=== PATIENT | female | born 1950 | race Caucasian/White ===

== ENCOUNTER → 2017-08-25 11:15 | Outpatient (CLI) | payer MEDICARE, BC, OTHER, SELFPAY ==
--- NOTE | 2017-08-25 11:22 | US_ITS ---
STUDY: THYROID ULTRASOUND REASON FOR EXAM: Female, 67 years old. Tenderness along the left side of the neck. TECHNIQUE: Ultrasound evaluation of the thyroid was performed with real-time and static dunaway-scale imaging. COMPARISON: None. FINDINGS: RIGHT LOBE: The right lobe of the thyroid gland measures 2.9 cm x 1 cm x 0.8 cm. There is a homogeneous echotexture. There are no demonstrated solid, cystic or complex lesions. LEFT LOBE: The left lobe of the thyroid gland measures 2.3 cm x 1.3 cm x 0.7 cm. There is a homogeneous echotexture. There are no demonstrated solid, cystic or complex lesions. ISTHMUS: The isthmus measures 3.0 mm. There is a 7 mm x 6 mm x 3 mm lymph node lateral to the left lobe of the thyroid. US/Thyroid IMPRESSION: Normal ultrasound examination of the thyroid. Electronically Signed: Isiah Peterson MD at 12:32 EDT Tel [phone], Service support ,
== END ==
PROVIDERS: Family Provider Internal Medicine; PCP Internal Medicine; Visit Provider Internal Medicine
DX: M54.2 Cervicalgia (principal)
CPT/HCPCS: 76536

== ENCOUNTER → 2017-10-25 08:27 | Outpatient (CLI) | payer MEDICARE, OTHER, BC, SELFPAY ==
--- NOTE | 2017-10-25 08:32 | BD_ITS ---
STUDY: DUAL ENERGY X-RAY ABSORPTIOMETRY / DXA REASON FOR EXAM: Female, 67 years old. Postmenopausal screening TECHNIQUE: Bone Mineral Density (BMD) measurements of lumbar spine and bilateral hips were obtained. COMPARISON: 2015 FINDINGS: Lumbar Spine (L1-L4): g/cm2 (0.927) / T-score (-2.0) / Z-score (-0.3) Findings are suggestive of osteopenia with a moderate fracture risk. Left Femur Total: g/cm2 (0.812) / T-score (-1.6) / Z-score (-0.1) Left Femoral Neck: g/cm2 (0.888) / T-score (-1.1) / Z-score (0.6) Right Femur Total: g/cm2 (0.760) / T-score (-2.0) / Z-score (-0.5) Right Femoral Neck: g/cm2 (0.816) / T-score (-1.6) / Z-score (0.1) The T-Scores on the most recent prior examination were: Lumbar Spine (L1-L4): There has been worsening of bone density since the previous examination. BD/Dexa Bone Density Study IMPRESSION: The patient is considered osteopenic as outlined below according to World [place] Organization (WHO) criteria with a moderate fracture risk. There has been worsening of bone density since the previous examination. Reference Information: The T-score is the number of standard deviations above or below the standard which is normal for young adults at their peak bone mineral density. The World Health Organization (WHO) interprets the T-scores as follows: Above -1 Normal bone density Between -1 and -2.5 Osteopenia Equal to / or below -2.5 Osteoporosis As a practical clinical guideline, osteopenia may be graded as follows: Mild -1 through -1.5 Moderate -1.6 through -2.0 Severe -2.1 through -2.4 The Z-score is the number of standard deviations above or below age-matched controls. A Z-score of less than -1.5 would be considered abnormal. References: 1. NIH Osteoporosis and Related Bone Diseases http://www.osteo.org 2. International Society for Clinical Densitometry http://www.iscd.org 3. National Osteoporosis Foundation http://www.nof.org Electronically Signed: Micky Sheridan MD at 9:46 EDT , Service support ,
== END ==
PROVIDERS: Family Provider Internal Medicine; PCP Internal Medicine; Visit Provider Internal Medicine
DX: Z78.0 Asymptomatic menopausal state (principal)
CPT/HCPCS: 77080

== ENCOUNTER → 2018-03-09 08:52 | Outpatient (CLI) | payer MEDICARE, BC, OTHER, SELFPAY ==
--- NOTE | 2018-03-09 08:58 | US_ITS ---
STUDY: ULTRASOUND BREAST - RIGHT REASON FOR EXAM: Female, 67 years old. Palpable lump in the right breast. TECHNIQUE: Axial and longitudinal images of the RIGHT breast were performed with a high resolution ultrasound transducer. COMPARISON: Comparison is made with prior mammogram done earlier today. FINDINGS: RIGHT Breast: Breast implant is seen. The palpable abnormality corresponds to a 1.5 cm x 0.7 cm x 0.5 cm hypoechoic nodule just superior to the breast implant. This is at the 11:00 position breast at 8 cm from nipple. A small amount of free fluid is seen adjacent to the implant. There is also evidence of a snowstorm appearance of the implant. Localized rupture should BE ruled out. US/Breast Limited Unilateral IMPRESSION: Findings suggestive of possible focal breast implant rupture at the site of the palpable abnormality. Correlation with MRI is recommended. ASSESSMENT CATEGORY: BIRADS Category 2: Benign. A letter regarding these results will be sent to the patient by the facility within 30 days. Electronically Signed: Isiah Peterson MD at 10:58 EST Tel [phone], Service support ,
--- NOTE | 2018-03-09 08:58 | BI_ITS ---
MAMMOGRAPHY - BILATERAL DIAGNOSTIC REASON FOR EXAM: Female, 67 years old. Right breast lump. Prior implants. PERTINENT HISTORY: Non-contributory. TECHNIQUE: Digital bilateral breast lucia (3D mammographic acquisition) in the CC and MLO projections. 2-D mediolateral oblique (MLO) and craniocaudad (CC) views of both breasts were obtained. CAD: Full Field Digital Mammography with Computer Added Detection was performed. COMPARISON: Comparison is made with prior study dated February 01, 2017 and January 08, 2016 FINDINGS: Breast Composition: The breasts are heterogeneously dense, which may obscure small masses. There are no dominant masses or suspicious calcifications. Stable bilateral breast implants. Small calcifications are seen along the anterior aspect of the left breast implant. No other significant abnormalities are identified. There has been no significant change since the prior study. BI/DIAG MAMM W/CAD, BILAT IMPRESSION: Stable bilateral diagnostic mammogram. With the patient's history of a palpable abnormality in the right breast, correlation with ultrasound is recommended. ASSESSMENT CATEGORY: BIRADS Category 0: Incomplete. Need additional imaging evaluation. A letter regarding these results will be sent to the patient by the facility within 30 days. Approximately 10% of breast cancers are not detected by mammography. A normal mammogram should not delay biopsy of a clinically suspicious abnormality. Electronically Signed: Isiah Peterson MD at 10:23 EST Tel [phone], Service support ,
== END ==
PROVIDERS: Family Provider Internal Medicine; PCP Internal Medicine; Referring Provider Internal Medicine; Visit Provider Internal Medicine
DX: N63.11 Unspecified lump in the right breast, upper outer quadrant (principal)
CPT/HCPCS: 76642; 77062; 77066; G0279

== ENCOUNTER → 2018-03-19 12:18 | Outpatient (CLI) | payer MEDICARE, BC, OTHER, SELFPAY ==
--- NOTE | 2018-03-19 12:46 | MRI_ITS ---
STUDY: BILATERAL BREAST MR WITHOUT AND WITH CONTRAST REASON FOR EXAM: Female, 67 years old. Lump in superior aspect of the right breast for 2 months. Evaluate for implant rupture. TECHNIQUE: Multi-sequence multi-echo imaging of both breasts was performed with a dedicated breast coil. T1-weighted and T2-weighted images were obtained without contrast. COMPARISON: Ultrasound of the right breast dated March 09, 2018. Bilateral diagnostic mammogram dated March 09, 2018. FINDINGS: There is a subglandular implants bilaterally. There are prominent folds in both implants. In the area of the ultrasonographic abnormality and the mammographic abnormality, there is a small focal area of extracapsular implant material near the 12:00 position best seen on sagittal series 7 images 7-11). This area represents a small focal area of extracapsular rupture. There are no enlarged or abnormal lymph nodes. There is no abnormality in the visualized regions of the chest or liver. MRI/Breast w/o and/or W Cont Bilat IMPRESSION: Bilateral subglandular implants with prominent folds. Small extracapsular rupture of the right implant correlating with the palpable abnormality, the mammographic abnormality and the ultrasonographic abnormality. CATEGORY: BIRADS Category 2: Benign. A letter regarding these results will be sent to the patient by the facility within 30 days. Electronically Signed: Nhan Berrios MD at 14:24 EST , Service support ,
--- OUTSIDE RECORDS SUMMARY | 2018-06-21 02:35 | XMS RPT_ITS | Continuity of Care Document ---
:1950 Author Organization [facility] Address [address] [facility] [address] [place] [address] Phone Care Team Providers Name Role Phone Talia Charles MD Unavailable Chuck Enrique Unavailable Dr. Geremias Webster Unavailable CLARENCE Grimm Unavailable Unavailable Unavailable Unavailable Problems Name Dates Details Abnormal EKG (R94.31, 794.31) Comments: t wave precordial flip off and on echo and stress 2008 good. no signs and symptoms at all ? related to lupus. Status: Active Abnormal lung function test (R94.2, 794.2) Comments: moderate will recheck no signs and symptoms recheck spriometry mild obstruction. exposed to second hand smoke. willincrease increase aerobic exercise. get some mucous think drainage. not cough up no wheeze nto sob. she wants to do the cardio first and see if the spirometry improv es i recommend CT and PFTS. she wants to wait and see. sdreen alph antitrysin Status: Active Annual Medicare Physical WITH abnormal findings (Renamed from Encounter for general adult medical examination with abnormal findings) (Z00.01, V70.0) Comments: [facility] -, AMP -17 reviewed with patient all questions. will get shingles at executive physcial scope 5-17 good. 7-15 new breast implants. mammo 11-17, BD 7-16. good hep screening Status: Active BMI 22.0-22.9, adult (Z68.22, V85.1) Status: Active Deliveries (Parity) Comments: 1 Status: Active Encounter for hepatitis C virus screening test for high risk patient (Z11.59, V73.89) Status: Active Family history of ischemic heart disease (Z82.49, V17.3) Comments: in father and his side. she is more like mother. Status: Active Genital herpes (A60.00, 054.10) Status: Active History of tobacco abuse (Z87.891, V15.82) Comments: not have 30 pack years. light. quit 9816-0022? Status: Active Hypercholesteremia (E78.00, 272.0) Comments: LDL 125 want less 100 LDL p up slight HDL P lower. exercise decrease animal fat. MPO neg ADMA slightly. add asa a day family hsitory of heart disease. add fish oil and good. senile ecchymosis so will do asa every other day talk abuot CIMT to see if CAD.BV screening neg 2016 Status: Active Hypothyroidism (E03.9, 244.9) Comments: now normal with increase dose Status: Active Lump in throat (R22.1, 784.2) Status: Active Lupus (systemic lupus erythematosus) (M32.9, 710.0) Comments: off all meds over a year an no Plaquenil with low WBC. no signs and symptoms now. saw Eloina 5-13 after biopsy back break out. nonspecific. on high dose vit B. ? now contact dermatitis more rash low wbc and dry eyes and mouth. see Dr. Norton and Renae . plaquenil helping.seen Dr. jane herrmann in past original. seen Dr. rivera once SCLE, see Dr Jhonny Macdonald crystal arthritisdry eyes, low wbc, raynaunds, skin Status: Active Neck pain (M54.2, 723.1) Comments: ? painful thyrioditis ? strain area of neck ? scrap in throat ? reflux ? stress ? PND not know. will do ibu check us over area where pain and swelling Status: Active Osteopenia (M85.80, 733.90) Comments: 6-11, 7-14, 7-16, 8-18 worsen in bone density wtih off calcium routine with starting plaquenil. so getting back on calcium routine. will do weight bearing exercise not want meds at this poitn even th ough indicated and aware could get frcture. will recheck in 2 years. mother not have it tsh and vit D good Z score good. Status: Active Postmenopausal (Renamed from Postmenopausal status) (Z78.0, V49.81) Status: Active Pregnancies () Comments: 1 Status: Active Swelling of thyroid gland (E07.9, 246.9) Status: Active Vaginal dryness (N89.8, 625.8) Comments: [facility] Estrogen cream and working well. told about gia donahue. Status: Active Well woman exam (Z01.419, V72.31) Status: Active Medications Name Dates Details CALCIUM + D, 468-199KX-TIVL (Oral Tablet) 1 QD for 0 days Refills: 0 Ordered:07-Aug-2017 Eric Luongtive Fish Oil qd Active Levothyroxine Sodium 75 MCG Oral Tablet 1 Tablet QD except 2 on Monday for 0 days Quantity: 102 {Tablet} Refills: 3 Ordered:11-Aug-2017 Araceli SUÁREZ, Talia Gusman MD Start : 11-Aug-2017 Active MULTIVITAMIN (PO Chew Tab) 1 QD Active Plaquenil 200 MG Oral Tablet 1 Tablet QD for 0 days Quantity: 30 {Tablet} Refills: 0 Ordered:17-Jan-2017 Araceli SUÁREZ, Talia Gusman MD Start : 17-Jan-2017 Active PredniSONE 10 MG Oral Tablet uad Tablet uad for 0 days Quantity: 24 {Tablet} Refills: 0 Ordered:13-Dec-2017 Destini Mcgrath DO Start : 13-Dec-2017 Active Comments:3 pills x 4 days, 2 pills x 4days, 1 pill x 4days VALTREX, 500MG (Oral Tablet) 1 Tablet qd/prn for 0 days Quantity: 90 {Tablet} Refills: 3 Ordered:28-Jul-2015 Araceli SUÁREZ, Talia Gusman MD Start : 28-Jul-2015 Active Aspirin 81 MG Oral Capsule qd (81 MG) End : 07-Aug-2017 Inactive AVELOX, 400MG (Oral Tablet) 1 Tablet qd for 0 days Quantity: 10 {Tablet} Refills: 0 Ordered:04-Jun-2008 CLARENCE Grimm End : 22-Jul-2008 Inactive DesOwen 0.05 % External Cream uad Cream bid to affected areas for 0 days Quantity: 15 {Gram} Refills: 2 Ordered:29-Apr-2016 CLARENCE Grimm Start : 04-Dec-2015 End : 29-Apr-2016 Inactive FLAGYL, 500MG (Oral Tablet) 1 Tablet bid for 0 days Quantity: 14 {Tablet} Refills: 0 Ordered:24-Sep-2012 CLARENCE Grimm Start : 09-Apr-2012 End : 24-Sep-2012 Inactive LEVAQUIN, 500MG (Oral Tablet) 1 Tablet QD 14 days for 0 days Quantity: 14 {Tablet} Refills: 0 Ordered:03-Jun-2008 Raiza Barajas LPN Start : 03-Jun-2008 End : 04-Jun-2008 Inactive PLAQUENIL, 200MG (Oral Tablet) 1 qd/prn for 0 days Refills: 0 Ordered:18-Jul-2011 CLARENCE Grimm End : 18-Jul-2011 Inactive Premarin 0.625 MG/GM Vaginal Cream uad Cream twice weekly for 0 days Quantity: 1 {Tube} Refills: 3 Ordered:23-Aug-2016 CLARENCE Grimm Start : 28-Jul-2015 End : 23-Aug-2016 Inactive PREMARIN, 0.3MG (Oral Tablet) 1 Tablet qd for 0 days Quantity: 90 {Tablet} Refills: 3 Ordered:18-Jul-2011 CLARENCE Grimm Start : 20-Aug-2010 End : 18-Jul-2011 Inactive Vagifem 10 MCG Vaginal Tablet 1 (one) Tablet Tablet twice weekly for 0 days Quantity: 8 {Tablet} Refills: 6 Ordered:17-Jan-2017 CLARENCE Grimm Start : 05-Jan-2016 End : 17-Jan-2017 Inactive ELECTRICIAN MACHINE SHOP-ZEL (Oral Tablet) 1 qd for 0 days Refills: 0 Ordered:28-Jul-2015 CLARENCE Grimm Start : 24-Sep-2012 End : 28-Jul-2015 Inactive ZOSTAVAX, 21504CPS/0.65ML (Subcutaneous Solution Reconstituted) uad For Solution For Solution once SC for 0 days Quantity: 1 {Vial} Refills: 0 Ordered:28-Jul-2015 CLRAENCE Grimm Start : 01-Aug-2013 End : 28-Jul-2015 Inactive HYDROXYCHLOROQUINE SULFATE, 200MG (Oral Tablet) 1 Tablet QD for 0 days Quantity: 90 {Tablet} Refills: 3 Ordered:04-Jul-2007 CLARENCE Grimm Start : 04-Jul-2007 End : 02-Aug-2007 Discontinued SYNTHROID, 75MCG (Oral Tablet) 1 Tablet qd for 0 days Quantity: 30 {Tablet} Refills: 3 Ordered:12-Feb-2006 CLARENCE Grimm Start : 12-Feb-2006 End : 11-May-2006 Discontinued Allergies and Adverse Reactions Name Dates Details Penicillins (Allergy) Status: Active Comments: rash Sulfa Drugs (Allergy) Status: Active Past Medical History Name Dates Details Abnormal mammogram (R92.8, 793.80) Status: Inactive as of 01-Aug-2013 Abnormal ultrasound of breast (R92.8, 793.89) Comments: r/o walled rupture vs tumor Status: Inactive as of 28-Jul-2015 Bloody stool (K92.1, 578.1) Comments: saw Dr. enrique and will have scope 08-17 right now not had any knows that if alot bleeding return then have to scope sooner. colonscopyu good 08-17 Status: Resolved as of 23-Aug-2016 BMI 21.0-21.9, adult (Z68.21, V85.1) Status: Resolved as of 25-Aug-2017 BMI between 19-24,adult (V85.1) Status: Inactive as of 29-Apr-2016 Body mass index (BMI) of 22.0 to 22.9 in adult (Z68.22, V85.1) Status: Resolved as of 17-Jan-2017 Breast cancer screening (Z12.39, V76.10) Status: Resolved as of 07-Aug-2017 Breast Lump (N63.0, 611.72) Comments: ? from breast cyst ? lipoma tender new on right outer quadrant. do us Status: Inactive as of 28-Jul-2015 Bronchitis (J40, 490) Status: Inactive as of 08-Aug-2008 Bronchitis, acute (J20.9, 466.0) Comments: think viral and willl callif not juan diego rin a week adn use otc,. Status: Inactive as of 29-Apr-2016 Current nonsmoker (Z78.9, V49.89) Status: Resolved as of 25-Aug-2017 Dermatitis (L30.9, 692.9) Status: Inactive as of 28-Jul-2009 Dyspareunia (625.0) Comments: using estrogen cream and will see how works. Status: Inactive as of 28-Jul-2015 Encounter for screening mammogram for breast cancer (Renamed from Encounter for screening mammogram for malignant neoplasm of breast) (Z12.31, V76.12) Status: Inactive as of 29-Apr-2016 ERYTHEMATOSUS, LUPUS (695.4) Status: Inactive as of 01-Aug-2013 Hematuria, unspecified (R31.9, 599.70) Status: Inactive as of 06-Apr-2012 Leukopenia (D72.819, 288.50) Status: Inactive as of 28-Jul-2015 Need for prophylactic vaccination and inoculation against influenza (Renamed from Need for immunization against influenza) (Z23, V04.81) Status: Resolved as of 07-Aug-2017 Need for prophylactic vaccination and inoculation against influenza (Renamed from Need for immunization against influenza) (Z23, V04.81) Status: Inactive as of 29-Apr-2016 Other and unspecified noninfectious gastroenteritis and colitis (K52.9, 558.9) Comments: Status: Inactive as of 08-Aug-2008 Other chronic nonalcoholic liver disease (K76.89, 571.8) Status: Inactive as of 01-Aug-2013 Other specified menopausal and postmenopausal disorders (N95.8, 627.8) Status: Inactive as of 01-Aug-2013 Palpitation (R00.2, 785.1) Comments: better think stress related. Status: Inactive as of 28-Jul-2015 Poison dwayne (L23.7, 692.6) Status: Inactive as of 29-Apr-2016 Pre-operative examination (Z01.818, V72.84) Comments: no issue with surgery aware to concel if she has illness or infection signs and symptoms prior. usual DVT proph recommended. willhave breast implants changes with one leaking. Status: Inactive as of 29-Apr-2016 Rash (R21, 782.1) Comments: trunk and arms. using steriod creams. see Dr. norton now. Status: Inactive as of 29-Apr-2016 SOB (shortness of breath) on exertion (R06.02, 786.05) Comments: now think anxiety. goo dnow. Status: Resolved as of 29-Apr-2016 Unspecified Diagnosis Status: Inactive as of 28-Jul-2009 Unspecified Diagnosis Status: Inactive as of 28-Jul-2015 Unspecified Diagnosis Status: Inactive as of 24-Sep-2012 Vaginal Discharge (N89.8, 623.5) Status: Inactive as of 24-Sep-2012 Viral infection (B34.9, 079.99) Comments: no edgardo for atb at this time. Status: Inactive as of 29-Apr-2016 VRCS VEIN, LWR EXTREMITIES W/COMPLICTN NOS (454.8) Status: Inactive as of 01-Aug-2013 WWV Comments: awhile for pap Status: Inactive as of 28-Jul-2009 Procedures Procedure Dates Details Breast implants Completed Comments: in her 30's cholecytectomy in early 1999 Completed Colonoscopy Completed Comments: 08-01-16 Dr. Enrique (recheck 10 yrs) Hysterectomy; Abdominal Completed Comments: No BSO for fibroids at 38 yo Date Value Details 25-Oct-2017 Dexa Bone Density Study Result: Comments: See Note; NOTES: [facility] Imaging Services [address] [place] [id number] Dexa Bone Density Study MR#: [id number] Acct: [id number] Name: SHANITA MONTIEL Rep #: [id number] : 1950 F 67 From: Kar Sheridan MD PCP: Talia Charles MD Status: REG CLI Study: Dexa Bone Density Study Date of Exam: 10/25/17 Exam# [id number] Ordering Dr: Talia Charles MD STUDY: DUAL ENER GY X-RAY ABSORPTIOMETRY / DXA REASON FOR EXAM: Female, 67 years old. Postmenopausal screening TECHNIQUE: Bone Mineral Density (BMD) measurements of lumbar spine and bilateral hips were obtained. COMP [facility]: 2016 FINDINGS: Lumbar Spine (L1- L4): g/cm2 (0.927) / T-score (-2.0) / Z-score (-0.3) Findings are suggestive of osteopenia with a moderate fracture risk. L eft Femur Total: g/cm2 (0.812) / T-score (-1.6) / Z-score (-0.1) Left Femoral Neck: g/cm2 (0.888) / T-score (-1.1) / Z-score (0.6) Right Femur Total: g/cm2 (0.760) / T-score (-2.0) / Z-score (-0.5) Righ t Femoral Neck: g/cm2 (0.816) / T-score (-1.6) / Z-score (0.1) The T-Scores on the most recent prior examination were: Lumbar Spine (L1-L4): There has been worsening of bone density since the previous examination. BD/Dexa Bone Density Study IMPRESSION: The patient is considered osteopenic as outlined below according to World Maycol Organizatio n (WHO) criteria with a moderate fracture risk. There has been worsening of bone density since the previous examination. Reference Information: The T-score is the n umber of standard deviations above or below the standard which is normal for young adults at their peak bone mineral density. The World Health Organization (WHO) interprets the T-scores as follows: Abo ve -1 Normal bone density Between -1 and -2.5 Osteopenia Equal to / or below - 2.5 Osteoporosis As a practical clinical guideline, osteopenia may be graded as follows: Mild -1 through -1.5 Moderate -1.6 through -2.0 Severe -2.1 through -2.4 The Z-score is the number of standard deviations above or below age-matched controls. A Z-score of less than -1.5 would be considered abnormal. References: 1. NI H Osteoporosis and Related Bone Diseases http://www.osteo.org 2. International Society for Clinical Densitometry http://www.iscd.org 3. National Osteoporosis Foundation http://www.nof.org Electronicall y Signed: Micky Sheridan MD at 9:46 EDT , Service support , CC: Talia Charles MD Cable Maintainer: Signed 25-Aug-2017 Thyroid Result: Comments: See Note; NOTES: [facility] Imaging Services [address] [place] [address] Thyroid MR#: [id number] Acct: [id number] Name: SHANITA MONTIEL Rep #: [id number] : [birth year] F 67 From: Isiah Sanchez MD PCP: Talia Charles MD Status: REG CLI Study: Thyroid Date of Exam: 08/25/17 Exam# [id number] Ordering Dr: Talia Charles MD STUDY: THYROID ULTRASOUND REASON FOR EXA M: Female, 67 years old. Tenderness along the left side of the neck. TECHNIQUE: Ultrasound evaluation of the thyroid was performed with real-time and static dunaway-scale imaging. COMPARISON: None. FINDINGS: RIGHT LOBE: The right lobe of the thyroid gland measures 2.9 cm x 1 cm x 0.8 cm. There is a homogeneous echotexture. There are no demonstrated solid, cystic or complex lesions. LEFT LOBE: The left lobe of the thyroid gland measures 2.3 cm x 1.3 cm x 0.7 cm. There is a homogeneous echotexture. There are no demonstrated solid, cystic or complex lesions. ISTHM US: The isthmus measures 3.0 mm. There is a 7 mm x 6 mm x 3 mm lymph node lateral to the left lobe of the thyroid. US/Thyroid IMPRESSION: Irasema l ultrasound examination of the thyroid. Electronically Signed: Isiah Sanchez MD at 12:32 EDT Tel [phone], Service support , CC: Talia Charles MD Cable Maintainer: Signed 01-Feb-2017 SCREENING MAMM (CAD), BILAT Result: Comments: See Note; NOTES: [facility] Imaging Services [address] [place] [address] SCREENING MAMM (CAD), BILAT MR#: [id number] Acct: [id number] Name: SHANITA MONTIEL Rep #: [id number] : 1950 F 66 From: Isiah Sanchez MD PCP: Talia Charles MD Status: REG CLI Study: SCREENING MAMM (CAD), BILAT Date of Exam: 02/01/17 Exam# [id number] Ordering Dr: Talia Charles MD AMMOGRAPHY - BILATERAL SCREENING REASON FOR EXAM: Female, 66 years old. Routine annual screening examination. PERTINENT HISTORY: Non-contributory. History of bilateral breast implants. TECHNIQUE: Dig ital bilateral breast lucia (3D mammographic acquisition) in the CC and MLO projections. 2-D mediolateral oblique (MLO) and craniocaudad (CC) views of both breasts were obtained. CAD: Full Field Digital Mammography with Computer Added Detection was performed. COMPARISON: Comparison is made with prior study dated January 08, 2016 and July 23, 2014. FINDINGS: Breast Composition: The breasts are heterogeneously dense, which may obscure small masses. There are no dominant masses or suspicious calcifications. Stable appearance of the bilateral breast implants. No ot her significant abnormalities are identified. There has been no significant change since the prior study. HPBI/SCREENING MAMM (CAD), BILAT IMPRES GLORIA: Stable bilateral screening mammogram. Yearly follow-up mammogram recommended. (A) ASSESSMENT CATEGORY: BIRADS Category 2: Benign. A letter regarding these res ults will be sent to the patient by the facility within 30 days. Approximately 10% of breast cancers are not detected by mammography. A normal mammogram should not delay biopsy of a clinically suspicio us abnormality. [id number] Electronically Signed: Isiah Sanchez MD at 9:34 EDT Tel [phone], Service support , CC: Talia Charles MD Cable Maintainer: Signed 05-Feb-2016 Nuclear Stress Test - Treadmil Result: Comments: See Note; NOTES: [facility] Imaging Services [address] [place] [address] Fani 4d Nuclear Stress Test - Treadmil MR#: [id number] Acct: [id number] Name: Sean MONTIEL Rep #: [id number] : 1950 65 From: Juan Antonio Rubi MD Primary Care: Talia Charles MD Status: REG CLI Ordering Dr: Talia Charles MD Sex: F C DATE OF SERVICE: 02/05/2016 DATE OF STUDY: N ov2015. EXERCISE TOLERANCE TEST: The patient exercised on a Francisco protocol for 9 minutes 45 seconds completing stage 3 and 45 seconds of stage 4, achieving a peak heart rate of 169 beats per minute (110% predicted maximum heart rate) with a peak blood pressure of 190/82 mmHg and a peak MET capacity of approximately 11 METS. The baseline ECG demonstrated normal sinus rhythm with nonspecific ST-segment abnormality. The peak exercise ECG demonstrated significant somatic/motion artifact with no obvious ECG changes with the recovery ECG demonstrating approximately 0.[address]-seg ment depression in leads II, III, aVF and associated T-wave abnormality with gradual resolution towards baseline in recovery. There was a rare PVC during recovery. The functional capacity was good. T he patient had no complaint of chest discomfort during exercise or recovery. The examination was discontinued secondary to dyspnea. IMPRESSION: 1. Technically adequate (percent predicted maximum heart rate greater than 85%), exercise tolerance test. 2. Peak exercise ECG with somatic/motion artifact with no obvious ECG changes with the recovery ECG demonstrated approximately 0.[address]- segment depression in leads II, III, aVF with associated T-wave abnormality with gradual resolution towards baseline in recovery. 3. Rare PVC during recovery. 4. Nuclear images pending. COMMENT: Heart rate response compatible with a deconditioned heart rate response. MYOCARDIAL PERFUSION IMAGING STUDY: TECHNIQUE: The patient was injected with 11.0 mCi of Tc99m Cardiolite and subsequently rest SPECT Cardiolite nuclear imaging was obtained in the horizontal long, vertical long and short axes views. The patient underwent exercise on a Francisco protocol for 9 minutes 45 seconds completing stage 3 and 45 seconds of stage 4, achieving a peak heart rate of 169 beats per minute (110% predicted maximum heart rate) and a peak blood pressure of 190/82 mmHg and a peak MET capacity of approximately 11 METS. Th e patient was injected with 33.0 mCi of Tc99m Cardiolite and subsequently stress SPECT Cardiolite nuclear imaging was obtained in the horizontal long, vertical long and short axes views. A gated Cardiol ite study at peak stress was obtained. INTERPRETATION: Rest and stress SPECT Cardiolite nuclear imaging, status post realignment, normalization, pre- attenuation correction, and post-attenuation correct ion demonstrates the appearance of relative uniform tracer uptake and myocardial perfusion appearing within normal limits. There was end systolic thickening and brightening. The gated Cardiolite study d emonstrates myocardial thickening and inward wall motion. The reported LVEF is 72%. IMPRESSION: 1. Rest and stress SPECT Cardiolite nuclear imaging demonstrates the appearance of relative uniform trace r uptake and myocardial perfusion appearing within normal limits. 2. The gated Cardiolite study reports an LVEF of 72%. Juan Antonio Rubi MD T: NTS JOB: [id number] 02/05/16 1525 <Electronically signed by Juan Antonio Rubi MD> Date Juan Antonio Rubi MD CC: Talia Charles MD Date Dictated: 02/05/16 1008 Date Transcribed: 02/05/16 1008 Cable Maintainer: Signed 08-Jan-2016 Bilat Scrn Implant DIG AND CAD Result: Comments: See Note; NOTES: [facility] Imaging Services [address] [place] [address] Verdana 4d Bilat Scrn Implant DIG AND CAD MR#: [id number] Acct: [id number] Name: JODY MONTIEL Rep #: [id number] : 1950 F 65 From: Isiah Sanchez MD PCP: Talia Charles MD Status: REG CLI Study: Bilat Scrn Implant DIG AND CAD Date of Exam: 01/08/16 Exam# [id number] Ordering Dr: Talia Stapleton MD MAMMOGRAPHY - BILATERAL SCREENING REASON FOR EXAM: Female, 65 years old. Routine annual screening examination. PERTINENT HISTORY: Non- contributory. Bilateral breast implants. TECHNI QUE: Digital bilateral breast lucia (3D mammographic acquisition) in the CC and MLO projections. 2-D mediolateral oblique (MLO) and craniocaudad (CC) views of both breasts were obtained. CAD: Full Field Digital Mammography with Computer Added Detection was performed. COMPARISON: Comparison is made with prior study dated July 30, 2014 and July 23, 2014. FINDINGS: Breast Composition: The breasts are heterogeneously dense, which may obscure small masses. There are no dominant masses or suspicious calcifications. Since prior study, there has been insertion of new bilateral breast implants. No other significant abnormalities are identified. HPBI/Bilat Scrn Implant DIG AND CAD IMPRESSION: Stable bilateral screening mammogram. Yearly follow-up mammogram recommended. (A) ASSESSMENT CATEGORY: BIRADS Category 2: Benign. A letter regarding these results will be sent to e patient by the facility within 30 days. Approximately 10% of breast cancers are not detected by mammography. A normal mammogram should not delay biopsy of a clinically suspicious abnormality. [id number] Electronically Signed: Isiah Sanchez MD at 10:03 EDT Tel [phone], Service support [phone], CC: Talia Charles MD Cable Maintainer: Signed 21-Oct-2015 Dexa Bone Density Study (HP) Result: Comments: See Note; NOTES: [facility] Imaging Services [address] [place] [address] Verdana 4d Dexa Bone Density Study () MR#: [id number] Acct: [id number] Name : SHANITA MONTIEL Rep #: [id number] : 1950 F 65 From: Isiah Sanchez MD PCP: Talia Charles MD Status: REG CLI Study: Dexa Bone Density Study () Date of Exam: 10/21/15 Exam# [id number] Mabel du Dr: Talia Charles MD STUDY: DUAL ENERGY X-RAY ABSORPTIOMETRY / DXA REASON FOR EXAM: Female, 65 years old. Early menopause. Loss of height. TECHNIQUE: Bone Mineral Density (BMD) measurement s of lumbar spine and bilateral hips were obtained. COMPARISON: Comparison is made with prior study dated September 21, 2010. FINDINGS: Lumbar Spine (L1-L4): g/cm2 (1.002) / T-score (-1.4) / Z-score (0.2) Findings are suggestive of osteopenia with a moderate fracture risk. Left Femur Total: g/cm2 (0.835) / T-score (- 1.4) / Z-score (-0.1) Left Femoral Neck: g/ cm2 (0.896) / T-score (-1.0) / Z-score (0.5) Right Femur Total: g/cm2 (0.783) / T-score (-1.8) / Z-score (-0.5) Right Femoral Neck: g/cm2 (0.845) / T-score (-1.4) / Z-score (0.2) The T-Scores on the most recent prior examination were: Lumbar Spine (L1-L4): There has been worsening of bone density since the previous examination. Left Femur Total: which represents a worsening of 7.7%. Right Fe mur Total: which represents a worsening of 17.2%. IMPRESSION: The patient is considered osteopenic as outlined below according to World Maycol Organization (WHO) criteria with a moderate fracture risk. There has been worsening of bone density since the previous examination. Reference Information: The T-score is the numbe r of standard deviations above or below the standard which is normal for young adults at their peak bone mineral density. The World Health Organization (WHO) interprets the T-scores as follows: Abo ve -1 Normal bone density Between -1 and -2.5 Osteopenia Equal to / or below -2.5 Osteoporosis As a practical clinical guideline, osteopenia may be graded as follows: Mild -1 through -1.5 Moderate -1.6 through -2.0 Severe -2.1 through -2.4 The Z-score is the number of standard deviations above or below age-matched controls. A Z-score of less than -1.5 would be considered abnormal. Referenc es: 1. NIH Osteoporosis and Related Bone Diseases http://www.osteo.org 2. International Society for Clinical Densitometry http://www.iscd.org 3. National Osteoporosis Foundation http://www.nof.org Electronically Signed: Isiah Sanchez MD at 12:45 EDT Tel [phone], Service support [phone], CC: Talia Charles MD Cable Maintainer: Signed 30-Jul-2014 Breast w/o and/or W Cont Bilat Result: Comments: See Note; NOTES: [facility] Imaging Services [address] [place] [address] MRI Report MR#: [id number] Acct: [id number] Name: SHANITA MONTIEL Rep #: [id number] DO B: 1950 F 64 From: Nhan Berrios MD PCP: Talia Charles MD Status: REG CLI Study: Breast w/o and/or W Cont Bilat Date of Exam: 07/30/14 Exam# [id number] Ordering Dr: Talia Charles MD STUDY: LALA ATERAL BREAST MR WITHOUT AND WITH CONTRAST REASON FOR EXAM: Female, 64 years old. Palpable lump in the right outer breast. History of implant placement in 1980. TECHNIQUE: Multi-sequence multi-echo imaging of both breasts was performed with a dedicated breast coil. T1-weighted and T2-weighted images were performed before the administration of contrast. T1-weighted images were also performed af ter the administration of 6 mL of Gadavist contrast intravenously without complications. COMPARISON: Bilateral diagnostic mammography and ultrasound dated July 23, 2014. FINDINGS: RIGHT BREAST: The breast tissue is fatty with no background enhancement. There is a subglandular silicone breast implant without complications. In the lower outer aspect of the right breast correlating with the ultrasound finding there is a circumscribed lobular enhancing mass measuring approximately 2 cm x 1.2 cm. This mass is adjacent to and separate from the implant. Given the patient's age and the appearance of this mass, ultrasound-guided biopsy or excision of this lesion is recommended for histologic confirmation. There are multiple non-pathologically enlarg ed lymph nodes in the right axilla. LEFT BREAST: The breast tissue is fatty with no background enhancement. There is a subglandular silicone implant without complications. There are no abnormal enhancing masses or areas of non-mass enhancement in the left breast. There are no enlarged or abnormal lymph nodes. There is no abnormality in the visualized regions of the chest or liver. IMPRESSION: Lobular enhancing mass in the region of the ultrasound abnormality. Ultrasound-guided biopsy or excision of the lesion is recommended for histologic confirm ation, as outlined above. CATEGORY: BIRADS Category 4: Suspicious - Biopsy Should Be Considered. A letter regarding these results will be sent to the patient by the facility within 30 days. Electronically Signed: Nhan Berrios MD at 15:53 EDT , Service support [phone], CC: Talia Charles MD Cable Maintainer: Signed 23-Jul-2014 Breast Limited Unilateral Result: Comments: See Note; NOTES: [facility] Imaging Services [address] [place] [address] Ultrasound Report MR#: [id number] Acct: [id number] Name: SHANITA MONTIEL Rep #: [id number] : 1950 F 63 From: Isiah Sanchez MD PCP: Talia Charles MD Status: REG CLI Study: Breast Limited Unilateral Date of Exam: 07/23/14 Exam# [id number] Ordering Dr: Talia Charles MD S TUDY: ULTRASOUND BREAST - RIGHT REASON FOR EXAM: Female, 63 years old. Palpable lump in the right breast. TECHNIQUE: Axial and longitudinal images of the RIGHT breast were performed with a high re solution ultrasound transducer. COMPARISON: Comparison is made with the mammogram done earlier in the day. FINDINGS: RIGHT Breast: Targeted ultrasound in the lower lateral portion of the breast was performed. At the 8:30 position of the breast at 7 cm from the nipple, there is a 2.1 cm x 1.2 cm area of snowstorm artifact adjacent to the implant. An impla nt leak should be ruled out. IMPRESSION: The palpable abnormality at the 8:30 position of the breast 7 cm from the nipple may represent an implant leak. Correlat ion with an MRI scan is recommended. ASSESSMENT CATEGORY: BIRADS Category 0: Incomplete. Need additional imaging evaluation. A letter regarding these results wi ll be sent to the patient by the facility within 30 days. Electronically Signed: Isiah Sanchez MD at 16:02 EDT Tel [phone], Service support [phone], CC: Talia Charles MD Cable Maintainer: Signed 23-Jul-2014 Bilat Diag Implant DIG AND CAD Result: Comments: See Note; NOTES: [facility] Imaging Services [address] [place] [address] Breast Imaging Report MR#: [id number] Acct: [id number] Name: SHANITA MONTIEL Rep #: [id number] : 1950 F 63 From: Isiah Sanchez MD PCP: Talia Charles MD Status: REG CLI Study: Bilat Diag Implant DIG AND CAD Date of Exam: 07/23/14 Exam# [id number] Ordering Dr: Talia Charles MD MAMMOGRAPHY - BILATERAL DIAGNOSTIC REASON FOR EXAM: Female, 63 years old. Right breast lump. PERTINENT HISTORY: Non-contributory. Bilateral breast prostheses. TECHNIQUE: Digital examinatio n. Mediolateral oblique (MLO) and craniocaudad (CC) views of both breasts were obtained. CAD: CAD was performed on this study. COMPARISON: Comparison is made with prior study dated September 21, 2010 and September 09, 2008. FINDINGS: Breast Composition: There are scattered areas of fibroglandular density. There are no dominant masses or suspicious calcifications. Bi lateral breast prosthesis are seen. These are unchanged. No other significant abnormalities are identified. There has been no significant change since the prior study. IMPRESSION: Stable bilateral diagnostic mammogram. With the patient's history of a palpable abnormality in the right breast, correlation with breast ultrasound is recommended. ASSESSMENT CATEGORY: BIRADS Category 0: Incomplete. Need additional imaging evaluation. A letter regarding these results will be sent to the patient by the facility within 3 0 days. Approximately 10% of breast cancers are not detected by mammography. A normal mammogram should not delay biopsy of a clinically suspicious abnormality. Electronically Signed: Isiah burrows MD at 8:05 EDT Tel [phone], Service support [phone], CC: Talia Charles MD Cable Maintainer: Signed Immunization Name Dates Details Pneumococcal conjugate vaccine, 13 valent, IM on: 2015 Comments: [facility] Zoster (shingles) on: 2014 Comments: [facility]les Family History Unknown Family Member Name Dates Details Brother 1 Comments: [place] 58 yo, hypercholesterolemia Status: Active Brother 2 Comments: Arya Carranza started CAD/stents 65 yo, hypercholesterolemia Status: Active Father Comments: DKA, CHF in 50's, DMII, Status: Active Maternal Grandmother Comments: Alzheimers Status: Active maternal uncle- Comments: Alzheimers Status: Active Mother Comments: HTN, 90's Status: Active paternal aunt breast cancer Status: Active Sister 1 Comments: HTN, osteoporosis, stent placement CAD Status: Active Sister 2 Comments: younger sister, HTN, hyperlipidemia Status: Active Son 1 Comments: healthy Status: Active Social History Name Dates Details Alcohol Use Comments: 2-4 drinks a week Status: Active Exercise History Comments: walk alot and very active. Status: Active Living Situation Comments: Lives with spouse, , [employer] important Status: Active No Caffeine Use Status: Active No Drug Use Status: Active Non Smoker/No Tobacco Use Status: Active Tobacco use: Former smoker. Status: Active Smoking Status Name Dates Details Former smoker Vital Signs Date Test Result Details :49 Temperature 99 f Comments: Method: Oral Pulse 64 /min Comments: Pattern: Regular Respiration Rate 18 /min O2 SAT 97 % Comments: Room air BP Systolic 128 mm[Hg] Comments: Patient Position: Sitting BP Diastolic 80 mm[Hg] Comments: Patient Position: Sitting Weight 120 lb [id number]:27 Temperature 97.9 f Comments: Method: Temporal Pulse 74 /min Comments: Pattern: Regular Respiration Rate 20 /min Comments: Pattern: Unlabored O2 SAT 98 % Comments: Room air BP Systolic 122 mm[Hg] Comments: Patient Position: Sitting; Cuff Location: Left Arm; Cuff Size: Standard BP Diastolic 70 mm[Hg] Comments: Patient Position: Sitting; Cuff Location: Left Arm; Cuff Size: Standard Weight 129 lb Height 63.8 in Body Mass Index Calculated 22.28 kg/m2 Body Surface Area Calculated 1.62 m2 :02 Temperature 96.8 f Comments: Method: Temporal Pulse 63 /min Comments: Pattern: Regular Respiration Rate 16 /min Comments: Pattern: Unlabored O2 SAT 97 % Comments: Room air BP Systolic 132 mm[Hg] Comments: Patient Position: Sitting; Cuff Location: Left Arm; Cuff Size: Standard BP Diastolic 70 mm[Hg] Comments: Patient Position: Sitting; Cuff Location: Left Arm; Cuff Size: Standard Weight 129 lb Height 63.8 in Body Mass Index Calculated 22.28 kg/m2 Body Surface Area Calculated 1.62 m2 :59 Temperature 97.6 f Comments: Method: Temporal Pulse 70 /min Comments: Pattern: Regular Respiration Rate 18 /min Comments: Pattern: Unlabored O2 SAT 97 % Comments: Room air BP Systolic 120 mm[Hg] Comments: Patient Position: Sitting; Cuff Location: Left Arm; Cuff Size: Standard BP Diastolic 70 mm[Hg] Comments: Patient Position: Sitting; Cuff Location: Left Arm; Cuff Size: Standard Weight 127 lb Height 63.8 in Body Mass Index Calculated 21.94 kg/m2 Body Surface Area Calculated 1.61 m2 :44 Temperature 97 f Comments: Method: Temporal Pulse 68 /min Comments: Pattern: Regular Respiration Rate 20 /min Comments: Pattern: Unlabored O2 SAT 99 % Comments: Room air BP Systolic 114 mm[Hg] Comments: Patient Position: Sitting; Cuff Location: Left Arm; Cuff Size: Standard BP Diastolic 74 mm[Hg] Comments: Patient Position: Sitting; Cuff Location: Left Arm; Cuff Size: Standard Weight 128 lb Height 63 in Body Mass Index Calculated 22.67 kg/m2 Body Surface Area Calculated 1.6 m2 :59 Temperature 97.6 f Comments: Method: Temporal Pulse 74 /min Comments: Pattern: Regular Respiration Rate 20 /min Comments: Pattern: Unlabored O2 SAT 98 % Comments: Room air BP Systolic 120 mm[Hg] Comments: Patient Position: Sitting; Cuff Location: Left Arm; Cuff Size: Standard BP Diastolic 78 mm[Hg] Comments: Patient Position: Sitting; Cuff Location: Left Arm; Cuff Size: Standard Weight 127 lb Height 63 in Body Mass Index Calculated 22.5 kg/m2 Body Surface Area Calculated 1.59 m2 :46 Temperature 97.6 f Comments: Method: Temporal Pulse 74 /min Comments: Pattern: Regular Respiration Rate 18 /min Comments: Pattern: Unlabored O2 SAT 98 % Comments: Room air BP Systolic 120 mm[Hg] Comments: Patient Position: Sitting; Cuff Location: Left Arm; Cuff Size: Standard BP Diastolic 78 mm[Hg] Comments: Patient Position: Sitting; Cuff Location: Left Arm; Cuff Size: Standard Weight 124 lb Height 63 in Body Mass Index Calculated 21.97 kg/m2 Body Surface Area Calculated 1.58 m2 :59 Temperature 97.4 f Comments: Method: Temporal Pulse 72 /min Comments: Pattern: Regular Respiration Rate 20 /min Comments: Pattern: Unlabored O2 SAT 98 % Comments: Room air BP Systolic 114 mm[Hg] Comments: Patient Position: Sitting; Cuff Location: Left Arm; Cuff Size: Standard BP Diastolic 74 mm[Hg] Comments: Patient Position: Sitting; Cuff Location: Left Arm; Cuff Size: Standard Weight 124 lb Height 63 in Body Mass Index Calculated 21.97 kg/m2 Body Surface Area Calculated 1.58 m2 :06 Temperature 98 f Pulse 59 /min Comments: Pattern: Regular Respiration Rate 15 /min Comments: Pattern: Unlabored O2 SAT 99 % Comments: Room air BP Systolic 112 mm[Hg] Comments: Patient Position: Sitting; Cuff Location: Left Arm; Cuff Size: Standard BP Diastolic 62 mm[Hg] Comments: Patient Position: Sitting; Cuff Location: Left Arm; Cuff Size: Standard Weight 128 lb Height 63 in Body Mass Index Calculated 22.67 kg/m2 Body Surface Area Calculated 1.6 m2 :54 Temperature 97.6 f Comments: Method: Temporal Pulse 78 /min Comments: Pattern: Regular Respiration Rate 20 /min Comments: Pattern: Unlabored O2 SAT 97 % Comments: Room air BP Systolic 120 mm[Hg] Comments: Patient Position: Sitting; Cuff Location: Left Arm; Cuff Size: Standard BP Diastolic 80 mm[Hg] Comments: Patient Position: Sitting; Cuff Location: Left Arm; Cuff Size: Standard Weight 127 lb Height 63 in Body Mass Index Calculated 22.5 kg/m2 Body Surface Area Calculated 1.59 m2 :06 Comments: Patient states she was rushing this am and thought her bp would be elevated Temperature 97.3 f Comments: Method: Temporal Pulse 68 /min Comments: Pattern: Regular Respiration Rate 16 /min Comments: Pattern: Unlabored O2 SAT 96 % Comments: Room air BP Systolic 126 mm[Hg] Comments: Patient Position: Sitting; Cuff Location: Left Arm; Cuff Size: Standard BP Diastolic 76 mm[Hg] Comments: Patient Position: Sitting; Cuff Location: Left Arm; Cuff Size: Standard Weight 127 lb Height 63 in Body Mass Index Calculated 22.5 kg/m2 Body Surface Area Calculated 1.59 m2 :27 Pulse 68 /min Comments: Pattern: Regular Respiration Rate 18 /min Comments: Pattern: Unlabored O2 SAT 98 % Comments: Room air BP Systolic 122 mm[Hg] Comments: Patient Position: Sitting; Cuff Location: Left Arm; Cuff Size: Standard BP Diastolic 70 mm[Hg] Comments: Patient Position: Sitting; Cuff Location: Left Arm; Cuff Size: Standard Weight 127 lb Height 63 in Body Mass Index Calculated 22.5 kg/m2 Body Surface Area Calculated 1.59 m2 :09 Weight 123 lb Height 63 in Body Mass Index Calculated 21.79 kg/m2 Body Surface Area Calculated 1.57 m2 :07 Temperature 97.9 f Comments: Method: Oral Pulse 64 /min Comments: Pattern: Regular Respiration Rate 18 /min Comments: Pattern: Unlabored BP Systolic 112 mm[Hg] Comments: Patient Position: Sitting; Cuff Location: Left Arm; Cuff Size: Standard BP Diastolic 70 mm[Hg] Comments: Patient Position: Sitting; Cuff Location: Left Arm; Cuff Size: Standard Weight 123 lb Height 63 in Body Mass Index Calculated 21.79 kg/m2 Body Surface Area Calculated 1.57 m2 :05 Temperature 97.6 f Comments: Method: Oral Pulse 62 /min Comments: Pattern: Regular Respiration Rate 18 /min Comments: Pattern: Unlabored BP Systolic 114 mm[Hg] Comments: Patient Position: Sitting; Cuff Location: Left Arm; Cuff Size: Standard BP Diastolic 74 mm[Hg] Comments: Patient Position: Sitting; Cuff Location: Left Arm; Cuff Size: Standard Weight 123 lb Height 63 in Body Mass Index Calculated 21.79 kg/m2 Body Surface Area Calculated 1.57 m2 :28 Temperature 97.9 f Comments: Method: Oral Pulse 70 /min Comments: Pattern: Regular Respiration Rate 18 /min Comments: Pattern: Unlabored BP Systolic 116 mm[Hg] Comments: Patient Position: Sitting; Cuff Location: Left Arm; Cuff Size: Standard BP Diastolic 74 mm[Hg] Comments: Patient Position: Sitting; Cuff Location: Left Arm; Cuff Size: Standard Weight 124 lb Height 63 in Body Mass Index Calculated 21.97 kg/m2 Body Surface Area Calculated 1.58 m2 :09 Temperature 98 f Comments: Method: Oral Pulse 74 /min Comments: Pattern: Regular Respiration Rate 18 /min Comments: Pattern: Unlabored BP Systolic 124 mm[Hg] Comments: Patient Position: Sitting; Cuff Location: Left Arm; Cuff Size: Standard BP Diastolic 82 mm[Hg] Comments: Patient Position: Sitting; Cuff Location: Left Arm; Cuff Size: Standard Weight 123 lb Height 63 in Body Mass Index Calculated 21.79 kg/m2 Body Surface Area Calculated 1.57 m2 :10 Temperature 97.8 f Comments: Method: Oral Pulse 68 /min Comments: Pattern: Regular Respiration Rate 18 /min Comments: Pattern: Unlabored BP Systolic 120 mm[Hg] Comments: Patient Position: Sitting; Cuff Location: Left Arm; Cuff Size: Standard BP Diastolic 80 mm[Hg] Comments: Patient Position: Sitting; Cuff Location: Left Arm; Cuff Size: Standard Weight 127 lb Height 63 in Body Mass Index Calculated 22.5 kg/m2 Body Surface Area Calculated 1.59 m2 :03 Temperature 97.6 f Comments: Method: Oral Pulse 68 /min Comments: Pattern: Regular Respiration Rate 18 /min Comments: Pattern: Unlabored BP Systolic 116 mm[Hg] Comments: Patient Position: Sitting; Cuff Location: Left Arm; Cuff Size: Standard BP Diastolic 78 mm[Hg] Comments: Patient Position: Sitting; Cuff Location: Left Arm; Cuff Size: Standard Weight 133 lb Height 63 in Body Mass Index Calculated 23.56 kg/m2 Body Surface Area Calculated 1.63 m2 :13 Pulse 68 /min Comments: Pattern: Regular Respiration Rate 18 /min Comments: Pattern: Unlabored BP Systolic 118 mm[Hg] Comments: Patient Position: Sitting; Cuff Location: Left Arm; Cuff Size: Standard BP Diastolic 74 mm[Hg] Comments: Patient Position: Sitting; Cuff Location: Left Arm; Cuff Size: Standard Weight 136 lb :42 Pulse 68 /min Comments: Pattern: Regular Respiration Rate 16 /min Comments: Pattern: Unlabored BP Systolic 116 mm[Hg] Comments: Patient Position: Sitting; Cuff Location: Left Arm; Cuff Size: Standard BP Diastolic 76 mm[Hg] Comments: Patient Position: Sitting; Cuff Location: Left Arm; Cuff Size: Standard Weight 135 lb Height 0 in Head Circumference 0.00 cm :50 Temperature 97.4 f Comments: Method: Oral Pulse 70 /min Comments: Pattern: Regular Respiration Rate 16 /min Comments: Pattern: Unlabored BP Systolic 118 mm[Hg] Comments: Patient Position: Sitting; Cuff Location: Left Arm; Cuff Size: Standard BP Diastolic 78 mm[Hg] Comments: Patient Position: Sitting; Cuff Location: Left Arm; Cuff Size: Standard Weight 0 lb Height 0 in Head Circumference 0.00 cm :14 Temperature 98.2 f Comments: Method: Oral Pulse 70 /min Comments: Pattern: Regular Respiration Rate 18 /min Comments: Pattern: Unlabored BP Systolic 120 mm[Hg] Comments: Patient Position: Sitting; Cuff Location: Left Arm; Cuff Size: Standard BP Diastolic 80 mm[Hg] Comments: Patient Position: Sitting; Cuff Location: Left Arm; Cuff Size: Standard Weight 134 lb Height 0 in Head Circumference 0.00 cm :14 Temperature 98.2 f Comments: Method: Oral Pulse 70 /min Comments: Pattern: Regular Respiration Rate 18 /min Comments: Pattern: Unlabored BP Systolic 120 mm[Hg] Comments: Patient Position: Sitting; Cuff Location: Left Arm; Cuff Size: Standard BP Diastolic 80 mm[Hg] Comments: Patient Position: Sitting; Cuff Location: Left Arm; Cuff Size: Standard Weight 136 lb Height 0 in Head Circumference 0.00 cm :02 Temperature 97.7 f Comments: Method: Oral Pulse 70 /min Comments: Pattern: Regular Respiration Rate 20 /min Comments: Pattern: Unlabored BP Systolic 100 mm[Hg] Comments: Patient Position: Sitting; Cuff Location: Left Arm; Cuff Size: Standard BP Diastolic 70 mm[Hg] Comments: Patient Position: Sitting; Cuff Location: Left Arm; Cuff Size: Standard Weight 132 lb Height 63 in Body Mass Index Calculated 23.38 kg/m2 Body Surface Area Calculated 1.62 m2 Head Circumference 0.00 cm Results Date Description Value Details [id number] Thin prep Pap (92120) (no Comments: cuff scraping; No. of containers..01 ThinPrep VialPERFORMED BY: =G paOnde120 [facility] [place] [id number] BY: WB paOnde120 [facility] [place] [id number] STD testing) [id number] Information: [id number] Age Gdln ACOG Testing AGE4 (Normal) Comments: <21 or >65 or no age provided 5-Egl-[id number]:30 Pap IG (Image Guided) Comments: No. of containers..01 ThinPrep VialPERFORMED BY: =G paOnde120 [facility] [place] [id number] BY: WB paOnde120 [facility] [place] [id number] Note: PAPSMR (Normal) Comments: The Pap smear is a screening test designed to aid in the detection ofpremalignant and malignant conditions of the uterine cervix. It is not adiagnostic procedure and should not be used as the sole mean s of detectingcervical cancer. Both false-positive and false-negative reports do occur. .This liquid based ThinPrep(R) pap test w as screened with theuse of an image guided system. See Note . (Normal) DIAGNOSIS: SPRCS (Normal) Comments: NEGATIVE FOR INTRAEPITHELIAL LESION AND MALIGNANCY.THIS SPECIMEN WAS RESCREENED PART OF OUR STAFF ELECTRONIC WARFARE OFFICER PROGRAM.Satisfactory for evaluation. No endocervical component is identified.Z0 1.419Erin Kayden gonzáles, Ship Keeper (ASCP)Chela Armendariz Ship Keeper (ASCP) [id number]:00 CBC W/Diff, Automated Comments: [facility] [id number] [place], [place], [id number] SMEAR COMMENT SCANNED (Normal) Comments: NEUTROPENIA NOTED Absolute Lymph 1.46 {X10_3/ul} (Normal) Range: 0.83-4.51 Absolute Neut 1.0 {X10_3/uL} (Abnormal) Range: 2.0-7.7 IM GRAN % 0.000 % (Normal) Range: 0.0-0.9 Comments: IG% - Immature Granulocytes (promyelocytes, myelocytes andmetamyelocytes) > 1% indicates that a LEFT SHIFT is Present. BASO% 1.7 % (Abnormal) Range: 0-1 EO% 3.0 % (Normal) Range: 0-5 MONO% 14.9 % (Abnormal) Range: 0-10 LY% 48.2 % (Abnormal) Range: 19-41 NEUT% 32.2 % (Abnormal) Range: 47-70 MPV 11.0 fL (Normal) Range: 6.2-12.0 PLT 200 K/mm3 (Normal) Range: 150-450 RDW SD 39.8 fL (Normal) Range: 35.1-43.9 RDW CV 12.2 % (Normal) Range: 11.6-14.6 MCHC 32.9 {g/gl} (Normal) Range: 32-36 MCH 30.0 pg (Normal) Range: 27.0-32.0 MCV 91.1 fL (Normal) Range: 81-99 HCT 41.9 % (Normal) Range: 37-47 HGB 13.8 g/dL (Normal) Range: 12.0-15.0 RBC 4.60 {M/mm3} (Normal) Range: 4.2-5.4 WBC 3.0 K/mm3 (Abnormal) Range: 4.4-11.0 :47 CBC W/Diff, Automated Comments: [facility] [id number] [place], [place], [address] Absolute Lymph 1.05 {X10_3/ul} (Normal) Range: 0.83-4.51 Absolute Neut 1.0 {X10_3/uL} (Abnormal) Range: 2.0-7.7 IM GRAN % 0.000 % (Normal) Range: 0.0-0.9 Comments: IG% - Immature Granulocytes (promyelocytes, myelocytes andmetamyelocytes) > 1% indicates that a LEFT SHIFT is Present. BASO% 1.1 % (Abnormal) Range: 0-1 EO% 3.0 % (Normal) Range: 0-5 MONO% 17.7 % (Abnormal) Range: 0-10 LY% 39.6 % (Normal) Range: 19-41 NEUT% 38.6 % (Abnormal) Range: 47-70 MPV 10.9 fL (Normal) Range: 6.2-12.0 PLT 194 K/mm3 (Normal) Range: 150-450 RDW SD 41.9 fL (Normal) Range: 35.1-43.9 RDW CV 12.5 % (Normal) Range: 11.6-14.6 MCHC 31.8 {g/gl} (Abnormal) Range: 32-36 MCH 29.6 pg (Normal) Range: 27.0-32.0 MCV 93.2 fL (Normal) Range: 81-99 HCT 42.2 % (Normal) Range: 37-47 HGB 13.4 g/dL (Normal) Range: 12.0-15.0 RBC 4.53 {M/mm3} (Normal) Range: 4.2-5.4 WBC 2.7 K/mm3 (Abnormal) Range: 4.4-11.0 :16 CBC W/Diff, Automated Comments: [facility] [id number] [place], [place], [id number] Absolute Lymph 0.95 {X10_3/ul} (Normal) Range: 0.83-4.51 Absolute Neut 1.2 {X10_3/uL} (Abnormal) Range: 2.0-7.7 IM GRAN % 0.000 % (Normal) Range: 0.0-0.9 Comments: IG% - Immature Granulocytes (promyelocytes, myelocytes andmetamyelocytes) > 1% indicates that a LEFT SHIFT is Present. BASO% 1.5 % (Abnormal) Range: 0-1 EO% 2.2 % (Normal) Range: 0-5 MONO% 17.9 % (Abnormal) Range: 0-10 LY% 35.4 % (Normal) Range: 19-41 NEUT% 43.0 % (Abnormal) Range: 47-70 MPV 11.0 fL (Normal) Range: 6.2-12.0 PLT 194 K/mm3 (Normal) Range: 150-450 RDW SD 39.0 fL (Normal) Range: 35.1-43.9 RDW CV 12.0 % (Normal) Range: 11.6-14.6 MCHC 33.7 {g/gl} (Normal) Range: 32-36 MCH 30.5 pg (Normal) Range: 27.0-32.0 MCV 90.5 fL (Normal) Range: 81-99 HCT 42.1 % (Normal) Range: 37-47 HGB 14.2 g/dL (Normal) Range: 12.0-15.0 RBC 4.65 {M/mm3} (Normal) Range: 4.2-5.4 WBC 2.7 K/mm3 (Abnormal) Range: 4.4-11.0 95-Iwk-[id number]:18 METABOLIC PANEL, Comments: PATIENT WAS FASTINGPERFORMED BY: BN [facility] [address] [facility] [id number] BY: CB [facility] [id number] [facility] [id number] COMPREHENSIVE ([id number]) ALT (SGPT) 11 [iU]/L (Normal) Range: 0-32 AST (SGOT) 18 [iU]/L (Normal) Range: 0-40 Alkaline Phosphatase 52 [iU]/L (Normal) Range: 39-117 Bilirubin, Total 0.8 mg/dL (Normal) Range: 0.0-1.2 A/G Ratio 1.5 (Normal) Range: 1.2-2.2 Globulin, Total 2.8 g/dL (Normal) Range: 1.5-4.5 Albumin 4.3 g/dL (Normal) Range: 3.6-4.8 Protein, Total 7.1 g/dL (Normal) Range: 6.0-8.5 Calcium 9.7 mg/dL (Normal) Range: 8.7-10.3 Carbon Dioxide, Total 23 mmol/L (Normal) Range: 18-29 Chloride 104 mmol/L (Normal) Range: 96-106 Potassium 4.6 mmol/L (Normal) Range: 3.5-5.2 Sodium 142 mmol/L (Normal) Range: 134-144 BUN/Creatinine Ratio 20 (Normal) Range: 12-28 eGFR If Africn Am 85 mL/min/1.73 (Normal) eGFR If NonAfricn Am 74 mL/min/1.73 (Normal) Creatinine 0.82 mg/dL (Normal) Range: 0.57-1.00 BUN 16 mg/dL (Normal) Range: 8-27 Glucose 86 mg/dL (Normal) Range: 65-99 44-Esu-266998:18 TSH (11365) Comments: PATIENT WAS FASTINGPERFORMED BY: BN [facility] Mvkdkflwjl0761 [facility] [id number] BY: [facility] Lphhar5005 [facility] [id number] TSH 1.780 {uIU/mL} (Normal) Range: 0.450-4.500 81-Mlw-709881:18 LIPOPROTEIN, BLD, BY NMR Comments: PATIENT WAS FASTINGPERFORMED BY: BN [facility] Kawajvhrgh1662 [facility] [id number] BY: CB [facility] Crcbrk9866 [facility] [id number]; fu 18 DB (90451) LP-IR Score <25 (Normal) Comments: INSULIN RESISTANCE MARKER <--Insulin Sensitive Insulin Resistant--> Percentile in Reference PopulationInsulin Resistance ScoreLP-IR Score Low 25th 50th 75th High <27 27 45 63 >63LP-IR Score is inaccurate if patient is non-fasting. .The LP-IR score is a laboratory developed i [facility] that has beenassociated with insulin resistance and diabetes risk and should beused as one component of a physician's clinical assessment. TheLP-IR score listed above has not been cleared by the US Food andDrug Administration. LDL Size 21.3 nm (Normal) Comments: INTERPRETATIVE INFORMATION PARTICLE CONCENTRATION AND SIZE <--Lower CVD Risk Highe r CVD Risk--> LDL AND HDL PARTICLES Percentile in Reference Population HDL-P (total) High 75th 50th 25th Low >34.9 34.9 30.5 26.7 <26.7 . Small LDL-P Low 25th 50th 75th High <117 117 527 839 >839 . LDL Size <-Large (Pattern A)-> <-Small (Pattern B)-> 23.0 20.6 20.5 19.0 Small LDL-P and LDL Size are associated with CVD risk, but not afterLDL-P is taken into account. .These assays were developed and their performance characteristicsdetermined by [employer]. These assays have not been cleared by [employer] Food and Drug Administration. The clinical utility of theselaboratory values have not been fully established. Small LDL-P 320 nmol/L (Normal) HDL-P (Total) 30.2 umol/L (Abnormal) Cholesterol, Total 192 mg/dL (Normal) Range: 100-199 Triglycerides 76 mg/dL (Normal) Range: 0-149 HDL-C 56 mg/dL (Normal) LDL-C 121 mg/dL (Abnormal) Range: 0-99 Comments: . Optimal < 100 Above optimal 100 - 129 Borderline 1 30 - 159 High 160 - 189 Very high > 189 .LDL-C is inaccurate if patient is non-fasting. LDL-P 1218 nmol/L (Abnormal) Comments: Low < 1000 Moderate 1000 - 1299 Borderline-High 1300 - 1599 High 1600 - 2000 Very High > 2000 11-Tjb-669002:18 HEPATITIS C ANTIBODY Comments: PATIENT WAS FASTINGPERFORMED BY: [employer] [id number] BY: [facility] [id number] ([address]) Hep C Virus Ab <0.1 {s/co_ratio} (Normal) Range: 0.0-0.9 Comments: Negative: < 0.8 Indeterminate: 0.8 - 0.9 Positive: > 0.9 . The CDC recommends that a positive HCV antibody result be followed up with a HCV Nucleic Acid Amplification test (191512). 50-Rfx-999877:08 Anti-Centromere B Ab Comments: [facility] (refer to report for specific site)refer to report for address and phone number ANTI-CENT B <0.2 {AI} (Normal) Range: 0.0-0.9 Comments: Performed at: [facility] [employer] [id number] Director: Chang Greenberg PhD, Phone: [phone] 41-Qbo-947032:08 Anti-Chromatin Comments: [facility] (refer to report for specific site)refer to report for address and phone number ANTICHROMATIN <0.2 {AI} (Normal) Range: 0.0-0.9 88-Fme-455567:08 Anti-Kasia Comments: [facility] (refer to report for specific site)refer to report for address and phone number ANTI-KASIA <0.2 {AI} (Normal) Range: 0.0-0.9 33-Tho-054028:08 Newq-Bhigfkxlvbd-63 AB Comments: [facility] (refer to report for specific site)refer to report for address and phone number ANTISCLER <0.2 {AI} (Normal) Range: 0.0-0.9 42-Vgq-366161:08 CBC W/Diff, Automated Comments: [facility] [address] [place], [place], [id number] Absolute Lymph 1.06 {X10_3/ul} (Normal) Range: 0.83-4.51 Absolute Neut 1.5 {X10_3/uL} (Abnormal) Range: 2.0-7.7 IM GRAN % 0.000 % (Normal) Range: 0.0-0.9 Comments: IG% - Immature Granulocytes (promyelocytes, myelocytes andmetamyelocytes) > 1% indicates that a LEFT SHIFT is Present. BASO% 0.9 % (Normal) Range: 0-1 EO% 1.9 % (Normal) Range: 0-5 MONO% 17.0 % (Abnormal) Range: 0-10 LY% 32.7 % (Normal) Range: 19-41 NEUT% 47.5 % (Normal) Range: 47-70 MPV 10.8 fL (Normal) Range: 6.2-12.0 PLT 205 K/mm3 (Normal) Range: 150-450 RDW SD 40.4 fL (Normal) Range: 35.1-43.9 RDW CV 12.3 % (Normal) Range: 11.6-14.6 MCHC 34.4 {g/gl} (Normal) Range: 32-36 MCH 31.3 pg (Normal) Range: 27.0-32.0 MCV 91.1 fL (Normal) Range: 81-99 HCT 40.7 % (Normal) Range: 37-47 HGB 14.0 g/dL (Normal) Range: 12.0-15.0 RBC 4.47 {M/mm3} (Normal) Range: 4.2-5.4 WBC 3.2 K/mm3 (Abnormal) Range: 4.4-11.0 77-Uxh-142027:08 Complement C3 Comments: [facility] (refer to report for specific site)refer to report for address and phone number COMP C3 107 mg/dL (Normal) Range: 82-167 Comments: Performed at: - [facility] [address] [id number] Director: Chang Greenberg PhD, Phone: [phone] 61-Xcg-554659:08 Complement C4 Comments: [facility] (refer to report for specific site)refer to report for address and phone number COMP C4 15 mg/dL (Normal) Range: 14-44 12-Zyq-669558:08 Liver Profile Comments: [facility] [address] [place], [address] D BILI 0.14 mg/dL (Normal) Range: 0.00-0.30 T BILI 0.90 mg/dL (Normal) Range: 0.20-1.00 ALT 19 U/L (Normal) Range: 12-78 ALK P 66 U/L (Normal) Range: 45-117 AST 14 U/L (Abnormal) Range: 15-37 GLOB 3.7 g/dL (Abnormal) Range: 2.3-3.5 ALB 4.1 g/dL (Normal) Range: 3.4-5.0 T PROT 7.8 g/dL (Normal) Range: 6.4-8.2 78-Mku-723033:20 CBC W/Diff, Automated Comments: [facility] [address] [place], [place], [id number] Absolute Lymph 1.15 {X10_3/ul} (Normal) Range: 0.83-4.51 Absolute Neut 1.2 {X10_3/uL} (Abnormal) Range: 2.0-7.7 IM GRAN % 0.300 % (Normal) Range: 0.0-0.9 Comments: IG% - Immature Granulocytes (promyelocytes, myelocytes andmetamyelocytes) > 1% indicates that a LEFT SHIFT is Present. BASO% 1.0 % (Normal) Range: 0-1 EO% 1.7 % (Normal) Range: 0-5 MONO% 16.1 % (Abnormal) Range: 0-10 LY% 40.2 % (Normal) Range: 19-41 NEUT% 40.7 % (Abnormal) Range: 47-70 MPV 11.4 fL (Normal) Range: 6.2-12.0 PLT 206 K/mm3 (Normal) Range: 150-450 RDW SD 40.6 fL (Normal) Range: 35.1-43.9 RDW CV 12.4 % (Normal) Range: 11.6-14.6 MCHC 33.8 {g/gl} (Normal) Range: 32-36 MCH 30.8 pg (Normal) Range: 27.0-32.0 MCV 91.1 fL (Normal) Range: 81-99 HCT 39.9 % (Normal) Range: 37-47 HGB 13.5 g/dL (Normal) Range: 12.0-15.0 RBC 4.38 {M/mm3} (Normal) Range: 4.2-5.4 WBC 2.9 K/mm3 (Abnormal) Range: 4.4-11.0 99-Axa-642459:20 Liver Profile Comments: [facility] [address] [facility]. [place], [place], [address] D BILI 0.14 mg/dL (Normal) Range: 0.00-0.30 T BILI 0.70 mg/dL (Normal) Range: 0.20-1.00 ALT 21 U/L (Normal) Range: 12-78 ALK P 65 U/L (Normal) Range: 45-117 AST 17 U/L (Normal) Range: 15-37 GLOB 3.9 g/dL (Abnormal) Range: 2.3-3.5 ALB 3.9 g/dL (Normal) Range: 3.4-5.0 T PROT 7.8 g/dL (Normal) Range: 6.4-8.2 63-Lpx-388890:19 Thyroid Stim Hormone (TSH) Comments: [facility] [address] [place], [address] TSH 1.62 {uIU/mL} (Normal) Range: 0.358-3.74 :03 Anti-dsDNA Ab Comments: [facility] (refer to report for specific site)refer to report for address and phone number dsDNA AB 11 (Normal) Comments: High IU/mL 0 - 9Negative <5Equivocal 5 - 9Positive >9 :03 Anti-Histone Abs Comments: [facility] (refer to report for specific site)refer to report for address and phone number ANTIHISTO 3.0 (Normal) Comments: High Units 0.0 - 0.9Negative <1.0Weak Positive 1.0 - 1.5Moderate Positive 1.6 - 2.5Strong Positive >2.5 : Antiextractable Nug Ag Comments: [facility] (refer to report for specific site)refer to report for address and phone number CHENG Ab <0.2 (Normal) Comments: AI 0.0 - 0.9 TIMBER SELECTOR Ab <0.2 (Normal) Comments: AI 0.0 - 0.9 :03 Antinuclear Antibody, IFA Comments: [facility] (refer to report for specific site)refer to report for address and phone number NOTE (Normal) Comments: A positive AMAN result may occur in healthy individuals (lowtiter) or be associated with a variety of diseases. Seeinterpretation chart which is not all inclusive:Pattern Antigen Detected Suggested D isease Association Homogeneous DNA(ds,ss), SLE - High titers Nucleosomes, Histones Drug-induced SLE Speckled Sm, TIMBER SELECTOR, SCL-70, SLE,MCTD,PSS (diffuse form), SS-A/SS-B Sjogrens Nuc leolar SCL-70, PM-1/SCL High titers Scleroderma, PM/DM Centromere Centromere PSS (limited form) w/Crest syndrome variable Nuclear Dot Sp100,k37-bvhybn Primary Biliary Cirrhosis ---------Nuclear GP210, Primary Biliary CirrhosisMembrane taryn A,B,C SPECKLED PAT. 1:640 (Normal) Comments: High AMAN test Positive Abnormal Comments: Negative <1:80Borderline 1:80Positive >1:80 (Normal) 46-Jrs-791275:03 CBC W/Diff, Automated Comments: [facility] [address] [place], [address] Absolute Lymph 1.58 {X10_3/ul} (Normal) Range: 0.83-4.51 Absolute Neut 1.3 {X10_3/uL} (Abnormal) Range: 2.0-7.7 IM GRAN % 0.300 % (Normal) Range: 0.0-0.9 Comments: IG% - Immature Granulocytes (promyelocytes, myelocytes andmetamyelocytes) > 1% indicates that a LEFT SHIFT is Present. BASO% 0.6 % (Normal) Range: 0-1 EO% 1.2 % (Normal) Range: 0-5 MONO% 13.9 % (Abnormal) Range: 0-10 LY% 45.7 % (Abnormal) Range: 19-41 NEUT% 38.3 % (Abnormal) Range: 47-70 MPV 11.0 fL (Normal) Range: 6.2-12.0 PLT 175 K/mm3 (Normal) Range: 150-450 RDW SD 41.1 fL (Normal) Range: 35.1-43.9 RDW CV 12.6 % (Normal) Range: 11.6-14.6 MCHC 33.5 {g/gl} (Normal) Range: 32-36 MCH 30.5 pg (Normal) Range: 27.0-32.0 MCV 91.0 fL (Normal) Range: 81-99 HCT 40.3 % (Normal) Range: 37-47 HGB 13.5 g/dL (Normal) Range: 12.0-15.0 RBC 4.43 {M/mm3} (Normal) Range: 4.2-5.4 WBC 3.5 K/mm3 (Abnormal) Range: 4.4-11.0 42-Tqa-157589:03 Electrolyte Panel Comments: [facility] [address] [facility]. [place], [place], [address] GAP 8 (Normal) Range: 5-15 CO2 29.0 mmol/L (Normal) Range: 21.0-32.0 CL 101 mmol/L (Normal) Range: 98-107 K 3.8 mmol/L (Normal) Range: 3.5-5.1 NA 138 mmol/L (Normal) Range: 136-145 21-Jjc-909910:03 Liver Profile Comments: [facility] [address] [facility] [address] [facility] [address] [place], [place], [address] D BILI 0.20 mg/dL (Normal) Range: 0.00-0.30 T BILI 0.80 mg/dL (Normal) Range: 0.20-1.00 ALT 20 U/L (Normal) Range: 12-78 ALK P 64 U/L (Normal) Range: 45-117 AST 15 U/L (Normal) Range: 15-37 GLOB 4.4 g/dL (Abnormal) Range: 2.3-3.5 ALB 4.0 g/dL (Normal) Range: 3.4-5.0 T PROT 8.4 g/dL (Abnormal) Range: 6.4-8.2 89-Eww-284151:03 Sjogren's Antibodies A/B Comments: [facility] (refer to report for specific site)refer to report for address and phone number Anti-SS-B 2.0 (Normal) Comments: High AI 0.0 - 0.9 Anti-SS-A > 8.0 (Normal) Comments: High AI 0.0 - 0.9 1-Nxh-344751:22 COMPLEMENT C4 (77451) Comments: copy Dr. jaime norton; PATIENT NOT FASTINGPERFORMED BY: [employer] [address]bbi35[address] [place] [id number] Complement C4, Serum 14 mg/dL (Normal) Range: 14-44 7-Udx-107958:22 COMPLEMENT C3 (61222) Comments: copy Dr. geremias norton; PATIENT NOT FASTINGPERFORMED BY: [facility] Boqmep7[address] RoadCTI Scienceblin [place] [id number] Complement C3, Serum 103 mg/dL (Normal) Range: 82-167 6-Mfd-802352:22 C-Reactive Protein (86683) Comments: copy Dr. geremias norton; PATIENT NOT FASTINGPERFORMED BY: [facility] As[address]gk7[address] [place] [id number] C-Reactive Protein, Quant 0.5 mg/L (Normal) Range: 0.0-4.9 9-Udh-501937:22 Sed Rate Erythrocyte (84541) Comments: Dr. cierra scott; PATIENT NOT FASTINGPERFORMED BY: [facility] Tnqbub3169 [address] FireIDbl[place] [id number] Sedimentation Rate-Westergren 4 mm/h (Normal) Range: 0-40 8-Fin-940821:22 COMPLEMENT, TOTAL (CH50) Comments: seen Dr. norton; PATIENT NOT FASTINGPERFORMED BY: [facility] Udarpc8316 [address] FireID[address] [place] [id number] (03888) Complement, Total (CH50) >60 U/mL (Abnormal) Range: 42-60 83-Bky-885088:57 TSH (38927) Comments: PATIENT WAS FASTINGPERFORMED BY: [facility] [id number] BY: LabBr[place] 5504370 [facility] [id number] TSH 3.190 {uIU/mL} (Normal) Range: 0.450-4.500 68-Pox-688138:57 METABOLIC PANEL, Comments: PATIENT WAS FASTINGPERFORMED BY: [employer] [id number] BY: [facility] [id number] COMPREHENSIVE (39180) ALT (SGPT) 7 [iU]/L (Normal) Range: 0-32 AST (SGOT) 16 [iU]/L (Normal) Range: 0-40 Alkaline Phosphatase, S 66 [iU]/L (Normal) Range: 39-117 Bilirubin, Total 0.5 mg/dL (Normal) Range: 0.0-1.2 A/G Ratio 1.3 (Normal) Range: 1.2-2.2 Globulin, Total 3.3 g/dL (Normal) Range: 1.5-4.5 Albumin, Serum 4.3 g/dL (Normal) Range: 3.6-4.8 Protein, Total, Serum 7.6 g/dL (Normal) Range: 6.0-8.5 Calcium, Serum 9.5 mg/dL (Normal) Range: 8.7-10.3 Carbon Dioxide, Total 23 mmol/L (Normal) Range: 18-29 Chloride, Serum 101 mmol/L (Normal) Range: 96-106 Potassium, Serum 4.4 mmol/L (Normal) Range: 3.5-5.2 Sodium, Serum 142 mmol/L (Normal) Range: 134-144 BUN/Creatinine Ratio 19 (Normal) Range: 12-28 eGFR If Africn Am 97 mL/min/1.73 (Normal) eGFR If NonAfricn Am 84 mL/min/1.73 (Normal) Creatinine, Serum 0.74 mg/dL (Normal) Range: 0.57-1.00 BUN 14 mg/dL (Normal) Range: 8-27 Glucose, Serum 84 mg/dL (Normal) Range: 65-99 83-Isu-072117:57 DIANELYS SMALL, BY NMR Comments: PATIENT WAS FASTINGPERFORMED BY: BN [facility] Rwadtjppfn4260 [facility] [id number] BY: CB [facility] Kyhsoj3701 [facility] [id number]; fu 5-23 db (82904) LP-IR Score 30 (Normal) Comments: INSULIN RESISTANCE MARKER <--Insulin Sensitive Insulin Resistant--> Percentile in Reference PopulationInsulin Resistance ScoreLP-IR Score Low 25th 50th 75th High <27 27 45 63 >63LP-IR Score is inaccurate if patient is non-fasting. .The LP-IR score is a laboratory developed i [facility] that has beenassociated with insulin resistance and diabetes risk and should beused as one component of a physician's clinical assessment. TheLP-IR score listed above has not been cleared by the US Food andDrug Administration. LDL Size 21.1 nm (Normal) Comments: INTERPRETATIVE INFORMATION PARTICLE CONCENTRATION AND SIZE <--Lower CVD Risk Highe r CVD Risk--> LDL AND HDL PARTICLES Percentile in Reference Population HDL-P (total) High 75th 50th 25th Low >34.9 34.9 30.5 26.7 <26.7 . Small LDL-P Low 25th 50th 75th High <117 117 527 839 >839 . LDL Size <-Large (Pattern A)-> <-Small (Pattern B)-> 23.0 20.6 20.5 19.0 Small LDL-P and LDL Size are associated with CVD risk, but not afterLDL-P is taken into account. .These assays were developed and their performance characteristicsdetermined by [employer]. These assays have not been cleared by [employer] Food and Drug Administration. The clinical utility of theselaboratory values have not been fully established. Small LDL-P 460 nmol/L (Normal) HDL-P (Total) 30.4 umol/L (Abnormal) Cholesterol, Total 188 mg/dL (Normal) Range: 100-199 Triglycerides 89 mg/dL (Normal) Range: 0-149 HDL-C 59 mg/dL (Normal) LDL-C 111 mg/dL (Abnormal) Range: 0-99 Comments: . Optimal < 100 Above optimal 100 - 129 Borderline 1 30 - 159 High 160 - 189 Very high > 189 .LDL-C is inaccurate if patient is non-fasting. LDL-P 1260 nmol/L (Abnormal) Comments: Low < 1000 Moderate 1000 - 1299 Borderline-High 1300 - 1599 High 1600 - 2000 Very High > 2000 44-Hcf-714511:28 AMAN (ANTINUCLEAR ANTIBODY) Comments: PATIENT NOT FASTINGPERFORMED BY: [facility] [id number] (77936) AMAN Direct Positive (Abnormal) 55-Lpc-044672:28 URINALYSIS (96520) Comments: PATIENT NOT FASTINGPERFORMED BY: [facility] [id number] Microscopic Examination MICNIP (Normal) Comments: Microscopic not indicated and not performed. Nitrite, Urine Negative (Normal) Urobilinogen,Semi-Qn 0.2 mg/dL (Normal) Range: 0.2-1.0 Bilirubin Negative (Normal) Occult Blood Negative (Normal) Ketones Negative (Normal) Glucose Negative (Normal) Protein Negative (Normal) WBC Esterase Negative (Normal) Appearance Cloudy (Abnormal) Urine-Color Yellow (Normal) pH 7.5 (Normal) Range: 5.0-7.5 Specific [place] 1.016 (Normal) Range: 1.005-1.030 02-Wyy-150897:28 C-Reactive Protein (06053) Comments: PATIENT NOT FASTINGPERFORMED BY: [facility] [id number] C-Reactive Protein, Quant 7.7 mg/L (Abnormal) Range: 0.0-4.9 :28 Sed Rate Erythrocyte (28160) Comments: PATIENT NOT FASTINGPERFORMED BY: [facility]6370 [facility] [id number] Sedimentation Rate-Westergren 7 mm/h (Normal) Range: 0-40 :28 CBC (Auto) (48221) Comments: PATIENT NOT FASTINGPERFORMED BY: [facility]6370 [facility] [id number] Platelets 227 {x10E3/uL} (Normal) Range: 150-379 RDW 13.2 % (Normal) Range: 12.3-15.4 MCHC 33.2 g/dL (Normal) Range: 31.5-35.7 MCH 30.0 pg (Normal) Range: 26.6-33.0 MCV 90 fL (Normal) Range: 79-97 Hematocrit 38.2 % (Normal) Range: 34.0-46.6 Hemoglobin 12.7 g/dL (Normal) Range: 11.1-15.9 RBC 4.24 {x10E6/uL} (Normal) Range: 3.77-5.28 WBC 5.1 {x10E3/uL} (Normal) Range: 3.4-10.8 :28 Metabolic Panel, Comments: PATIENT NOT FASTINGPERFORMED BY: [facility]6370 [facility] [id number] Information: [id number] Comprehensive (41425) ALT (SGPT) 11 [iU]/L (Normal) Range: 0-32 AST (SGOT) 17 [iU]/L (Normal) Range: 0-40 Alkaline Phosphatase, S 68 [iU]/L (Normal) Range: 39-117 Bilirubin, Total 0.6 mg/dL (Normal) Range: 0.0-1.2 A/G Ratio 1.3 (Normal) Range: 1.1-2.5 Globulin, Total 3.3 g/dL (Normal) Range: 1.5-4.5 Albumin, Serum 4.2 g/dL (Normal) Range: 3.6-4.8 Protein, Total, Serum 7.5 g/dL (Normal) Range: 6.0-8.5 Calcium, Serum 9.3 mg/dL (Normal) Range: 8.7-10.3 Carbon Dioxide, Total 26 mmol/L (Normal) Range: 18-29 Chloride, Serum 101 mmol/L (Normal) Range: 97-108 Potassium, Serum 4.5 mmol/L (Normal) Range: 3.5-5.2 Sodium, Serum 142 mmol/L (Normal) Range: 134-144 BUN/Creatinine Ratio 17 (Normal) Range: 11-26 eGFR If Africn Am 100 mL/min/1.73 (Normal) eGFR If NonAfricn Am 87 mL/min/1.73 (Normal) Creatinine, Serum 0.72 mg/dL (Normal) Range: 0.57-1.00 BUN 12 mg/dL (Normal) Range: 8-27 Glucose, Serum 79 mg/dL (Normal) Range: 65-99 7-Srt-294355:12 Basic Metabolic Panel (8) Comments: PATIENT NOT FASTINGPERFORMED BY: [employer]70 [facility] [id number] Calcium, Serum 9.5 mg/dL (Normal) Range: 8.7-10.3 Carbon Dioxide, Total 24 mmol/L (Normal) Range: 18-29 Chloride, Serum 99 mmol/L (Normal) Range: 97-108 Potassium, Serum 4.7 mmol/L (Normal) Range: 3.5-5.2 Sodium, Serum 140 mmol/L (Normal) Range: 134-144 BUN/Creatinine Ratio 24 (Normal) Range: 11-26 eGFR If Africn Am 95 mL/min/1.73 (Normal) eGFR If NonAfricn Am 82 mL/min/1.73 (Normal) Creatinine, Serum 0.76 mg/dL (Normal) Range: 0.57-1.00 BUN 18 mg/dL (Normal) Range: 8-27 Glucose, Serum 81 mg/dL (Normal) Range: 65-99 1-Zyb-032315:12 CBC, Platelet, No Comments: PATIENT NOT FASTINGPERFORMED BY: [facility]6370 [facility] [id number] Information: [id number] Differential Platelets 216 {x10E3/uL} Range: 150-379 (Normal) RDW 13.1 % (Normal) Range: 12.3-15.4 MCHC 32.8 g/dL (Normal) Range: 31.5-35.7 MCH 29.4 pg (Normal) Range: 26.6-33.0 MCV 90 fL (Normal) Range: 79-97 Hematocrit 40.6 % (Normal) Range: 34.0-46.6 Hemoglobin 13.3 g/dL (Normal) Range: 11.1-15.9 RBC 4.52 {x10E6/uL} Range: 3.77-5.28 (Normal) WBC 3.4 {x10E3/uL} Range: 3.4-10.8 (Normal) TSH 2.300 {uIU/mL} Comments: PATIENT NOT FASTINGPERFORMED BY: [facility] Dzltbq0670 [facility] [id number] 510:12 (Normal) Range: 0.450-4.500 BREAST BIOPSY (CHOOSE SITE) See Note (Normal) Comments: Test performed at:[facility] [address] [place] [address] 515:30 Comments: Patient: SHANITA MONTIEL : 1950 (64/F) Acct Num: [id number] Phys: Jaquan Padron MD Unit Num: [id number] Loc: [facility] Specimen: [id number] Received: 08/04/141614 Spec Type: BREAST BX TISSUES TISSUES: COMMENT Immunohistochemistry ([id number]) supports the above diagnosis. GROSS DESCRIPTION Received in a container labeled with the patient name and mary jo ignated needle core biopsy, right breast are three elongated cores of yellow- white soft tissuemeasuring in aggregate 2 x 0.5 x 0.1 cm. The specimen is totally submitted in one cassette. / AM:pq 08/06 TC:5 CPT: 60566 HEADER OPERATION: U/S guided needle core biopsy right breast PRE-OPERATIVE DIAGNOSIS: 793.89 abnormal finding on breast imaging TISSUE SUBMITTED: Right breast needle co re biopsy MICROSCOPIC DIAGNOSIS Right breast, ultrasound-guided needle core biopsy: Fat necrosis, fibrosis, and foreign body giant cell reaction to nonpolarizable material. Benign hist iocytic proliferation and mild chronic inflammation. No evidence of malignancy. AM:pq 08/06/14 Signed [facility] 08/07/14 <signature on file> IMMUNOHISTOCHEMISTRY See Note (Normal) Comments: Test performed at:[address] [address] 50:00 Comments: Patient: SHANITA MONTIEL : 1950 (64/F) Acct Num: [id number] Phys: Nereida SUÁREZ,Jaquan Unit Num: [id number] Loc: [facility] Specimen: [id number] Received: 08/06/141200 Spec Type: IMMUNO TISSUES TISSUES: SPECIMEN INFORMATION: Tissue Source: Right breast, core biopsy Clinical Info: Abnormal mammogram Specimen Number: [id number] CPT code: 94949, 52943 x3 METHODOLOGY: Deparaffinized sections of formalin-fixed tissue or PAP/DQ stained slides are incubated with monoclonal/polyclonal antibodies/oligonucleotide probes. Localization is made via biotin free immunoperoxidase method. Appropriate controls are performed and reacted as expected. Results on target cell population are indicated in the following table: RESULTS: ANTIBODY / CLONE RESULT AE1-3/PCK26 (AE1,AE3,PCK26) negative CK8 (TS1/99tgbtZ17) negative P53 (DO-7) negative Macro (HAM-56) positive These tests were developed and their performance characteristics determined by [facility]. They may not have been cleared or approved by the U.S. Food and Drug Administration. The FDA has de termined that such clearance or approval is not necessary. INTERPRETATION: Right breast, core biopsy: Consistent with fat necrosis. AM:tom 08/07/14 PHYSICIAN AND INSTITUTION [address] [address] Signed [facility] 08/07/14 <signature on file> :58 TSH (96941) Comments: PATIENT WAS FASTINGPERFORMED BY: [employer] Wknrbr9147 [facility] [id number] TSH 2.580 {uIU/mL} (Normal) Range: 0.450-4.500 :58 METABOLIC PANEL, COMPREHENSIVE Comments: PATIENT WAS FASTINGPERFORMED BY: [employer] [id number] [facility] [id number] ([id number]) ALT (SGPT) 9 [iU]/L (Normal) Range: 0-32 AST (SGOT) 14 [iU]/L (Normal) Range: 0-40 Alkaline Phosphatase, S 63 [iU]/L (Normal) Range: 39-117 Bilirubin, Total 0.5 mg/dL (Normal) Range: 0.0-1.2 A/G Ratio 1.4 (Normal) Range: 1.1-2.5 Globulin, Total 3.1 g/dL (Normal) Range: 1.5-4.5 Albumin, Serum 4.3 g/dL (Normal) Range: 3.6-4.8 Protein, Total, Serum 7.4 g/dL (Normal) Range: 6.0-8.5 Calcium, Serum 10.2 mg/dL (Normal) Range: 8.7-10.3 Carbon Dioxide, Total 22 mmol/L (Normal) Range: 18-29 Chloride, Serum 102 mmol/L (Normal) Range: 97-108 Potassium, Serum 4.6 mmol/L (Normal) Range: 3.5-5.2 Sodium, Serum 141 mmol/L (Normal) Range: 134-144 BUN/Creatinine Ratio 23 (Normal) Range: 11-26 eGFR If Africn Am 88 mL/min/1.73 (Normal) eGFR If NonAfricn Am 76 mL/min/1.73 (Normal) Creatinine, Serum 0.81 mg/dL (Normal) Range: 0.57-1.00 BUN 19 mg/dL (Normal) Range: 8-27 Glucose, Serum 87 mg/dL (Normal) Range: 65-99 :58 LIPID PANEL ([id number]) Comments: PATIENT WAS FASTINGPERFORMED BY: [facility] [id number] LDL/HDL Ratio 1.9 {ratio_units} (Normal) Range: 0.0-3.2 Comments: LDL/HDL Ratio Men Women 1/2 Avg.Risk 1.0 1.5 Av g.Risk 3.6 3.2 2X Avg.Risk 6.2 5.0 3X Avg.Risk 8.0 6.1 LDL Cholesterol Calc 110 mg/dL (Abnormal) Range: 0-99 VLDL Cholesterol Miguel 15 mg/dL (Normal) Range: 5-40 HDL Cholesterol 59 mg/dL (Normal) Comments: According to ATP-III Guidelines, HDL-C >59 mg/dL is considered anegative risk factor for CHD. Triglycerides 76 mg/dL (Normal) Range: 0-149 Cholesterol, Total 184 mg/dL (Normal) Range: 100-199 50-Sax-50239:58 CBC with auto diff Comments: PATIENT WAS FASTINGPERFORMED BY: [facility]3]Qnlsis0022 [facility] [id number] Information: [id number] ([id number]) Immature Grans (Abs) 0.0 {x10E3/uL} (Normal) Range: 0.0-0.1 Immature Granulocytes 0 % (Normal) Baso (Absolute) 0.0 {x10E3/uL} (Normal) Range: 0.0-0.2 Eos (Absolute) 0.1 {x10E3/uL} (Normal) Range: 0.0-0.4 Monocytes(Absolute) 0.5 {x10E3/uL} (Normal) Range: 0.1-0.9 Lymphs (Absolute) 1.3 {x10E3/uL} (Normal) Range: 0.7-3.1 Neutrophils (Absolute) 2.0 {x10E3/uL} (Normal) Range: 1.4-7.0 Basos 1 % (Normal) Eos 2 % (Normal) Monocytes 13 % (Normal) Lymphs 34 % (Normal) Neutrophils 50 % (Normal) Platelets 186 {x10E3/uL} (Normal) Range: 150-379 RDW 13.5 % (Normal) Range: 12.3-15.4 MCHC 32.5 g/dL (Normal) Range: 31.5-35.7 MCH 29.5 pg (Normal) Range: 26.6-33.0 MCV 91 fL (Normal) Range: 79-97 Hematocrit 40.3 % (Normal) Range: 34.0-46.6 Hemoglobin 13.1 g/dL (Normal) Range: 11.1-15.9 RBC 4.44 {x10E6/uL} (Normal) Range: 3.77-5.28 WBC 3.9 {x10E3/uL} (Normal) Range: 3.4-10.8 0-Ysf-498400:11 Microscopic Examination Comments: PATIENT WAS FASTINGPERFORMED BY: [facility] [id number] Bacteria None seen (Normal) Mucus Threads Present (Normal) Epithelial Cells (non renal) 0-10 {/hpf} (Normal) Range: 0 - 10 RBC None seen {/hpf} (Normal) Range: 0 - 3 WBC None seen {/hpf} (Normal) Range: 0 - 5 :03 T4, FREE (THYROXINE) ([id number]) Comments: PATIENT WAS FASTINGPERFORMED BY: [facility] [id number] T4,Free(Direct) 1.28 ng/dL (Normal) Range: 0.82-1.77 :03 URINALYSIS, W/ MICRO (41875) Comments: PATIENT WAS FASTINGPERFORMED BY: [facility] [id number] Microscopic Examination See below: (Normal) Microscopic Examination MICRON (Normal) Comments: Microscopic follows if indicated. Nitrite, Urine Negative (Normal) Urobilinogen,Semi-Qn 0.2 mg/dL (Normal) Range: 0.0-1.9 Bilirubin Negative (Normal) Occult Blood Negative (Normal) Ketones Negative (Normal) Glucose Negative (Normal) Protein Negative (Normal) WBC Esterase Negative (Normal) Appearance Clear (Normal) Urine-Color Yellow (Normal) pH 6.5 (Normal) Range: 5.0-7.5 Specific [place] 1.015 (Normal) Range: 1.005-1.030 :03 CALCIFIDIOL (98086) VIT D 25 Comments: PATIENT WAS FASTINGPERFORMED BY: [facility] [id number] Vitamin D, 25-Hydroxy 38.2 ng/mL (Normal) Range: 30.0-100.0 Comments: Vitamin D deficiency has been defined by the [place] ofMedicine and an Endocrine Society practice guideline as alevel of serum 25-OH vitamin D less than 20 ng/mL (1,2).The Endocrine Society went on to further define vitamin Dinsufficiency as a level between 21 and 29 ng/mL (2).1. IOM ([place] of Medicine). 2010. Dietary reference intakes for calcium and D. [place]: The National Academies Press.2. Gustavo MF, Yvette ZUNIGA, Jus RIVERA, et al. Evaluation, treatment, and prevention of vitamin D deficiency: an Endocrine Society clinical practice guideline. JCEM. 2010; 96(7):1911-30. 0-Sja-154005:03 METABOLIC PANEL, COMPREHENSIVE Comments: PATIENT WAS FASTINGPERFORMED BY: [facility] Nsjbaq3280 [facility] [id number] ([id number]) ALT (SGPT) 12 [iU]/L (Normal) Range: 0-32 AST (SGOT) 18 [iU]/L (Normal) Range: 0-40 Alkaline Phosphatase, S 74 [iU]/L (Normal) Range: 39-117 Bilirubin, Total 1.1 mg/dL (Normal) Range: 0.0-1.2 A/G Ratio 1.4 (Normal) Range: 1.1-2.5 Globulin, Total 3.2 g/dL (Normal) Range: 1.5-4.5 Albumin, Serum 4.4 g/dL (Normal) Range: 3.6-4.8 Protein, Total, Serum 7.6 g/dL (Normal) Range: 6.0-8.5 Calcium, Serum 9.9 mg/dL (Normal) Range: 8.6-10.2 Carbon Dioxide, Total 25 mmol/L (Normal) Range: 19-28 Chloride, Serum 102 mmol/L (Normal) Range: 97-108 Potassium, Serum 4.4 mmol/L (Normal) Range: 3.5-5.2 Sodium, Serum 139 mmol/L (Normal) Range: 134-144 BUN/Creatinine Ratio 19 (Normal) Range: 11-26 eGFR If Africn Am 86 mL/min/1.73 (Normal) eGFR If NonAfricn Am 74 mL/min/1.73 (Normal) Creatinine, Serum 0.83 mg/dL (Normal) Range: 0.57-1.00 BUN 16 mg/dL (Normal) Range: 8-27 Glucose, Serum 86 mg/dL (Normal) Range: 65-99 3-Mfa-677153:03 CBC WITH MANUAL DIFF (41677) Comments: PATIENT WAS FASTINGPERFORMED BY: [facility]3]Xispad4495 [facility] [id number] Immature Grans (Abs) 0.0 {x10E3/uL} (Normal) Range: 0.0-0.1 Immature Granulocytes 0 % (Normal) Range: 0-2 Baso (Absolute) 0.0 {x10E3/uL} (Normal) Range: 0.0-0.2 Eos (Absolute) 0.1 {x10E3/uL} (Normal) Range: 0.0-0.4 Monocytes(Absolute) 0.6 {x10E3/uL} (Normal) Range: 0.1-0.9 Lymphs (Absolute) 1.1 {x10E3/uL} (Normal) Range: 0.7-3.1 Neutrophils (Absolute) 2.2 {x10E3/uL} (Normal) Range: 1.4-7.0 Basos 1 % (Normal) Range: 0-3 Eos 2 % (Normal) Range: 0-5 Monocytes 16 % (Abnormal) Range: 4-12 Lymphs 28 % (Normal) Range: 14-46 Neutrophils 53 % (Normal) Range: 40-74 Platelets 221 {x10E3/uL} (Normal) Range: 155-379 RDW 13.7 % (Normal) Range: 12.3-15.4 MCHC 33.2 g/dL (Normal) Range: 31.5-35.7 MCH 29.7 pg (Normal) Range: 26.6-33.0 MCV 90 fL (Normal) Range: 79-97 Hematocrit 40.7 % (Normal) Range: 34.0-46.6 Hemoglobin 13.5 g/dL (Normal) Range: 11.1-15.9 RBC 4.55 {x10E6/uL} (Normal) Range: 3.77-5.28 WBC 4.0 {x10E3/uL} (Normal) Range: 3.4-10.8 2-Rxz-802380:03 TSH ([id number]) Comments: PATIENT WAS FASTINGPERFORMED BY: [facility] [id number] TSH 2.970 {uIU/mL} (Normal) Range: 0.450-4.500 45-Xou-81637:21 CBC, Platelets & Auto Diff Comments: today; PATIENT NOT FASTINGPERFORMED BY: [facility]6370 [facility] [id number] Information: [id number] (96057) Immature Grans (Abs) 0.0 {x10E3/uL} (Normal) Range: 0.0-0.1 Immature Granulocytes 0 % (Normal) Range: 0-2 Baso (Absolute) 0.0 {x10E3/uL} (Normal) Range: 0.0-0.2 Eos (Absolute) 0.1 {x10E3/uL} (Normal) Range: 0.0-0.4 Monocytes(Absolute) 0.5 {x10E3/uL} (Normal) Range: 0.1-1.0 Lymphs (Absolute) 1.3 {x10E3/uL} (Normal) Range: 0.7-4.5 Neutrophils (Absolute) 1.3 {x10E3/uL} (Abnormal) Range: 1.8-7.8 Basos 1 % (Normal) Range: 0-3 Eos 2 % (Normal) Range: 0-7 Monocytes 17 % (Abnormal) Range: 4-13 Lymphs 41 % (Normal) Range: 14-46 Neutrophils 39 % (Abnormal) Range: 40-74 Platelets 179 {x10E3/uL} (Normal) Range: 140-415 RDW 13.1 % (Normal) Range: 12.3-15.4 MCHC 32.3 g/dL (Normal) Range: 31.5-35.7 MCH 29.6 pg (Normal) Range: 26.6-33.0 MCV 92 fL (Normal) Range: 79-97 Hematocrit 39.3 % (Normal) Range: 34.0-46.6 Hemoglobin 12.7 g/dL (Normal) Range: 11.1-15.9 RBC 4.29 {x10E6/uL} (Normal) Range: 3.77-5.28 WBC 3.2 {x10E3/uL} (Abnormal) Range: 4.0-10.5 91-Rgl-248187:04 PELVIC (NON ) Radiology Report See Note (Normal) Comments: PROCEDURE: ULTRASOUND OF THE FEMALE PELVIS - COMPLETE REASON FOR EXAM: Female, 61 years old. LMP: The patient ispostmenopausal. The patient is status post hysterectomy. TECHNIQUE: Transabdomina l and Transvaginal TECHNICAL QUALITY: Adequate. COMPARISON: None. FINDINGS:The patient is status post hysterectomy. The right ovary is non-visualized. The left ovary is non-visualized. There is no f luid in the cul-de-sac. The distended urinary bladder had a volume of 550 ml at the time of theexam. IMPRESSION:The patient is status post hysterectomy.No abnormality is seen. Signed:Isiah Sanchez M.D.April 12, 2012 at 3:25:13 PM [phone] Signed GP/GP If you are the referring physician and would like to consult with theradiologist who provided this interpretation, please c ramyaact Obdulia Lentz at [phone]. If this radiologist is unavailable, youwill be directed to another radiologist to assist. If you are a patient with a question regarding this report, plea secontactyour referring physician directly. Professional Interpretation Provided By: [employer], Phone , These documents contain legally protected and confidential healthi nformation intended only for the use of the individual or entity namedabove. If you are not the intended recipient, you are hereby notifiedthatany disclosure, copying, distribution, or other use of thes e documents isstrictly prohibited. If you have received this information in error,pleasenotify the sender immediately and arrange for the return or destructionofthese documents. Dictated on 04/12/12 1308 by Effie Sanchez MDranscribed on 04/12/12 1532 by ITS IMPORTSign by Isiah Sanchez MD on 04/12/12 1532 Sign by: Isiah Sanchez MD 4-Tta-656903:16 Pap IG, Ct-Ng, Comments: Source.............Cervical;VaginalNo. of containers..01 CYTYC Thin Prep VialPERFORMED BY: WB [facility] Ocemvknvwz368 [facility] [place] W [id number] BY: =G [facility] Giovanna marino120 [facility] HPV-hr ls [facility] [place] [id number] Information: [id number] Gonococcus, Nuc. Acid Amp Negative (Normal) Chlamydia, Nuc. Acid Amp Negative (Normal) HPV, high-risk Negative (Normal) Comments: This high-risk HPV test detects thirteen high-risk types(16/18/31/33/35/39/45/51/52/56/58/59/68) without differentiation. . Note: PAPSMR (Normal) Comments: The Pap smear is a screening test designed to aid in the detection ofpremalignant and malignant conditions of the uterine cervix. It is not adiagnostic procedure and should not be used as the sole mean s of detectingcervical cancer. Both false-positive and false-negative reports do occur. .This liquid based ThinPrep(R) pap test w as screened with theuse of an image guided system. See Note . (Normal) DIAGNOSIS: SPRCS (Normal) Comments: NEGATIVE FOR INTRAEPITHELIAL LESION AND MALIGNANCY.Satisfactory for evaluation. Endocervical and/or squamous metaplasticcells (endocervical component) are present.V72.31 ; Routine gynecolog ical examina yryk754.5 ; Leukorrhea, not specified as infectiveJennifer Camilo Ship Keeper (ASCP) 8-Upo-115055:13 Genital Culture, Routine Comments: PERFORMED BY: [facility] Padxif4029 [facility] [id number] Information: SRC:VA Result 1 RGF (Normal) Comments: Routine genital rochelle. Genital Culture, Routine Final report (Normal) 8-Kal-509022:03 GARDNERELLA VAG, NUCLEIC Comments: PATIENT NOT FASTINGPERFORMED BY: [facility] Kfuyqr9638 [facility] [id number] Information: [id number] ACID DIR PROBE (38263) Gardnerella vaginalis Positive (Abnormal) Trichomonas vaginalis Negative (Normal) Aquiles species Negative (Normal) 26-Qie-287807:59 BREAST UNILATERAL Radiology Report See Note (Normal) Comments: PROCEDURE: ULTRASOUND BREAST(S) - LEFT REASON FOR EXAM: Female, 60 years old. Palpable lump left breast. Thepatient is status post bilateral breast augmentation. TECHNIQUE: Axial and longitudin al images of the LEFT breast wereperformed with a high resolution ultrasound transducer. COMPARISON: None. FINDINGS: LEFT BREAST:There is a 4 mm x 3 mm x 2 mm cyst at the 11 o'clock position of the le ftbreast at 6 cm from the nipple. IMPRESSION:Small cyst at the 11 o'clock position of the left breast. ASSESSMENT CATEGORY:BIRADS Category 2: Benign finding(s). To consult with a radiologist regarding this report, please call our [id number] line @ Dictated on 07/22/11 1139 by Effie Sanchez MDranscribed on 07/26/11 0810 by ITS IMPORTSign by Isiah Sanchez MD on 07/26/11 0 811 Sign by: Isiah Sanchez MD 26-Yiv-343656:38 CBCD ANC 1.3 3/uL (Abnormal) Range: 2.0-7.7 B% 0.8 % (Normal) Range: 0-1 E% 2.8 % (Normal) Range: 0-5 M% 13.0 % (Abnormal) Range: 0-10 L% 42.2 % (Abnormal) Range: 19-41 N% 41.2 % (Abnormal) Range: 47-70 MPV 9.3 fL (Normal) Range: 6.5-12.0 PLT 192 K/mm3 (Normal) Range: 150-450 RDW 12.9 % (Normal) Range: 11.6-14.6 MCHC 34.2 g/dL (Normal) Range: 32-36 MCH 30.3 pg (Normal) Range: 27.0-32.0 MCV 88.7 fL (Normal) Range: 81-99 HCT 38.6 % (Normal) Range: 37-47 HGB 13.2 g/dL (Normal) Range: 12.0-16.0 RBC 4.36 {M/mm3} (Normal) Range: 4.2-5.4 WBC 3.2 K/mm3 (Abnormal) Range: 4.4-11.0 :38 CMP GAP 6 (Normal) Range: 5-15 CO2 31.0 mmol/L (Normal) Range: 21.0-32.0 CL 103 mmol/L (Normal) Range: 98-107 K 4.3 mmol/L (Normal) Range: 3.5-5.1 NA 140 mmol/L (Normal) Range: 136-145 BIT 0.60 mg/dL (Normal) Range: 0.00-1.00 ALT 23 U/L (Normal) Range: 12-78 ALK 67 U/L (Normal) Range: 50-136 AST 15 U/L (Normal) Range: 15-37 CA 9.5 mg/dL (Normal) Range: 8.5-10.1 AG 1.1 {RATIO} (Normal) Range: 0.9-2.4 GLOB 3.9 g/dL (Normal) Range: 2.7-4.2 ALB 4.2 g/dL (Normal) Range: 3.4-5.0 TPROT 8.1 g/dL (Normal) Range: 6.4-8.2 BC 23.8 {RATIO} (Abnormal) Range: 10-20 GFRAA 93 mL/min (Normal) GFR 77 mL/min (Normal) CREAT 0.8 mg/dL (Normal) Range: 0.6-1.0 BUN 19 mg/dL (Abnormal) Range: 7-18 GLU 84 mg/dL (Normal) Range: 70-110 :38 LIPID VLDL 18 mg/dL (Normal) Range: 5-40 LDL 124 mg/dL (Normal) Range: 0-130 HDL 59 mg/dL (Normal) Comments: Reference Range HDL <40 mg/dL Low HDL Cholesterol HDL >or= 60 mg/dL High HDL Cholesterol TRIG 92 mg/dL (Normal) Comments: Serum Triglycerides Reference Interval Normal <150 mg/dL Borderline high 150 - 199 mg/dL High 200 - 499 mg/dL Very High > or = 500 mg/dL CHOL 201 mg/dL (Abnormal) Comments: <200 mg/dL Desirable 200-240 mg/dL Borderline >240 mg/dL High Risk 38-Ysd-886415:38 SED tSEDRATE 13 mm/h (Normal) Range: 0-30 27-Ovg-264530:38 UA LORIE NEGATIVE (Normal) UOB NEGATIVE (Normal) KYM NEGATIVE (Normal) UROBU 0.2 EU/dl (Normal) Range: 0.2 - 1.0 uPROTU NEGATIVE (Normal) RAJESH 6.0 (Normal) Range: 5.0-8.0 SGU 1.020 (Normal) Range: 1.002-1.030 KETU NEGATIVE mg/dL (Normal) BILIU NEGATIVE (Normal) GLUR NEGATIVE (Normal) UCLAR CLEAR (Normal) UCOL YELLOW (Normal) 2-Ndy-171802:54 URINE ROBERT CULTURE-BRYANNA COL Comments: PATIENT NOT FASTINGPERFORMED BY: [facility]3]Bjauwq7952 [facility] [id number] Information: SRC: URINE COUNT (93022) Result 1 NG36 (Normal) Comments: No growth in 36 - 48 hours. Urine Culture,Comprehensive Final report (Normal) 0-Yni-108540:34 Urinalysis, Office (55889) UA - BILIRUBIN Negative (Normal) UA - BLOOD Negative (Normal) UA - GLUCOSE Negative (Normal) UA - KETONES Negative mg/dL (Normal) UA - LEUKOCYTE ESTERASE Negative (Normal) UA - NITRITE Negative (Normal) UA - PH 6.0 (Normal) UA - PROTEIN Negative mg/dL (Normal) UA - SPECIFIC GRAVITY 1.010 (Normal) URINE UROBILINGN BRYANNA TIMED Normal mg/dL (Normal) 94-Tpv-784951:25 DEXA BONE DENSITY STUDY (HP) Radiology Report See Note (Normal) Comments: PROCEDURE: DUAL ENERGY X-RAY ABSORPTIOMETRY / DEXA. REASON FOR EXAM: Female, 60 years old. The patient is postmenopausal. TECHNIQUE: Bone Mineral Density (BMD) measurements of lumbar s pine andbila teral hips were obtained. COMPARISON: Comparison is made with prior study dated September 09, 2008. FINDINGS: Lumbar Spine (L1-L4): g/cm2 (1.105) / T-score (-0.6) / Z-score (0.9)Left Femur Total: g/cm 2 (0.905) / T-score (-0.8) / Z-score (-0.3)Right Femur Total: g/cm2 (0.946) / T-score (-0.5) / Z-score (0.6) Since prior study, there has been an improvement of 2.3% in the bonedensity. IMPRESS ION:The patient is considered normal, as outlined below according to WorldHealth Organization (WHO) criteria. Fracture risk is low. Reference Information:The T-score is the number of standard deviation s above or below thestandard which is normal for young adults at their peak bone mineraldensity. The World Health Organization (WHO) interprets the T- scores asfollows: Above -1 Normal bone den sityBetween -1 and -2.5 OsteopeniaEqual to / or below -2.5 Osteoporosis As a practical clinical guideline, osteopenia may be graded as follows:Mild -1 through -1.5Moderate -1.6 through -2.0Severe -2.1 through -2.4 The Z-score is the number of standard deviations above or below age-matchedcontrols. A Z-score of less than -1.5 would be considered abnormal. References:1. NIH Osteoporosis and Rela estee Bone Diseases http://www.osteo.org2. International Society for Clinical Densitometry http://www.iscd.org3. National Osteoporosis Foundation http://www.nof.org Dictated on 09/21/10 1543 by Kelli luna MD,Effieranscribed on 09/22/10857 by ITS IMPORTSign by Isiah Sanchez MD on 09/22/10857 Sign by: Isiah Sanchez MD 34-Oup-831390:24 BILAT SCRN IMPLANT DIG & CAD Radiology Report See Note (Normal) Comments: MAMMOGRAPHY - BILATERAL SCREENING INDICATION:Female, 60 years old. Routine annual screening examination. PERTINENT HISTORY:Non-contributory. TECHNIQUE:Digital examination. Mediolateral oblique (MLO) a nd craniocaudad (CC)views of both breasts were obtained. Images were obtained both includingand excluding the patient's implants.CAD: CAD was performed on this study. COMPARISON:December 18, 2003 and September 09, 2008 FINDINGS:The breast composition is extremely dense and this may lower thesensitivity of mammography. The presence of implants may also lower thesensitivity of the mammographic examination . There is no skin thickeningor retraction and no architectural distortion is identified. No dominantmass or suspicious cluster of microcalcifications is seenNo other significant abnormalities are angelica ntified.If there is a suspicious palpable abnormality, a follow-up mammogram inoneyear is recommended. IMPRESSION:Normal bilateral screening mammogram. One year follow-up recommended. (1) ASSESSMENT CA TEGORY:BIRADS Category 2: Benign finding(s). A letter regarding these resultswill be sent to the patient by the facility within 30 days. Approximately 10% of breast cancers are not detected by mammogr aphy. Anormal mammogram should not delay biopsy of a clinically suspiciousabnormality. Dictated on 09/21/10 1457 by NINO CARROLL MDTranscribed on 09/22/10 1325 by ITS IMPORTSign by DURGA CARROLL MD on 09/22/10 1326 Sign by: NINO CARROLL MD 28-Uda-21774:48 Microscopic Examination Comments: PATIENT WAS FASTINGPERFORMED BY: [facility] [id number] Bacteria Few (Normal) Mucus Threads Present (Normal) Epithelial Cells (non renal) 0-10 {/hpf} (Normal) Range: 0 - 10 RBC None seen {/hpf} (Normal) Range: 0 - 3 WBC 0-5 {/hpf} (Normal) Range: 0 - 5 :48 Lipid Panel (91036) Comments: PATIENT WAS FASTINGPERFORMED BY: [facility] [id number] LDL Cholesterol Calc 126 mg/dL (Abnormal) Range: 0-99 LDL/HDL Ratio 2.0 {ratio_units} (Normal) Range: 0.0-3.2 VLDL Cholesterol Miguel 19 mg/dL (Normal) Range: 5-40 Cholesterol, Total 207 mg/dL (Abnormal) Range: 100-199 HDL Cholesterol 62 mg/dL (Normal) Comments: According to ATP-III Guidelines, HDL-C >59 mg/dL is considered anegative risk factor for CHD. Triglycerides 95 mg/dL (Normal) Range: 0-149 :48 URINALYSIS (72685) Comments: PATIENT WAS FASTINGPERFORMED BY: [facility] [facility] [employer] Uikxnp8348 [facility] [id number] Microscopic Examination See below: (Normal) Bilirubin Negative (Normal) Glucose Negative (Normal) Ketones Negative (Normal) Nitrite, Urine Negative (Normal) Occult Blood 3+ (Abnormal) Urobilinogen,Semi-Qn 0.2 mg/dL (Normal) Range: 0.0-1.9 Protein Negative (Normal) WBC Esterase Negative (Normal) Appearance Clear (Normal) Urine-Color Yellow (Normal) pH 6.5 (Normal) Range: 5.0-7.5 Specific [place] 1.020 (Normal) Range: 1.005-1.030 :48 CBC, Platelets & Auto Diff Comments: PATIENT WAS FASTINGPERFORMED BY: [facility]3]Kkvokw4589 [facility] [id number] (55721) Immature Grans (Abs) 0.0 {x10E3/uL} (Normal) Range: 0.0-0.1 Immature Granulocytes 0 % (Normal) Range: 0-1 Comments: Effective August 23, 2010, the reference intervals will be changing to: 0 - 2 Baso (Absolute) 0.0 {x10E3/uL} (Normal) Range: 0.0-0.2 Eos (Absolute) 0.1 {x10E3/uL} (Normal) Range: 0.0-0.4 Monocytes(Absolute) 0.7 {x10E3/uL} (Normal) Range: 0.1-1.0 Lymphs (Absolute) 1.3 {x10E3/uL} (Normal) Range: 0.7-4.5 Neutrophils (Absolute) 1.1 {x10E3/uL} (Abnormal) Range: 1.8-7.8 Basos 1 % (Normal) Range: 0-3 Eos 3 % (Normal) Range: 0-7 Lymphs 41 % (Normal) Range: 14-46 Monocytes 20 % (Abnormal) Range: 4-13 Neutrophils 35 % (Abnormal) Range: 40-74 MCHC 34.0 g/dL (Normal) Range: 32.0-36.0 Platelets 206 {x10E3/uL} (Normal) Range: 140-415 RDW 13.4 % (Normal) Range: 11.7-15.0 MCH 31.2 pg (Normal) Range: 27.0-34.0 MCV 92 fL (Normal) Range: 80-98 Hematocrit 43.2 % (Normal) Range: 34.0-44.0 Hemoglobin 14.7 g/dL (Normal) Range: 11.5-15.0 RBC 4.71 {x10E6/uL} (Normal) Range: 3.80-5.10 WBC 3.2 {x10E3/uL} (Abnormal) Range: 4.0-10.5 :48 TSH ([id number]) Comments: PATIENT WAS FASTINGPERFORMED BY: [facility]3]Afimwi3659 [facility] [id number] TSH 3.920 {uIU/mL} (Normal) Range: 0.450-4.500 :48 Metabolic Panel, Comprehensive Comments: PATIENT WAS FASTINGPERFORMED BY: [facility]3]Osfnbs5003 [facility] [id number] ([id number]) ALT (SGPT) 11 [iU]/L (Normal) Range: 0-40 A/G Ratio 1.2 (Normal) Range: 1.1-2.5 Alkaline Phosphatase, S 72 [iU]/L (Normal) Range: 25-165 AST (SGOT) 17 [iU]/L (Normal) Range: 0-40 Bilirubin, Total 1.0 mg/dL (Normal) Range: 0.0-1.2 Albumin, Serum 4.4 g/dL (Normal) Range: 3.6-4.8 Globulin, Total 3.8 g/dL (Normal) Range: 1.5-4.5 Protein, Total, Serum 8.2 g/dL (Normal) Range: 6.0-8.5 Calcium, Serum 9.8 mg/dL (Normal) Range: 8.6-10.2 Carbon Dioxide, Total 22 mmol/L (Normal) Range: 20-32 Chloride, Serum 102 mmol/L (Normal) Range: 97-108 Potassium, Serum 4.2 mmol/L (Normal) Range: 3.5-5.2 Sodium, Serum 140 mmol/L (Normal) Range: 135-145 BUN/Creatinine Ratio 18 (Normal) Range: 11-26 eGFR If Africn Am 75 mL/min/1.73 (Normal) Comments: Note: A persistent eGFR <60 mL/min/1.73 m2 (3 months or more) mayindicate chronic kidney disease. An eGFR >59 mL/min/1.73 m2 with anelevated urine protein also may indicate chronic kidney disease.Calculated using CKD-EPI formula. eGFR If NonAfricn Am 65 mL/min/1.73 (Normal) Creatinine, Serum 0.94 mg/dL (Normal) Range: 0.57-1.00 BUN 17 mg/dL (Normal) Range: 8-27 Glucose, Serum 85 mg/dL (Normal) Range: 65-99 30-Pon-617102:15 Anti-dsDNA Antibodies Comments: PERFORMED BY: [facility] [id number] Anti-DNA (DS) Ab Qn 4 {IU/mL} (Normal) Range: 0-9 Comments: Negative <5Equivocal 5 - 9Positive >9 C-Reactive Protein, 0.5 mg/L (Normal) Comments: PERFORMED BY: [facility] [id number] :15 Quant Range: 0.0-4.9 :15 CBC With Differential/Platelet Comments: [facility]FORMED BY: [facility] [id number] Baso (Absolute) 0.0 {x10E3/uL} (Normal) Range: 0.0-0.2 Eos (Absolute) 0.1 {x10E3/uL} (Normal) Range: 0.0-0.4 Monocytes(Absolute) 0.4 {x10E3/uL} (Normal) Range: 0.1-1.0 Lymphs (Absolute) 1.1 {x10E3/uL} (Normal) Range: 0.7-4.5 Neutrophils (Absolute) 1.4 {x10E3/uL} (Abnormal) Range: 1.8-7.8 Basos 1 % (Normal) Range: 0-3 Eos 2 % (Normal) Range: 0-7 Lymphs 38 % (Normal) Range: 14-46 Monocytes 12 % (Normal) Range: 4-13 Neutrophils 47 % (Normal) Range: 40-74 MCH 30.3 pg (Normal) Range: 27.0-34.0 MCHC 33.5 g/dL (Normal) Range: 32.0-36.0 Platelets 185 {x10E3/uL} (Normal) Range: 140-415 RDW 12.7 % (Normal) Range: 11.7-15.0 Hematocrit 39.4 % (Normal) Range: 34.0-44.0 Hemoglobin 13.2 g/dL (Normal) Range: 11.5-15.0 MCV 90 fL (Normal) Range: 80-98 RBC 4.36 {x10E6/uL} (Normal) Range: 3.80-5.10 WBC 3.0 {x10E3/uL} (Abnormal) Range: 4.0-10.5 54-Iyc-928430:15 Comp. Metabolic Panel (14) Comments: [facility] [id number] Alkaline Phosphatase, S 73 [iU]/L Range: 25-165 (Normal) ALT (SGPT) 12 [iU]/L Range: 0-40 (Normal) AST (SGOT) 15 [iU]/L Range: 0-40 (Normal) A/G Ratio 1.4 (Normal) Range: 1.1-2.5 Bilirubin, Total 0.7 mg/dL Range: 0.0-1.2 (Normal) Comments: Please note reference interval change Globulin, Total 3.2 g/dL (Normal) Range: 1.5-4.5 Albumin, Serum 4.5 g/dL (Normal) Range: 3.6-4.8 Protein, Total, Serum 7.7 g/dL (Normal) Range: 6.0-8.5 Calcium, Serum 9.5 mg/dL Range: 8.6-10.2 (Normal) Carbon Dioxide, Total 24 mmol/L Range: 20-32 (Normal) Chloride, Serum 101 mmol/L Range: 97-108 (Normal) Potassium, Serum 5.0 mmol/L Range: 3.5-5.2 (Normal) Sodium, Serum 139 mmol/L Range: 135-145 (Normal) BUN/Creatinine Ratio 20 (Normal) Range: 8-27 eGFR AfricanAmerican >59 mL/min/1.73 Comments: Note: Persistent reduction for 3 months or more in an eGFR<60 mL/min/1.73 m2 defines CKD. Patients with eGFR values>/=60 mL/min/1.73 m2 may also have CKD if evidence of persistentproteinuria is (Normal) present. Additional information may be found [email or web address]. eGFR >59 mL/min/1.73 (Normal) BUN 16 mg/dL (Normal) Range: 5-26 Creatinine, Serum 0.79 mg/dL Range: 0.57-1.00 (Normal) Glucose, Serum 90 mg/dL (Normal) Range: 65-99 28-Jul-2009 Complement C3, Serum 116 {mg/dL_Adult} Comments: PERFORMED BY: [facility] [id number] 12:15 (Normal) Range: 90-180 28-Jul-2009 Complement C4, Serum 15 {mg/dL_Adult} Comments: PERFORMED BY: [facility] [id number] 12:15 (Normal) Range: 9-36 28-Jul-2009 Complement, Total (CH50) 53 U/mL (Normal) Comments: PERFORMED BY: [facility] [id number] 12:15 Range: 22-60 28-Jul-2009 TSH 3.440 {uIU/mL} Comments: PERFORMED BY: [facility] [id number] 12:15 (Normal) Range: 0.450-4.500 86-Jpw-942097:15 Urinalysis, Routine Comments: PERFORMED BY: [facility] [id number] Bilirubin Negative (Normal) Microscopic Examination MICRON (Normal) Comments: Microscopic follows if indicated. Nitrite, Urine Negative (Normal) Urobilinogen,Semi-Qn 0.2 mg/dL (Normal) Range: 0.0-1.9 Glucose Negative (Normal) Ketones Negative (Normal) Occult Blood Negative (Normal) Protein Negative (Normal) Appearance Clear (Normal) pH 6.5 (Normal) Range: 5.0-7.5 Specific [place] 1.019 (Normal) Range: 1.005-1.030 Urine-Color Yellow (Normal) WBC Esterase Negative (Normal) 49-Eav-20533:06 [facility] DIGITAL & CAD Radiology Report See Note (Normal) Comments: Exam Number: [id number] UNILATERAL DIAGNOSTIC MAMMOGRAM Oblique and craniocaudal views of the left breast were obtaineddigitally. Comparison is made with the prior examinations datedJun2008, and [facility] 2008. Interpretation was made with thebenefit of the CAD system. Once again, a breast implant is in place. The overlying glandulartissue is unremarkable. No dominant mass lesion is seen. Noc luster of microcalcification is present. The overlying skin is notthickened. IMPRESSION1. Unremarkable mammogram. 2. Routine annual mammographic followup is suggested.3. Benign. BIRADS Category 2 . A letter regarding the results has been sent to the patient. This interpretation was rendered by a radiologist certified under theMammography Quality Standards Act of 1992 (MQSA). The mammograms w erealso examined with computer-aided detection software ([employer], [employer] Reported By: ISIAH SANCHEZ 99-Quy-399749:53 [facility] DIGITAL & CAD Radiology Report See Note (Normal) Comments: Exam Number: [id number] MAMMOGRAM, UNILATERAL LEFT DIAGNOSTIC DIGITAL AND CAD HISTORYRoutine screening. Full field digital images were obtained in mediolateral oblique andcraniocaudal spot co mpression vi ews, excluding implants. CAD imageswere reviewed. The current study is compared to the examinations of December, and September 09, 2008. There is a severe extent of fibroglandular parenchyma prese nt. Thereis no skin thickening or retraction, architectural distortion, orcluster of suspicious microcalcifications. The current study does notconfirm the presence of a nodule in the retroareolar area of the leftbreast. The density seen on the examination of September 09, 2008, mostlikely represented superimposition. To exclude the possibility ofearly change, a left 6-month followup mammogram is recomme nded. IMPRESSIONThere is no definite nodule identified on additional views. Left6-month followup mammogram is recommended. FINAL ASSESSMENTProbably benign. BIRADS Category 3. A letter regarding these results has been sent to the patient. This interpretation was rendered by a radiologist certified under theMammography Quality Standards Act of 1992 (MQSA). The mammograms werealso examined with computer-aided detection software ([employer], [employer] Reported By: NINO CARROLL M.D. 09-Sep-20088:22 [facility] DIGITAL & CAD Radiology Report See Note (Normal) Comments: Exam Number: [id number] MAMMOGRAM, BILATERAL SCREENING DIGITAL AND CAD HISTORYRoutine screening. Full field digital images were obtained in mediolateral oblique andcraniocaudal projections. Images were obtained both including andexcluding patient's implants. The current study is compared to the examinations of December. The examination of June 29, 2004 was also reviewed. This wasa left kelly mogram only. There is a severe extent of fibroglandular parenchyma present. Thereis no skin thickening or retraction, architectural distortion, orcluster of suspicious microcalcifications. There is a small densityin the retroareolar area of the left breast. The distinction betweensuperimposition and a small nodule is uncertain. For that reason,left mediolateral oblique and craniocaudal spot compre ssion views ofthe retroareolar area are recommended. IMPRESSIONThere is a small density in the retroareolar area of the left breast. This may represent a small nodule or an area of superimposition. Spo tcompression views are recommended. FINAL ASSESSMENTNeed additional imaging evaluation. BIRADS Category 2. A letter regarding these results has been sent to the patient. This interpretation was render ed by a radiologist certified under theMammography Quality Standards Act of 1992 (MQSA). The mammograms werealso examined with computer-aided detection software ([employer] Reported By: NINO CARROLL M.D. 09-Sep-20088:22 DEXA BONE DENSITY STUDY (HP) Radiology Report See Note (Normal) Comments: Exam Number: [id number] BONE DENSITOMETRY HISTORYScreening, postmenopausal. TECHNIQUE Bone densitometry of the lumbar spine and both hips is now beingperformed. The best criteria for e valuation of osteoporosis is theT-value, which represents the comparison of the patient's bone mass israel expected peak bone mass. For most patients, the mean T-value of L3aveorvw L4 is used to evaluate the lumbar spine. To evaluate the hip,the lower T-value of the femoral neck or total hip is used. FINDINGSIn this patient, the mean T-value of L1 through L4 is - 0.8, which iswithin normal limits. Bone mineral de nsity is measured at 3.5%greater than in 2002. Digital lateral view for evaluation ofvertebral deformity only demonstrates no compression fractures. TheT-value of the left femoral neck is -0.5, which is normal. TheT-value of the total left hip is 0.5, which is normal. Bone mineraldensity is measured at 1.7% greater than in 2002. The T-value of theright femoral neck is -0.9, which is normal. The T-value of thetotal right hip is -0.7, which is normal. IMPRESSIONBone densitometry of the lumbar spine and both hips is within normallimits. Reported By: NINO CARROLL M.D. :29 MYOCARD PERF SPECT REST/STRESS Radiology Report See Note (Normal) Comments: Exam Number: [id number] MYOCARDIAL PERFUSION SCAN TECHNIQUEThe patient was injected with ll.6 mCi of Tc99m Cardiolite andsubsequently rest SPECT Cardiolite nuclear imaging was obtained in thehorizontal l lavelle, vertical long, and short axes views. The patientsubsequently exercised on a Francisco protocol for l2 minutes achievingpeak heart rate of 164 beats per minute ( 102% predicted maximumheart rate) with a peak blood pressure of 164/84 mmHg and peak METcapacity of l3 METs. The patient was injected with 31 mCi of Qz25nEjlhwjggso and subsequently stress SPECT Cardiolite nuclear imagingwas obtained in the horizontal long, vertical long, and short axesviews. Gated Cardiolite study at peak stress was obtained. INTERPRETATIONAt rest the stress SPECT Cardiolite nuclear imaging appeared todemonstrate rela tive uniform tracer uptake and myocardial perfusionwithin normal limits. There is end systolic thickening andbrightening and on the gated Cardiolite study myocardial thickeningand inward wall motion. Reported LVEF of 67%. IMPRESSION1. Rest and stress SPECT Cardiolite nuclear imaging appeared todemonstrate relative uniform tracer uptake and myocardial perfusionappearing within normal limits.2. A ga estee Cardiolite study reports an LVEF of 67%. Reported By: JUAN ANTONIO RUBI M.D. :53 Anti-dsDNA Antibodies Comments: PATIENT WAS FASTINGPERFORMED BY: [facility] [id number] Anti-DNA (DS) Ab Qn 1 {IU/mL} (Normal) Range: 0-9 Comments: Negative <5 Equivocal 5 - 9 Positive >9 Antinuclear Antibodies Positive (Abnormal) Comments: PATIENT WAS FASTINGPERFORMED BY: [facility] [facility] [id number] :53 Direct C-Reactive Protein, 0.7 mg/L (Normal) Comments: PATIENT WAS FASTINGPERFORMED BY: [employer] [employer] [facility] [id number] :53 Quant Range: 0.0-4.9 :53 CBC With Differential/Platelet Comments: PATIENT WAS FASTINGPERFORMED BY: [employer] [facility] [id number] Baso (Absolute) 0.0 {x10E3/uL} (Normal) Range: 0.0-0.2 Basos 1 % (Normal) Range: 0-3 Eos 2 % (Normal) Range: 0-7 Eos (Absolute) 0.1 {x10E3/uL} (Normal) Range: 0.0-0.4 Hematocrit 40.2 % (Normal) Range: 34.0-44.0 Hemoglobin 13.8 g/dL (Normal) Range: 11.5-15.0 Lymphs 38 % (Normal) Range: 14-46 Lymphs (Absolute) 1.0 {x10E3/uL} (Normal) Range: 0.7-4.5 MCH 30.9 pg (Normal) Range: 27.0-34.0 MCHC 34.3 g/dL (Normal) Range: 32.0-36.0 MCV 90 fL (Normal) Range: 80-98 Monocytes 15 % (Abnormal) Range: 4-13 Monocytes(Absolute) 0.4 {x10E3/uL} (Normal) Range: 0.1-1.0 Neutrophils 44 % (Normal) Range: 40-74 Neutrophils (Absolute) 1.1 {x10E3/uL} (Abnormal) Range: 1.8-7.8 Platelets 201 {x10E3/uL} (Normal) Range: 140-415 Comments: Effective August 18, 2008, the reference interval for Platelet Count, will be changing to: . 0 - 7 days 150 - 381 8 - 30 days 150 - 477 31- 90 days 150 - 579 91 days - up 1 year 150 - 496 1 - 7 years 150 - 440 8 - 17 years 150 - 349 Adult 140 - 415 RBC 4.47 {x10E6/uL} (Normal) Range: 3.80-5.10 RDW 13.0 % (Normal) Range: 11.7-15.0 WBC 2.6 {x10E3/uL} (Abnormal) Range: 4.0-10.5 8-Qvt-630948:53 Comp. Metabolic Panel (14) Comments: PATIENT WAS FASTINGPERFORMED BY: [facility] [facility] [id number] A/G Ratio 1.4 (Normal) Range: 1.1-2.5 Albumin, Serum 4.4 g/dL (Normal) Range: 3.6-4.8 Alkaline Phosphatase, S 57 [iU]/L Range: 25-165 (Normal) ALT (SGPT) 8 [iU]/L (Normal) Range: 0-40 AST (SGOT) 11 [iU]/L Range: 0-40 (Normal) Bilirubin, Total 0.8 mg/dL Range: 0.1-1.2 (Normal) BUN 14 mg/dL (Normal) Range: 5-26 BUN/Creatinine Ratio 17 (Normal) Range: 8-27 Calcium, Serum 9.9 mg/dL Range: 8.5-10.6 (Normal) Carbon Dioxide, Total 22 mmol/L Range: 20-32 (Normal) Chloride, Serum 105 mmol/L Range: 97-108 (Normal) Creatinine, Serum 0.82 mg/dL Range: 0.57-1.00 (Normal) eGFR >59 mL/min/1.73 (Normal) eGFR AfricanAmerican >59 mL/min/1.73 Comments: Note: Persistent reduction for 3 months or more in an eGFR<60 mL/min/1.73 m2 defines CKD. Patients with eGFR values>/=60 mL/min/1.73 m2 may also have CKD if evidence of persistentproteinuria is (Normal) present. Additional information may be found [email or web address]. Globulin, Total 3.2 g/dL (Normal) Range: 1.5-4.5 Glucose, Serum 88 mg/dL (Normal) Range: 65-99 Potassium, Serum 4.6 mmol/L Range: 3.5-5.2 (Normal) Protein, Total, Serum 7.6 g/dL (Normal) Range: 6.0-8.5 Sodium, Serum 140 mmol/L Range: 135-145 (Normal) Complement C3, Serum 119 {mg/dL_Adult} Comments: PATIENT WAS FASTINGPERFORMED BY: [facility] [id number] 0:53 (Normal) Range: 90-180 Complement C4, Serum 15 {mg/dL_Adult} Comments: PATIENT WAS FASTINGPERFORMED BY: [facility] [id number] 0:53 (Normal) Range: 9-36 Complement, Total (CH50) 55 U/mL (Normal) Comments: PATIENT WAS FASTINGPERFORMED BY: [facility] [id number] 0:53 Range: 22-60 7-Knw-969604:53 Lipid Panel With LDL/HDL Comments: PATIENT WAS FASTINGPERFORMED BY: [facility] [id number] Ratio Cholesterol, Total 180 mg/dL (Normal) Range: 100-199 HDL Cholesterol 64 mg/dL (Normal) Comments: According to ATP-III Guidelines, HDL-C >59 mg/dL is considered anegative risk factor for CHD. LDL Cholesterol Calc 98 mg/dL (Normal) Range: 0-99 LDL/HDL Ratio 1.5 {ratio_units} Range: 0.0-3.2 (Normal) Triglycerides 92 mg/dL (Normal) Range: 0-149 VLDL Cholesterol Miguel 18 mg/dL (Normal) Range: 5-40 Sedimentation 2 mm/h (Normal) Comments: PATIENT WAS FASTINGPERFORMED BY: [facility] [employer] [id number] :53 Rate-Westergren Range: 0-30 TSH 2.547 {uIU/mL} Comments: PATIENT WAS FASTINGPERFORMED BY: [facility] [id number] :53 (Normal) Range: 0.450-4.500 :53 Urinalysis, Routine Comments: PATIENT WAS FASTINGPERFORMED BY: [facility] [id number] Appearance Clear (Normal) Bilirubin Negative (Normal) Glucose Negative (Normal) Ketones Negative (Normal) Microscopic Examination MICRON (Normal) Comments: Microscopic follows if indicated. Nitrite, Urine Negative (Normal) Occult Blood Negative (Normal) pH 6.5 (Normal) Range: 5.0-7.5 Protein Negative (Normal) Specific [place] 1.009 (Normal) Range: 1.005-1.030 Urine-Color Yellow (Normal) Urobilinogen,Semi-Qn 0.2 mg/dL (Normal) Range: 0.0-1.9 WBC Esterase Negative (Normal) :44 Thin prep Pap Comments: Source.............Cervical;EndocervicalLMP / Prev Treat...JVN=[id number]. of containers..01 CYTYC Thin Prep VialPATIENT NOT FASTINGClinical Information: ADD [id number] PERFORMED BY: [facility] [facility] ([id number]) [address] [id number] . . (Normal) DIAGNOSIS: SPRCS (Normal) Comments: NEGATIVE FOR INTRAEPITHELIAL LESION AND MALIGNANCY.Satisfactory for evaluation. No endocervical component is identified.V72.31 ; Routine gynecological examinationAlejandra Mendez Ship Keeper (ASCP) Note: PAPSMR (Normal) Comments: The Pap smear is a screening test designed to aid in the detection ofpremalignant and malignant conditions of the uterine cervix. It is not adiagnostic procedure and should not be used as the sole mean s of detectingcervical cancer. Both false-positive and false-negative reports do occur. .The HPV DNA reflex criteria were not met with this specimen resulttherefore, no HPV testing was performed. . :28 LIPID CHOL 196 mg/dL (Normal) Comments: <200 mg/dL Desirable 200-240 mg/dL Borderline >240 mg/dL High Risk HDL 54 mg/dL (Normal) Comments: Reference Range HDL <40 mg/dL Low HDL Cholesterol HDL >or= 60 mg/dL High HDL Cholesterol LDL 125 mg/dL (Normal) Range: 0-130 TRIG 86 mg/dL (Normal) Comments: Serum Triglycerides Reference Interval Normal <150 mg/dL Borderline high 150 - 199 mg/dL High 200 - 499 mg/dL Very High > or = 500 mg/dL VLDL 17 mg/dL (Normal) Range: 5-40 :28 TSH 1.54 {uIU/mL} (Normal) Range: 0.34-4.82 :44 CBC HCT 40.5 % (Normal) Range: 37-47 HGB 13.6 g/dL (Normal) Range: 12.0-16.0 MCH 30.3 pg (Normal) Range: 27.0-32.0 MCHC 33.7 g/dL (Normal) Range: 32-36 MCV 89.8 fL (Normal) Range: 81-99 PLT 190 K/mm3 (Normal) Range: 150-450 RBC 4.51 {M/mm3} (Normal) Range: 4.2-5.4 RDW 12.1 % (Normal) Range: 11.6-14.6 WBC 4.0 K/mm3 (Abnormal) Range: 4.4-11.0 :44 LIPID CHOL 196 mg/dL (Normal) Comments: <200 mg/dL Desirable 200-240 mg/dL Borderline >240 mg/dL High Risk HDL 49 mg/dL (Normal) Comments: Reference Range HDL <40 mg/dL Low HDL Cholesterol HDL >or= 60 mg/dL High HDL Cholesterol LDL 136 mg/dL (Abnormal) Range: 0-130 TRIG 55 mg/dL (Normal) Comments: Serum Triglycerides Reference Interval Normal <150 mg/dL Borderline high 150 - 199 mg/dL High 200 - 499 mg/dL Very High > or = 500 mg/dL VLDL 11 mg/dL (Normal) Range: 5-40 Plan of Care Name Dates Details Instructions Well woman exam : *Well Female Maintenance (SMC) Indication: Well woman exam Well woman exam : Pap/Pelvic/Bimanual/Rectal/Breast Exam was done. Indication: Well woman exam Hypothyroidism : Eprescribed prescriptions (G8553) Indication: Hypothyroidism Annual Medicare Physical WITH abnormal findings (Renamed from Encounter for general adult medical examination with abnormal findings) : Eprescribed prescriptions (G8553) Indication: Annual Medicare Physical WITH abnormal findings (Renamed from Encounter for general adult medical examination with abnormal findings) Pre-operative examination : Eprescribed prescriptions (G8553) Indication: Pre-operative examination Palpitation : Eprescribed prescriptions (G8553) Indication: Palpitation Hypothyroidism : Hypothyroidism: Brief Version *: hypothyroidism Indication: Hypothyroidism Well woman exam : *Colon Cancer Screening Indication: Well woman exam Well woman exam : *Well Female Maintenance (KF) Indication: Well woman exam Bronchitis : *URI Treatment Indication: Bronchitis Bronchitis : Antibiotic Usage Education - Female Indication: Bronchitis Bronchitis : URI Symptoms Indication: Bronchitis Well woman exam : Self Breast Exam Education Indication: Well woman exam Well woman exam : Pap/Pelvic/Bimanual/Rectal/Breast Exam was done. Indication: Well woman exam Well woman exam : Well Female Maintenance (KF) Indication: Well woman exam Planned Observations URINALYSIS ([id number])Indication: Hypothyroidism On: 9-Gmq-540559:00 Request CBC WITH MANUAL DIFF (77958)Indication: Hypothyroidism On: 2-Egg-542037:00 Request Metabolic Panel, Comprehensive (02830)Indication: Hypothyroidism On: 5-Yfm-388820:00 Request TSH (55326)Indication: Hypothyroidism On: 14-Nss-497757:10 Request Systemic Lupus Profile (69561)Indication: Lupus (systemic lupus erythematosus) On: 05-Jan-20169:57 Request Comments: send to Dr Norton CBC (Auto) (50329)Indication: Pre-operative examination On: :08 Request Metabolic Panel, Basic (22958)Indication: Pre-operative examination On: 3-Cky-508919:08 Request TSH (17825)Indication: Hypothyroidism On: 9-Uri-193613:07 Request CALCIFEDIOL (39614)Indication: Hypothyroidism On: 4-Mcj-163751:12 Request URINALYSIS, W/ MICRO (79445)Indication: Hypothyroidism On: 7-Uhg-561010:11 Request CBC WITH MANUAL DIFF (69917)Indication: Hypothyroidism On: :11 Request Metabolic Panel, Comprehensive (83793)Indication: Hypothyroidism On: :11 Request Lipid Panel (54370)Indication: Hypothyroidism On: 4-Bms-405290:11 Request TSH (85011)Indication: Hypothyroidism On: 1-Wqm-188827:11 Request TSH (THYROID STIMULATING HORMONE) (17483)Indication: Hypothyroidism On: :43 Request METABOLIC PANEL, COMPREHENSIVE (64297)Indication: ERYTHEMATOSUS, LUPUS On: :43 Request LIPID PANEL (36951)Indication: ERYTHEMATOSUS, LUPUS On: 00-Pif-34479:43 Request NEISSERIA (21859) (THIN PREP OBTAINED)Indication: Vaginal Discharge On: :43 Request CHLAMYDIA (84957) (thin prep obtained)Indication: Vaginal Discharge On: :43 Request ROBERT CULTURE-OTHER (03000)Indication: Vaginal Discharge On: :43 Request BACT CULTURE ANY-ANAEROBIC (14917)Indication: Vaginal Discharge On: :43 Request INFCT ANTGN TRICH VAGIN DIRECT PRB (51276)Indication: Vaginal Discharge On: :43 Request AQUILES, NUCLEIC ACID DIRECT PROBE (72877)Indication: Vaginal Discharge On: :43 Request Thin prep Pap (55753)Indication: Well woman exam On: 6-Bmi-986208:29 Request URINALYSIS (74617)Indication: Lupus (systemic lupus erythematosus) On: :26 Request Sed Rate Erythrocyte (10942)Indication: Lupus (systemic lupus erythematosus) On: :26 Request CBC, Platelets & Auto Diff (09572)Indication: Lupus (systemic lupus erythematosus) On: :25 Request Lipid Panel (10946)Indication: Hypothyroidism On: :25 Request Metabolic Panel, Comprehensive (05580)Indication: Lupus (systemic lupus erythematosus) On: :25 Request DNA ANTIBODY-NATV/DBL ST (21223)Indication: Lupus (systemic lupus erythematosus) On: :49 Request COMPLEMENT C4 (04403)Indication: Lupus (systemic lupus erythematosus) On: :48 Request COMPLEMENT C3 (18506)Indication: Lupus (systemic lupus erythematosus) On: :48 Request COMPLEMENT, TOTAL (CH50) (18494)Indication: Lupus (systemic lupus erythematosus) On: :48 Request C-Reactive Protein (71099)Indication: Lupus (systemic lupus erythematosus) On: :48 Request URINALYSIS (10013)Indication: Lupus (systemic lupus erythematosus) On: :48 Request CBC (Auto) (04598)Indication: Lupus (systemic lupus erythematosus) On: :48 Request Metabolic Panel, Comprehensive (43774)Indication: Lupus (systemic lupus erythematosus) On: :48 Request TSH (33207)Indication: Hypothyroidism On: :48 Request Thin prep Pap (52045)Indication: Well woman exam On: :35 Request C-Reactive Protein (93235)Indication: Lupus (systemic lupus erythematosus) On: :03 Request DNA ANTIBODY-NATV/DBL ST (45541)Indication: Lupus (systemic lupus erythematosus) On: :02 Request Sed Rate Erythrocyte (76752)Indication: Lupus (systemic lupus erythematosus) On: :01 Request COMPLEMENT C4 (61891)Indication: Lupus (systemic lupus erythematosus) On: :00 Request COMPLEMENT C3 (29657)Indication: Lupus (systemic lupus erythematosus) On: :00 Request COMPLEMENT, TOTAL (CH50) (81833)Indication: Lupus (systemic lupus erythematosus) On: 08-Aug-20088:00 Request AMAN (ANTINUCLEAR ANTIBODY) (59851)Indication: Lupus (systemic lupus erythematosus) On: 08-Aug-20088:00 Request URINALYSIS (28462)Indication: Lupus (systemic lupus erythematosus) On: :57 Request TSH (25537)Indication: Hypothyroidism On: :57 Request CBC (Auto) (12814)Indication: Lupus (systemic lupus erythematosus) On: :57 Request Metabolic Panel, Comprehensive (55899)Indication: Lupus (systemic lupus erythematosus) On: :57 Request Lipid Panel (76867)Indication: Lupus (systemic lupus erythematosus) On: :57 Request Lipid Panel (74110)Indication: Hypothyroidism On: :47 Request TSH (80939)Indication: Hypothyroidism On: :43 Request LIPID PANEL (00485)Indication: Well woman exam On: 0-Grv-517915:00 Request CBC (AUTO) (98640)Indication: Lupus (systemic lupus erythematosus) On: 11-May-20069:59 Request Planned Encounters Medical; [facility] Exam (Doctor) - On: 06-Mar-2018 13:30 [facility] Araceli SUÁREZ, Talia Johnson MD Planned Procedures ULTRASOUND OF NECK WITH FOCUS ON On: 25-Aug-2017 Intent THYROID (78503)By: Araceli SUÁREZ, Comments: include area on left side where tender. Talia Johnson MD DEXA SCAN AXIAL SKELETON On: 07-Aug-2017 Intent (59360)By: Talia Charles MD, MD, Dana M Flu Vaccine (Quadrivalent) On: 17-Jan-2017 Intent [id number]: Talia Charles MD Comments: QUAD flu shotlot number: [id number]: 07/2017L Deltoid IMAD HVAC/R SERVICE TECHNICIAN Talia Charles MD MAMMOGRAM BREAST BILATERAL On: 17-Jan-2017 Intent SCREENING DIGITAL (52824)By: Araceli SUÁREZ, Talia Johnson MD Nuclear Stress Test/Stress On: 02-Feb-2016 Intent SPECT/TreadmillBy: Talia Charles MD, MD, Dana M MAMMOGRAM, SCREENING, BOTH BREAST On: 05-Jan-2016 Intent (99401)By: Talia Charles MD, MD, Dana M Flu Vaccine (Quadrivalent) On: 05-Jan-2016 Intent [id number]: Parker Ross Comments: Lot:[id number]:09/30/16Dose:0.5mLRoute:IMSite:L DltdGiven By:DINA signed PNEUM VAC ADLT/IMUMNOSPR, On: 28-Jul-2015 Intent SBC/INTRM ([id number])By: Araceli SUÁREZ, Comments: Lot:[id number]:01/08/17Dose:0.5mlRoute:imSite:l armGiven By:DINA signed Talia Johnson MD DEXA SCAN AXIAL SKELETON On: 28-Jul-2015 Intent ([id number])By: Talia Charles MD Comments: -16 due Talia Charles MD ELECTROCARDIOGRAM, COMPLETE (ECG) On: 02-Oct-2014 Intent ([id number])By: Talia Charles MD, MD, Dana M MRI - OtherBy: Talia Charles MD On: 24-Jul-2014 Intent Talia Charles MD Comments: R breast MRI OF RIGHT BREAST WITH AND On: 24-Jul-2014 Intent WITHOUT CONTRAST ([id number])By: Talia Charles MD, MD, Dana M MAMMOGRAM, SCREENING, BOTH BREAST On: 21-Jul-2014 Intent ([id number])By: Talia Charles MD, MD, Dana M ELECTROCARDIOGRAM, COMPLETE (ECG) On: 04-Mar-2014 Intent ([id number])By: Talia Charles MD, MD, Dana M DXA, BONE DENSITY, AXIAL SKELETON On: 01-Aug-2013 Intent ([id number])By: Talia Charles MD, MD, Dana M EKG ([id number])By: Talia Charles MD On: 01-Aug-2013 Intent Talia Gunter MD Comments: see scanned document of test done to see results reviewed today with patient TDAP VACCINE >7 IM ([id number])By: On: 24-Sep-2012 Intent Talia Charles MD, MD, Dana M Ultrasound - PelvisBy: Araceli On: 06-Apr-2012 Intent Talia SUÁREZ MD, Dana M Comments: left ovary felt and postmenapausal EKG ([id number])By: Talia Charles MD On: 18-Jul-2011 Intent Talia Gunter MD Comments: see scanned document of test done to see results reviewed today with patient Breast Ultrasound - LeftBy: On: 18-Jul-2011 Intent Talia Charles MD, MD, Dana M DXA, BONE DENSITY, AXIAL SKELETON On: 20-Aug-2010 Intent ([id number])By: Talia Charles MD, MD, Dana M MAMMOGRAM, SCREENING, BOTH On: 20-Aug-2010 Intent BREASTS ([id number])By: Talia Charles MD, MD, Dana M Breast Screening - RightBy: On: 28-Jul-2009 Intent Talia Charles MD, MD, Dana M Breast Diagnostic - LeftBy: On: 28-Jul-2009 Intent Talia Charles MD, MD, Dana M Nuclear Stress Test/Stress On: 08-Aug-2008 Intent SPECT/TreadmillBy: Talia Charles MD, MD, Dana M Echo CompleteBy: Talia Charles MD On: 08-Aug-2008 Intent Talia Gunter MD Bone Density StudyBy: Araceli SUÁREZ, On: 08-Aug-2008 Intent Talia Johnson MD EKG ([id number])By: Talia Charles MD On: 08-Aug-2008 Intent Talia Gunter MD MAMMOGRAM, SCREENING, BOTH On: 04-Jul-2007 Intent BREASTS ([id number])By: Talia Charles MD, MD, Dana M Bone Density StudyBy: Araceli SUÁREZ, On: 04-Jul-2007 Intent Talia Johnson MD MAMMOGRAM, SCREENING, BOTH On: 11-May-2006 Intent BREASTS ([id number])By: Araceli SUÁREZ, Talia Charles MD, Talia Carney Instructions Name Dates Details BMI 22.0-22.9, adult : How to access health information online Indication: BMI 22.0-22.9, adult BMI 22.0-22.9, adult : How to access health information online - Detail Indication: BMI 22.0-22.9, adult BMI 22.0-22.9, adult : Patient Instructions Indication: BMI 22.0-22.9, adult Hypothyroidism : How to access health information online Indication: Hypothyroidism Hypothyroidism : How to access health information online - Detail Indication: Hypothyroidism Hypothyroidism : Patient Instructions Indication: Hypothyroidism History of tobacco abuse : How to access health information online Indication: History of tobacco abuse History of tobacco abuse : How to access health information online - Detail Indication: History of tobacco abuse History of tobacco abuse : Patient Instructions Indication: History of tobacco abuse Body mass index (BMI) of 22.0 to 22.9 in adult : How to access health information online Indication: Body mass index (BMI) of 22.0 to 22.9 in adult Body mass index (BMI) of 22.0 to 22.9 in adult : How to access health information online - Detail Indication: Body mass index (BMI) of 22.0 to 22.9 in adult Body mass index (BMI) of 22.0 to 22.9 in adult : Patient Instructions Indication: Body mass index (BMI) of 22.0 to 22.9 in adult Body mass index (BMI) of 22.0 to 22.9 in adult : How to access health information online Indication: Body mass index (BMI) of 22.0 to 22.9 in adult Body mass index (BMI) of 22.0 to 22.9 in adult : How to access health information online - Detail Indication: Body mass index (BMI) of 22.0 to 22.9 in adult Body mass index (BMI) of 22.0 to 22.9 in adult : Patient Instructions Indication: Body mass index (BMI) of 22.0 to 22.9 in adult Bloody stool : How to access health information online Indication: Bloody stool Bloody stool : How to access health information online - Detail Indication: Bloody stool Bloody stool : Patient Instructions Indication: Bloody stool Lupus (systemic lupus erythematosus) : How to access health information online Indication: Lupus (systemic lupus erythematosus) Lupus (systemic lupus erythematosus) : How to access health information online - Detail Indication: Lupus (systemic lupus erythematosus) Lupus (systemic lupus erythematosus) : Patient Instructions Indication: Lupus (systemic lupus erythematosus) Annual Medicare Physical WITH abnormal findings (Renamed from Encounter for general adult medical examination with abnormal findings) : How to access health information online Indication: Annual Medicare Physical WITH abnormal findings (Renamed from Encounter for general adult medical examination with abnormal findings) Annual Medicare Physical WITH abnormal findings (Renamed from Encounter for general adult medical examination with abnormal findings) : How to access health information online - Detail Indication: Annual Medicare Physical WITH abnormal findings (Renamed from Encounter for general adult medical examination with abnormal findings) Annual Medicare Physical WITH abnormal findings (Renamed from Encounter for general adult medical examination with abnormal findings) : Patient Instructions Indication: Annual Medicare Physical WITH abnormal findings (Renamed from Encounter for general adult medical examination with abnormal findings) Hypothyroidism : How to access health information online Indication: Hypothyroidism Hypothyroidism : How to access health information online - Detail Indication: Hypothyroidism Hypothyroidism : Patient Instructions Indication: Hypothyroidism Pre-operative examination : How to access health information online Indication: Pre-operative examination Pre-operative examination : How to access health information online - Detail Indication: Pre-operative examination Pre-operative examination : Patient Instructions Indication: Pre-operative examination Palpitation : How to access health information online Indication: Palpitation Palpitation : How to access health information online - Detail Indication: Palpitation Palpitation : Patient Instructions Indication: Palpitation Hypothyroidism : Patient Instructions Indication: Hypothyroidism Advance Directives Name Dates Details Immunization Registry [facility] - Effective on Effective: 17-Jan-201701/17/2017. Expiration date unspecified Encounters Lab Order On: 05-Feb-2018 13:58 Encounter Diagnosis: Hypothyroidism End: 05-Feb-2018 14:01 [facility] Visit On: 07-Dec-2017 9:41 Encounter Diagnosis: Osteopenia, Family history of ischemic heart disease End: 07-Dec-2017 10:13 [facility] Visit On: 25-Aug-2017 8:27 Encounter Diagnosis: BMI 22.0-22.9, adult, Lump in throat, History of tobacco abuse, Swelling of thyroid gland, Neck pain End: 25-Aug-2017 9:18 [facility] Visit On: 07-Aug-2017 13:00 Encounter Reason: Follow up tests - Date: (07/24 blood work)., [ADDITIONAL REASON] Follow up for chronic medical issues - The patient feels well with no complaints End: 07-Aug-2017 14:02 , has good energy level and is sleeping well. Patient has been compliant with instructions. Current medication use: no side effects, compliant with dosing regimen and considered effective by patient. Jaylen royal sleeps 7 hours per night. Impact of disease: emotional impact-mild. Nutrition: balanced diet and supplemental vitamins. The medical issues the patient is following up for include high cholesterol, hypothyroid, osteoporosis/osteopenia and other (lupus, vaginal dryness, hx. genital herpes ). Encounter Diagnosis: BMI 21.0-21.9, adult, History of tobacco abuse, Hypothyroidism, History of ischemic heart disease, Vaginal dryness, Osteopenia, Abnormal EKG, Abnormal lung function test, Hypercholesteremia, Lupus (systemic lupus erythematosus), Encounter for hepatitis C virus screening test for high risk patient, Current nonsmoker, Annual Medicare Physical WITH abnormal findings (Renamed from Encounter for general adult medical examination with abnormal findings), Well woman exam, Postmenopausal (Renamed from Postmenopausal status) [facility] Visit On: 17-Jan-2017 7:58 Encounter Diagnosis: BMI 21.0-21.9, adult, History of tobacco abuse, Osteopenia, Hypercholesteremia, Genital herpes, Vaginal dryness, Abnormal lung function test, Abnormal EKG, Hypothyroidism, Lupus (systemic lupus erythematosus), End: 17-Jan-2017 13:06 Annual Medicare Physical WITH abnormal findings (Renamed from Encounter for general adult medical examination with abnormal findings), Breast cancer screening, Encounter for hepatitis C virus screening test for high risk patient, History of ischemic heart disease, Need for prophylactic vaccination and inoculation against influenza (Renamed from Need for immunization against influenza) [facility] Visit On: 23-Aug-2016 9:16 Encounter Reason: Follow up for chronic medical issues - The patient feels well with no complaints, has good energy level and is sleeping well. Patient has been compliant with instructions. Current medication use: no bhupinder End: 25-Aug-2016 10:40 e effects, compliant with dosing regimen and considered effective by patient. Patient sleeps 7 hours per night. Impact of disease: emotional impact-mild. Nutrition: balanced diet and supplemental vitami ns. The medical issues the patient is following up for include high cholesterol, hypothyroid, osteoporosis/osteopenia and other (lupus, vaginal dryness, hx. genital herpes )., [ADDITIONAL REASON] Annual Medicare Exam - Yes the patient did have (NOT THREE AFFILIATED) a mini mental status exam done today. The activities of daily living the patient needs help with are none. The patient has driven in past 6 months and put area rugs through house, but the patient has not had fecal incontinence, had urinary incontinence, missed or ran out of medications to soon, fallen in the past 6 mon ths, gotten lost, has a medalert necklace or bracelet or put handrails in bathroom. The patient has completed the following preventative measures: PAP smear (years ago ), mammography (annually ) and col onoscopy (2012). The patient does have durable power of traffic law attorney and living will. The patient has noticed nothing from the geriatic depression scale. Encounter Diagnosis: Body mass index (BMI) of 22.0 to 22.9 in adult, History of tobacco abuse, Hypercholesteremia, Hypothyroidism, Lupus (systemic lupus erythematosus), Genital herpes, Current nonsmoker, Bloody stool, Abnormal lung function test, Abnormal EKG, Osteopenia, Vaginal dryness, Annual Medicare Physical WITH abnormal findings (Renamed from Encounter for general adult medical examination with abnormal findings) [facility] Visit On: 29-Apr-2016 12:57 Encounter Reason: Follow up for chronic medical issues - The patient feels well with minor complaints and has good energy level. Patient has been compliant with instructions. Current medication use: no side effects, comp End: 29-Apr-2016 13:42 liant with dosing regimen and considered effective by patient. Patient sleeps 7 hours per night. Impact of disease: emotional impact-mild. Nutrition: balanced diet and supplemental vitamins. The medical issues the patient is following up for include cardiac issues, high cholesterol, hypothyroid, osteoporosis/osteopenia and other (Lupus, hx. genital herpes ).Encounter Diagnosis: Body mass index (BMI) of 22.0 to 22.9 in adult, History of tobacco abuse, Genital herpes, Abnormal EKG, Current nonsmoker, Lupus (systemic lupus erythematosus), Abnormal lung function test, Hypercholesteremia, Hypothyroidism, Bloody stool, Osteopenia, SOB (shortness of breath) on exertion, Vaginal dryness [facility] Visit On: 17-Mar-2016 7:46 Encounter Diagnosis: Bloody stool, History of tobacco abuse, Viral infection End: 17-Mar-2016 14:45 [facility] Visit On: 02-Feb-2016 12:59 Encounter Reason: Follow up acute care visit - The patient feeling better since last seen and improving. Patient has been compliant with instructions. Current medication use: no side effects and compliant with dosing reg End: 02-Feb-2016 13:42 imen. Patient sleeps 7 hours per night. Impact of disease: emotional impact-mild. Nutrition: balanced diet and supplemental vitamins. The medical issues the patient is following up for include other (ra sh is better, she is watching her diet, wearing fit bit ).Encounter Diagnosis: Lupus (systemic lupus erythematosus), Current nonsmoker, Hypercholesteremia, Abnormal lung function test, Abnormal EKG, SOB (shortness of breath) on exertion [facility] Visit On: 05-Jan-2016 7:57 Encounter Reason: Physical female exam - General health: feels well with minor complaints (, breaking out, trouble sleeping, has a spot on her lip peeling off, is gaining weight (thyroid or over eating)). The patient's a End: 07-Jan-2016 15:58 ppetite is normal. Nutrition: supplemental vitamins & iron (calcuim 600u, multi vit). Exercises 0 days per week. Sleeps on average 3 (last night. she goes several nights where she sleeps only a few hours and then she will go days sleeping really well) hours per night. Elimination problems include constipation (takes fiber in the am). Safety measures include appropriate use of safety belts, appropr iate use of helmets and home smoke detectors , but do not include counseling regarding safe sex/HIV or counseling regarding substance abuse. Current emotional problems include sleep disturbances. screen ing, colonoscopy (2012), screening, mammography (2014) and screening, visual acuity (11/16).Encounter Diagnosis: BMI between 19-24,adult, Current nonsmoker, Need for prophylactic vaccination and inoculation against influenza (Renamed from Need for immunization against influenza), Annual Medicare Physical WITH abnormal findings (Renamed from Encounter for general adult medical ex amination with abnormal findings), Encounter for screening mammogram for breast cancer (Renamed from Encounter for screening mammogram for malignant neoplasm of breast), Genital herpes, History of tobacco abuse, Hypothyroidism, Vaginal dryness, Lupus (systemic lupus erythematosus), Osteopenia, Poison dwayne, Hypercholesteremia, Rash (782.1), Abnormal EKG, Abnormal lung function test [facility] Phone Encounter On: 26-Oct-2015 16:52 Encounter Diagnosis: Poison dwayne End: 26-Oct-2015 16:55 [facility] Visit On: 28-Jul-2015 8:54 Encounter Reason: Follow up for chronic medical issues - The patient feels well with minor complaints and is sleeping well. Patient has been compliant with instructions. Current medication use: no side effects, compliant End: 30-Jul-2015 7:04 with dosing regimen and considered effective by patient. Patient sleeps 7 hours per night. Impact of disease: emotional impact-mild. Nutrition: balanced diet and supplemental vitamins. The medical issu es the patient is following up for include hypothyroid, osteoporosis/osteopenia and other (vaginal dryness/menopause, hx. vaginal herpes, lupus )., [ADDITIONAL REASON] Annual Medicare Exam - Yes the patient did have (mms wisper 06/03) a mini me ntal status exam done today. The activities of daily living the patient needs help with are none. The patient has driven in past 6 months and put area rugs through house, but the patient has not had fec al incontinence, had urinary incontinence, missed or ran out of medications to soon, fallen in the past 6 months, gotten lost, has a medalert necklace or bracelet or put handrails in bathroom. The roxanne nt has completed the following preventative measures: PAP smear (under 5 years ago ), mammography (2014) and colonoscopy (2012). The patient does have durable power of traffic law attorney and living will. The joe ent has noticed nothing from the geriatic depression scale. Encounter Diagnosis: Hypothyroidism, History of tobacco abuse, Genital herpes, Vaginal dryness, Bronchitis, acute, Osteopenia, Lupus (systemic lupus erythematosus), Pre- operative examination , Well woman exam, Annual Medicare Physical WITH abnormal findings (Renamed from Encounter for general adult medical examination with abnormal findings) [facility] Visit On: 02-Oct-2014 9:06 Encounter Reason: Pre-Op Visit - The procedure scheduled is a Implants are leaking so having them replaced on October 15. The surgeon for the procedure will be Dr Pearl Vickers. Pertinent medical history includes prior anesth End: 02-Oct-2014 10:13 esia, while pertinent medical history does not include previous anesthesia reaction, diabetes, cardiovascular disease, pulmonary disease, renal disease, gastrointestinal disease, sleep apnea, thromboemb olic problems, clotting disorder, bleeding disorder, transfusion reaction, impaired immunity, corticosteroid use in the last six months or frequent aspirin use. Pertinent family history does not include anesthesia reaction, myocardial infarction, stroke, aneurysm, sudden , clotting disorder or bleeding disorder. Pertinent social history does not include aspirin use, nonsteroidal anti-inflammatory drug use, tobacco use, alcohol use, illicit drug use, transfusion refusal, wearing dentures or partial plates or concerns regarding care after surgery. After surgery the patient plans to recover at [facility] with family. Note for Pre-op visit: no have any of infection.Encounter Diagnosis: Pre-Operative Examination, Unspecified (V72.84), Palpitation, Systemic lupus erythematosus (710.0), Hypothyroidism, Leukopenia (288.0), Abnormal ultrasound of breast, Osteopenia (733.90), Genital herpes, unspecified (054.10), Well Women Exam, No Pap (V72.31) (Mammo) [facility] Phone Encounter On: 24-Jul-2014 13:42 Encounter Diagnosis: Abnormal ultrasound of breast End: 24-Jul-2014 13:50 [facility] Phone Encounter On: 24-Jul-2014 12:23 Encounter Diagnosis: Abnormal ultrasound of breast End: 24-Jul-2014 12:28 [facility] Phone Encounter On: 21-Jul-2014 11:59 Encounter Diagnosis: Unspecified Diagnosis End: 21-Jul-2014 12:01 [facility] Visit On: 21-Jul-2014 9:18 Encounter Reason: Follow up for chronic medical issues - The patient feels well with minor complaints, has good energy level and is sleeping poorly. Patient has been compliant with instructions. Current medication use: n End: 21-Jul-2014 10:01 o side effects and compliant with dosing regimen. Patient sleeps 6 hours per night. weight :.Encounter Diagnosis: Hypothyroidism, Leukopenia (288.0), Well Women Exam, No Pap (V72.31) (Mammo), Abnormal EKG(794.31), Osteopenia (733.90), Palpitation, Systemic lupus erythematosus (710.0), Genital herpes, unspecified (054.10), Breast cancer screening, Breast Lump(611.72) [facility] Phone Encounter On: 04-Mar-2014 10:07 Encounter Reason: Follow up for chronic medical issues - The patient feels well with minor complaints and has decreased energy level. Patient has been compliant with instructions. Current medication use: no side effects, End: 04-Mar-2014 17:24 compliant with dosing regimen and considered effective by patient. Patient sleeps 5 hours per night. Impact of disease: emotional impact-moderate. Nutrition: balanced diet and supplemental vitamins. Th e medical issues the patient is following up for include hypothyroid and other (hx. genital herpes, systemic lupus, leukopenia ).Encounter Diagnosis: Hypothyroidism, Systemic lupus erythematosus (710.0), Palpitation [facility] Office Visit On: 30-Aug-2013 11:07 Encounter Reason: Follow up, Diagnostic Procedure Results - Diagnostic tests include other (labs ). Date: (08-01-13). Follow up visit with no current symptoms.Encounter Diagnosis: Palpitation, Hypothyroidism, Dyspareunia (625.0) End: 30-Aug-2013 11:58 [facility] Visit On: 01-Aug-2013 9:05 Encounter Reason: Follow up for chronic medical issues - The patient feels well with minor complaints and has decreased energy level. Patient has been compliant with instructions. Current medication use: no side effects, End: 01-Aug-2013 9:57 compliant with dosing regimen and considered effective by patient. Patient sleeps 5 hours per night. Impact of disease: emotional impact-moderate. Nutrition: balanced diet and supplemental vitamins. Th e medical issues the patient is following up for include hypothyroid and other (hx. genital herpes, systemic lupus, leukopenia ).Encounter Diagnosis: Hypothyroidism, Abnormal EKG(794.31), Genital herpes, unspecified (054.10), Leukopenia (288.0), Well Women Exam, No Pap (V72.31) (Mammo), Osteopenia (733.90), Systemic lupus erythematosus (710.0), Palpitation [facility] Visit On: 24-Sep-2012 8:28 Encounter Reason: Physical female exam - Last seen between 3-6 months ago. General health: feels well with minor complaints, has good energy level and is sleeping well. The patient's appetite is normal. Nutrition: normal End: 24-Sep-2012 9:06 /adequate. Exercises 4 days per week. Sleeps on average 6 hours per night. Normal bowel and bladder habits. Safety measures include appropriate use of safety belts and home smoke detectors. There are no current emotional problems. screening, colonoscopy (age 38 ), screening, complete skin exam (Dr. Duvall July 2012 ), screening, mammography (), screening, Pap smear ( ) and screening, visual acuity (wears glasses 2011 ). Encounter Diagnosis: Hypothyroidism, Breast Lump(611.72), Osteopenia (733.90), Other specified menopausal and postmenopausal disorders (627.8), Leukopenia (288.0), Genital herpes, unspecified (054.10), Systemic lupus erythematosus (710.0), Abnormal EKG(794.31), Well Women Exam, No Pap (V72.31) (Mammo), Dyspareunia (625.0), ERYTHEMATOSUS, LUPUS (695.4), Abnormal mammogram (793.80), Other chronic nonalcoholic liver disease (571.8), VRCS VEIN, LWR EXTREMITIES W/COMPLICTN NOS (454.8) [facility] Phone Encounter On: 30-Aug-2012 9:37 Encounter Diagnosis: Hypothyroidism, ERYTHEMATOSUS, LUPUS (695.4) End: 30-Aug-2012 9:44 [facility] Phone Encounter On: 09-Apr-2012 11:28 Encounter Diagnosis: Unspecified Diagnosis End: 09-Apr-2012 11:30 [facility] Office Visit On: 06-Apr-2012 14:06 Encounter Diagnosis: Well Women Exam, No Pap (V72.31) (Mammo), Vaginal Discharge (623.5), Dyspareunia (625.0) End: 06-Apr-2012 14:48 [facility] Visit On: 18-Jul-2011 8:09 Encounter Reason: Follow up for chronic medical issues - The patient feels well with minor complaints, has decreased energy level and is sleeping poorly. Patient has been compliant with instructions. Current medication u End: 18-Jul-2011 8:38 se: no side effects and compliant with dosing regimen. Patient sleeps 7 hours per night. Impact of disease: emotional impact-mild. Nutrition: balanced diet and supplemental vitamins. The medical issues the patient is following up for include hypothyroid, osteoporosis/osteopenia and other (genital herpes, lupus, leukopenia, hx. of hematuria ).Encounter Diagnosis: Hypothyroidism, Genital herpes, unspecified (054.10), Systemic lupus erythematosus (710.0), Leukopenia (288.0), Osteopenia (733.90), Breast Lump(611.72), Rash (782.1) [facility] Visit On: 06-Oct-2010 11:31 Encounter Reason: Nurse procedure visit - The symptoms have been associated with other (blood in urine at last check). Reason for visit: other (ua).Encounter Diagnosis: Hematuria, unspecified (599.70) End: 06-Oct-2010 11:57 [facility] Office Visit On: 20-Aug-2010 8:02 Encounter Reason: Follow up for chronic medical issues - The patient feels well with minor complaints, has good energy level and is sleeping well. Patient has been compliant with instructions. Current medication use: no End: 20-Aug-2010 8:43 side effects, compliant with dosing regimen and considered effective by patient. Patient sleeps 7 hours per night. Impact of disease: emotional impact-mild. Nutrition: balanced diet and supplemental vit amins. The medical issues the patient is following up for include cardiac issues, hypothyroid, osteoporosis/osteopenia and other (genital herpes, lupus, leukopenia ).Encounter Diagnosis: Hypothyroidism, VRCS VEIN, LWR EXTREMITIES W/COMPLICTN NOS (454.8), ERYTHEMATOSUS, LUPUS (695.4), Leukopenia (288.0), Osteopenia (733.90), Well Women Exam, No Pap (V72.31) (Mammo) [facility] Office Visit On: 28-Jul-2009 9:12 Encounter Reason: Well Women Exam - The patient feels well with no complaints ,has good energy level and is sleeping well. Contraceptive history: The patient is not using any method of contraception at this time. Patient End: 28-Jul-2009 9:49 exercises a daily. The patient's libido is decreased. The patient reports that she performs monthly self breast exam. Calcium intake includes 1200 mg with Vit D daily supplement. Previous evaluations: hysterectomy (abdominal). The patient has been using hormone replacement therapy (premarin). Menstruation: Last menstrual period date: (abdominal hysterectomy no BSO for fibroids). Encounter Diagnosis: Well Women Exam, No Pap (V72.31) (Mammo), Abnormal mammogram (793.80), Systemic lupus erythematosus (710.0), Hypothyroidism [facility] Office Visit On: 08-Aug-2008 8:41 Encounter Diagnosis: Osteopenia (733.90), Abnormal EKG(794.31) End: 08-Aug-2008 8:42 [facility] Office Visit On: 08-Aug-2008 7:42 Encounter Reason: Follow up for chronic medical issues - The patient feels well with no complaints ,has good energy level and is sleeping well. Patient has been compliant with instructions. Current medication use: no bhupinder End: 08-Aug-2008 8:18 e effects ,compliant with dosing regimen and considered effective by patient. Patient sleeps 7 hours per night. Impact of disease: emotional impact-mild. Nutrition: balanced diet and supplemental vitami ns. The medical issues the patient is following up for include hypothyroid ,osteoporosis/osteopenia and other (menopausal, genital herpes, systemic lupus, leukopenia, non- alcoholic liver disease ). Encounter Diagnosis: Other specified menopausal and postmenopausal disorders (627.8), Hypothyroidism, BRONCHITIS, NOT SPECIFIED ACUTE OR CHRONIC (490.), Systemic lupus erythematosus (710.0), Dermatitis(692.9), Osteopenia (733.90), Other chronic nonalcoholic liver disease (571.8), Leukopenia (288.0), Other and unspecified noninfectious gastroenteritis and colitis (558.9), Well Women Exam, No Pap (V72.31) (Mammo), Genital herpes, unspecified (054.10), [facility] Historical Summary On: 04-Jun-2008 16:24 [facility] End: 04-Jun-2008 16:24 Office Visit On: 03-Jun-2008 11:50 Encounter Reason: Sinusitis/ - The duration of the symptoms are 2 weeks The course has been gradually worsening. The sinusitis/ has no relieving factors. Associated features include The symptoms have been associated with End: 03-Jun-2008 12:15 cough ,ear pain ,nasal discharge/stuffy nose and sinus pain. Encounter Diagnosis: BRONCHITIS, NOT SPECIFIED ACUTE OR CHRONIC (490.), Systemic lupus erythematosus (710.0) [facility] Office Visit On: 02-Aug-2007 7:14 Encounter Reason: Well Women Exam - The patient feels well with no complaints ,has good energy level and is sleeping well. Pap smear: date of last pap: (2005 ). Contraceptive history: The patient is not using any method End: 02-Aug-2007 7:46 of contraception at this time. Patient exercises 3 - 4 times per week. The patient's libido is decreased. The patient reports that she performs monthly self breast exam. Calcium intake includes 1500 mg with Vit D daily supplement. The patient has been using hormone replacement therapy (premarin). Encounter Diagnosis: Well Women Exam, No Pap (V72.31) (Mammo) [facility] Office Visit On: 04-Jul-2007 7:14 Encounter Reason: Follow up for chronic medical issues - The patient feels well with minor complaints ,has good energy level and is sleeping well. Patient has been compliant with instructions. Current medication use: no End: 04-Jul-2007 7:51 side effects ,compliant with dosing regimen and considered effective by patient. Patient sleeps 7 hours per night. Impact of disease: emotional impact-mild. Nutrition: balanced diet and supplemental vit amins. The medical issues the patient is following up for include hypothyroid ,osteoporosis/osteopenia and other (post menopausal disorder, leukopenia, liver disease non-alcoholic, lupus, colitis ). Not e for Follow up for chronic medical issues: if have flares with aches and skin issues will use plaquenil 1 month. 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 Patient has been compliant with instructions. Current medication use: no side effects. Patient sleeps 7 hours per nig End: 15-May-2006 18:42 ht. Impact of disease: emotional impact-mild. Nutrition: balanced diet. The medical issues the patient is following up for include hypothyroid ,osteoporosis/osteopenia and other (lupus ). 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), Leukopenia (288.0), Other and unspecified noninfectious gastroenteritis and colitis (558.9), Unspecified Diagnosis, Well Women Exam, No Pap (V72.31) (Mammo), Genital herpes, unspecified (054.10) [facility] Historical Summary On: 10-May-2006 13:35 [facility] End: 10-May-2006 13:46 Historical Summary On: 10-Feb-2006 10:43 Encounter Diagnosis: Unspecified Diagnosis End: 10-Feb-2006 10:44 [facility] Historical Summary On: 11-Jan-2006 10:12 [facility] End: 11-Jan-2006 10:14 Payers Medicare[employer] of [employer] guarantor
--- OUTSIDE RECORDS SUMMARY | 2018-06-21 02:36 | XMS RPT_ITS | Continuity of Care Document ---
:1950 Author Organization [facility] Address [address] [facility] [address] [place] [address] Phone Care Team Providers Name Role Phone Talia Charles MD Unavailable Chuck Enrique Unavailable Dr. Geremias Webster Unavailable CLARENCE Grimm Unavailable Unavailable Jany Luong Unavailable Unavailable Unavailable Unavailable Problems Name Dates [...] findings) (Z00.01, V70.0) Comments: [facility] -, AMP 5-17 reviewed with patient all questions. will get shingles at executive physcial scope 5-17 good. 7-15 new breast implants. mammo 11-17, BD 7-16. good hep screening Status: Active BMI 20.0-20.9, adult (Z68.20, V85.1) Status: Active BMI 22.0-22.9, adult (Z68.22, V85.1) [...] not have 30 pack years. light. quit 1895-8790? Status: Active Hypercholesteremia (E78.00, 272.0) Comments: LDL 125 want less 100 LDL p up slight HDL P lower. exercise decrease animal fat. MPO neg ADMA slightly. add asa a day family hsitory of heart disease. add fish oil and good. 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 Imaging Services [address] [place] [address] Dexa Bone Density Study MR#: [id number] Acct: [id number] Name: SHANITA MONTIEL Rep #: [id number] : 1950 F 67 From: Kar Sheridan MD PCP: Talia Charles MD Status: REG CLI Study: Dexa Bone Density Study Date of Exam: 10/25/17 Exam# [id number] Ordering Dr: Talia Charles MD STUDY: DUAL ENER GY X-RAY ABSORPTIOMETRY / DXA REASON FOR EXAM: Female, 67 years old. Postmenopausal screening TECHNIQUE: Bone Mineral Density (BMD) measurements of lumbar spine and bilateral hips were obtained. COMP ARISON: 2015 FINDINGS: Lumbar Spine (L1- L4): g/cm2 (0.927) [...] Service support , CC: Talia Charles MD Long Term Acute Care Registered Nurse: Signed 25-Aug-2017 Thyroid Result: Comments: See Note; NOTES: [facility] Imaging Services [address] [place] [address] Thyroid MR#: [id number] Acct: [id number] Name: SHANITA MONTIEL Rep #: [id number] : [birth year] F 67 From: Isiah Sanchez MD PCP: Talia Charles MD Status: REG CLI Study: Thyroid Date of Exam: 08/25/17 Exam# [id number] Ordering Dr: Talia Charles MD STUDY: THYROID [...] Isiah Sanchez MD at 12:32 EDT Tel [phone], Service support , CC: aTlia Charles MD Long Term Acute Care Registered Nurse: Signed 01-Feb-2017 SCREENING MAMM (CAD), BILAT Result: Comments: See Note; NOTES: [facility] Imaging Services [address] [place] [address] SCREENING MAMM (CAD), BILAT MR#: [id number] Acct: [id number] Name: SHANITA MONTIEL Rep #: [id number] : 1950 F 66 From: Isiah Sanchez MD PCP: Talia Charles MD Status: REG CLI Study: SCREENING MAMM (CAD), BILAT Date of Exam: 02/01/17 Exam# [id number] Ordering Dr: Talia Charles MD M AMMOGRAPHY - BILATERAL SCREENING REASON FOR EXAM: [...] biopsy of a clinically suspicio us abnormality. [id number] Electronically Signed: Isiah Sanchez MD at 9:34 EDT Tel [phone], Service support , CC: aTlia Charles MD Long Term Acute Care Registered Nurse: Signed 05-Feb-2016 Nuclear Stress Test - Treadmil Result: Comments: See Note; NOTES: [facility] Imaging Services [address] [place] [address] Verdana 4d Nuclear Stress Test - Treadmil MR#: [id number] Acct: [id number] Name: Sean MONTIEL Rep #: [id number] : 1950 65 From: Juan Antonio Rubi MD Primary Care: Talia Charles MD Status: REG CLI Ordering Dr: Talia Charles MD Sex: F C DATE OF SERVICE: 02/05/2016 DATE OF STUDY: N ovember 2015. EXERCISE TOLERANCE TEST: The patient exercised on [...] Juan Antonio Rubi MD T: NTS JOB: [id number] 02/05/16 1525 <Electronically signed by Juan Antonio Rubi MD> Date Juan Antonio Rubi MD CC: Tlaia Charles MD Date Dictated: 02/05/168 Date Transcribed: 02/05/16 100 Long Term Acute Care Registered Nurse: Signed 08-Jan-2016 Bilat Scrn Implant DIG AND CAD Result: Comments: See Note; NOTES: [facility] Imaging Services [address] [place] [address] Verdana 4d Bilat Scrn Implant DIG AND CAD MR#: [id number] Acct: [id number] Name: JODY MONTIEL Rep #: [id number] : 1950 F 65 From: Isiah Sanchez MD PCP: Talia Charles MD Status: REG CLI Study: Bilat Scrn Implant DIG AND CAD Date of Exam: 01/08/16 Exam# [id number] Ordering Dr: Talia Stapleton MD MAMMOGRAPHY - [...] regarding these results will be sent to th e patient by the facility within 30 days. Approximately 10% of breast cancers are not detected by mammography. A normal mammogram should not delay biopsy of a clinically suspicious abnormality. [id number] Electronically Signed: Isiah Sanchez MD at 10:03 EDT Tel [phone], Service support [phone], CC: Talia Charles MD Long Term Acute Care Registered Nurse: Signed 21-Oct-2015 Dexa Bone Density Study (HP) Result: Comments: See Note; NOTES: [facility] Imaging Services [address] [place] [address] Verdana 4d Dexa Bone Density Study (HP) MR#: [id number] Acct: [id number] Name : SHANITA MONTIEL Rep #: [id number] : 1950 F 65 From: Isiah Sanchez MD PCP: Talia Charles MD Status: REG CLI Study: Dexa Bone Density Study (HP) Date of Exam: 10/21/15 Exam# [id number] Mabel du Dr: Talia Charles MD STUDY: [...] Isiah Sanchez MD at 12:45 EDT Tel [phone], Service support [phone], CC: Talia Charles MD Long Term Acute Care Registered Nurse: Signed 30-Jul-2014 Breast w/o and/or W Cont Bilat Result: Comments: See Note; NOTES: [facility] Imaging Services [address] [place] [address] MRI Report MR#: [id number] Acct: [id number] Name: SHANITA MONTIEL Rep #: [id number] DO B: 1950 F 64 From: Nhan Berrios MD PCP: Talia Charles MD Status: REG CLI Study: Breast w/o and/or W Cont Bilat Date of Exam: 07/30/14 Exam# [id number] Ordering Dr: Talia Charles MD STUDY: LALA [...] MD at 15:53 EDT , Service support [phone], CC: Talia Charles MD Long Term Acute Care Registered Nurse: Signed 23-Jul-2014 Breast Limited Unilateral Result: Comments: See Note; NOTES: [facility] Imaging Services [address] [place] [address] Ultrasound Report MR#: [id number] Acct: [id number] Name: SHANITA MONTIEL Rep #: [id number] : 1950 F 63 From: Isiah Sanchez MD PCP: Talia Charles MD Status: REG CLI Study: Breast Limited Unilateral Date of Exam: 07/23/14 Exam# [id number] Ordering Dr: Talia Charles MD S TUDY: [...] Isiah Sanchez MD at 16:02 EDT Tel [phone], Service support [phone], CC: Talia Charles MD Long Term Acute Care Registered Nurse: Signed 23-Jul-2014 Bilat Diag Implant DIG AND CAD Result: Comments: See Note; NOTES: [facility] Imaging Services [address] [place] [address] Breast Imaging Report MR#: [id number] Acct: [id number] Name: SHANITA MONTIEL Rep #: [id number] : 1950 F 63 From: Isiah Sanchez MD PCP: Talia Charles MD Status: REG CLI Study: Bilat Diag Implant DIG AND CAD Date of Exam: 07/23/14 Exam# [id number] Ordering Dr: Talia Charles MD MAMMOGRAPHY - [...] Isiah burrows MD at 8:05 EDT Tel [phone], Service support [phone], CC: Talia Charles MD Long Term Acute Care Registered Nurse: Signed Immunization Name Dates Details Influenza (3 years and up) on: 29-Jan-2018 Pneumococcal conjugate vaccine, 13 valent, IM on: 2015 Comments: [facility] Zoster (shingles) on: 2014 Comments: [facility] shingles Family History Unknown Family Member Name Dates Details Brother 1 Comments: [place] 58 yo, hypercholesterolemia Status: Active Brother 2 [...] Living Situation Comments: Lives with spouse, , Baptism important Status: Active No Caffeine Use Status: Active No Drug Use Status: Active Non Smoker/No Tobacco Use Status: Active Tobacco use: Former smoker. Status: Active Smoking Status Name Dates Details Former smoker Vital Signs Date Test Result Details :38 Temperature 98.4 f Comments: Method: Temporal Pulse 68 /min Comments: Pattern: Regular Respiration Rate 16 /min Comments: Pattern: Unlabored O2 SAT 98 % Comments: Room air BP Systolic 102 mm[Hg] Comments: Patient Position: Sitting; Cuff Location: Left Arm; Cuff Size: Standard BP Diastolic 68 mm[Hg] Comments: Patient Position: Sitting; Cuff Location: Left Arm; Cuff Size: Standard Weight 117 lb Height 63.8 in Body Mass Index Calculated 20.21 kg/m2 Body Surface Area Calculated 1.55 m2 :49 Temperature 99 f Comments: Method: Oral Pulse 64 /min Comments: Pattern: Regular Respiration Rate 18 /min O2 SAT 97 % Comments: Room air BP Systolic 128 mm[Hg] Comments: Patient Position: Sitting BP Diastolic 80 mm[Hg] Comments: Patient Position: Sitting Weight 120 lb :27 Temperature 97.9 f Comments: Method: Temporal Pulse [...] 0.00 cm Results Date Description Value Details 6-Thk-228105:30 Thin prep Pap (28156) (no Comments: cuff scraping; No. of containers..01 ThinPrep VialPERFORMED BY: =G LabUlta Beauty[address] [place] [id number] BY: WB Attend.com[address] [place] [address] STD testing) [id number] Information: [id number] Age Gdln ACOG Testing AGE6 (Normal) Comments: <21 or >65 or no age provided 6-Dij-021005:30 Pap IG (Image Guided) Comments: No. of containers..01 ThinPrep VialPERFORMED BY: =G Lab24 Quanrp Qaxjqayfzo025 [place] [id number] BY: WB Attend.com[address] [place] [id number] Note: PAPSMR (Normal) Comments: The Pap smear [...] MALIGNANCY.THIS SPECIMEN WAS RESCREENED PART OF OUR SULFONATION EQUIPMENT OPERATOR PROGRAM.Satisfactory for evaluation. No endocervical component is identified.Z0 1.419Erin Kayden gonzáles, Director Of Institutional Research ([facility])Chela Armendariz, Director Of Institutional Research ([facility]) 9-Vsj-899911:00 CBC W/Diff, Automated Comments: [facility] [address] [place], [place], [id number] SMEAR COMMENT SCANNED (Normal) Comments: NEUTROPENIA NOTED [...] Range: 4.4-11.0 :47 CBC W/Diff, Automated Comments: [facility] [address] [place], [address] Absolute Lymph 1.05 {X10_3/ul} (Normal) Range: 0.83-4.51 [...] Range: 4.4-11.0 :16 CBC W/Diff, Automated Comments: [facility] [address] [place], [address] Absolute Lymph 0.95 {X10_3/ul} (Normal) Range: 0.83-4.51 [...] 4.2-5.4 WBC 2.7 K/mm3 (Abnormal) Range: 4.4-11.0 52-Aok-574608:18 METABOLIC PANEL, Comments: PATIENT WAS FASTINGPERFORMED BY: BN [facility] [address] [id number] BY: CB [facility] Nafsdm8844 [facility] [id number] COMPREHENSIVE (01683) ALT (SGPT) 11 [iU]/L (Normal) Range: 0-32 [...] 8-27 Glucose 86 mg/dL (Normal) Range: 65-99 86-Umc-679624:18 TSH (34304) Comments: PATIENT WAS FASTINGPERFORMED BY: [employer]1447 [facility] [id number] BY: As[employer] Software70 [facility] [id number] TSH 1.780 {uIU/mL} (Normal) Range: 0.450-4.500 28-Bbl-972877:18 LIPOPROTEIN, BLD, BY NMR Comments: PATIENT WAS FASTINGPERFORMED BY: oneforty[address] [id number] BY: [employer] LabNimbuzz70 [facility] [id number]; fu 5-7-18 DB (66059) LP-IR Score <25 (Normal) Comments: INSULIN RESISTANCE MARKER <--Insulin Sensitive Insulin Resistant--> Percentile in Reference PopulationInsulin Resistance ScoreLP-IR Score Low 25th 50th 75th High <27 27 45 63 >63LP-IR Score is inaccurate if patient is non-fasting. .The LP-IR score is a laboratory developed i [facility] that has beenassociated with insulin resistance [...] were developed and their performance characteristicsdetermined by LipMirubee. These assays have not been cleared by [...] High 1600 - 2000 Very High > 24-Jul-201710:18 HEPATITIS C ANTIBODY Comments: PATIENT WAS FASTINGPERFORMED BY: LabCodeRyte [address] [id number] BY: LabCoAnn [facility] Forensic CenterDnzdhq8100 [facility] [id number] ([address]) Hep C Virus Ab <0.1 {s/co_ratio} (Normal) Range: 0.0-0.9 Comments: Negative: < 0.8 Indeterminate: 0.8 - 0.9 Positive: > 0.9 . The CDC recommends that a positive HCV antibody result be followed up with a HCV Nucleic Acid Amplification test (634763). 55-Wst-783401:08 Anti-Centromere B Ab Comments: [facility] (refer to report for specific site)refer to report for address and phone number ANTI-CENT B <0.2 {AI} (Normal) Range: 0.0-0.9 Comments: Performed at: [address] [id number] Director: Chang Greenberg PhD, Phone: [phone] 25-Wqu-080051:08 Anti-Chromatin Comments: [facility] (refer to report for specific site)refer to report for address and phone number ANTICHROMATIN <0.2 {AI} (Normal) Range: 0.0-0.9 :08 Anti-Kasia Comments: [facility] (refer to report for specific site)refer to report for address and phone number ANTI-KASIA <0.2 {AI} (Normal) Range: 0.0-0.9 30-Aix-356532:08 Pffz-Zkprbawjybz-78 AB Comments: [facility] (refer to report for specific site)refer to report for address and phone number ANTISCLER <0.2 {AI} (Normal) Range: 0.0-0.9 34-Uur-321341:08 CBC W/Diff, Automated Comments: [facility] [address] [place], [place], [address] Absolute Lymph 1.06 {X10_3/ul} (Normal) Range: 0.83-4.51 [...] 4.2-5.4 WBC 3.2 K/mm3 (Abnormal) Range: 4.4-11.0 26-Jvq-365389:08 Complement C3 Comments: [facility] (refer to report for specific site)refer to report for address and phone number COMP C3 107 mg/dL (Normal) Range: 82-167 Comments: Performed at: [address] [id number] Director: Chang Greenberg PhD, Phone: [phone] 62-Osw-575222:08 Complement C4 Comments: [facility] (refer to report for specific site)refer to report for address and phone number COMP C4 15 mg/dL (Normal) Range: 14-44 93-Tzt-688374:08 Liver Profile Comments: [facility] [address] [place], [address] D BILI 0.14 mg/dL (Normal) Range: 0.00-0.30 T BILI 0.90 mg/dL (Normal) Range: 0.20-1.00 ALT 19 U/L (Normal) Range: 12-78 ALK P 66 U/L (Normal) Range: 45-117 AST 14 U/L (Abnormal) Range: 15-37 GLOB 3.7 g/dL (Abnormal) Range: 2.3-3.5 ALB 4.1 g/dL (Normal) Range: 3.4-5.0 T PROT 7.8 g/dL (Normal) Range: 6.4-8.2 13-Lxq-156530:20 CBC W/Diff, Automated Comments: [facility] [address] [place], [place], [address] Absolute Lymph 1.15 {X10_3/ul} (Normal) Range: 0.83-4.51 [...] 4.2-5.4 WBC 2.9 K/mm3 (Abnormal) Range: 4.4-11.0 15-Aqf-629792:20 Liver Profile Comments: [facility] [address] [place], [place], [address] D BILI 0.14 mg/dL (Normal) Range: 0.00-0.30 T BILI 0.70 mg/dL (Normal) Range: 0.20-1.00 ALT 21 U/L (Normal) Range: 12-78 ALK P 65 U/L (Normal) Range: 45-117 AST 17 U/L (Normal) Range: 15-37 GLOB 3.9 g/dL (Abnormal) Range: 2.3-3.5 ALB 3.9 g/dL (Normal) Range: 3.4-5.0 T PROT 7.8 g/dL (Normal) Range: 6.4-8.2 :19 Thyroid Stim Hormone (TSH) Comments: [facility] [address] [place], [place], [address] TSH 1.62 {uIU/mL} (Normal) Range: 0.358-3.74 67-Utr-685199:03 Anti-dsDNA Ab Comments: [facility] (refer to report [...] 1.5Moderate Positive 1.6 - 2.5Strong Positive >2.5 21-Sew-920421:03 Antiextractable Nug Ag Comments: [facility] (refer to report for specific site)refer to report for address and phone number CHENG Ab <0.2 (Normal) Comments: AI 0.0 - 0.9 EDITOR AT LARGE Ab <0.2 (Normal) Comments: AI 0.0 - [...] titers Nucleosomes, Histones Drug-induced SLE Speckled Sm, EDITOR AT LARGE, SCL-70, SLE,MCTD,PSS (diffuse form), SS-A/SS-B Sjogrens Nuc leolar SCL-70, PM-1/SCL High titers Scleroderma, PM/DM Centromere Centromere PSS (limited form) w/Crest syndrome variable Nuclear Dot Sp100,d07-siccex Primary Biliary Cirrhosis ---------Nuclear GP210, Primary Biliary CirrhosisMembrane taryn A,B,C SPECKLED PAT. 1:640 (Normal) Comments: High AMAN test Positive Abnormal Comments: Negative <1:80Borderline 1:80Positive >1:80 (Normal) :03 CBC W/Diff, Automated Comments: [facility] [address] [place], [place], [address] Absolute Lymph 1.58 {X10_3/ul} (Normal) Range: 0.83-4.51 [...] 4.2-5.4 WBC 3.5 K/mm3 (Abnormal) Range: 4.4-11.0 62-Zby-962247:03 Electrolyte Panel Comments: [facility] [address] [place], [place], [id number] GAP 8 (Normal) Range: 5-15 CO2 29.0 mmol/L (Normal) Range: 21.0-32.0 CL 101 mmol/L (Normal) Range: 98-107 K 3.8 mmol/L (Normal) Range: 3.5-5.1 NA 138 mmol/L (Normal) Range: 136-145 41-Tyf-038721:03 Liver Profile Comments: [facility] [address] [place], [address] D BILI 0.20 mg/dL (Normal) Range: 0.00-0.30 T BILI 0.80 mg/dL (Normal) Range: 0.20-1.00 ALT 20 U/L (Normal) Range: 12-78 ALK P 64 U/L (Normal) Range: 45-117 AST 15 U/L (Normal) Range: 15-37 GLOB 4.4 g/dL (Abnormal) Range: 2.3-3.5 ALB 4.0 g/dL (Normal) Range: 3.4-5.0 T PROT 8.4 g/dL (Abnormal) Range: 6.4-8.2 65-Vdn-826956:03 Sjogren's Antibodies A/B Comments: [facility] (refer to report for specific site)refer to report for address and phone number Anti-SS-B 2.0 (Normal) Comments: High AI 0.0 - 0.9 Anti-SS-A > 8.0 (Normal) Comments: High AI 0.0 - 0.9 0-Ijk-387461:22 COMPLEMENT C4 (51573) Comments: copy Dr. jaime norton; PATIENT NOT FASTINGPERFORMED BY: Shanda Games6370 [facility] [id number] Complement C4, Serum 14 mg/dL (Normal) Range: 14-44 8-Neq-002676:22 COMPLEMENT C3 (89104) Comments: copy Dr. geremias norton; PATIENT NOT FASTINGPERFORMED BY: [employer]6370 [facility] [id number] Complement C3, Serum 103 mg/dL (Normal) Range: 82-167 1-Cus-331495:22 C-Reactive Protein (29860) Comments: copy Dr. geremias norton; PATIENT NOT FASTINGPERFORMED BY: [employer] Software70 [facility] [place] [id number] C-Reactive Protein, Quant 0.5 mg/L (Normal) Range: 0.0-4.9 4-Oye-258555:22 Sed Rate Erythrocyte (32560) Comments: Dr. cierra scott; PATIENT NOT FASTINGPERFORMED BY: [facility] Bgqtpi8727 [facility] Hospital[facility] [place] [id number] Sedimentation Rate-Westergren 4 mm/h (Normal) Range: 0-40 2-Hkn-130420:22 COMPLEMENT, TOTAL (CH50) Comments: seen Dr. norton; PATIENT NOT FASTINGPERFORMED BY: [facility] Gmihku8991 [facility] [facility] [place] [id number] (18988) Complement, Total (CH50) >60 U/mL (Abnormal) Range: 42-60 53-Wel-493758:57 TSH (96217) Comments: PATIENT WAS FASTINGPERFORMED BY: Lab[address] [id number] BY: [facility] Trcurn3402 [facility]in [place] [id number] TSH 3.190 {uIU/mL} (Normal) Range: 0.450-4.500 91-Xsq-919925:57 METABOLIC PANEL, Comments: PATIENT WAS FASTINGPERFORMED BY: Lab[address] [id number] BY: [facility]De[facility] Ajpjxe3075 [address] [facility]in [place] [id number] COMPREHENSIVE (65867) ALT (SGPT) 7 [iU]/L (Normal) Range: 0-32 [...] Glucose, Serum 84 mg/dL (Normal) Range: 65-99 22-Jzs-447000:57 LIPOPROTEIN, BLD, BY NMR Comments: PATIENT WAS FASTINGPERFORMED BY: BN [facility] [address] [id number] BY: CB [facility] Kuafmx4688 [facility] [id number]; fu 5-23 db (35909) LP-IR Score 30 (Normal) Comments: INSULIN RESISTANCE MARKER <--Insulin Sensitive Insulin Resistant--> Percentile in Reference PopulationInsulin Resistance ScoreLP-IR Score Low 25th 50th 75th High <27 27 45 63 >63LP-IR Score is inaccurate if patient is non-fasting. .The LP-IR score is a laboratory developed i [facility] that has beenassociated with insulin resistance [...] were developed and their performance characteristicsdetermined by [employer]. These assays have not been cleared by [...] 1600 - 2000 Very High > 2000 51-Qbn-730843:28 AMAN (ANTINUCLEAR ANTIBODY) Comments: PATIENT NOT FASTINGPERFORMED BY: [employer]70 [facility] '[facility] GearCata[facility] [id number] (08713) AMAN Direct Positive (Abnormal) 65-Fze-207159:28 URINALYSIS (82522) Comments: PATIENT NOT FASTINGPERFORMED BY: Shanda Games6370 [facility] TherapeuticsCarolinaEast [facility] [id number] Microscopic Examination MICNIP (Normal) Comments: Microscopic not indicated and not performed. Nitrite, Urine Negative (Normal) Urobilinogen,Semi-Qn 0.2 mg/dL (Normal) Range: 0.2-1.0 Bilirubin Negative (Normal) Occult Blood Negative (Normal) Ketones Negative (Normal) Glucose Negative (Normal) Protein Negative (Normal) WBC Esterase Negative (Normal) Appearance Cloudy (Abnormal) Urine-Color Yellow (Normal) pH 7.5 (Normal) Range: 5.0-7.5 Specific Frederic 1.016 (Normal) Range: 1.005-1.030 :28 C-Reactive Protein (32383) Comments: PATIENT NOT FASTINGPERFORMED BY: [employer] Efmsaz8058 [facility] TherapeuticsCarolinaEast [facility] Center [id number] C-Reactive Protein, Quant 7.7 mg/L (Abnormal) Range: 0.0-4.9 : Sed Rate Erythrocyte (93597) Comments: PATIENT NOT FASTINGPERFORMED BY: [employer] Qrlmjq2643 McallisterCopyright AgentCarolinaEast Medical Center [id number] Sedimentation Rate-Westergren 7 mm/h (Normal) Range: 0-40 :28 CBC (Auto) (09630) Comments: PATIENT NOT FASTINGPERFORMED BY: [employer] Rzoudy2559 [facility] TherapeuticsCarolinaEast [facility] [id number] Platelets 227 {x10E3/uL} (Normal) Range: 150-379 RDW 13.2 % (Normal) Range: 12.3-15.4 MCHC 33.2 g/dL (Normal) Range: 31.5-35.7 MCH 30.0 pg (Normal) Range: 26.6-33.0 MCV 90 fL (Normal) Range: 79-97 Hematocrit 38.2 % (Normal) Range: 34.0-46.6 Hemoglobin 12.7 g/dL (Normal) Range: 11.1-15.9 RBC 4.24 {x10E6/uL} (Normal) Range: 3.77-5.28 WBC 5.1 {x10E3/uL} (Normal) Range: 3.4-10.8 :28 Metabolic Panel, Comments: PATIENT NOT FASTINGPERFORMED BY: [employer] Ehdwfm3652 [facility] IKOTECHCarolinaEast Medical Center [id number] Information: [id number] Comprehensive (87908) ALT (SGPT) 11 [iU]/L (Normal) Range: 0-32 [...] Glucose, Serum 79 mg/dL (Normal) Range: 65-99 7-Uxv-230240:12 Basic Metabolic Panel (8) Comments: PATIENT NOT FASTINGPERFORMED BY: [facility] Kubqvu4391 [facility] [id number] Calcium, Serum 9.5 mg/dL (Normal) Range: 8.7-10.3 [...] Glucose, Serum 81 mg/dL (Normal) Range: 65-99 7-Jzd-911783:12 CBC, Platelet, No Comments: PATIENT NOT FASTINGPERFORMED BY: LabCoAnn [facility] Forensic CenterWvmjul8184 [facility] [id number] Information: [id number],S35719 Differential Platelets 216 {x10E3/uL} Range: 150-379 (Normal) RDW 13.1 % (Normal) Range: 12.3-15.4 MCHC 32.8 g/dL (Normal) Range: 31.5-35.7 MCH 29.4 pg (Normal) Range: 26.6-33.0 MCV 90 fL (Normal) Range: 79-97 Hematocrit 40.6 % (Normal) Range: 34.0-46.6 Hemoglobin 13.3 g/dL (Normal) Range: 11.1-15.9 RBC 4.52 {x10E6/uL} Range: 3.77-5.28 (Normal) WBC 3.4 {x10E3/uL} Range: 3.4-10.8 (Normal) TSH 2.300 {uIU/mL} Comments: PATIENT NOT FASTINGPERFORMED BY: LabCoAnn [facility] Forensic CenterKhyhbo9393 [facility] [id number] 510:12 (Normal) Range: 0.450-4.500 BREAST BIOPSY (CHOOSE SITE) See Note (Normal) Comments: Test performed at:[facility] [address]aviq[address] [place], [place] [address] 515:30 Comments: Patient: SHANITA MONTIEL : 1950 (64/F) Acct Num: [id number] Phys: Jaquan Padron MD Unit Num: [id number] Loc: LABSPEC Specimen: [id number] Received: 08/04/141614 Spec Type: BREAST BX TISSUES TISSUES: COMMENT Immunohistochemistry ([id number]) supports the above diagnosis. GROSS DESCRIPTION Received in a container labeled with the patient name and mary jo ignated needle core biopsy, right breast are three elongated cores of yellow- white soft tissuemeasuring in aggregate 2 x 0.5 x 0.1 cm. The specimen is totally submitted in one cassette. / AM:pq 08/06 TC:5 CPT: 97440 HEADER OPERATION: U/S guided needle core biopsy right breast PRE-OPERATIVE DIAGNOSIS: 793.89 abnormal finding on breast imaging TISSUE SUBMITTED: Right breast needle co re biopsy MICROSCOPIC DIAGNOSIS Right breast, ultrasound-guided needle core biopsy: Fat necrosis, fibrosis, and foreign body giant cell reaction to nonpolarizable material. Benign hist iocytic proliferation and mild chronic inflammation. No evidence of malignancy. AM:pq 08/06/14 Signed Anthony Denisse 08/07/14 <signature on file> IMMUNOHISTOCHEMISTRY See Note (Normal) Comments: Test performed at:[facility] [address] [place] [address] [id number] 50:00 Comments: Patient: SHANITA MONTIEL : 1950 (64/F) Acct Num: [id number] Phys: Jaquan Padron MD Unit Num: [id number] Loc: LABSPEC Specimen: [id number] Received: 08/06/141200 Spec Type: IMMUNO TISSUES TISSUES: SPECIMEN INFORMATION: Tissue Source: Right breast, core biopsy Clinical Info: Abnormal mammogram Specimen Number: [id number] CPT code: 79918, 25350 x3 METHODOLOGY: Deparaffinized sections of formalin-fixed tissue or PAP/DQ stained slides are incubated with monoclonal/polyclonal antibodies/oligonucleotide probes. Localization is made via biotin free immunoperoxidase method. Appropriate controls are performed and reacted as expected. Results on target cell population are indicated in the following table: RESULTS: ANTIBODY / CLONE RESULT AE1-3/PCK26 (AE1,AE3,PCK26) negative CK8 (TS1/46dgqpA28) negative P53 (DO-7) negative Macro (HAM-56) positive These tests were developed and their performance characteristics determined by [facility]. They may not have been cleared or approved by the U.S. Food and Drug Administration. The FDA has de termined that such clearance or approval is not necessary. INTERPRETATION: Right breast, core biopsy: Consistent with fat necrosis. AM: 08/07/14 PHYSICIAN AND INSTITUTION [place] [address] Signed Anthony Denisse 08/07/14 <signature on file> :58 TSH (29455) Comments: PATIENT WAS FASTINGPERFORMED BY: LabCoAnn Klein Forensic CenterBcrgel4884 [facility] [id number] TSH 2.580 {uIU/mL} (Normal) Range: 0.450-4.500 :58 METABOLIC PANEL, COMPREHENSIVE Comments: PATIENT WAS FASTINGPERFORMED BY: LabCoAnn [facility] Forensic CenterQosqbg0492 [facility] [id number] (44278) ALT (SGPT) 9 [iU]/L (Normal) Range: 0-32 [...] mg/dL (Normal) Range: 65-99 :58 LIPID PANEL (41188) Comments: PATIENT WAS FASTINGPERFORMED BY: [employer]70 [facility] [id number] LDL/HDL Ratio 1.9 {ratio_units} (Normal) Range: 0.0-3.2 [...] Cholesterol, Total 184 mg/dL (Normal) Range: 100-199 :58 CBC with auto diff Comments: PATIENT WAS FASTINGPERFORMED BY: Shanda [employer]6370 [facility] [id number] Information: [id number] (12340) Immature Grans (Abs) 0.0 {x10E3/uL} (Normal) Range: [...] 3.77-5.28 WBC 3.9 {x10E3/uL} (Normal) Range: 3.4-10.8 0-Dzd-192916:11 Microscopic Examination Comments: PATIENT WAS FASTINGPERFORMED BY: InfoGinCataw[facility] [id number] Bacteria None seen (Normal) Mucus Threads Present (Normal) Epithelial Cells (non renal) 0-10 {/hpf} (Normal) Range: 0 - 10 RBC None seen {/hpf} (Normal) Range: 0 - 3 WBC None seen {/hpf} (Normal) Range: 0 - 5 0-Yzt-887770:03 T4, FREE (THYROXINE) (12752) Comments: PATIENT WAS FASTINGPERFORMED BY: [employer]70 Work 'n GearCatawba Valley Medical Center [id number] T4,Free(Direct) 1.28 ng/dL (Normal) Range: 0.82-1.77 5-Hom-368324:03 URINALYSIS, W/ MICRO (25886) Comments: PATIENT WAS FASTINGPERFORMED BY: Viyet McallisterCopyright AgentCarolinaEast Medical Center [id number] Microscopic Examination See below: (Normal) Microscopic Examination MICRON (Normal) Comments: Microscopic follows if indicated. Nitrite, Urine Negative (Normal) Urobilinogen,Semi-Qn 0.2 mg/dL (Normal) Range: 0.0-1.9 Bilirubin Negative (Normal) Occult Blood Negative (Normal) Ketones Negative (Normal) Glucose Negative (Normal) Protein Negative (Normal) WBC Esterase Negative (Normal) Appearance Clear (Normal) Urine-Color Yellow (Normal) pH 6.5 (Normal) Range: 5.0-7.5 Specific Frederic 1.015 (Normal) Range: 1.005-1.030 5-Dvq-124193:03 CALCIFIDIOL (80042) VIT D 25 Comments: PATIENT WAS FASTINGPERFORMED BY: [employer]6370 [facility] [id number] Vitamin D, 25-Hydroxy 38.2 ng/mL (Normal) Range: 30.0-100.0 Comments: Vitamin D deficiency has been defined by the [place] ofW[facility] Hospitalcine and an Endocrine Society practice guideline as alevel of serum 25-OH vitamin D less than 20 ng/mL (1,2).The Endocrine Society went on to further define vitamin Dinsufficiency as a level between 21 and 29 ng/mL (2).1. IOM ([place] of Medicine). 2010. Dietary reference intakes for calcium and D. [place]: The National Academies Press.2. Gustavo MF, Yvette ZUNIGA, Jus RIVERA, et al. Evaluation, treatment, and prevention of vitamin D deficiency: an Endocrine Society clinical practice guideline. JCEM. 2010; 96(7):1911-30. 8-Oig-624399:03 METABOLIC PANEL, COMPREHENSIVE Comments: PATIENT WAS FASTINGPERFORMED BY: [employer]anda [employer]6370 [facility]isterUniversity [facility] [id number] (54332) ALT (SGPT) 12 [iU]/L (Normal) Range: 0-32 [...] Glucose, Serum 86 mg/dL (Normal) Range: 65-99 7-Vka-250864:03 CBC WITH MANUAL DIFF (37571) Comments: PATIENT WAS FASTINGPERFORMED BY: LabCo Zjwalq2306 [facility] [id number] Immature Grans (Abs) 0.0 {x10E3/uL} (Normal) Range: [...] 3.77-5.28 WBC 4.0 {x10E3/uL} (Normal) Range: 3.4-10.8 7-Tyu-100472:03 TSH (85759) Comments: PATIENT WAS FASTINGPERFORMED BY: LiveProfileAnn Klein Forensic CenterLlusmz7240 [facility] [id number] TSH 2.970 {uIU/mL} (Normal) Range: 0.450-4.500 30-Jzx-09636:21 CBC, Platelets & Auto Diff Comments: today; PATIENT NOT FASTINGPERFORMED BY: LiveProfileAnn Klein Forensic CenterMgnzny0426 [facility] [id number] Information: [id number] (55394) Immature Grans (Abs) 0.0 {x10E3/uL} (Normal) Range: [...] 3.77-5.28 WBC 3.2 {x10E3/uL} (Abnormal) Range: 4.0-10.5 52-Aif-672227:04 PELVIC (NON ) Radiology Report See Note [...] Sanchez M.D.April 12, 2012 at 3:25:13 PM [id number] Signed GP/GP If you are the referring physician and would like to consult with theradiologist who provided this interpretation, please ruslan Lentz M.D. at [phone]. If this radiologist is unavailable, youwill be directed to another radiologist to assist. If you are a patient with a question regarding this report, rhona carrearactludmila referring physician directly. Professional Interpretation Provided By: Safia [employer] , These documents contain legally protected [...] destructionofthese documents. Dictated on 04/12/12 1308 by Nicholas SUÁREZ,Effieranscribed on 04/12/121531 by ITS IMPORTSign by Nicholas SUÁREZ,Isiah on 04/12/121531 Sign by: Nicholas SUÁREZ,Isiah 9-Ahq-150140:16 Pap IG, Ct-Ng, Comments: Source.............Cervical;VaginalNo. of containers..01 CYTYC Thin Prep VialPERFORMED BY: WB [facility] Cmlexgiosb708 [facility] W [id number] BY: =G [facility]120 [facility] HPV-hr [facility] [place] [id number] Information: [id number] Gonococcus, Nuc. Acid Amp Negative (Normal) Chlamydia, [...] are present.V72.31 ; Routine gynecolog ical examina rujv737.5 ; Leukorrhea, not specified as infectiveJennifer Camilo, Director Of Institutional Research (ASCP) 8-Vqb-603200:13 Genital Culture, Routine Comments: PERFORMED BY: LabCo Wovtir5582 [facility] [id number] Information: SRC:VA Result 1 RGF (Normal) Comments: Routine genital rochelle. Genital Culture, Routine Final report (Normal) 9-Tty-898164:03 GARDNERELLA VAG, NUCLEIC Comments: PATIENT NOT FASTINGPERFORMED BY: [facility] Kapmdt4937 [facility] [id number] Information: [id number] ACID DIR PROBE (34203) Gardnerella vaginalis Positive (Abnormal) Trichomonas vaginalis Negative (Normal) Aquiles species Negative (Normal) 30-Gak-764092:59 BREAST UNILATERAL Radiology Report See Note (Normal) [...] radiologist regarding this report, please call our [id number] line @ Dictated on 07/22/11 1139 by Effie Sanchez MDranscribed on 07/26/11 0810 by ITS IMPORTSign by Isiah Sanchez MD on 07/26/11 0 811 Sign by: Isiah Sanchez MD :38 CBCD ANC 1.3 3/uL (Abnormal) Range: 2.0-7.7 [...] 7-18 GLU 84 mg/dL (Normal) Range: 70-110 04-Szr-032038:38 LIPID VLDL 18 mg/dL (Normal) Range: 5-40 [...] 200-240 mg/dL Borderline >240 mg/dL High Risk 85-Oyn-190284:38 SED tSEDRATE 13 mm/h (Normal) Range: 0-30 17-Ngx-727947:38 UA LORIE NEGATIVE (Normal) UOB NEGATIVE (Normal) KYM NEGATIVE (Normal) UROBU 0.2 EU/dl (Normal) Range: 0.2 - 1.0 uPROTU NEGATIVE (Normal) RAJESH 6.0 (Normal) Range: 5.0-8.0 SGU 1.020 (Normal) Range: 1.002-1.030 KETU NEGATIVE mg/dL (Normal) BILIU NEGATIVE (Normal) GLUR NEGATIVE (Normal) UCLAR CLEAR (Normal) UCOL YELLOW (Normal) 4-Mvm-866957:54 URINE ROBERT CULTURE-BRYANNA COL Comments: PATIENT NOT FASTINGPERFORMED BY: LabCoAnn Klein Forensic CenterWteytb3967 [facility] [id number] Information: SRC: URINE COUNT (38657) Result 1 NG36 (Normal) Comments: No growth in 36 - 48 hours. Urine Culture,Comprehensive Final report (Normal) 6-Pha-722001:34 Urinalysis, Office (20919) UA - BILIRUBIN Negative (Normal) UA - BLOOD Negative (Normal) UA - GLUCOSE Negative (Normal) UA - KETONES Negative mg/dL (Normal) UA - LEUKOCYTE ESTERASE Negative (Normal) UA - NITRITE Negative (Normal) UA - PH 6.0 (Normal) UA - PROTEIN Negative mg/dL (Normal) UA - SPECIFIC GRAVITY 1.010 (Normal) URINE UROBILINGN BRYANNA TIMED Normal mg/dL (Normal) 41-Ktp-876437:25 DEXA BONE DENSITY STUDY () Radiology Report See Note (Normal) Comments: PROCEDURE: [...] Dictated on 09/21/10 1543 by Kelli luna MD,Aydenscribed on 09/22/10 0858 by ITS IMPORTSign by Isiah Sanchez MD on 09/22/10 0858 Sign by: Isiah Sanchez MD 34-Aoe-618664:24 BILAT SCRN IMPLANT DIG & CAD Radiology [...] 09/22/10 1326 Sign by: NINO CARROLL MD 92-Jmb-03464:48 Microscopic Examination Comments: PATIENT WAS FASTINGPERFORMED BY: [facility]6370 [facility] [id number] Bacteria Few (Normal) Mucus Threads Present (Normal) Epithelial Cells (non renal) 0-10 {/hpf} (Normal) Range: 0 - 10 RBC None seen {/hpf} (Normal) Range: 0 - 3 WBC 0-5 {/hpf} (Normal) Range: 0 - 5 :48 Lipid Panel (14707) Comments: PATIENT WAS FASTINGPERFORMED BY: [facility] Skhqzq5841 [facility] [id number] LDL Cholesterol Calc 126 mg/dL (Abnormal) Range: 0-99 LDL/HDL Ratio 2.0 {ratio_units} (Normal) Range: 0.0-3.2 VLDL Cholesterol Miguel 19 mg/dL (Normal) Range: 5-40 Cholesterol, Total 207 mg/dL (Abnormal) Range: 100-199 HDL Cholesterol 62 mg/dL (Normal) Comments: According to ATP-III Guidelines, HDL-C >59 mg/dL is considered anegative risk factor for CHD. Triglycerides 95 mg/dL (Normal) Range: 0-149 :48 URINALYSIS (28127) Comments: PATIENT WAS FASTINGPERFORMED BY: [facility] Krxyfx8850 [facility] [id number] Microscopic Examination See below: (Normal) Bilirubin Negative (Normal) Glucose Negative (Normal) Ketones Negative (Normal) Nitrite, Urine Negative (Normal) Occult Blood 3+ (Abnormal) Urobilinogen,Semi-Qn 0.2 mg/dL (Normal) Range: 0.0-1.9 Protein Negative (Normal) WBC Esterase Negative (Normal) Appearance Clear (Normal) Urine-Color Yellow (Normal) pH 6.5 (Normal) Range: 5.0-7.5 Specific Frederic 1.020 (Normal) Range: 1.005-1.030 :48 CBC, Platelets & Auto Diff Comments: PATIENT WAS FASTINGPERFORMED BY: LiveProfileAnn Klein Forensic CenterPjnewo0218 [facility] [id number] (36898) Immature Grans (Abs) 0.0 {x10E3/uL} (Normal) Range: [...] 3.2 {x10E3/uL} (Abnormal) Range: 4.0-10.5 :48 TSH (20663) Comments: PATIENT WAS FASTINGPERFORMED BY: [facility] Dlinnf9120 [facility] [id number] TSH 3.920 {uIU/mL} (Normal) Range: 0.450-4.500 :48 Metabolic Panel, Comprehensive Comments: PATIENT WAS FASTINGPERFORMED BY: [facility] Fslkkp6725 [facility] [id number] (36812) ALT (SGPT) 11 [iU]/L (Normal) Range: 0-40 [...] Glucose, Serum 85 mg/dL (Normal) Range: 65-99 :15 Anti-dsDNA Antibodies Comments: PERFORMED BY: [facility]6370 [facility] [id number] Anti-DNA (DS) Ab Qn 4 {IU/mL} (Normal) Range: 0-9 Comments: Negative <5Equivocal 5 - 9Positive >9 C-Reactive Protein, 0.5 mg/L (Normal) Comments: PERFORMED BY: [facility]6370 [facility] [id number] :15 Quant Range: 0.0-4.9 :15 CBC With Differential/Platelet Comments: PERFORMED BY: [facility]6370 [facility] [id number] Baso (Absolute) 0.0 {x10E3/uL} (Normal) Range: 0.0-0.2 [...] 3.80-5.10 WBC 3.0 {x10E3/uL} (Abnormal) Range: 4.0-10.5 68-Ulr-071080:15 Comp. Metabolic Panel (14) Comments: PERFORMED BY: [facility]6370 [facility] [id number] Alkaline Phosphatase, S 73 [iU]/L Range: 25-165 [...] C3, Serum 116 {mg/dL_Adult} Comments: PERFORMED BY: [facility]6370 [facility] [id number] 12:15 (Normal) Range: 90-180 28-Jul-2009 Complement C4, Serum 15 {mg/dL_Adult} Comments: PERFORMED BY: [facility]6370 [facility] [id number] 12:15 (Normal) Range: 9-36 28-Jul-2009 Complement, Total (CH50) 53 U/mL (Normal) Comments: PERFORMED BY: [facility]6370 [facility] [id number] 12:15 Range: 22-60 28-Jul-2009 TSH 3.440 {uIU/mL} Comments: PERFORMED BY: [address] [id number] 12:15 (Normal) Range: 0.450-4.500 98-Uxg-908954:15 Urinalysis, Routine Comments: PERFORMED BY: [address] [id number] Bilirubin Negative (Normal) Microscopic Examination MICRON (Normal) Comments: Microscopic follows if indicated. Nitrite, Urine Negative (Normal) Urobilinogen,Semi-Qn 0.2 mg/dL (Normal) Range: 0.0-1.9 Glucose Negative (Normal) Ketones Negative (Normal) Occult Blood Negative (Normal) Protein Negative (Normal) Appearance Clear (Normal) pH 6.5 (Normal) Range: 5.0-7.5 Specific Frederic 1.019 (Normal) Range: 1.005-1.030 Urine-Color Yellow (Normal) WBC Esterase Negative (Normal) 98-Jdf-44004:06 UNILAT LT DIA DIGITAL & CAD Radiology Report See Note (Normal) Comments: Exam Number: [id number] UNILATERAL DIAGNOSTIC MAMMOGRAM Oblique and craniocaudal views of the left breast were obtaineddigitally. Comparison is made with the prior examinations datedJun2008, and J [facility] 2008. Interpretation was made with thebenefit of [...] w erealso examined with computer-aided detection software ([employer], [employer] Reported By: ISIAH SANCHEZ 62-Ezr-786907:53 [facility] Radiology Report See Note (Normal) Comments: Exam Number: [id number] MAMMOGRAM, UNILATERAL LEFT DIAGNOSTIC DIGITAL AND CAD [...] mammograms werealso examined with computer-aided detection software ([employer], [employer] Reported By: NINO CARROLL M.D. 09-Sep-20088:22 [facility] DIGITAL & CAD Radiology Report See Note (Normal) Comments: Exam Number: [id number] MAMMOGRAM, BILATERAL SCREENING DIGITAL AND CAD HISTORYRoutine [...] mammograms werealso examined with computer-aided detection software ([employer].). Reported By: NINO CARROLL M.D. :22 DEXA BONE DENSITY STUDY (HP) Radiology Report See Note (Normal) Comments: Exam Number: [id number] BONE DENSITOMETRY HISTORYScreening, postmenopausal. TECHNIQUE Bone densitometry of the lumbar spine and both hips is now beingperformed. The best criteria for e valuation of osteoporosis is theT-value, which represents the comparison of the patient's bone mass israel expected peak bone mass. For most patients, the mean T-value of T4ebolnse L4 is used to evaluate the lumbar [...] Report See Note (Normal) Comments: Exam Number: [id number] MYOCARDIAL PERFUSION SCAN TECHNIQUEThe patient was injected [...] patient was injected with 31 mCi of Am45lHenpxnovrn and subsequently stress SPECT Cardiolite nuclear imagingwas [...] Anti-dsDNA Antibodies Comments: PATIENT WAS FASTINGPERFORMED BY: [facility]GinCataw[facility] [id number] Anti-DNA (DS) Ab Qn 1 {IU/mL} (Normal) Range: 0-9 Comments: Negative <5 Equivocal 5 - 9 Positive >9 Antinuclear Antibodies Positive (Abnormal) Comments: PATIENT WAS FASTINGPERFORMED BY: [employer]70 Work 'n GearCatawba Valley [facility] Center [id number] :53 Direct C-Reactive Protein, 0.7 mg/L (Normal) Comments: PATIENT WAS FASTINGPERFORMED BY: InfoGinCata[facility] [id number] :53 Quant Range: 0.0-4.9 :53 CBC With Differential/Platelet Comments: PATIENT WAS FASTINGPERFORMED BY: LiveProfileAnn Klein Forensic CenterIpdrkt0695 [facility] [id number] Baso (Absolute) 0.0 {x10E3/uL} (Normal) Range: 0.0-0.2 [...] 11.7-15.0 WBC 2.6 {x10E3/uL} (Abnormal) Range: 4.0-10.5 0-Qmp-772655:53 Comp. Metabolic Panel (14) Comments: PATIENT WAS FASTINGPERFORMED BY: LabCoAnn [facility] Forensic CenterEmnhqd5831 [facility] [id number] A/G Ratio 1.4 (Normal) Range: 1.1-2.5 Albumin, [...] 119 {mg/dL_Adult} Comments: PATIENT WAS FASTINGPERFORMED BY: LabCoAnn [facility] Forensic CenterXpokdu8355 [facility] [id number] 0:53 (Normal) Range: 90-180 Complement C4, Serum 15 {mg/dL_Adult} Comments: PATIENT WAS FASTINGPERFORMED BY: [facility]6370 [facility] [id number] 0:53 (Normal) Range: 9-36 Complement, Total (CH50) 55 U/mL (Normal) Comments: PATIENT WAS FASTINGPERFORMED BY: [facility]6370 [facility] [id number] 0:53 Range: 22-60 :53 Lipid Panel With LDL/HDL Comments: PATIENT WAS FASTINGPERFORMED BY: [address] [id number] Ratio Cholesterol, Total 180 mg/dL (Normal) Range: [...] mm/h (Normal) Comments: PATIENT WAS FASTINGPERFORMED BY: [facility]6370 [facility] [id number] :53 Rate-Westergren Range: 0-30 TSH 2.547 {uIU/mL} Comments: PATIENT WAS FASTINGPERFORMED BY: [place] 0986670 [facility] [id number] :53 (Normal) Range: 0.450-4.500 :53 Urinalysis, Routine Comments: PATIENT WAS FASTINGPERFORMED BY: [address] [id number] Appearance Clear (Normal) Bilirubin Negative (Normal) Glucose Negative (Normal) Ketones Negative (Normal) Microscopic Examination MICRON (Normal) Comments: Microscopic follows if indicated. Nitrite, Urine Negative (Normal) Occult Blood Negative (Normal) pH 6.5 (Normal) Range: 5.0-7.5 Protein Negative (Normal) Specific Frederic 1.009 (Normal) Range: 1.005-1.030 Urine-Color Yellow (Normal) Urobilinogen,Semi-Qn 0.2 mg/dL (Normal) Range: 0.0-1.9 WBC Esterase Negative (Normal) :44 Thin prep Pap Comments: Source.............Cervical;EndocervicalLMP / Prev Treat...DBX=[id number]. of containers..01 CYTYC Thin Prep VialPATIENT NOT FASTINGClinical Information: ADD [id number] PERFORMED BY: [employer] (88270) [address] [id number] . . (Normal) DIAGNOSIS: SPRCS (Normal) Comments: NEGATIVE FOR INTRAEPITHELIAL LESION AND MALIGNANCY.Satisfactory for evaluation. No endocervical component is identified.V72.31 ; Routine gynecological examinationAlejandra Mendez, Director Of Institutional Research (ASCP) Note: PAPSMR (Normal) Comments: The Pap [...] Well woman exam : *Well Female Maintenance ([facility]) Indication: Well woman exam Well woman exam [...] Well woman exam : *Well Female Maintenance () Indication: Well woman exam Bronchitis : *URI [...] Indication: Well woman exam Planned Observations URINALYSIS (57643)Indication: Hypothyroidism On: 9-Gzl-432425:00 Request CBC WITH MANUAL DIFF (14882)Indication: Hypothyroidism On: 1-Uqy-582564:00 Request Metabolic Panel, Comprehensive (27515)Indication: Hypothyroidism On: 9-Wqz-075857:00 Request TSH (07912)Indication: Hypothyroidism On: 30-Eir-617161:10 Request Systemic Lupus Profile (60134)Indication: Lupus (systemic lupus erythematosus) On: :57 Request Comments: send to Dr Norton CBC (Auto) (08534)Indication: Pre-operative examination On: 7-Yrx-280076:08 Request Metabolic Panel, Basic (08456)Indication: Pre-operative examination On: 4-Wip-629465:08 Request TSH (40407)Indication: Hypothyroidism On: 3-Vex-013756:07 Request CALCIFEDIOL (00933)Indication: Hypothyroidism On: 8-Lbz-206411:12 Request URINALYSIS, W/ MICRO (29239)Indication: Hypothyroidism On: 9-Laf-884304:11 Request CBC WITH MANUAL DIFF (14440)Indication: Hypothyroidism On: 5-Bqn-004389:11 Request Metabolic Panel, Comprehensive (61308)Indication: Hypothyroidism On: 6-Xnv-223940:11 Request Lipid Panel (25815)Indication: Hypothyroidism On: 4-Dmj-905778:11 Request TSH (71176)Indication: Hypothyroidism On: 1-Rhy-800768:11 Request TSH (THYROID STIMULATING HORMONE) (34195)Indication: Hypothyroidism On: :43 Request METABOLIC PANEL, COMPREHENSIVE (94669)Indication: ERYTHEMATOSUS, LUPUS On: :43 Request LIPID PANEL (45359)Indication: ERYTHEMATOSUS, LUPUS On: :43 Request NEISSERIA (62391) (THIN PREP OBTAINED)Indication: Vaginal Discharge On: :43 Request CHLAMYDIA (51165) (thin prep obtained)Indication: Vaginal Discharge On: 4-Wea-857560:43 Request ROBERT CULTURE-OTHER (25854)Indication: Vaginal Discharge On: :43 Request BACT CULTURE ANY-ANAEROBIC (05137)Indication: Vaginal Discharge On: :43 Request INFCT ANTGN TRICH VAGIN DIRECT PRB (14247)Indication: Vaginal Discharge On: :43 Request AQUILES, NUCLEIC ACID DIRECT PROBE (03348)Indication: Vaginal Discharge On: :43 Request Thin prep Pap (14606)Indication: Well woman exam On: :29 Request URINALYSIS (92994)Indication: Lupus (systemic lupus erythematosus) On: :26 Request Sed Rate Erythrocyte (65423)Indication: Lupus (systemic lupus erythematosus) On: :26 Request CBC, Platelets & Auto Diff (74620)Indication: Lupus (systemic lupus erythematosus) On: :25 Request Lipid Panel (23683)Indication: Hypothyroidism On: :25 Request Metabolic Panel, Comprehensive (25158)Indication: Lupus (systemic lupus erythematosus) On: :25 Request DNA ANTIBODY-NATV/DBL ST (08887)Indication: Lupus (systemic lupus erythematosus) On: 18-Npb-20124:49 Request COMPLEMENT C4 (23044)Indication: Lupus (systemic lupus erythematosus) On: :48 Request COMPLEMENT C3 (57866)Indication: Lupus (systemic lupus erythematosus) On: :48 Request COMPLEMENT, TOTAL (CH50) (23416)Indication: Lupus (systemic lupus erythematosus) On: :48 Request C-Reactive Protein (55271)Indication: Lupus (systemic lupus erythematosus) On: :48 Request URINALYSIS (27220)Indication: Lupus (systemic lupus erythematosus) On: :48 Request CBC (Auto) (88919)Indication: Lupus (systemic lupus erythematosus) On: :48 Request Metabolic Panel, Comprehensive (65857)Indication: Lupus (systemic lupus erythematosus) On: :48 Request TSH (49128)Indication: Hypothyroidism On: :48 Request Thin prep Pap (27166)Indication: Well woman exam On: 42-Ywt-85597:35 Request C-Reactive Protein (96804)Indication: Lupus (systemic lupus erythematosus) On: :03 Request DNA ANTIBODY-NATV/DBL ST (34354)Indication: Lupus (systemic lupus erythematosus) On: :02 Request Sed Rate Erythrocyte (18983)Indication: Lupus (systemic lupus erythematosus) On: :01 Request COMPLEMENT C4 (07661)Indication: Lupus (systemic lupus erythematosus) On: :00 Request COMPLEMENT C3 ([id number])Indication: Lupus (systemic lupus erythematosus) On: :00 Request COMPLEMENT, TOTAL (CH50) ([id number])Indication: Lupus (systemic lupus erythematosus) On: :00 Request AMAN (ANTINUCLEAR ANTIBODY) ([id number])Indication: Lupus (systemic lupus erythematosus) On: :00 Request URINALYSIS ([id number])Indication: Lupus (systemic lupus erythematosus) On: :57 Request TSH ([id number])Indication: Hypothyroidism On: :57 Request CBC (Auto) ([id number])Indication: Lupus (systemic lupus erythematosus) On: :57 Request Metabolic Panel, Comprehensive ([id number])Indication: Lupus (systemic lupus erythematosus) On: :57 Request Lipid Panel ([id number])Indication: Lupus (systemic lupus erythematosus) On: :57 Request Lipid Panel ([id number])Indication: Hypothyroidism On: 04-Jul-20077:47 Request TSH ([id number])Indication: Hypothyroidism On: 04-Jul-20077:43 Request LIPID PANEL ([id number])Indication: Well woman exam On: 8-Aab-510093:00 Request CBC (AUTO) ([id number])Indication: Lupus (systemic lupus erythematosus) On: 11-May-20069:59 Request Planned Encounters Medical; [facility] Exam (Doctor) - On: 06-Mar-2018 13:30 [facility] Araceli SUÁREZ, Talia Charles MD, Talia Carney Planned Procedures ULTRASOUND OF NECK WITH FOCUS ON On: 25-Aug-2017 Intent THYROID ([id number])By: Araceli SUÁREZ, Comments: include area on left side where tender. Talia Johnson MD DEXA SCAN AXIAL SKELETON On: 07-Aug-2017 Intent ([id number])By: Talia Charles MD, MD, Dana M Flu Vaccine (Quadrivalent) On: 17-Jan-2017 Intent 47741Ak: Talia Charles MD Comments: QUAD flu shotlot number: [id number]: 07/2017L Deltoid IMAD JEWEL GRINDER Talia Charles MD MAMMOGRAM BREAST BILATERAL On: 17-Jan-2017 Intent SCREENING DIGITAL ([id number])By: Talia Charles MD, MD, Dana M Nuclear Stress Test/Stress On: 02-Feb-2016 Intent SPECT/TreadmillBy: Talia Charles MD, MD, Dana M MAMMOGRAM, SCREENING, BOTH BREAST On: 05-Jan-2016 Intent ([id number])By: Talia Charles MD, MD, Dana M Flu Vaccine (Quadrivalent) On: 05-Jan-2016 Intent 13038Tt: Parker Ross Comments: Lot:[id number]:09/30/16Dose:0.5mLRoute:IMSite:L DltdGiven By:DINA signed PNEUM VAC ADLT/IMUMNOSPR, On: 28-Jul-2015 Intent SBC/INTRM ([id number])By: Araceli SUÁREZ, Comments: Lot:[id number]:01/08/17Dose:0.5mlRoute:imSite:l armGiven By:DINA signed Talia Johnson MD DEXA SCAN AXIAL SKELETON On: 28-Jul-2015 Intent ([id number])By: Talia Charles MD Comments: 10-16 due Talia Charles MD ELECTROCARDIOGRAM, COMPLETE (ECG) On: 02-Oct-2014 Intent ([id number])By: Talia Charles MD, MD, Dana M MRI - OtherBy: Talia Charles MD On: 24-Jul-2014 Intent Talia Charles MD Comments: R breast MRI OF RIGHT BREAST WITH AND On: 24-Jul-2014 Intent WITHOUT CONTRAST ([id number])By: Talia Charles MD, MD, Dana M MAMMOGRAM, SCREENING, BOTH BREAST On: 21-Jul-2014 Intent ([id number])By: Talia Charles MD, MD, Dana M ELECTROCARDIOGRAM, COMPLETE (ECG) On: 04-Mar-2014 Intent ([id number])By: Talia Charles MD, MD, Dana M DXA, BONE DENSITY, AXIAL SKELETON On: 01-Aug-2013 Intent ([id number])By: Talia Charles MD, MD, Dana M EKG ([id number])By: Talia Charles MD On: 01-Aug-2013 Intent Talia Gunter MD Comments: see scanned document of test done to see results reviewed today with patient TDAP VACCINE >7 IM ([id number])By: On: 24-Sep-2012 Talia Cooley MD, MD, Dana M Ultrasound - PelvisBy: Araceli On: 06-Apr-2012 Intent Talia SUÁREZ MD, Dana M Comments: left ovary felt and postmenapausal EKG ([id number])By: Talia Charles MD On: 18-Jul-2011 Intent Talia Gunter MD Comments: see scanned document of test done to see results reviewed today with patient Breast Ultrasound - LeftBy: On: 18-Jul-2011 Intent Talia Charles MD, MD, Dana M DXA, BONE DENSITY, AXIAL SKELETON On: 20-Aug-2010 Intent ([id number])By: Talia Charles MD, MD, Dana M MAMMOGRAM, SCREENING, BOTH On: 20-Aug-2010 Intent BREASTS ([id number])By: Talia Charles MD, MD, Dana M Breast [...] On: 08-Aug-2008 Intent Talia Johnson MD EKG ([id number])By: Talia Charles MD On: 08-Aug-2008 Intent Talia Gunter MD MAMMOGRAM, SCREENING, BOTH On: 04-Jul-2007 Intent BREASTS ([id number])By: Talia Charles MD, MD, Dana M Bone Density StudyBy: Araceli SUÁREZ, On: 04-Jul-2007 Intent Talia Johnson MD MAMMOGRAM, SCREENING, BOTH On: 11-May-2006 Intent BREASTS ([id number])By: Talia Charles MD, MD, Dana M Instructions Name Dates Details BMI 22.0-22.9, adult [...] Advance Directives Name Dates Details Immunization Registry [place] - Effective on Effective: 17-Jan-201701/17/2017. Expiration date unspecified Encounters Nurse Visit (Non-[place]) On: 08-Feb-2018 8:35 Encounter Reason: Annual Exam - FemaleEncounter Diagnosis: BMI 20.0-20.9, adult, History of tobacco abuse End: 08-Feb-2018 14:54 [facility] Lab Order On: 05-Feb-2018 13:58 Encounter Diagnosis: [...] - Yes the patient did have ([place]) a mini mental status exam done today. [...] The patient does have durable power of energy attorney and living will. The patient has [...] The patient does have durable power of energy attorney and living will. The joe ent [...] surgery the patient plans to [facility] family. Note for Pre-op visit: no [...] Pap (V72.31) (Mammo), Genital herpes, unspecified (054.10), [facility] Historical Summary On: 04-Jun-2008 [...] and unspecified noninfectious gastroenteritis and colitis (558.9), [facility] Office Visit On: 11-May-2006 [...] End: 11-Jan-2006 10:14 Payers MedicareMutual of Priscila MONTIEL; gifty guarantor
--- OUTSIDE RECORDS SUMMARY | 2018-06-21 02:37 | XMS RPT_ITS | Continuity of Care Document ---
:1950 Author Organization [facility] Address [address] [facility] [address] [place] [address] Phone Care Team Providers Name Role Phone [...] and see. sdreen alph antitrysin Status: Active Abnormal ultrasound of breast (R92.8, 793.89) Status: Active Annual Medicare Physical WITH abnormal findings (Renamed from Encounter for general adult medical examination with abnormal findings) (Z00.01, V70.0) Comments: [facility] 03-06-18, AMP 08-17 reviewed with patient all questions. will get shingles at executive physical scope 5-17 good. 7- new breast implants. mammo 02-01-17, BD 7-25-18, Hep C screening negative Status: Active BMI 21.0-21.9, adult (Z68.21, V85.1) Status: Active Breast Lump (N63.0, 611.72) Comments: ? from breast cyst ? lipoma tender new on right outer quadrant. do us Status: Active Current nonsmoker (Z78.9, V49.89) Status: Active Deliveries (Parity) Comments: 1 Status: Active Family history of ischemic heart disease (Z82.49, V17.3) Comments: in father and his side. she is more like mother. Status: Active Genital herpes (A60.00, 054.10) Status: Active History of tobacco abuse (Z87.891, V15.82) Comments: not have 30 pack years. light. quit 3502-2304? Status: Active Hypercholesteremia (E78.00, 272.0) Comments: LDL [...] now normal with increase dose Status: Active Lupus (systemic lupus erythematosus) (M32.9, [...] eyes, low wbc, raynaunds, skin Status: Active Osteopenia (M85.80, 733.90) Comments: 6-11, [...] D good Z score good. Status: Active Pregnancies () Comments: 1 Status: Active Vaginal dryness (N89.8, 625.8) Comments: [facility] Estrogen cream and working well. told about gia donahue. Status: Active Well woman exam (Z01.419, V72.31) Status: Active Medications Name Dates Details CALCIUM + D, 280-008JK-OEDA (Oral Tablet) 1 QD for 0 days Refills: 0 Ordered:06-Mar-2018 CLARENCE GrimmActive Levothyroxine Sodium 75 MCG Oral Tablet 1 Tablet QD except 2 on Monday for 0 days Quantity: 102 {Tablet} Refills: 3 Ordered:11-Aug-2017 Araceli SUÁREZ, Talia Mcneal MD, Talia Carney Start : 11-Aug-2017 Active MULTIVITAMIN (PO Chew Tab) 1 QD Active Plaquenil 200 MG Oral Tablet 1 Tablet QD for 0 days Quantity: 30 {Tablet} Refills: 0 Ordered:17-Jan-2017 Araceli SUÁREZ, Talia Gusman MD Start : 17-Jan-2017 Active VALTREX, 500MG (Oral Tablet) 1 Tablet qd/prn for 0 days Quantity: 90 {Tablet} Refills: 3 Ordered:28-Jul-2015 Araceli SUÁREZ, Talia Mcneal MD, Talia Carney Start : 28-Jul-2015 Active Aspirin 81 MG [...] Start : 04-Dec-2015 End : 29-Apr-2016 Inactive Fish Oil qd Inactive FLAGYL, 500MG (Oral Tablet) 1 Tablet [...] Ordered:18-Jul-2011 CLARENCE Grimm End : 18-Jul-2011 Inactive PredniSONE 10 MG Oral Tablet uad Tablet uad for 0 days Quantity: 24 {Tablet} Refills: 0 Ordered:06-Mar-2018 CLARENCE Grimm Start : 13-Dec-2017 End : 06-Mar-2018 Inactive Comments:3 pills x 4 days, 2 pills x 4days, 1 pill x 4days Premarin 0.625 MG/GM Vaginal Cream uad Cream [...] Start : 05-Jan-2016 End : 17-Jan-2017 Inactive HANDICRAFT OR HOBBY SHOP MANAGER-ZEL (Oral Tablet) 1 qd for 0 days Refills: 0 Ordered:28-Jul-2015 CLARENCE Grimm Start : 24-Sep-2012 End : 28-Jul-2015 Inactive ZOSTAVAX, 08817CYY/0.65ML (Subcutaneous Solution Reconstituted) uad For Solution For [...] 08-17 Status: Resolved as of 23-Aug-2016 BMI 20.0-20.9, adult (Z68.20, V85.1) Status: Resolved as of 06-Mar-2018 BMI 21.0-21.9, adult (Z68.21, V85.1) Status: Resolved as of 25-Aug-2017 BMI 22.0-22.9, adult (Z68.22, V85.1) Status: Resolved as of 06-Mar-2018 BMI between 19-24,adult (V85.1) Status: Inactive as of 29-Apr-2016 Body mass index (BMI) of 22.0 to 22.9 in adult (Z68.22, V85.1) Status: Resolved as of 17-Jan-2017 Breast cancer screening (Z12.39, V76.10) Status: Resolved as of 07-Aug-2017 Bronchitis (J40, 490) Status: Inactive as of 08-Aug-2008 Bronchitis, acute (J20.9, 466.0) Comments: think viral and willl callif not juan diego rin a week adn use otc,. Status: Inactive as of 29-Apr-2016 Dermatitis (L30.9, 692.9) Status: Inactive as of 28-Jul-2009 Dyspareunia (625.0) Comments: using estrogen cream and will see how works. Status: Inactive as of 28-Jul-2015 Encounter for hepatitis C virus screening test for high risk patient (Z11.59, V73.89) Status: Resolved as of 06-Mar-2018 Encounter for screening mammogram for breast cancer (Renamed from Encounter for screening mammogram for malignant neoplasm of breast) (Z12.31, V76.12) Status: Resolved as of 16-Mar-2018 ERYTHEMATOSUS, LUPUS (695.4) Status: Inactive as of 01-Aug-2013 Hematuria, unspecified (R31.9, 599.70) Status: Inactive as of 06-Apr-2012 Leukopenia (D72.819, 288.50) Status: Inactive as of 28-Jul-2015 Lump in throat (R22.1, 784.2) Status: Resolved as of 16-Mar-2018 Neck pain (M54.2, 723.1) Comments: ? painful thyrioditis ? strain area of neck ? scrap in throat ? reflux ? stress ? PND not know. will do ibu check us over area where pain and swelling Status: Resolved as of 16-Mar-2018 Need for prophylactic vaccination and inoculation against influenza (Renamed from Need for immunization against influenza) (Z23, V04.81) Status: Inactive as of 29-Apr-2016 Need for prophylactic vaccination and inoculation against influenza (Renamed from Need for immunization against influenza) (Z23, V04.81) Status: Resolved as of 07-Aug-2017 Other and unspecified noninfectious gastroenteritis and colitis (K52.9, 558.9) Comments: Status: Inactive as of 08-Aug-2008 Other chronic nonalcoholic liver disease (K76.89, 571.8) Status: Inactive as of 01-Aug-2013 Other specified menopausal and postmenopausal disorders (N95.8, 627.8) Status: Inactive as of 01-Aug-2013 Palpitation (R00.2, 785.1) Comments: better think stress related. Status: Inactive as of 28-Jul-2015 Poison dwayne (L23.7, 692.6) Status: Inactive as of 29-Apr-2016 Postmenopausal (Renamed from Postmenopausal status) (Z78.0, V49.81) Status: Resolved as of 16-Mar-2018 Pre-operative examination (Z01.818, V72.84) Comments: no issue [...] goo dnow. Status: Resolved as of 29-Apr-2016 Swelling of thyroid gland (E07.9, 246.9) Comments: us normal Status: Resolved as of 06-Mar-2018 Unspecified Diagnosis Status: Inactive as of 24-Sep-2012 Unspecified Diagnosis Status: Inactive as of 28-Jul-2015 Unspecified Diagnosis Status: Inactive as of 28-Jul-2009 Vaginal Discharge (N89.8, 623.5) Status: Inactive as [...] fibroids at 38 yo Date Value Details 09-Mar-2018 Breast Limited Unilateral Result: Comments: See Note; NOTES: [facility] Imaging Services [address] [place] [address] Breast Limited Unilateral MR#: [id number] Acct: [id number] Name: SHANITA MONTIEL Rep #: [id number] : 1950 F 67 From: Isiah Sanchez MD PCP: Talia Charles MD Status: REG CLI Study: Breast Limited Unilateral Date of Exam: 03/09/18 Exam# [id number] Ordering Dr: Talia Charles MD STUDY: ULTRASOUND BREAST - RIGHT REASON FOR EXAM: Female, 67 years old. Palpable lump in the right breast. TECHNIQUE: Axial and longitudinal images of the RIGHT breast were performed with a high resolution ultrasound transducer. COMPARISON: Comparison is made with prior mammogram done earlier today. FINDINGS: RIGHT Breast: Breast implant is seen. The palpable abnorma lity corresponds to a 1.5 cm x 0.7 cm x 0.5 cm hypoechoic nodule just superior to the breast implant. This is at the 11:00 position breast at 8 cm from nipple. A small amount of free fluid is seen adjac ent to the implant. There is also evidence of a snowstorm appearance of the implant. Localized rupture should BE ruled out. US/Breast Limited Un ilateral IMPRESSION: Findings suggestive of possible focal breast implant rupture at the site of the palpable abnormality. Correlation with MRI is recommended. ASSES SMENT CATEGORY: BIRADS Category 2: Benign. A letter regarding these results will be sent to the patient by the facility within 30 days. Electronically Signed: Isiah Sanchez MD at 10:58 EST Tel [phone], Service support , CC: Talia Charles MD Insight Leader: Signed 09-Mar-2018 DIAG MAMM W/CAD, BILAT Result: Comments: See Note; NOTES: [facility] Imaging Services [address] [place] [address] DIAG MAMM W/CAD, BILAT MR#: [id number] Acct: [id number] Name: SHANITA MONTIEL Rep #: [id number] : 1950 F 67 From: Isiah Sanchez MD PCP: Talia Charles MD Status: REG CLI Study: DIAG MAMM W/CAD, BILAT Date of Exam: 03/09/18 Exam# [id number] Ordering Dr: Talia Charles MD MAMMOGRAPHY - BILATERAL DIAGNOSTIC REASON FOR EXAM: Female, 67 years old. Right breast lump. Prior implants. PERTINENT HISTORY: Non-contributory. TECHNIQUE: Digital bilateral breast lucia (3D mammographic acquisi tion) in the CC and MLO projections. 2-D mediolateral oblique (MLO) and craniocaudad (CC) views of both breasts were obtained. CAD: Full Field Digital Mammography with Computer Added Detection was perfo rmed. COMPARISON: Comparison is made with prior study dated February 01, 2017 and January 08, 2016 FINDINGS: Breast Composition: The breasts are heterogeneously dense , which may obscure small masses. There are no dominant masses or suspicious calcifications. Stable bilateral breast implants. Small calcifications are seen along the anterior aspect of the left breast implant. No other significant abnormalities are identified. There has been no significant change since the prior study. BI/DIAG MAMM W/CAD, LALA AT IMPRESSION: Stable bilateral diagnostic mammogram. With the patient's history of a palpable abnormality in the right breast, correlation with ultrasound is recommended. ASSESSMENT CATEGORY: BIRADS Category 0: Incomplete. Need additional imaging evaluation. A letter regarding these results will be sent to the patient by the facility within 30 days. Approximatel y 10% of breast cancers are not detected by mammography. A normal mammogram should not delay biopsy of a clinically suspicious abnormality. Electronically Signed: Isiah Sanchez MD at 1 0:23 EST Tel [phone], Service support , CC: Talia Charles MD Insight Leader: Signed 25-Oct-2017 Dexa Bone Density Study Result: Comments: See Note; NOTES: [facility] Imaging Services [address] [place] [address] Dexa Bone Density Study MR#: [id number] Acct: [id number] Name: SHANITA MONITEL Rep #: [id number] : 1950 F 67 From: Kar Sheridan MD PCP: Talia Charles MD Status: REG CLI Study: Dexa Bone Density Study Date of Exam: 10/25/17 Exam# [id number] Ordering Dr: Talia Charles MD STUDY: DUAL ENER GY X-RAY ABSORPTIOMETRY / DXA REASON FOR EXAM: Female, 67 years old. Postmenopausal screening TECHNIQUE: Bone Mineral Density (BMD) measurements of lumbar spine and bilateral hips were obtained. COMP ARISON: 2016 FINDINGS: Lumbar Spine (L1- L4): g/cm2 [...] Service support , CC: Talia Charles MD Insight Leader: Signed 25-Aug-2017 Thyroid Result: Comments: See Note; NOTES: [facility] Imaging Services [facility] [place] [address] Thyroid MR#: [id number] Acct: [id number] Name: SHANITA MONTIEL Rep #: [id number] : [birth year] F 67 From: Isiah Sanchez MD PCP: Talia Charles MD Status: REG CLI Study: Thyroid Date of Exam: 08/25/17 Exam# [id number] Ordering Dr: Talia Charles MD STUDY: THYROID [...] Isiah Sanchez MD at 12:32 EDT Tel [phone], Service support , CC: Talia Charles MD Insight Leader: Signed 01-Feb-2017 SCREENING MAMM (CAD), BILAT Result: Comments: See Note; NOTES: [facility] Imaging Services [address] [place] [address] SCREENING MAMM (CAD), BILAT MR#: [id number] Acct: [id number] Name: SHANITA MONTIEL Rep #: [id number] : 1950 F 66 From: Isiah Sanchez MD PCP: Talia Charles MD Status: REG CLI Study: SCREENING MAMM (CAD), BILAT Date of Exam: 02/01/17 Exam# [id number] Ordering Dr: Talia Charles MD M AMMOGRAPHY [...] biopsy of a clinically suspicio us abnormality. [id number] Electronically Signed: Isiah Sanchez MD at 9:34 EDT Tel [phone], Service support , CC: Talai Charles MD Insight Leader: Signed 05-Feb-2016 Nuclear Stress Test - Treadmil Result: Comments: See Note; NOTES: [facility] Imaging Services [address] [place] [id number] [place] [address] 4d Nuclear Stress Test - Treadmil MR#: [id number] Acct: [id number] Name: Sean MONTIEL Rep #: [id number] : 1950 65 From: Juan Antonio Rubi [...] Juan Antonio Rubi MD T: NTS JOB: [id number] 02/05/16 1525 <Electronically signed by Juan Antonio Rubi MD> Date Juan Antonio Rubi MD CC: Talia Charles MD Date Dictated: 02/05/16 1008 Date Transcribed: 02/05/161007 Insight Leader: Signed 08-Jan-2016 Bilat Scrn Implant DIG AND CAD Result: Comments: See Note; NOTES: [facility] Imaging Services [address] [place] [address] Verdana 4d Bilat Scrn Implant DIG AND CAD MR#: [id number] Acct: [id number] Name: JODY MONTIEL Rep #: [id number] : 1950 F 65 From: Isiah Sanchez MD PCP: Talia Charles MD Status: REG CLI Study: Bilat Scrn Implant DIG AND CAD Date of Exam: 01/08/16 Exam# [id number] Ordering Dr: Talia Stapleton MD MAMMOGRAPHY - [...] delay biopsy of a clinically suspicious abnormality. [id number] Electronically Signed: Isiah Sanchez MD at 10:03 EDT Tel [phone], Service support [phone], CC: Talia Charles MD Insight Leader: Signed 21-Oct-2015 Dexa Bone Density Study (HP) Result: Comments: See Note; NOTES: [facility] Imaging Services [address] [place] [address] Verdana 4d Dexa Bone Density Study (HP) MR#: [id number] Acct: [id number] Name : SHANITA MONTIEL Rep #: [id number] : 1950 F 65 From: Isiah Sanchez MD PCP: Talia Charles MD Status: [facility] Study: Dexa Bone Density Study (HP) Date of Exam: 10/21/15 Exam# [id number] [facility] Dr: Talia Charles MD STUDY: DUAL ENERGY [...] Isiah Sanchez MD at 12:45 EDT Tel [phone], Service support [phone], CC: Talia Charles MD Insight Leader: Signed 30-Jul-2014 Breast w/o and/or W Cont Bilat Result: Comments: See Note; NOTES: [facility] Imaging Services [address] [place] [address] MRI Report MR#: [id number] Acct: [id number] Name: SHANITA MONTIEL Rep #: [id number] DO B: 1950 F 64 From: Nhan Berrios MD PCP: Talia Charles MD Status: REG CLI Study: Breast w/o and/or W Cont Bilat Date of Exam: 07/30/14 Exam# [id number] Ordering Dr: Talia Charles MD STUDY: LALA [...] MD at 15:53 EDT , Service support [phone], CC: Talia Charles MD Insight Leader: Signed 23-Jul-2014 Breast Limited Unilateral Result: Comments: See Note; NOTES: [facility] Imaging Services [address] [place] [address] Ultrasound Report MR#: [id number] Acct: [id number] Name: SHANITA MONTIEL Rep #: [id number] : 1950 F 63 From: Isiah Sanchez MD PCP: Talia Charles MD Status: REG CLI Study: Breast Limited Unilateral Date of Exam: 07/23/14 Exam# [id number] Ordering Dr: Talia Charles MD S TUDY: [...] Isiah Sanchez MD at 16:02 EDT Tel [phone], Service support [phone], CC: Talia Charles MD Insight Leader: Signed 23-Jul-2014 Bilat Diag Implant DIG AND CAD Result: Comments: See Note; NOTES: [facility] Imaging Services [address] [place] [address]609 Breast Imaging Report MR#: [id number] Acct: [id number] Name: SHANITA MONTIEL Rep #: [id number] : 1950 F 63 From: Isiah Sanchez MD PCP: Talia Charles MD Status: REG CLI Study: Bilat Diag Implant DIG AND CAD Date of Exam: 07/23/14 Exam# [id number] Ordering Dr: Talia Charels MD MAMMOGRAPHY - BILATERAL DIAGNOSTIC REASON FOR [...] Isiah burrows MD at 8:05 EDT Tel [phone], Service support [phone], CC: Talia Charles MD Insight Leader: Signed Immunization Name Dates Details Influenza (3 years and up) on: 29-Jan-2018 Pneumococcal conjugate vaccine, 13 valent, IM on: 2015 Comments: [facility] Zoster (shingles) on: 2014 Comments: [facility] shingles Family History Unknown Family Member Name Dates Details Brother 1 Comments: [place] 58 yo, hypercholesterolemia Status: Active Brother 2 [...] Living Situation Comments: Lives with spouse, , [employer] important Status: Active No Caffeine Use Status: Active No Drug Use Status: Active Non Smoker/No Tobacco Use Status: Active Tobacco use: Former smoker. Status: Active Smoking Status Name Dates Details Former smoker Vital Signs Date Test Result Details :36 Temperature 97.9 f Comments: Method: Temporal Pulse 70 /min Comments: Pattern: Regular Respiration Rate 20 /min Comments: Pattern: Unlabored O2 SAT 98 % Comments: Room air BP Systolic 108 mm[Hg] Comments: Patient Position: Sitting; Cuff Location: Left Arm; Cuff Size: Standard BP Diastolic 70 mm[Hg] Comments: Patient Position: Sitting; Cuff Location: Left Arm; Cuff Size: Standard Weight 117 lb Height 62.5 in Body Mass Index Calculated 21.06 kg/m2 Body Surface Area Calculated 1.53 m2 :38 Temperature 98.4 f Comments: Method: Temporal [...] 0.00 cm Results Date Description Value Details 1-Pka-527803:11 URINALYSIS (80580) Comments: PATIENT WAS FASTINGPERFORMED BY: MATY [facility]Asp[facility] [facility] [id number] Microscopic Examination MICNIP (Normal) Comments: Microscopic not indicated and not performed. Nitrite, Urine Negative (Normal) Urobilinogen,Semi-Qn 0.2 mg/dL (Normal) Range: 0.2-1.0 Bilirubin Negative (Normal) Occult Blood Negative (Normal) Ketones Negative (Normal) Glucose Negative (Normal) Protein Negative (Normal) WBC Esterase Negative (Normal) Appearance Clear (Normal) Urine-Color Yellow (Normal) pH 6.5 (Normal) Range: 5.0-7.5 Specific [place] 1.013 (Normal) Range: 1.005-1.030 8-Kwk-486109:11 CBC WITH MANUAL DIFF (92854) Comments: PATIENT WAS FASTINGPERFORMED BY: DiskonHunter.comUnion County General HospitalLwkctx4839 [facility] [id number] Immature Grans (Abs) 0.0 {x10E3/uL} (Normal) Range: 0.0-0.1 Immature Granulocytes 0 % (Normal) Baso (Absolute) 0.0 {x10E3/uL} (Normal) Range: 0.0-0.2 Eos (Absolute) 0.1 {x10E3/uL} (Normal) Range: 0.0-0.4 Monocytes(Absolute) 0.5 {x10E3/uL} (Normal) Range: 0.1-0.9 Lymphs (Absolute) 1.0 {x10E3/uL} (Normal) Range: 0.7-3.1 Neutrophils (Absolute) 1.5 {x10E3/uL} (Normal) Range: 1.4-7.0 Basos 1 % (Normal) Eos 3 % (Normal) Monocytes 16 % (Normal) Lymphs 32 % (Normal) Neutrophils 48 % (Normal) Platelets 221 {x10E3/uL} (Normal) Range: 150-379 RDW 13.2 % (Normal) Range: 12.3-15.4 MCHC 31.9 g/dL (Normal) Range: 31.5-35.7 MCH 30.4 pg (Normal) Range: 26.6-33.0 MCV 95 fL (Normal) Range: 79-97 Hematocrit 43.6 % (Normal) Range: 34.0-46.6 Hemoglobin 13.9 g/dL (Normal) Range: 11.1-15.9 RBC 4.57 {x10E6/uL} (Normal) Range: 3.77-5.28 WBC 3.1 {x10E3/uL} (Abnormal) Range: 3.4-10.8 9-Gnr-448414:11 Metabolic Panel, Comprehensive Comments: PATIENT WAS FASTINGPERFORMED BY: MATY LabCoLyons VA Medical CenterFmnsus8482 [facility] [id number] (99974) ALT (SGPT) 12 [iU]/L (Normal) Range: 0-32 AST (SGOT) 18 [iU]/L (Normal) Range: 0-40 Alkaline Phosphatase 52 [iU]/L (Normal) Range: 39-117 Bilirubin, Total 0.5 mg/dL (Normal) Range: 0.0-1.2 A/G Ratio 2.0 (Normal) Range: 1.2-2.2 Globulin, Total 2.3 g/dL (Normal) Range: 1.5-4.5 Albumin 4.7 g/dL (Normal) Range: 3.6-4.8 Protein, Total 7.0 g/dL (Normal) Range: 6.0-8.5 Calcium 9.8 mg/dL (Normal) Range: 8.7-10.3 Carbon Dioxide, Total 23 mmol/L (Normal) Range: 20-29 Chloride 103 mmol/L (Normal) Range: 96-106 Potassium 4.7 mmol/L (Normal) Range: 3.5-5.2 Sodium 142 mmol/L (Normal) Range: 134-144 BUN/Creatinine Ratio 15 (Normal) Range: 12-28 eGFR If Africn Am 96 mL/min/1.73 (Normal) eGFR If NonAfricn Am 83 mL/min/1.73 (Normal) Creatinine 0.74 mg/dL (Normal) Range: 0.57-1.00 BUN 11 mg/dL (Normal) Range: 8-27 Glucose 84 mg/dL (Normal) Range: 65-99 7-Ubz-462553:30 Thin prep Pap (59221) (no Comments: cuff scraping; No. of containers..01 ThinPrep VialPERFORMED BY: =Kaye LabCo[address] [id number] BY: WB DiskonHunter.com29 [place] [address] STD testing) [id number] Information: [id number] Age Gdln ACOG Testing AGE6 (Normal) Comments: <21 or >65 or no age provided 3-Olj-788145:30 Pap IG (Image Guided) Comments: No. of containers..01 ThinPrep VialPERFORMED BY: =G LabCo Rgugbgruuy93427 Thomas StreetZeeva hospital W [id number] BY: WB SearchspaceMissouri [facility] Center Wwolueivfb77327 Thomas StreetZeeva hospital W [id number] Note: PAPSMR (Normal) Comments: The Pap smear [...] MALIGNANCY.THIS SPECIMEN WAS RESCREENED PART OF OUR CUSTOMER SUPPORT MANAGER PROGRAM.Satisfactory for evaluation. No endocervical component is identified.Z0 1.419Erin Kayden gonzáles, Senior Administrative Support (ASCP)Chela Armendariz Senior Administrative Support (ASCP) 9-Rpi-890059:00 CBC W/Diff, Automated Comments: [facility] [address] [place], [place], [address] SMEAR COMMENT SCANNED (Normal) Comments: NEUTROPENIA NOTED [...] Range: 4.4-11.0 :47 CBC W/Diff, Automated Comments: [facility] Q[address]unsrrqnt4207 [place], [place], [id number] Absolute Lymph 1.05 {X10_3/ul} (Normal) Range: 0.83-4.51 [...] Range: 4.4-11.0 :16 CBC W/Diff, Automated Comments: [facility] [address] [place], [place], [address] Absolute Lymph 0.95 {X10_3/ul} (Normal) Range: 0.83-4.51 [...] 4.2-5.4 WBC 2.7 K/mm3 (Abnormal) Range: 4.4-11.0 55-Qcz-508064:18 METABOLIC PANEL, Comments: PATIENT WAS FASTINGPERFORMED BY: [employer] DiscoveryCo[address] [id number] BY: MATY LabCoLyons VA Medical CenterNowohh4833 [facility] [id number] [facility] (09770) ALT (SGPT) 11 [iU]/L (Normal) Range: 0-32 [...] 8-27 Glucose 86 mg/dL (Normal) Range: 65-99 30-Pyp-794472:18 TSH (07543) Comments: PATIENT WAS FASTINGPERFORMED BY: [employer] [id number] BY: MATY [facility] Agtwia2046 [facility] [id number] TSH 1.780 {uIU/mL} (Normal) Range: 0.450-4.500 95-Rbf-949424:18 LIPOPROTEIN, BLD, BY NMR Comments: PATIENT WAS FASTINGPERFORMED BY: [facility] [address] [id number] BY: [facility] Xsfnjl3441 [facility] [id number]; fu 5-7-18 DB (58711) LP-IR Score <25 (Normal) Comments: INSULIN RESISTANCE MARKER <--Insulin Sensitive Insulin Resistant--> Percentile in Reference PopulationInsulin Resistance ScoreLP-IR Score Low 25th 50th 75th High <27 27 45 63 >63LP-IR Score is inaccurate if patient is non-fasting. .The LP-IR score is a laboratory developed i [facility] that has beenassociated with insulin resistance and [...] were developed and their performance characteristicsdetermined by [employer]. These assays have not been cleared by [...] 1600 - 2000 Very High > 2000 19-Ajd-939842:18 HEPATITIS C ANTIBODY Comments: PATIENT WAS FASTINGPERFORMED BY: [facility]aritan HospitalVMware[address] [id number] BY: [facility]Hunter[employer]com[address] [id number] ([address]) Hep C Virus Ab <0.1 {s/co_ratio} (Normal) Range: 0.0-0.9 Comments: Negative: < 0.8 Indeterminate: 0.8 - 0.9 Positive: > 0.9 . The CDC recommends that a positive HCV antibody result be followed up with a HCV Nucleic Acid Amplification test (028757). 90-Mli-531639:08 Anti-Centromere B Ab Comments: [facility] (refer to report for specific site)refer to report for address and phone number ANTI-CENT B <0.2 {AI} (Normal) Range: 0.0-0.9 Comments: Performed at: [facility] Searchspace[address] [id number] Director: Chang Greenberg PhD, Phone: [phone] 40-Wrt-267413:08 Anti-Chromatin Comments: [facility]Miss[facility] (refer to report for specific site)refer to report for address and phone number ANTICHROMATIN <0.2 {AI} (Normal) Range: 0.0-0.9 68-Aav-084939:08 Anti-Kasia Comments: [facility] (refer to report for specific site)refer to report for address and phone number ANTI-KASIA <0.2 {AI} (Normal) Range: 0.0-0.9 52-Uuw-051433:08 Wwwx-Kmzvvkispyu-34 AB Comments: [facility] (refer to report for specific site)refer to report for address and phone number ANTISCLER <0.2 {AI} (Normal) Range: 0.0-0.9 19-Rem-887095:08 CBC W/Diff, Automated Comments: [facility] Tilkiexvfi[address] [place], [place], [id number] Absolute Lymph 1.06 {X10_3/ul} (Normal) Range: 0.83-4.51 [...] 4.2-5.4 WBC 3.2 K/mm3 (Abnormal) Range: 4.4-11.0 60-Xqh-349935:08 Complement C3 Comments: [facility] (refer to report for specific site)refer to report for address and phone number COMP C3 107 mg/dL (Normal) Range: 82-167 Comments: Performed at: - [facility] [id number] Director: Chang Greenberg PhD, Phone: [phone] 66-Lcc-145185:08 Complement C4 Comments: [facility] (refer to report for specific site)refer to report for address and phone number COMP C4 15 mg/dL (Normal) Range: 14-44 56-Ifo-797220:08 Liver Profile Comments: [facility] [address] [place], [address] D BILI 0.14 mg/dL (Normal) Range: 0.00-0.30 T BILI 0.90 mg/dL (Normal) Range: 0.20-1.00 ALT 19 U/L (Normal) Range: 12-78 ALK P 66 U/L (Normal) Range: 45-117 AST 14 U/L (Abnormal) Range: 15-37 GLOB 3.7 g/dL (Abnormal) Range: 2.3-3.5 ALB 4.1 g/dL (Normal) Range: 3.4-5.0 T PROT 7.8 g/dL (Normal) Range: 6.4-8.2 05-Bps-387359:20 CBC W/Diff, Automated Comments: [facility] [address] [place], [address] Absolute Lymph 1.15 {X10_3/ul} (Normal) Range: 0.83-4.51 [...] 4.2-5.4 WBC 2.9 K/mm3 (Abnormal) Range: 4.4-11.0 82-Hdm-997165:20 Liver Profile Comments: [facility] [address] [facility] [place], [place], [id number] D BILI 0.14 mg/dL (Normal) Range: 0.00-0.30 T BILI 0.70 mg/dL (Normal) Range: 0.20-1.00 ALT 21 U/L (Normal) Range: 12-78 ALK P 65 U/L (Normal) Range: 45-117 AST 17 U/L (Normal) Range: 15-37 GLOB 3.9 g/dL (Abnormal) Range: 2.3-3.5 ALB 3.9 g/dL (Normal) Range: 3.4-5.0 T PROT 7.8 g/dL (Normal) Range: 6.4-8.2 09-Bhm-789913:19 Thyroid Stim Hormone (TSH) Comments: [facility] [address] [facility] [place], [place], [id number] TSH 1.62 {uIU/mL} (Normal) Range: 0.358-3.74 :03 [...] 1.5Moderate Positive 1.6 - 2.5Strong Positive >2.5 :03 Antiextractable Nug Ag Comments: [facility] (refer to report for specific site)refer to report for address and phone number CHENG Ab <0.2 (Normal) Comments: AI 0.0 - 0.9 FIELD NURSE CASE MANAGER Ab <0.2 (Normal) Comments: AI 0.0 - [...] titers Nucleosomes, Histones Drug-induced SLE Speckled Sm, FIELD NURSE CASE MANAGER, SCL-70, SLE,MCTD,PSS (diffuse form), SS-A/SS-B Sjogrens Nuc leolar SCL-70, PM-1/SCL High titers Scleroderma, PM/DM Centromere Centromere PSS (limited form) w/Crest syndrome variable Nuclear Dot Sp100,m06-uouunw Primary Biliary Cirrhosis ---------Nuclear GP210, Primary Biliary CirrhosisMembrane taryn A,B,C SPECKLED PAT. 1:640 (Normal) Comments: High AMAN test Positive Abnormal Comments: Negative <1:80Borderline 1:80Positive >1:80 (Normal) 45-Nmm-073036:03 CBC W/Diff, Automated Comments: [facility] [address] [place], [address] Absolute Lymph 1.58 {X10_3/ul} (Normal) [...] 4.2-5.4 WBC 3.5 K/mm3 (Abnormal) Range: 4.4-11.0 05-Tjb-243487:03 Electrolyte Panel Comments: [facility] [address] [facility] [place], [place], [id number] GAP 8 (Normal) Range: 5-15 CO2 29.0 mmol/L (Normal) Range: 21.0-32.0 CL 101 mmol/L (Normal) Range: 98-107 K 3.8 mmol/L (Normal) Range: 3.5-5.1 NA 138 mmol/L (Normal) Range: 136-145 15-Vuv-872673:03 Liver Profile Comments: [facility] [address] [place], [place], [address] D BILI 0.20 mg/dL (Normal) Range: 0.00-0.30 T BILI 0.80 mg/dL (Normal) Range: 0.20-1.00 ALT 20 U/L (Normal) Range: 12-78 ALK P 64 U/L (Normal) Range: 45-117 AST 15 U/L (Normal) Range: 15-37 GLOB 4.4 g/dL (Abnormal) Range: 2.3-3.5 ALB 4.0 g/dL (Normal) Range: 3.4-5.0 T PROT 8.4 g/dL (Abnormal) Range: 6.4-8.2 46-Fgt-785722:03 Sjogren's Antibodies A/B Comments: [facility] (refer to report for specific site)refer to report for address and phone number Anti-SS-B 2.0 (Normal) Comments: High AI 0.0 - 0.9 Anti-SS-A > 8.0 (Normal) Comments: High AI 0.0 - 0.9 :22 COMPLEMENT C4 (73455) Comments: copy Dr. jaime norton; PATIENT NOT FASTINGPERFORMED BY: [facility] Cqzobl8825 Burst.itNovant [facility] Medical [facility] Hospitalin [place] [id number] Complement C4, Serum 14 mg/dL (Normal) Range: 14-44 3-Pav-728086:22 COMPLEMENT C3 (88428) Comments: copy Dr. geremias norton; PATIENT NOT FASTINGPERFORMED BY: [facility] Vhkwvz6085 McallisterMusic FactoryNovant Health Medical Park Hospitalin [place] [id number] Complement C3, Serum 103 mg/dL (Normal) Range: 82-167 4-Gml-102050:22 C-Reactive Protein (37944) Comments: copy Dr. geremias norton; PATIENT NOT FASTINGPERFORMED BY: [facility] Jlkurb2788 [facility] [place] [id number] C-Reactive Protein, Quant 0.5 mg/L (Normal) Range: 0.0-4.9 :22 Sed Rate Erythrocyte (30807) Comments: Dr. cierra scott; PATIENT NOT FASTINGPERFORMED BY: [facility] Qukequ5977 Mcallister [facility]in [place] [id number] Sedimentation Rate-Westergren 4 mm/h (Normal) Range: 0-40 :22 COMPLEMENT, TOTAL (CH50) Comments: seen Dr. norton; PATIENT NOT FASTINGPERFORMED BY: [facility] Vlnnst1818 Mcallister [facility]in [place] [id number] (42624) Complement, Total (CH50) >60 U/mL (Abnormal) Range: 42-60 76-Juq-608627:57 TSH (41500) Comments: PATIENT WAS FASTINGPERFORMED BY: Lab[facility] 348817 [facility] [id number] BY: [facility]6370 [facility] [id number] TSH 3.190 {uIU/mL} (Normal) Range: 0.450-4.500 31-Uzc-492052:57 METABOLIC PANEL, Comments: PATIENT WAS FASTINGPERFORMED BY: [facility] [id number] BY: SearchspaceAsp[facility]6370 [facility] [id number] COMPREHENSIVE (36363) ALT (SGPT) 7 [iU]/L (Normal) Range: 0-32 [...] Glucose, Serum 84 mg/dL (Normal) Range: 65-99 66-Pjg-797642:57 LIPOPROTEIN, BLD, BY NMR Comments: PATIENT WAS FASTINGPERFORMED BY: BN [facility] Ecgyblggna4854 [facility] [id number] BY: CB [facility] Owybnx[address] [place] [id number]; fu 5-23 db (83367) LP-IR Score 30 (Normal) Comments: INSULIN RESISTANCE MARKER <--Insulin Sensitive Insulin Resistant--> Percentile in Reference PopulationInsulin Resistance ScoreLP-IR Score Low 25th 50th 75th High <27 27 45 63 >63LP-IR Score is inaccurate if patient is non-fasting. .The LP-IR score is a laboratory developed i [facility] that has beenassociated with insulin resistance and [...] were developed and their performance characteristicsdetermined by [employer]. These assays have not been cleared by [...] 1600 - 2000 Very High > 2000 82-Lfp-050794:28 AMAN (ANTINUCLEAR ANTIBODY) Comments: PATIENT NOT FASTINGPERFORMED BY: Torch TechnologiesCritical access hospital [id number] (17826) AMAN Direct Positive (Abnormal) 05-Hal-277322:28 URINALYSIS (76854) Comments: PATIENT NOT FASTINGPERFORMED BY: [employer]ao[employer]comox iDoneThisFormerly [facility] [id number] Microscopic Examination MICNIP (Normal) Comments: Microscopic not indicated and not performed. Nitrite, Urine Negative (Normal) Urobilinogen,Semi-Qn 0.2 mg/dL (Normal) Range: 0.2-1.0 Bilirubin Negative (Normal) Occult Blood Negative (Normal) Ketones Negative (Normal) Glucose Negative (Normal) Protein Negative (Normal) WBC Esterase Negative (Normal) Appearance Cloudy (Abnormal) Urine-Color Yellow (Normal) pH 7.5 (Normal) Range: 5.0-7.5 Specific [place] 1.016 (Normal) Range: 1.005-1.030 77-Vuz-806176:28 C-Reactive Protein (77963) Comments: PATIENT NOT FASTINGPERFORMED BY: Instapagar [facility] [id number] C-Reactive Protein, Quant 7.7 mg/L (Abnormal) Range: 0.0-4.9 34-Pgn-043507:28 Sed Rate Erythrocyte (37111) Comments: PATIENT NOT FASTINGPERFORMED BY: [facility]6370 [facility] [id number] Sedimentation Rate-Westergren 7 mm/h (Normal) Range: 0-40 :28 CBC (Auto) (68277) Comments: PATIENT NOT FASTINGPERFORMED BY: [place] 4006370 [facility] [id number] Platelets 227 {x10E3/uL} (Normal) Range: 150-379 RDW 13.2 % (Normal) Range: 12.3-15.4 MCHC 33.2 g/dL (Normal) Range: 31.5-35.7 MCH 30.0 pg (Normal) Range: 26.6-33.0 MCV 90 fL (Normal) Range: 79-97 Hematocrit 38.2 % (Normal) Range: 34.0-46.6 Hemoglobin 12.7 g/dL (Normal) Range: 11.1-15.9 RBC 4.24 {x10E6/uL} (Normal) Range: 3.77-5.28 WBC 5.1 {x10E3/uL} (Normal) Range: 3.4-10.8 88-Ebg-434164:28 Metabolic Panel, Comments: PATIENT NOT FASTINGPERFORMED BY: [place] [address]006[address] [facility] [id number] Information: [id number] Comprehensive (50102) ALT (SGPT) 11 [iU]/L (Normal) Range: 0-32 [...] Glucose, Serum 79 mg/dL (Normal) Range: 65-99 8-Tpl-278899:12 Basic Metabolic Panel (8) Comments: PATIENT NOT FASTINGPERFORMED BY: Intellecap6370 LightSand CommunicationsCritical access hospital [id number] Calcium, Serum 9.5 mg/dL (Normal) Range: 8.7-10.3 [...] Glucose, Serum 81 mg/dL (Normal) Range: 65-99 4-Fez-294368:12 CBC, Platelet, No Comments: PATIENT NOT FASTINGPERFORMED BY: [employer]70 LightSand CommunicationsCritical access hospital [id number] Information: [id number] Differential Platelets 216 {x10E3/uL} Range: 150-379 (Normal) [...] {uIU/mL} Comments: PATIENT NOT FASTINGPERFORMED BY: [facility] Wcnsoc1566 [facility] [id number] 510:12 (Normal) Range: 0.450-4.500 BREAST BIOPSY (CHOOSE SITE) See Note (Normal) Comments: Test performed at:[facility] [address] [place], [place] [address] 515:30 Comments: Patient: SHANITA MONTIEL : 1950 (64/F) Acct Num: [id number] Phys: Jaquan Padron MD Unit Num: [id number] Loc: [facility] Specimen: [id number] Received: 08/04/141614 Spec Type: BREAST BX TISSUES TISSUES: COMMENT Immunohistochemistry ([id number]) supports the above diagnosis. GROSS DESCRIPTION Received in a container labeled with the patient name and mary jo ignated needle core biopsy, right breast are three elongated cores of yellow- white soft tissuemeasuring in aggregate 2 x 0.5 x 0.1 cm. The specimen is totally submitted in one cassette. / AM:pq 08/06 TC:5 CPT: 82355 HEADER OPERATION: U/S guided needle core biopsy right breast PRE-OPERATIVE DIAGNOSIS: 793.89 abnormal finding on breast imaging TISSUE SUBMITTED: Right breast needle co re biopsy MICROSCOPIC DIAGNOSIS Right breast, ultrasound-guided needle core biopsy: Fat necrosis, fibrosis, and foreign body giant cell reaction to nonpolarizable material. Benign hist iocytic proliferation and mild chronic inflammation. No evidence of malignancy. AM:pq 08/06/14 Signed Anthony [facility] 08/07/14 <signature on file> IMMUNOHISTOCHEMISTRY See Note (Normal) Comments: Test performed at:[address] [place] [address] 50:00 Comments: Patient: SHANITA MONTIEL : 1950 (64/F) Acct Num: [id number] Phys: Jaquan Padron MD Unit Num: [id number] Loc: [facility] Specimen: [id number] Received: 08/06/141200 Spec Type: IMMUNO TISSUES TISSUES: SPECIMEN INFORMATION: Tissue Source: Right breast, core biopsy Clinical Info: Abnormal mammogram Specimen Number: [id number] CPT code: 08975, 32993 x3 METHODOLOGY: Deparaffinized sections of formalin-fixed tissue or PAP/DQ stained slides are incubated with monoclonal/polyclonal antibodies/oligonucleotide probes. Localization is made via biotin free immunoperoxidase method. Appropriate controls are performed and reacted as expected. Results on target cell population are indicated in the following table: RESULTS: ANTIBODY / CLONE RESULT AE1-3/PCK26 (AE1,AE3,PCK26) negative CK8 (TS1/25klroJ99) negative P53 (DO-7) negative Macro (HAM-56) positive These tests were developed and their performance characteristics determined by [facility]. They may not have been cleared or approved by the U.S. Food and Drug Administration. The FDA has de termined that such clearance or approval is not necessary. INTERPRETATION: Right breast, core biopsy: Consistent with fat necrosis. AM: 08/07/14 PHYSICIAN AND INSTITUTION [facility] [address] [place], [place] [address] Signed Anthony [facility] 08/07/14 <signature on file> 80-Vvj-66514:58 TSH (75427) Comments: PATIENT WAS FASTINGPERFORMED BY: [facility] Sbycpa0783 [facility] [id number] TSH 2.580 {uIU/mL} (Normal) Range: 0.450-4.500 :58 METABOLIC PANEL, COMPREHENSIVE Comments: PATIENT WAS FASTINGPERFORMED BY: [employer] Gcbcmd2300 [facility] [id number] (31409) ALT (SGPT) 9 [iU]/L (Normal) Range: 0-32 [...] mg/dL (Normal) Range: 65-99 :58 LIPID PANEL (01378) Comments: PATIENT WAS FASTINGPERFORMED BY: DiskonHunter.comLyons VA Medical CenterCzeqeb5479 [facility] [id number] LDL/HDL Ratio 1.9 {ratio_units} (Normal) Range: 0.0-3.2 [...] Cholesterol, Total 184 mg/dL (Normal) Range: 100-199 69-Oxw-44630:58 CBC with auto diff Comments: PATIENT WAS FASTINGPERFORMED BY: LabCoLyons VA Medical CenterWicufh7370 [facility] [id number] Information: [id number] (59916) Immature Grans (Abs) 0.0 {x10E3/uL} (Normal) Range: [...] 3.77-5.28 WBC 3.9 {x10E3/uL} (Normal) Range: 3.4-10.8 1-Gdh-821188:11 Microscopic Examination Comments: PATIENT WAS FASTINGPERFORMED BY: [employer]ap[employer] McallisterMusic FactoryFormerly [facility] [id number] Bacteria None seen (Normal) Mucus Threads Present (Normal) Epithelial Cells (non renal) 0-10 {/hpf} (Normal) Range: 0 - 10 RBC None seen {/hpf} (Normal) Range: 0 - 3 WBC None seen {/hpf} (Normal) Range: 0 - 5 :03 T4, FREE (THYROXINE) (97170) Comments: PATIENT WAS FASTINGPERFORMED BY: Instapagar [facility] Treatment CenterChinaNet Online HoldingsCritical access hospital [id number] T4,Free(Direct) 1.28 ng/dL (Normal) Range: 0.82-1.77 :03 URINALYSIS, W/ MICRO (24343) Comments: PATIENT WAS FASTINGPERFORMED BY: Instapagar Mcallister iDoneThisFormerly [facility] [id number] Microscopic Examination See below: (Normal) Microscopic Examination MICRON (Normal) Comments: Microscopic follows if indicated. Nitrite, Urine Negative (Normal) Urobilinogen,Semi-Qn 0.2 mg/dL (Normal) Range: 0.0-1.9 Bilirubin Negative (Normal) Occult Blood Negative (Normal) Ketones Negative (Normal) Glucose Negative (Normal) Protein Negative (Normal) WBC Esterase Negative (Normal) Appearance Clear (Normal) Urine-Color Yellow (Normal) pH 6.5 (Normal) Range: 5.0-7.5 Specific [place] 1.015 (Normal) Range: 1.005-1.030 :03 CALCIFIDIOL (99702) VIT D 25 Comments: PATIENT WAS FASTINGPERFORMED BY: Instapagar [facility] [id number] Vitamin D, 25-Hydroxy 38.2 ng/mL (Normal) Range: 30.0-100.0 Comments: Vitamin D deficiency has been defined by the [place] ofMedicine and an Endocrine Society practice guideline as alevel of serum 25-OH vitamin D less than 20 ng/mL (1,2).The Endocrine Society went on to further define vitamin Dinsufficiency as a level between 21 and 29 ng/mL (2).1. IOM ([place] of Medicine). 2010. Dietary reference intakes for calcium and D. [place]: The National Academies Press.2. Gustavo MF, Yvette ZUNIGA, Jus RIVERA, et al. Evaluation, treatment, and prevention of vitamin D deficiency: an Endocrine Society clinical practice guideline. JCEM. 2010; 96(7):1911-30. 2-Acf-402681:03 METABOLIC PANEL, COMPREHENSIVE Comments: PATIENT WAS FASTINGPERFORMED BY: [facility] Pficzm3707 [facility] [id number] (89012) ALT (SGPT) 12 [iU]/L (Normal) Range: 0-32 [...] Glucose, Serum 86 mg/dL (Normal) Range: 65-99 :03 CBC WITH MANUAL DIFF (04884) Comments: PATIENT WAS FASTINGPERFORMED BY: [facility] Gxeajb4195 [facility] [id number] Immature Grans (Abs) 0.0 {x10E3/uL} (Normal) Range: [...] 3.77-5.28 WBC 4.0 {x10E3/uL} (Normal) Range: 3.4-10.8 :03 TSH (07107) Comments: PATIENT WAS FASTINGPERFORMED BY: LabCoLyons VA Medical CenterKgzcwa7401 [facility] [id number] TSH 2.970 {uIU/mL} (Normal) Range: 0.450-4.500 37-Mvq-48999:21 CBC, Platelets & Auto Diff Comments: today; PATIENT NOT FASTINGPERFORMED BY: [facility]6370 [facility] [id number] Information: [id number] (92243) Immature Grans (Abs) 0.0 {x10E3/uL} (Normal) Range: [...] 3.77-5.28 WBC 3.2 {x10E3/uL} (Abnormal) Range: 4.0-10.5 75-Cnw-704722:04 PELVIC (NON ) Radiology Report See Note [...] Sanchez M.D.April 12, 2012 at 3:25:13 PM [id number] Signed GP/GP If you are the referring physician and would like to consult with theradiologist who provided this interpretation, please c evelyn Lentz M.D. at [phone]. If this radiologist is unavailable, youwill be directed to another radiologist to assist. If you are a patient with a question regarding this report, plea secontactyour referring physician directly. Professional Interpretation Provided By: [employer], Phone , These documents contain legally protected [...] destructionofthese documents. Dictated on 04/12/12 1308 by Ayden Sanchez MDscribed on 04/12/12 153 by ITS IMPORTSign by Isiah Sanchez MD on 04/12/121531 Sign by: Isiah Sanchez MD 2-Ypa-162099:16 Pap IG, Ct-Ng, Comments: Source.............Cervical;VaginalNo. of containers..01 CYTYC Thin Prep VialPERFORMED BY: WB [facility] Naqhbnptet564 [facility] [place] [id number] BY: =G [facility] Giovanna marino120 Hil HPV-hr ls [facility] W [id number] Information: [id number] Gonococcus, Nuc. Acid Amp Negative (Normal) Chlamydia, [...] are present.V72.31 ; Routine gynecolog ical examina zzyj027.5 ; Leukorrhea, not specified as infectiveJennifer Camilo, Senior Administrative Support (ASCP) 6-Azo-926138:13 Genital Culture, Routine Comments: PERFORMED BY: [facility] Wckruh2605 [facility] [id number] Information: SRC:VA Result 1 RGF (Normal) Comments: Routine genital rochelle. Genital Culture, Routine Final report (Normal) 6-Oci-131023:03 GARDNERELLA VAG, NUCLEIC Comments: PATIENT NOT FASTINGPERFORMED BY: [facility] Npyxui7806 [facility] [id number] Information: [id number] ACID DIR PROBE (18229) Gardnerella vaginalis Positive (Abnormal) Trichomonas vaginalis Negative (Normal) Aquiles species Negative (Normal) 16-Zzl-792283:59 BREAST UNILATERAL Radiology Report See Note (Normal) [...] radiologist regarding this report, please call our 08B8gsqnenl line @ Dictated on 07/22/11 1139 by Effie Sanchez MDranscribed on 07/26/11 0810 by ITS IMPORTSign by Isiah Sanchez MD on 07/26/11 0 811 Sign by: Isiah Sanchez MD 50-Tvo-888409:38 CBCD ANC 1.3 3/uL (Abnormal) Range: 2.0-7.7 [...] 7-18 GLU 84 mg/dL (Normal) Range: 70-110 00-Tdw-788764:38 LIPID VLDL 18 mg/dL (Normal) Range: 5-40 [...] 200-240 mg/dL Borderline >240 mg/dL High Risk 38-Eky-671613:38 SED tSEDRATE 13 mm/h (Normal) Range: 0-30 44-Grf-067152:38 UA LORIE NEGATIVE (Normal) UOB NEGATIVE (Normal) KYM NEGATIVE (Normal) UROBU 0.2 EU/dl (Normal) Range: 0.2 - 1.0 uPROTU NEGATIVE (Normal) RAJESH 6.0 (Normal) Range: 5.0-8.0 SGU 1.020 (Normal) Range: 1.002-1.030 KETU NEGATIVE mg/dL (Normal) BILIU NEGATIVE (Normal) GLUR NEGATIVE (Normal) UCLAR CLEAR (Normal) UCOL YELLOW (Normal) 8-Tgk-885355:54 URINE ROBERT CULTURE-BRYANNA COL Comments: PATIENT NOT FASTINGPERFORMED BY: [facility] Wkmkuq1454 [facility] [id number] Information: SRC: URINE COUNT (34844) Result 1 NG36 (Normal) Comments: No growth in 36 - 48 hours. Urine Culture,Comprehensive Final report (Normal) 1-Zbk-733360:34 Urinalysis, Office (56607) UA - BILIRUBIN Negative (Normal) UA - BLOOD Negative (Normal) UA - GLUCOSE Negative (Normal) UA - KETONES Negative mg/dL (Normal) UA - LEUKOCYTE ESTERASE Negative (Normal) UA - NITRITE Negative (Normal) UA - PH 6.0 (Normal) UA - PROTEIN Negative mg/dL (Normal) UA - SPECIFIC GRAVITY 1.010 (Normal) URINE UROBILINGN BRYANNA TIMED Normal mg/dL (Normal) 08-Qnn-100454:25 DEXA BONE DENSITY STUDY (HP) Radiology Report [...] Dictated on 09/21/10 1543 by Kelli luna MD,ArturoeleTranscribed on 09/22/10857 by ITS IMPORTSign by Isiah Sanchez MD on 09/22/10857 Sign by: Isiah Sanchez MD 47-Sco-318590:24 BILAT SCRN IMPLANT DIG & CAD Radiology [...] 09/22/10 1326 Sign by: NINO CARROLL MD 50-Aox-36289:48 Microscopic Examination Comments: PATIENT WAS FASTINGPERFORMED BY: Intellecap6370 [facility] [id number] Bacteria Few (Normal) Mucus Threads Present (Normal) Epithelial Cells (non renal) 0-10 {/hpf} (Normal) Range: 0 - 10 RBC None seen {/hpf} (Normal) Range: 0 - 3 WBC 0-5 {/hpf} (Normal) Range: 0 - 5 81-Eoz-89648:48 Lipid Panel (73768) Comments: PATIENT WAS FASTINGPERFORMED BY: Intellecap6370 [facility] [id number] LDL Cholesterol Calc 126 mg/dL (Abnormal) Range: 0-99 LDL/HDL Ratio 2.0 {ratio_units} (Normal) Range: 0.0-3.2 VLDL Cholesterol Miguel 19 mg/dL (Normal) Range: 5-40 Cholesterol, Total 207 mg/dL (Abnormal) Range: 100-199 HDL Cholesterol 62 mg/dL (Normal) Comments: According to ATP-III Guidelines, HDL-C >59 mg/dL is considered anegative risk factor for CHD. Triglycerides 95 mg/dL (Normal) Range: 0-149 :48 URINALYSIS (62209) Comments: PATIENT WAS FASTINGPERFORMED BY: [employer] Pafyln5064 [facility] [id number] Microscopic Examination See below: (Normal) Bilirubin Negative (Normal) Glucose Negative (Normal) Ketones Negative (Normal) Nitrite, Urine Negative (Normal) Occult Blood 3+ (Abnormal) Urobilinogen,Semi-Qn 0.2 mg/dL (Normal) Range: 0.0-1.9 Protein Negative (Normal) WBC Esterase Negative (Normal) Appearance Clear (Normal) Urine-Color Yellow (Normal) pH 6.5 (Normal) Range: 5.0-7.5 Specific [place] 1.020 (Normal) Range: 1.005-1.030 :48 CBC, Platelets & Auto Diff Comments: PATIENT WAS FASTINGPERFORMED BY: Qual CanalLyons VA Medical CenterFdqjwy3607 [facility] [id number] (51188) Immature Grans (Abs) 0.0 {x10E3/uL} (Normal) Range: [...] 3.2 {x10E3/uL} (Abnormal) Range: 4.0-10.5 :48 TSH (64771) Comments: PATIENT WAS FASTINGPERFORMED BY: [facility] CenterVMwareLyons VA Medical CenterEfeuoe3842 [facility] [id number] TSH 3.920 {uIU/mL} (Normal) Range: 0.450-4.500 :48 Metabolic Panel, Comprehensive Comments: PATIENT WAS FASTINGPERFORMED BY: [facility] CenterVMwareLyons VA Medical CenterMyhljg5925 [facility] [id number] (28111) ALT (SGPT) 11 [iU]/L (Normal) Range: 0-40 [...] Glucose, Serum 85 mg/dL (Normal) Range: 65-99 86-Dzh-316657:15 Anti-dsDNA Antibodies Comments: PERFORMED BY: Torch TechnologiesCritical access hospital [id number] Anti-DNA (DS) Ab Qn 4 {IU/mL} (Normal) Range: 0-9 Comments: Negative <5Equivocal 5 - 9Positive >9 C-Reactive Protein, 0.5 mg/L (Normal) Comments: PERFORMED BY: [employer] [facility] CenterChinaNet Online HoldingsCritical access hospital [id number] :15 Quant Range: 0.0-4.9 :15 CBC With Differential/Platelet Comments: PERFORMED BY: Safari PropertyFormerly [facility] [id number] Baso (Absolute) 0.0 {x10E3/uL} (Normal) Range: 0.0-0.2 [...] 3.80-5.10 WBC 3.0 {x10E3/uL} (Abnormal) Range: 4.0-10.5 36-Xpq-939570:15 Comp. Metabolic Panel (14) Comments: PERFORMED BY: LabCoLyons VA Medical CenterLyirul1797 [facility] [id number] Alkaline Phosphatase, S 73 [iU]/L Range: 25-165 [...] C3, Serum 116 {mg/dL_Adult} Comments: PERFORMED BY: Safari PropertyFormerly [facility] [id number] 12:15 (Normal) Range: 90-180 28-Jul-2009 Complement C4, Serum 15 {mg/dL_Adult} Comments: PERFORMED BY: Torch TechnologiesCritical access hospital [id number] 12:15 (Normal) Range: 9-36 28-Jul-2009 Complement, Total (CH50) 53 U/mL (Normal) Comments: PERFORMED BY: Safari PropertyFormerly [facility] [id number] 12:15 Range: 22-60 28-Jul-2009 TSH 3.440 {uIU/mL} Comments: PERFORMED BY: Safari PropertyFormerly [facility] [id number] 12:15 (Normal) Range: 0.450-4.500 61-Rsz-398131:15 Urinalysis, Routine Comments: PERFORMED BY: [email or web address] [facility] [id number] Bilirubin Negative (Normal) Microscopic Examination MICRON (Normal) Comments: Microscopic follows if indicated. Nitrite, Urine Negative (Normal) Urobilinogen,Semi-Qn 0.2 mg/dL (Normal) Range: 0.0-1.9 Glucose Negative (Normal) Ketones Negative (Normal) Occult Blood Negative (Normal) Protein Negative (Normal) Appearance Clear (Normal) pH 6.5 (Normal) Range: 5.0-7.5 Specific [place] 1.019 (Normal) Range: 1.005-1.030 Urine-Color Yellow (Normal) WBC Esterase Negative (Normal) 69-Zxs-66302:06 [facility] DIA DIGITAL & CAD Radiology Report See Note (Normal) Comments: Exam Number: [id number] UNILATERAL DIAGNOSTIC MAMMOGRAM Oblique and craniocaudal views of the left breast were obtaineddigitally. Comparison is made with the prior examinations datedSeptember 22, 2008, and [facility] 2008. Interpretation was made with [...] w erealso examined with computer-aided detection software ([employer] Reported By: ISIAH SANCHEZ 65-Dpp-759152:53 [facility] DIA DIGITAL & CAD Radiology Report See Note (Normal) Comments: Exam Number: [id number] MAMMOGRAM, UNILATERAL LEFT DIAGNOSTIC DIGITAL AND CAD [...] mammograms werealso examined with computer-aided detection software ([employer] Reported By: NINO CARROLL M.D. :22 BILAT SCRN DIGITAL & CAD Radiology Report See Note (Normal) Comments: Exam Number: [id number] MAMMOGRAM, BILATERAL SCREENING DIGITAL AND CAD HISTORYRoutine [...] mammograms werealso examined with computer-aided detection software ([employer] Reported By: NINO CARROLL M.D. :22 DEXA BONE DENSITY STUDY (HP) Radiology Report See Note (Normal) Comments: Exam Number: [id number] BONE DENSITOMETRY HISTORYScreening, postmenopausal. TECHNIQUE Bone densitometry of the lumbar spine and both hips is now beingperformed. The best criteria for e valuation of osteoporosis is theT-value, which represents the comparison of the patient's bone mass israel expected peak bone mass. For most patients, the mean T-value of M2nlesunw L4 is used to evaluate the lumbar [...] within normallimits. Reported By: NINO CARROLL M.D. 12-Vpl-39119:29 MYOCARD PERF SPECT REST/STRESS Radiology Report See Note (Normal) Comments: Exam Number: [id number] MYOCARDIAL PERFUSION SCAN TECHNIQUEThe patient was injected [...] patient was injected with 31 mCi of Er36xFwezxaobxl and subsequently stress SPECT Cardiolite nuclear imagingwas [...] Anti-dsDNA Antibodies Comments: PATIENT WAS FASTINGPERFORMED BY: [facility]Union [facility] HospitalZsfcnv0027 [facility] [id number] Anti-DNA (DS) Ab Qn 1 {IU/mL} (Normal) Range: 0-9 Comments: Negative <5 Equivocal 5 - 9 Positive >9 Antinuclear Antibodies Positive (Abnormal) Comments: PATIENT WAS FASTINGPERFORMED BY: Qual Canal Dygmqe1239 [facility] [id number] :53 Direct C-Reactive Protein, 0.7 mg/L (Normal) Comments: PATIENT WAS FASTINGPERFORMED BY: [facility] CanalLyons [facility] CenterMrnbiy3869 [facility] [id number] :53 Quant Range: 0.0-4.9 :53 CBC With Differential/Platelet Comments: PATIENT WAS FASTINGPERFORMED BY: [facility] CanalLy[facility] CenterPgiodc7407 [facility] [id number] Baso (Absolute) 0.0 {x10E3/uL} (Normal) Range: 0.0-0.2 [...] 11.7-15.0 WBC 2.6 {x10E3/uL} (Abnormal) Range: 4.0-10.5 3-Nlj-928672:53 Comp. Metabolic Panel (14) Comments: PATIENT WAS FASTINGPERFORMED BY: [facility]6370 [facility] [id number] A/G Ratio 1.4 (Normal) Range: 1.1-2.5 Albumin, [...] 119 {mg/dL_Adult} Comments: PATIENT WAS FASTINGPERFORMED BY: [facility] CanalLyons [facility] Medical CenterRgyhlf6043 [facility] [id number] 0:53 (Normal) Range: 90-180 Complement C4, Serum 15 {mg/dL_Adult} Comments: PATIENT WAS FASTINGPERFORMED BY: Qual Canal[address] [id number] 0:53 (Normal) Range: 9-36 Complement, Total (CH50) 55 U/mL (Normal) Comments: PATIENT WAS FASTINGPERFORMED BY: Qual [place] [id number] [facility] [id number] 0:53 Range: 22-60 4-Xso-437547:53 Lipid Panel With LDL/HDL Comments: PATIENT WAS FASTINGPERFORMED BY: Qual CanalLyons [facility] CenterGhhnap6572 [facility] [id number] Ratio Cholesterol, Total 180 mg/dL (Normal) Range: [...] WAS FASTINGPERFORMED BY: [facility]6370 [facility] [id number] :53 Rate-Westergren Range: 0-30 TSH 2.547 {uIU/mL} Comments: PATIENT WAS FASTINGPERFORMED BY: [facility]6370 [facility] [id number] :53 (Normal) Range: 0.450-4.500 :53 Urinalysis, Routine Comments: PATIENT WAS FASTINGPERFORMED BY: [facility]6370 [facility] [id number] Appearance Clear (Normal) Bilirubin Negative (Normal) Glucose Negative (Normal) Ketones Negative (Normal) Microscopic Examination MICRON (Normal) Comments: Microscopic follows if indicated. Nitrite, Urine Negative (Normal) Occult Blood Negative (Normal) pH 6.5 (Normal) Range: 5.0-7.5 Protein Negative (Normal) Specific [place] 1.009 (Normal) Range: 1.005-1.030 Urine-Color Yellow (Normal) Urobilinogen,Semi-Qn 0.2 mg/dL (Normal) Range: 0.0-1.9 WBC Esterase Negative (Normal) :44 Thin prep Pap Comments: Source.............Cervical;EndocervicalLMP / Prev Treat...[place]=[id number]. of containers..01 CYTYC Thin Prep VialPATIENT NOT FASTINGClinical Information: ADD [id number] PERFORMED BY: DANIELLE PinzonVMware ([id number]) [place] [address] [address] [facility] [id number] . . (Normal) DIAGNOSIS: SPRCS (Normal) Comments: NEGATIVE FOR INTRAEPITHELIAL LESION AND MALIGNANCY.Satisfactory for evaluation. No endocervical component is identified.V72.31 ; Routine gynecological examinationAlejandra Mendez, Senior Administrative Support (ASCP) Note: PAPSMR (Normal) Comments: The Pap [...] (KF) Indication: Well woman exam Planned Observations METABOLIC PANEL, COMPREHENSIVE ([id number])Indication: Hypercholesteremia On: 3-Qkp-948507:47 Request LIPOPROTEIN, BLD, BY NMR (62923)Indication: Hypercholesteremia On: 3-Xvp-691087:47 Request TSH (34621)Indication: Hypothyroidism On: 8-Ies-047182:46 Request TSH (28876)Indication: Hypothyroidism On: 69-Lpe-599388:10 Request Systemic Lupus Profile (04943)Indication: Lupus (systemic lupus erythematosus) On: 05-Jan-20169:57 Request Comments: send to Dr Norton CBC (Auto) (38802)Indication: Pre-operative examination On: 2-Tpk-732599:08 Request Metabolic Panel, Basic (43361)Indication: Pre-operative examination On: 5-Kbh-915741:08 Request TSH (68885)Indication: Hypothyroidism On: 0-Dbc-760840:07 Request CALCIFEDIOL (69824)Indication: Hypothyroidism On: 8-Ztv-293112:12 Request URINALYSIS, W/ MICRO (62107)Indication: Hypothyroidism On: :11 Request CBC WITH MANUAL DIFF (82927)Indication: Hypothyroidism On: 3-Gjg-220982:11 Request Metabolic Panel, Comprehensive (89571)Indication: Hypothyroidism On: 5-Lck-414822:11 Request Lipid Panel (66076)Indication: Hypothyroidism On: 6-Eun-883357:11 Request TSH (36411)Indication: Hypothyroidism On: 3-Cck-875239:11 Request TSH (THYROID STIMULATING HORMONE) (12419)Indication: Hypothyroidism On: :43 Request METABOLIC PANEL, COMPREHENSIVE (55250)Indication: ERYTHEMATOSUS, LUPUS On: :43 Request LIPID PANEL (41154)Indication: ERYTHEMATOSUS, LUPUS On: 10-Sme-59305:43 Request NEISSERIA (05429) (THIN PREP OBTAINED)Indication: Vaginal Discharge On: 2-Ria-869170:43 Request CHLAMYDIA (07723) (thin prep obtained)Indication: Vaginal Discharge On: 8-Bql-782775:43 Request ROBERT CULTURE-OTHER (40669)Indication: Vaginal Discharge On: :43 Request BACT CULTURE ANY-ANAEROBIC (66116)Indication: Vaginal Discharge On: :43 Request INFCT ANTGN TRICH VAGIN DIRECT PRB (99166)Indication: Vaginal Discharge On: :43 Request AQUILES, NUCLEIC ACID DIRECT PROBE (21723)Indication: Vaginal Discharge On: :43 Request Thin prep Pap (14922)Indication: Well woman exam On: 1-Jun-483867:29 Request URINALYSIS (10758)Indication: Lupus (systemic lupus erythematosus) On: :26 Request Sed Rate Erythrocyte (31277)Indication: Lupus (systemic lupus erythematosus) On: 36-Zki-42953:26 Request CBC, Platelets & Auto Diff (10237)Indication: Lupus (systemic lupus erythematosus) On: :25 Request Lipid Panel (61840)Indication: Hypothyroidism On: :25 Request Metabolic Panel, Comprehensive (59587)Indication: Lupus (systemic lupus erythematosus) On: :25 Request DNA ANTIBODY-NATV/DBL ST (81385)Indication: Lupus (systemic lupus erythematosus) On: :49 Request COMPLEMENT C4 (87024)Indication: Lupus (systemic lupus erythematosus) On: :48 Request COMPLEMENT C3 (20064)Indication: Lupus (systemic lupus erythematosus) On: :48 Request COMPLEMENT, TOTAL (CH50) (47321)Indication: Lupus (systemic lupus erythematosus) On: :48 Request C-Reactive Protein (39857)Indication: Lupus (systemic lupus erythematosus) On: :48 Request URINALYSIS (85179)Indication: Lupus (systemic lupus erythematosus) On: :48 Request CBC (Auto) (13067)Indication: Lupus (systemic lupus erythematosus) On: :48 Request Metabolic Panel, Comprehensive (77735)Indication: Lupus (systemic lupus erythematosus) On: :48 Request TSH (95378)Indication: Hypothyroidism On: :48 Request Thin prep Pap (17383)Indication: Well woman exam On: :35 Request C-Reactive Protein (65633)Indication: Lupus (systemic lupus erythematosus) On: :03 Request DNA ANTIBODY-NATV/DBL ST ([id number])Indication: Lupus (systemic lupus erythematosus) On: :02 Request Sed Rate Erythrocyte (18878)Indication: Lupus (systemic lupus erythematosus) On: :01 Request COMPLEMENT C4 (50533)Indication: Lupus (systemic lupus erythematosus) On: :00 Request COMPLEMENT C3 (89134)Indication: Lupus (systemic lupus erythematosus) On: :00 Request COMPLEMENT, TOTAL (CH50) (59215)Indication: Lupus (systemic lupus erythematosus) On: :00 Request AMAN (ANTINUCLEAR ANTIBODY) (64143)Indication: Lupus (systemic lupus erythematosus) On: 08-Aug-20088:00 Request URINALYSIS (61483)Indication: Lupus (systemic lupus erythematosus) On: :57 Request TSH (38019)Indication: Hypothyroidism On: :57 Request CBC (Auto) ([id number])Indication: Lupus (systemic lupus erythematosus) On: :57 Request Metabolic Panel, Comprehensive (91953)Indication: Lupus (systemic lupus erythematosus) On: :57 Request Lipid Panel (05414)Indication: Lupus (systemic lupus erythematosus) On: :57 Request Lipid Panel (29831)Indication: Hypothyroidism On: :47 Request TSH (38939)Indication: Hypothyroidism On: :43 Request LIPID PANEL (68310)Indication: Well woman exam On: 1-Yzn-488370:00 Request CBC (AUTO) (79901)Indication: Lupus (systemic lupus erythematosus) On: 11-May-20069:59 Request Planned Encounters Medical; [facility] 6 [facility] Fu - On: 21-Sep-2018 13:00 [facility] Araceli SUÁREZ, Talia Johnson MD Planned Procedures MRI RIGHT BREAST W/W/O CONTRAST On: 09-Mar-2018 Intent (C8905)By: Araceli SUÁREZ, Talia Johnson MD DIAGNOSTIC MAMMOGRAPHY OF BOTH On: 06-Mar-2018 Intent BREASTS (10523)By: Araceli SUÁREZ, Talia Johnson MD Breast Ultrasound - RightBy: On: 06-Mar-2018 Intent Talia Charles MD, MD, Dana M ULTRASOUND OF NECK WITH FOCUS ON On: 25-Aug-2017 Intent THYROID (32549)By: Araceli SUÁREZ, Comments: include area on left side where tender. Talia Johnson MD DEXA SCAN AXIAL SKELETON On: 07-Aug-2017 Intent (67638)By: Talia Charles MD, MD, Dana M Flu Vaccine (Quadrivalent) On: 17-Jan-2017 Intent 40579Rh: Talia Charles MD Comments: QUAD flu shotlot number: [id number]: 07/2017L Deltoid IMAD PARTNER MANAGEMENT CONSULTANT Talia Charles MD MAMMOGRAM BREAST BILATERAL On: 17-Jan-2017 Intent SCREENING DIGITAL (38379)By: Talia Charles MD, MD, Dana M Nuclear Stress Test/Stress On: 02-Feb-2016 Intent SPECT/TreadmillBy: Talia Charles MD, MD, Dana M MAMMOGRAM, SCREENING, BOTH BREAST On: 05-Jan-2016 Intent (05738)By: Talia Charles MD, MD, Dana M Flu Vaccine (Quadrivalent) On: 05-Jan-2016 Intent 39518Zt: Parker Ross Comments: Lot:[id number]:09/30/16Dose:0.5mLRoute:IMSite:L DltdGiven By:DINA signed PNEUM VAC ADLT/IMUMNOSPR, On: 28-Jul-2015 Intent SBC/INTRM (64296)By: Araceli SUÁREZ, Comments: Lot:[id number]:01/08/17Dose:0.5mlRoute:imSite:l armGiven By:DINA signed Talia Johnson MD DEXA SCAN AXIAL SKELETON On: 28-Jul-2015 Intent (49933)By: Talia Charles MD Comments: 16 due Talia Charles MD ELECTROCARDIOGRAM, COMPLETE (ECG) On: 02-Oct-2014 Intent (95761)By: Talia Charles MD, MD, Dana M MRI - OtherBy: Talia Charles MD On: 24-Jul-2014 Intent Talia Charles MD Comments: R breast MRI OF RIGHT BREAST WITH AND On: 24-Jul-2014 Intent WITHOUT CONTRAST (C8905)By: Talia Charles MD, MD, Dana M MAMMOGRAM, SCREENING, BOTH BREAST On: 21-Jul-2014 Intent (89271)By: Talia Charles MD, MD, Dana M ELECTROCARDIOGRAM, COMPLETE (ECG) On: 04-Mar-2014 Intent (03963)By: Talia Charles MD, MD, Dana M DXA, BONE DENSITY, AXIAL SKELETON On: 01-Aug-2013 Intent (24743)By: Talia Charles MD, MD, Dana M EKG (73518)By: Talia Charles MD On: 01-Aug-2013 Intent Talia Gunter MD Comments: see scanned document of test done to see results reviewed today with patient TDAP VACCINE >7 IM (05800)By: On: 24-Sep-2012 Intent Talia Charles MD, MD, Dana M Ultrasound - PelvisBy: Araceli On: 06-Apr-2012 Intent Talia SUÁREZ MD, Dana M Comments: left ovary felt and postmenapausal EKG (59305)By: Talia Charles MD On: 18-Jul-2011 Intent Talia Gunter MD Comments: see scanned document of test done to see results reviewed today with patient Breast Ultrasound - LeftBy: On: 18-Jul-2011 Intent Talia Charles MD, MD, Dana M DXA, BONE DENSITY, AXIAL SKELETON On: 20-Aug-2010 Intent (94071)By: Talia Charles MD, MD, Dana M MAMMOGRAM, SCREENING, BOTH On: 20-Aug-2010 Intent BREASTS (11087)By: Talia Charles MD, MD, Dana M Breast [...] On: 08-Aug-2008 Intent Talia Johnson MD EKG (07821)By: Talia Charles MD On: 08-Aug-2008 Intent Talia Gunter MD MAMMOGRAM, SCREENING, BOTH On: 04-Jul-2007 Intent BREASTS (38086)By: Araceli SUÁREZ, Talia Johnson MD Bone Density StudyBy: Araceli SUÁREZ, On: 04-Jul-2007 Intent Talia Charles MD, Talia Carney MAMMOGRAM, SCREENING, BOTH On: 11-May-2006 Intent BREASTS (42708)By: Talia Charles MD, MD, Dana M Instructions Name Dates Details Annual Medicare Physical WITH abnormal findings (Renamed [...] general adult medical examination with abnormal findings) BMI 22.0-22.9, adult : How to access [...] Advance Directives Name Dates Details Immunization Registry Carlotta - Effective on Effective: 17-Jan-201701/17/2017. Expiration date unspecified Encounters Phone Encounter On: 09-Mar-2018 13:26 Encounter Diagnosis: Abnormal ultrasound of breast End: 09-Mar-2018 13:31 [facility] Office Visit On: 06-Mar-2018 10:21 Encounter Reason: Physical female exam - Last seen between 3-6 months ago. General health: does not feel well and has good energy level. The patient's appetite is normal. Nutrition: normal/adequate. Exercises 4 days per End: 08-Mar-2018 7:31 week. Sleeps on average 7 hours per night. Normal bowel and bladder habits. Safety measures include appropriate use of safety belts and home smoke detectors. Current emotional problems include sleep dis turbances. screening, colonoscopy (2016), screening, mammography (02-01-2017) and screening, Pap smear (08-07-17).Encounter Diagnosis: Annual Medicare Physical WITH abnormal findings (Renamed from Encounter for general adult medical ex amination with abnormal findings), History of tobacco abuse, BMI 21.0-21.9, adult, Encounter for screening mammogram for breast cancer (Renamed from Encounter for screening mammogram for malignant neoplasm of breast), Breast Lump(611.72), Lump in throat, Postmenopausal (Renamed from Postmenopausal status), Abnormal EKG, Hypercholesteremia, Abnormal lung function test, Vaginal dryness, Family history of ischemic heart disease, Hypothyroidism, Lupus (systemic lupus erythematosus), Swelling of thyroid gland, Neck pain, Osteopenia, Current nonsmoker [facility] Nurse Visit (Non-[place]) On: 08-Feb-2018 8:35 Encounter [...] regimen and considered effective by patient. Jaylen lele sleeps 7 hours per night. Impact of [...] - Yes the patient did have (NOT [facility]) a mini mental status exam done today. The activities of daily living the patient needs help with are none. The patient has driven in past 6 months and put area rugs through house, but the patient has not had fecal incontinence, had urinary incontinence, missed or ran out of medications to soon, fallen in the past 6 mon, gotten lost, has a medalert necklace or bracelet or put handrails in bathroom. The patient has completed the following preventative measures: PAP smear (years ago ), mammography (annually ) and col onoscopy (2012). The patient does have durable power of regulatory attorney and living will. The patient has [...] screening, mammography (2014) and screening, visual acuity (/16).Encounter Diagnosis: BMI between 19-24,adult, Current nonsmoker, Need [...] - Yes the patient did have (mms 30/30 wisper 06/03) a mini me ntal status [...] bracelet or put handrails in bathroom. The patikamla nt has completed the following preventative measures: PAP smear (under 5 years ago ), mammography (2014) and colonoscopy (2012). The patient does have durable power of regulatory attorney and living will. The joe ent [...] surgery the patient plans to recover at [facility] with family. Note for Pre-op visit: no [...] Pap (V72.31) (Mammo), Genital herpes, unspecified (054.10), [facility] Historical Summary On: 04-Jun-2008 [...] and unspecified noninfectious gastroenteritis and colitis (558.9), [facility] Office Visit On: 11-May-2006 [...] 11-Jan-2006 10:14 Payers MedicareMutual of Priscila MONTIEL; a guarantor
--- OUTSIDE RECORDS SUMMARY | 2018-06-21 02:38 | XMS RPT_ITS | Continuity of Care Document ---
:1950 Author Organization [facility] Address [address] [place] [address] Phone Care Team Providers Name Role Phone [...] (Parity) Comments: 1 Status: Active Encounter for screening mammogram for breast cancer (Renamed from Encounter for screening mammogram for malignant neoplasm of breast) (Z12.31, V76.12) Status: Active Family history of ischemic heart disease (Z82.49, V17.3) Comments: in father and his side. she is more like mother. Status: Active Genital herpes (A60.00, 054.10) Status: Active History of tobacco abuse (Z87.891, V15.82) Comments: not have 30 pack years. light. quit 5698-1092? Status: Active Hypercholesteremia (E78.00, 272.0) Comments: LDL [...] Medications Name Dates Details CALCIUM + D, 071-396CD-QVFW (Oral Tablet) 1 QD for 0 days [...] Start : 05-Jan-2016 End : 17-Jan-2017 Inactive WATER SERVICE SUPERVISOR-ZEL (Oral Tablet) 1 qd for 0 days Refills: 0 Ordered:28-Jul-2015 CLARENCE Grimm Start : 24-Sep-2012 End : 28-Jul-2015 Inactive ZOSTAVAX, 02882JRP/0.65ML (Subcutaneous Solution Reconstituted) uad For Solution For [...] (Z11.59, V73.89) Status: Resolved as of 06-Mar-2018 ERYTHEMATOSUS, LUPUS (695.4) Status: Inactive as of [...] 24-Sep-2012 Unspecified Diagnosis Status: Inactive as of 28-Jul-2009 Unspecified Diagnosis Status: Inactive as of 28-Jul-2015 Vaginal Discharge (N89.8, 623.5) Status: Inactive as [...] Limited Unilateral Result: Comments: See Note; NOTES: [facility] Imaging Services [address] [place] [address] Breast Limited Unilateral MR#: [id number] Acct: [id number] Name: SHANITA MONTIEL Rep #: [id number] : 1950 F 67 From: Isiah Sanchez MD PCP: Talia Charles MD Status: REG CLI Study: Breast Limited Unilateral Date of Exam: 03/09/18 Exam# [id number] Ordering Dr: Talia Charles MD STUDY: ULTRASOUND [...] Isiah Sanchez MD at 10:58 EST Tel [phone], Service support , CC: Talia Charles MD Cloth Finishing Range Operator Chief: Signed 09-Mar-2018 DIAG MAMM W/CAD, BILAT Result: Comments: See Note; NOTES: [facility] Imaging Services [address] [place] [address] DIAG MAMM W/CAD, BILAT MR#: [id number] Acct: [id number] Name: SHANITA MONTIEL Rep #: [id number] : 1950 F 67 From: Isiah Sanchez MD PCP: Talia Charles MD Status: REG CLI Study: DIAG MAMM W/CAD, BILAT Date of Exam: 03/09/18 Exam# [id number] Ordering Dr: Talia Charles MD MAMMOGRAPHY - [...] Sanchez MD at 1 0:23 EST Tel [phone], Service support , CC: Talia Charles MD Cloth Finishing Range Operator Chief: Signed 25-Oct-2017 Dexa Bone Density Study Result: Comments: See Note; NOTES: [facility] Imaging Services [address] [place] [address] Dexa Bone Density Study MR#: [id number] Acct: [id number] Name: SHANITA MONTIEL Rep #: [id number] : 1950 F 67 From: Kar Sheridan MD PCP: Talia Charles MD Status: REG CLI Study: Dexa Bone Density Study Date of Exam: 10/25/17 Exam# [id number] Ordering Dr: Talia Charles MD STUDY: DUAL [...] Service support , CC: Talia Charles MD Cloth Finishing Range Operator Chief: Signed 25-Aug-2017 Thyroid Result: Comments: See Note; NOTES: [facility] Imaging Services [address] [place] [address] Thyroid MR#: [id number] Acct: [id number] Name: SHANITA MONTIEL Rep #: [id number] : [birth year] F 67 From: Isiah Sanchez MD PCP: Talia Charles MD Status: REG CLI Study: Thyroid Date of Exam: 08/25/17 Exam# [id number] Ordering Dr: Talia Charles MD STUDY: THYROID [...] Isiah Sanchez MD at 12:32 EDT Tel [phone], Service support , CC: Talia Charles MD Cloth Finishing Range Operator Chief: Signed 01-Feb-2017 SCREENING MAMM (CAD), BILAT Result: Comments: See Note; NOTES: [facility] Imaging Services [address] [place] [address] SCREENING MAMM (CAD), BILAT MR#: [id number] Acct: [id number] Name: SHANITA MONTIEL Rep #: [id number] : 1950 F 66 From: Isiah Sanchez MD PCP: Talia Charles MD Status: REG CLI Study: SCREENING MAMM (CAD), BILAT Date of Exam: 02/01/17 Exam# [id number] Ordering Dr: Talia Charles MD M AMMOGRAPHY [...] biopsy of a clinically suspicio us abnormality. [id number] Electronically Signed: Isiah Sanchez MD at 9:34 EDT Tel [phone], Service support , CC: Talia Charles MD Cloth Finishing Range Operator Chief: Signed 05-Feb-2016 Nuclear Stress Test - Treadmil Result: Comments: See Note; NOTES: [facility] Imaging Services [address] [place] [address] Verdana 4d Nuclear Stress Test - Treadmil MR#: [id number] Acct: [id number] Name: Sean MONTIEL Rep #: [id number] : 1950 65 From: Juan Antonio Rubi [...] Juan Antonio Rubi MD T: NTS JOB: [id number] 02/05/16 1525 <Electronically signed by Juan Antonio Rubi MD> Date Juan Antonio Rubi MD CC: Talia Charles MD Date Dictated: 02/05/16 1008 Date Transcribed: 02/05/16 1008 Cloth Finishing Range Operator Chief: Signed 08-Jan-2016 Bilat Scrn Implant DIG AND CAD Result: Comments: See Note; NOTES: [facility] Imaging Services [address] [address] Verdana 4d Bilat Scrn Implant DIG AND CAD MR#: [id number] Acct: [id number] Name: JODY MONTIEL Rep #: [id number] : 1950 F 65 From: Isiah Sanchez MD PCP: Talia Charles MD Status: REG CLI Study: Bilat Scrn Implant DIG AND CAD Date of Exam: 01/08/16 Exam# [id number] Ordering Dr: Talia Stapleton MD MAMMOGRAPHY - [...] delay biopsy of a clinically suspicious abnormality. [id number] Electronically Signed: Isiah Sanchez MD at 10:03 EDT Tel [phone], Service support [phone], CC: Talia Charles MD Cloth Finishing Range Operator Chief: Signed 21-Oct-2015 Dexa Bone Density Study () Result: Comments: See Note; NOTES: [facility] Imaging Services [address] [place] [address] Verda 4d Dexa Bone Density Study () MR#: [id number] Acct: [id number] Name : SHANITA MONTIEL Rep #: [id number] : 1950 F 65 From: Isiah Sanchez MD PCP: Talia Charles MD [facility] Study: Dexa Bone Density Study (HP) Date of Exam: 10/21/15 Exam# [id number] Mabel du Dr: Talia Charles MD STUDY: [...] Isiah Sanchez MD at 12:45 EDT Tel [phone], Service support [phone], CC: Talia Charles MD Cloth Finishing Range Operator Chief: Signed 30-Jul-2014 Breast w/o and/or W Cont Bilat Result: Comments: See Note; NOTES: [facility] Imaging Services [address] [place] [address] MRI Report MR#: [id number] Acct: [id number] Name: SHANITA MONTIEL Rep #: [id number] DO B: 1950 F 64 From: Nhan Berrios MD PCP: Talia Charles MD Status: REG CLI Study: Breast w/o and/or W Cont Bilat Date of Exam: 07/30/14 Exam# [id number] Ordering Dr: Talia Charles MD STUDY: LALA [...] MD at 15:53 EDT , Service support [phone], CC: Talia Charles MD Cloth Finishing Range Operator Chief: Signed 23-Jul-2014 Breast Limited Unilateral Result: Comments: See Note; NOTES: [facility] Imaging Services [address] [place] [address] Ultrasound Report MR#: [id number] Acct: [id number] Name: SHANITA MONTIEL Rep #: [id number] : 1950 F 63 From: Isiah Sanchez MD PCP: Talia Charles MD Status: REG CLI Study: Breast Limited Unilateral Date of Exam: 07/23/14 Exam# [id number] Ordering Dr: Talia Charles MD S TUDY: [...] Isiah Sanchez MD at 16:02 EDT Tel [phone], Service support [phone], CC: Talia Charles MD Cloth Finishing Range Operator Chief: Signed 23-Jul-2014 Bilat Diag Implant DIG AND CAD Result: Comments: See Note; NOTES: [facility] Imaging Services [address] [place] [address] Breast Imaging Report MR#: [id number] Acct: [id number] Name: SHANITA MONTIEL Rep #: [id number] : 1950 F 63 From: Isiah Sanchez MD PCP: Talia Charles MD Status: REG CLI Study: Bilat Diag Implant DIG AND CAD Date of Exam: 07/23/14 Exam# [id number] Ordering Dr: Talia Charles MD MAMMOGRAPHY - [...] Isiah burrows MD at 8:05 EDT Tel [phone], Service support [phone], CC: Talia Charles MD Cloth Finishing Range Operator Chief: Signed Immunization Name Dates Details Influenza (3 years and up) on: 29-Jan-2018 Pneumococcal conjugate vaccine, 13 valent, IM on: 2015 Comments: [facility] Zoster (shingles) on: 2014 Comments: [facility] Family History Unknown Family Member Name Dates Details Brother 1 Comments: [place] 58 yo, hypercholesterolemia Status: Active Brother 2 [...] Living Situation Comments: Lives with spouse, , Zoroastrianism important Status: Active No Caffeine Use Status: [...] 0.00 cm Results Date Description Value Details 5-Ava-010457:11 URINALYSIS (29085) Comments: PATIENT WAS FASTINGPERFORMED BY: MATY [facility] Mgsvls4365 [facility] [id number] Microscopic Examination MICNIP (Normal) Comments: Microscopic not indicated and not performed. Nitrite, Urine Negative (Normal) Urobilinogen,Semi-Qn 0.2 mg/dL (Normal) Range: 0.2-1.0 Bilirubin Negative (Normal) Occult Blood Negative (Normal) Ketones Negative (Normal) Glucose Negative (Normal) Protein Negative (Normal) WBC Esterase Negative (Normal) Appearance Clear (Normal) Urine-Color Yellow (Normal) pH 6.5 (Normal) Range: 5.0-7.5 Specific [place] 1.013 (Normal) Range: 1.005-1.030 7-Inv-953181:11 CBC WITH MANUAL DIFF (32584) Comments: PATIENT WAS FASTINGPERFORMED BY: [facility]CoMarlton Rehabilitation HospitalVfukip7802 [facility] [id number] Immature Grans (Abs) 0.0 {x10E3/uL} (Normal) Range: [...] 3.77-5.28 WBC 3.1 {x10E3/uL} (Abnormal) Range: 3.4-10.8 9-Mwh-381468:11 Metabolic Panel, Comprehensive Comments: PATIENT WAS FASTINGPERFORMED BY: MATY LabSongFlameMarlton Rehabilitation HospitalBhqxfe9611 [facility] [id number] (59340) ALT (SGPT) 12 [iU]/L (Normal) Range: 0-32 [...] 8-27 Glucose 84 mg/dL (Normal) Range: 65-99 8-Qai-786141:30 Thin prep Pap (23041) (no Comments: cuff scraping; No. of containers..01 ThinPrep VialPERFORMED BY: =G LabSongFlame [address] [place] [address] [id number] BY: DANIELLE [employer] [address] [place] [address] 13438 STD testing) [id number] Information: [id number] Age Gdln ACOG Testing AGE6 (Normal) Comments: <21 or >65 or no age provided 9-Xkz-786478:30 Pap IG (Image Guided) Comments: No. of containers..01 ThinPrep VialPERFORMED BY: =G [facility] [id number] BY: WB [facility] [id number] Note: PAPSMR (Normal) Comments: The Pap smear [...] MALIGNANCY.THIS SPECIMEN WAS RESCREENED PART OF OUR REVENUE RESEARCH ANALYST PROGRAM.Satisfactory for evaluation. No endocervical component is identified.Z0 1.419Erin Kayden gonzáles, Barrel Rifler Hook (ASCP)Chela Armendariz Barrel Rifler Hook (ASCP) 2-Vxe-756189:00 CBC W/Diff, Automated Comments: [facility] [address] [place], [address] SMEAR COMMENT SCANNED (Normal) Comments: NEUTROPENIA NOTED [...] Range: 4.4-11.0 :47 CBC W/Diff, Automated Comments: [facility] Znbflqkihz9556 [facility] [place], [address] Absolute Lymph 1.05 {X10_3/ul} (Normal) Range: 0.83-4.51 [...] Range: 4.4-11.0 :16 CBC W/Diff, Automated Comments: [facility] [address] [place], [place], [address] Absolute Lymph 0.95 {X10_3/ul} (Normal) Range: 0.83-4.51 [...] 4.2-5.4 WBC 2.7 K/mm3 (Abnormal) Range: 4.4-11.0 93-Wyr-548185:18 METABOLIC PANEL, Comments: PATIENT WAS FASTINGPERFORMED BY: [facility] [id number] BY: [facility] SolutionsMarlton Rehabilitation HospitalVxoicr0747 [facility] [id number] COMPREHENSIVE (37146) ALT (SGPT) 11 [iU]/L (Normal) Range: 0-32 [...] 8-27 Glucose 86 mg/dL (Normal) Range: 65-99 60-Qld-758089:18 TSH (43007) Comments: PATIENT WAS FASTINGPERFORMED BY: [facility] [id number] BY: [facility] SolutionsMarlton Rehabilitation HospitalCihqpv6656 [facility] [id number] TSH 1.780 {uIU/mL} (Normal) Range: 0.450-4.500 49-Ocf-674958:18 LIPOPROTEIN, BLD, BY NMR Comments: PATIENT WAS FASTINGPERFORMED BY: BN [facility] Uimtfzaojt2470 [facility] [id number] BY: CB [facility] Kglzkk4[address] [place] [place] [id number]; fu 5-7-18 DB (54992) LP-IR Score <25 (Normal) Comments: INSULIN RESISTANCE MARKER <--Insulin Sensitive Insulin Resistant--> Percentile in Reference PopulationInsulin Resistance ScoreLP-IR Score Low 25th 50th 75th High <27 27 45 63 >63LP-IR Score is inaccurate if patient is non-fasting. .The LP-IR score is a laboratory developed i [facility] that has beenassociated with [...] were developed and their performance characteristicsdetermined by [employer]. These assays have not been cleared by [...] 1600 - 2000 Very High > 2000 47-Kja-454647:18 HEPATITIS C ANTIBODY Comments: PATIENT WAS FASTINGPERFORMED BY: [facility] [facility] [facility] [id number] BY: [employer] [id number] (6[address]01) Hep C Virus Ab <0.1 {s/co_ratio} (Normal) Range: 0.0-0.9 Comments: Negative: < 0.8 Indeterminate: 0.8 - 0.9 Positive: > 0.9 . The CDC recommends that a positive HCV antibody result be followed up with a HCV Nucleic Acid Amplification test (015878). 39-Llj-807368:08 Anti-Centromere B Ab Comments: [facility] (refer to report for specific site)refer to report for address and phone number ANTI-CENT B <0.2 {AI} (Normal) Range: 0.0-0.9 Comments: Performed at: [facility] [employer] [id number] Director: Chang Greenberg PhD, Phone: [phone] 84-Auy-683515:08 Anti-Chromatin Comments: [facility] (refer to report for specific site)refer to report for address and phone number ANTICHROMATIN <0.2 {AI} (Normal) Range: 0.0-0.9 26-Fpp-769020:08 Anti-Kasia Comments: [facility] (refer to report for specific site)refer to report for address and phone number ANTI-KASIA <0.2 {AI} (Normal) Range: 0.0-0.9 79-Oyp-478743:08 Xubu-Eodxyxxlsar-35 AB Comments: [facility] (refer to report for specific site)refer to report for address and phone number ANTISCLER <0.2 {AI} (Normal) Range: 0.0-0.9 84-Ocs-098199:08 CBC W/Diff, Automated Comments: [facility] [address] [place], [place], [id number] Absolute Lymph 1.06 {X10_3/ul} (Normal) Range: 0.83-4.51 [...] 4.2-5.4 WBC 3.2 K/mm3 (Abnormal) Range: 4.4-11.0 80-Fud-835576:08 Complement C3 Comments: [facility] (refer to report for specific site)refer to report for address and phone number COMP C3 107 mg/dL (Normal) Range: 82-167 Comments: Performed at: - [facility] [address] [id number] Director: Chang Greenberg PhD, Phone: [phone] 00-Oip-088908:08 Complement C4 Comments: [facility] (refer to report for specific site)refer to report for address and phone number COMP C4 15 mg/dL (Normal) Range: 14-44 79-Rlo-857589:08 Liver Profile Comments: [facility] Busmgsjedf9838 [facility] [address] [place], [place], [id number] D BILI 0.14 mg/dL (Normal) Range: 0.00-0.30 T BILI 0.90 mg/dL (Normal) Range: 0.20-1.00 ALT 19 U/L (Normal) Range: 12-78 ALK P 66 U/L (Normal) Range: 45-117 AST 14 U/L (Abnormal) Range: 15-37 GLOB 3.7 g/dL (Abnormal) Range: 2.3-3.5 ALB 4.1 g/dL (Normal) Range: 3.4-5.0 T PROT 7.8 g/dL (Normal) Range: 6.4-8.2 48-Xpb-616663:20 CBC W/Diff, Automated Comments: [facility] [address] [place], [address] Absolute Lymph 1.15 {X10_3/ul} (Normal) [...] 4.2-5.4 WBC 2.9 K/mm3 (Abnormal) Range: 4.4-11.0 53-Vhs-454141:20 Liver Profile Comments: [facility] [address] [place], [place], [address] D BILI 0.14 mg/dL (Normal) Range: 0.00-0.30 T BILI 0.70 mg/dL (Normal) Range: 0.20-1.00 ALT 21 U/L (Normal) Range: 12-78 ALK P 65 U/L (Normal) Range: 45-117 AST 17 U/L (Normal) Range: 15-37 GLOB 3.9 g/dL (Abnormal) Range: 2.3-3.5 ALB 3.9 g/dL (Normal) Range: 3.4-5.0 T PROT 7.8 g/dL (Normal) Range: 6.4-8.2 66-Mjk-898547:19 Thyroid Stim Hormone (TSH) Comments: [facility] [address] [place], [place], [address] TSH 1.62 {uIU/mL} (Normal) Range: 0.358-3.74 24-Vqa-511025:03 Anti-dsDNA Ab Comments: [facility] (refer to report [...] <0.2 (Normal) Comments: AI 0.0 - 0.9 THERMOSCREW OPERATOR Ab <0.2 (Normal) Comments: AI 0.0 - [...] titers Nucleosomes, Histones Drug-induced SLE Speckled Sm, THERMOSCREW OPERATOR, SCL-70, SLE,MCTD,PSS (diffuse form), SS-A/SS-B Sjogrens Nuc leolar SCL-70, PM-1/SCL High titers Scleroderma, PM/DM Centromere Centromere PSS (limited form) w/Crest syndrome variable Nuclear Dot Sp100,g67-wdqmbq Primary Biliary Cirrhosis ---------Nuclear GP210, Primary Biliary CirrhosisMembrane taryn A,B,C SPECKLED PAT. 1:640 (Normal) Comments: High AMAN test Positive Abnormal Comments: Negative <1:80Borderline 1:80Positive >1:80 (Normal) 08-Bhg-033014:03 CBC W/Diff, Automated Comments: [facility] [address] [place], [place], [id number] Absolute Lymph 1.58 {X10_3/ul} (Normal) Range: 0.83-4.51 [...] 4.2-5.4 WBC 3.5 K/mm3 (Abnormal) Range: 4.4-11.0 84-Nqj-034040:03 Electrolyte Panel Comments: [facility] Nspiqhyoby5290 [facility] [place], [place], [address] GAP 8 (Normal) Range: 5-15 CO2 29.0 mmol/L (Normal) Range: 21.0-32.0 CL 101 mmol/L (Normal) Range: 98-107 K 3.8 mmol/L (Normal) Range: 3.5-5.1 NA 138 mmol/L (Normal) Range: 136-145 81-Nfp-335923:03 Liver Profile Comments: [facility] Jqaleggxdd8511 [facility] [place], [place], [address] D BILI 0.20 mg/dL (Normal) Range: 0.00-0.30 T BILI 0.80 mg/dL (Normal) Range: 0.20-1.00 ALT 20 U/L (Normal) Range: 12-78 ALK P 64 U/L (Normal) Range: 45-117 AST 15 U/L (Normal) Range: 15-37 GLOB 4.4 g/dL (Abnormal) Range: 2.3-3.5 ALB 4.0 g/dL (Normal) Range: 3.4-5.0 T PROT 8.4 g/dL (Abnormal) Range: 6.4-8.2 45-Htg-726866:03 Sjogren's Antibodies A/B Comments: [facility] (refer to report for specific site)refer to report for address and phone number Anti-SS-B 2.0 (Normal) Comments: High AI 0.0 - 0.9 Anti-SS-A > 8.0 (Normal) Comments: High AI 0.0 - 0.9 9-Idz-340734:22 COMPLEMENT C4 (64648) Comments: copy Dr. jaime norton; PATIENT NOT FASTINGPERFORMED BY: [facility] Mcallister RoadUnc Healthin [place] [id number] Complement C4, Serum 14 mg/dL (Normal) Range: 14-44 0-Rjz-881342:22 COMPLEMENT C3 (65382) Comments: copy Dr. geremias norton; PATIENT NOT FASTINGPERFORMED BY: [facility] RoadUnc Healthin [place] [id number] Complement C3, Serum 103 mg/dL (Normal) Range: 82-167 2-Gds-200258:22 C-Reactive Protein (06370) Comments: copy Dr. geremias norton; PATIENT NOT FASTINGPERFORMED BY: [facility] [facility] Company[facility] [place] [id number] C-Reactive Protein, Quant 0.5 mg/L (Normal) Range: 0.0-4.9 1-Cit-918432:22 Sed Rate Erythrocyte (41023) Comments: Dr. cierra scott; PATIENT NOT FASTINGPERFORMED BY: [facility] [facility] Company[facility] [place] [id number] Sedimentation Rate-Westergren 4 mm/h (Normal) Range: 0-40 7-Nbi-819416:22 COMPLEMENT, TOTAL (CH50) Comments: seen Dr. norton; PATIENT NOT FASTINGPERFORMED BY: [facility] [facility] [place] [id number] (49495) Complement, Total (CH50) >60 U/mL (Abnormal) Range: 42-60 60-Jix-251639:57 TSH (19354) Comments: PATIENT WAS FASTINGPERFORMED BY: [address] [id number] BY: LabCoMarlton Rehabilitation HospitalOieugu2656 [facility] [id number] TSH 3.190 {uIU/mL} (Normal) Range: 0.450-4.500 35-Prq-036594:57 METABOLIC PANEL, Comments: PATIENT WAS FASTINGPERFORMED BY: LabSongFlameRobert Wood Johnson University Hospital at HamiltonTvoetbvejy6098 [facility] [id number] BY: LabSongFlameMarlton Rehabilitation HospitalRcicep4107 [facility] [id number] COMPREHENSIVE (26460) ALT (SGPT) 7 [iU]/L (Normal) Range: 0-32 [...] Glucose, Serum 84 mg/dL (Normal) Range: 65-99 :57 LIPOPROTEIN, BLD, BY NMR Comments: PATIENT WAS FASTINGPERFORMED BY: LabSongFlamerp Zferqazvnk5774 [facility] [id number] BY: CB [facility] Mgffzu7089 [address] [facility] [id number]; fu 5-23 db (29599) LP-IR Score 30 (Normal) Comments: INSULIN RESISTANCE MARKER <--Insulin Sensitive Insulin Resistant--> Percentile in Reference PopulationInsulin Resistance ScoreLP-IR Score Low 25th 50th 75th High <27 27 45 63 >63LP-IR Score is inaccurate if patient is non-fasting. .The LP-IR score is a laboratory developed i [facility] that has beenassociated with [...] were developed and their performance characteristicsdetermined by [employer]. These assays have not been cleared by [place] Food and Drug Administration. The clinical utility [...] 1600 - 2000 Very High > 2000 04-Ovf-525136:28 AMAN (ANTINUCLEAR ANTIBODY) Comments: PATIENT NOT FASTINGPERFORMED BY: [employer] TranslationsUofL [facility] [id number] (96497) AMAN Direct Positive (Abnormal) 00-Xwa-911739:28 URINALYSIS (81656) Comments: PATIENT NOT FASTINGPERFORMED BY: [facility] HoldingsThe [facility] [id number] Microscopic Examination MICNIP (Normal) Comments: Microscopic not indicated and not performed. Nitrite, Urine Negative (Normal) Urobilinogen,Semi-Qn 0.2 mg/dL (Normal) Range: 0.2-1.0 Bilirubin Negative (Normal) Occult Blood Negative (Normal) Ketones Negative (Normal) Glucose Negative (Normal) Protein Negative (Normal) WBC Esterase Negative (Normal) Appearance Cloudy (Abnormal) Urine-Color Yellow (Normal) pH 7.5 (Normal) Range: 5.0-7.5 Specific [place] 1.016 (Normal) Range: 1.005-1.030 31-Gsj-330440:28 C-Reactive Protein (18592) Comments: PATIENT NOT FASTINGPERFORMED BY: [facility]ationsU[facility]L [facility] [id number] C-Reactive Protein, Quant 7.7 mg/L (Abnormal) Range: 0.0-4.9 49-Kxl-685903:28 Sed Rate Erythrocyte (95808) Comments: PATIENT NOT FASTINGPERFORMED BY: [facility] HoldingsThe [facility] [id number] Sedimentation Rate-Westergren 7 mm/h (Normal) Range: 0-40 :28 CBC (Auto) (94121) Comments: PATIENT NOT FASTINGPERFORMED BY: [place] 0578770 [facility] [id number] Platelets 227 {x10E3/uL} (Normal) Range: 150-379 RDW 13.2 % (Normal) Range: 12.3-15.4 MCHC 33.2 g/dL (Normal) Range: 31.5-35.7 MCH 30.0 pg (Normal) Range: 26.6-33.0 MCV 90 fL (Normal) Range: 79-97 Hematocrit 38.2 % (Normal) Range: 34.0-46.6 Hemoglobin 12.7 g/dL (Normal) Range: 11.1-15.9 RBC 4.24 {x10E6/uL} (Normal) Range: 3.77-5.28 WBC 5.1 {x10E3/uL} (Normal) Range: 3.4-10.8 55-Ksp-600589:28 Metabolic Panel, Comments: PATIENT NOT FASTINGPERFORMED BY: [facility]6370 [facility] [id number] Information: [id number] Comprehensive (16017) ALT (SGPT) 11 [iU]/L (Normal) Range: 0-32 [...] Glucose, Serum 79 mg/dL (Normal) Range: 65-99 3-Ies-854298:12 Basic Metabolic Panel (8) Comments: PATIENT NOT FASTINGPERFORMED BY: [facility] Yhrdhn0621 [facility] Parts BillThe Outer Banks Hospital [id number] Calcium, Serum 9.5 mg/dL (Normal) Range: 8.7-10.3 [...] Glucose, Serum 81 mg/dL (Normal) Range: 65-99 6-Zlt-043546:12 CBC, Platelet, No Comments: PATIENT NOT FASTINGPERFORMED BY: [facility] Jnefpb4120 McallisterThree Rivers HealthcareFrontierreThe [facility] Hospital [id number] Information: [id number] Differential Platelets 216 {x10E3/uL} Range: 150-379 (Normal) [...] {uIU/mL} Comments: PATIENT NOT FASTINGPERFORMED BY: [facility] Euiljr2215 [facility] [id number] 510:12 (Normal) Range: 0.450-4.500 BREAST BIOPSY (CHOOSE SITE) See Note (Normal) Comments: Test performed at:[facility] [address] [place] [address] 515:30 Comments: Patient: SHANITA MONTIEL : 1950 (64/F) Acct Num: [id number] Phys: Nereida SUÁREZ,Jaquan Unit Num: [id number] Loc: LABSPEC Specimen: [id number] Received: 08/04/141614 Spec Type: BREAST BX TISSUES TISSUES: COMMENT Immunohistochemistry ([id number]) supports the above diagnosis. GROSS DESCRIPTION Received in a container labeled with the patient name and mary jo ignated needle core biopsy, right breast are three elongated cores of yellow- white soft tissuemeasuring in aggregate 2 x 0.5 x 0.1 cm. The specimen is totally submitted in one cassette. / AM:pq 08/06 TC:5 CPT: 23196 HEADER OPERATION: U/S guided needle core biopsy right breast PRE-OPERATIVE DIAGNOSIS: 793.89 abnormal finding on breast imaging TISSUE SUBMITTED: Right breast needle co re biopsy MICROSCOPIC DIAGNOSIS Right breast, ultrasound-guided needle core biopsy: Fat necrosis, fibrosis, and foreign body giant cell reaction to nonpolarizable material. Benign hist iocytic proliferation and mild chronic inflammation. No evidence of malignancy. AM:pq 08/06/14 Signed Anthony [facility] 08/07/14 <signature on file> IMMUNOHISTOCHEMISTRY See Note (Normal) Comments: Test performed at:[address] [address] 50:00 Comments: Patient: SHANITA MONTIEL : 1950 (64/F) Acct Num: [id number] Phys: Nereida SUÁREZ,Jaquan Unit Num: [id number] Loc: LABSPEC Specimen: [id number] Received: 08/06/141200 Spec Type: IMMUNO TISSUES TISSUES: SPECIMEN INFORMATION: Tissue Source: Right breast, core biopsy Clinical Info: Abnormal mammogram Specimen Number: [id number] CPT code: 03951, 82650 x3 METHODOLOGY: Deparaffinized sections of formalin-fixed tissue or PAP/DQ stained slides are incubated with monoclonal/polyclonal antibodies/oligonucleotide probes. Localization is made via biotin free immunoperoxidase method. Appropriate controls are performed and reacted as expected. Results on target cell population are indicated in the following table: RESULTS: ANTIBODY / CLONE RESULT AE1-3/PCK26 (AE1,AE3,PCK26) negative CK8 (TS1/36nndqA37) negative P53 (DO-7) negative Macro (HAM-56) positive These tests were developed and their performance characteristics determined by [facility]. They may not have been cleared or approved by the U.S. Food and Drug Administration. The FDA has de termined that such clearance or approval is not necessary. INTERPRETATION: Right breast, core biopsy: Consistent with fat necrosis. AM:tom 08/07/14 PHYSICIAN AND INSTITUTION [address] [address] Signed Anthony [facility] 08/07/14 <signature on file> :58 TSH (95469) Comments: PATIENT WAS FASTINGPERFORMED BY: [facility] Ylssqt1065 [facility] [id number] TSH 2.580 {uIU/mL} (Normal) Range: 0.450-4.500 :58 METABOLIC PANEL, COMPREHENSIVE Comments: PATIENT WAS FASTINGPERFORMED BY: [employer] Wnkryb2516 [facility] [id number] (90951) ALT (SGPT) 9 [iU]/L (Normal) Range: 0-32 [...] mg/dL (Normal) Range: 65-99 :58 LIPID PANEL (08618) Comments: PATIENT WAS FASTINGPERFORMED BY: [employer]in6370 [facility] [id number] LDL/HDL Ratio 1.9 {ratio_units} (Normal) Range: 0.0-3.2 [...] Cholesterol, Total 184 mg/dL (Normal) Range: 100-199 43-Qva-15628:58 CBC with auto diff Comments: PATIENT WAS FASTINGPERFORMED BY: [facility] Kkyreu0383 [facility] [id number] Information: [id number] (33099) Immature Grans (Abs) 0.0 {x10E3/uL} (Normal) Range: [...] 3.77-5.28 WBC 3.9 {x10E3/uL} (Normal) Range: 3.4-10.8 3-Wwh-851766:11 Microscopic Examination Comments: PATIENT WAS FASTINGPERFORMED BY: [employer]6370 [facility] [id number] Bacteria None seen (Normal) Mucus Threads Present (Normal) Epithelial Cells (non renal) 0-10 {/hpf} (Normal) Range: 0 - 10 RBC None seen {/hpf} (Normal) Range: 0 - 3 WBC None seen {/hpf} (Normal) Range: 0 - 5 0-Jye-930423:03 T4, FREE (THYROXINE) (12974) Comments: PATIENT WAS FASTINGPERFORMED BY: [employer] [facility] [id number] T4,Free(Direct) 1.28 ng/dL (Normal) Range: 0.82-1.77 4-Vmj-065787:03 URINALYSIS, W/ MICRO (92378) Comments: PATIENT WAS FASTINGPERFORMED BY: [employer]70 [facility] [id number] Microscopic Examination See below: (Normal) Microscopic Examination MICRON (Normal) Comments: Microscopic follows if indicated. Nitrite, Urine Negative (Normal) Urobilinogen,Semi-Qn 0.2 mg/dL (Normal) Range: 0.0-1.9 Bilirubin Negative (Normal) Occult Blood Negative (Normal) Ketones Negative (Normal) Glucose Negative (Normal) Protein Negative (Normal) WBC Esterase Negative (Normal) Appearance Clear (Normal) Urine-Color Yellow (Normal) pH 6.5 (Normal) Range: 5.0-7.5 Specific [place] 1.015 (Normal) Range: 1.005-1.030 1-Ijt-947758:03 CALCIFIDIOL (99555) VIT D 25 Comments: PATIENT WAS FASTINGPERFORMED BY: Arthena Aplqwf9280 [facility] [id number] Vitamin D, 25-Hydroxy 38.2 ng/mL (Normal) Range: 30.0-100.0 Comments: Vitamin D deficiency has been defined by the [place] of[place] and an Endocrine Society practice guideline as alevel of serum 25-OH vitamin D less than 20 ng/mL (1,2).The Endocrine Society went on to further define vitamin Dinsufficiency as a level between 21 and 29 ng/mL (2).1. IOM ([place] of [employer]). 2010. Dietary reference intakes for calcium and D. [place]: The National Academies Press.2. Gustavo MF, Yvette NC, Jus RIVERA, et al. Evaluation, treatment, and prevention of vitamin D deficiency: an Endocrine Society clinical practice guideline. JCEM. 2010; 96(7):1911-30. 1-Qjy-065204:03 METABOLIC PANEL, COMPREHENSIVE Comments: PATIENT WAS FASTINGPERFORMED BY: [facility]CoM[facility] Rehabilitation HospitalKxflhq1211 [facility] [id number] (15105) ALT (SGPT) 12 [iU]/L (Normal) Range: 0-32 [...] Range: 65-99 :03 CBC WITH MANUAL DIFF (41872) Comments: PATIENT WAS FASTINGPERFORMED BY: [employer] Park[employer] SolutionsMarlton Rehabilitation HospitalGivqog8792 [facility] [id number] Immature Grans (Abs) 0.0 {x10E3/uL} (Normal) Range: [...] 4.0 {x10E3/uL} (Normal) Range: 3.4-10.8 :03 TSH (14372) Comments: PATIENT WAS FASTINGPERFORMED BY: LabSongFlameMarlton Rehabilitation HospitalRkpdda9775 [facility] [id number] TSH 2.970 {uIU/mL} (Normal) Range: 0.450-4.500 85-Ehx-14075:21 CBC, Platelets & Auto Diff Comments: today; PATIENT NOT FASTINGPERFORMED BY: MATY [facility] Eghaxl9451 [facility] [id number] Information: [id number] (41682) Immature Grans (Abs) 0.0 {x10E3/uL} (Normal) Range: [...] 3.77-5.28 WBC 3.2 {x10E3/uL} (Abnormal) Range: 4.0-10.5 57-Whn-525737:04 PELVIC (NON ) Radiology Report See Note [...] Sanchez M.D.April 12, 2012 at 3:25:13 PM [id number] Signed GP/GP If you are the referring physician and would like to consult with theradiologist who provided this interpretation, please c evelyn Lentz M.D. at [phone]. If this radiologist is unavailable, youwill be directed to another radiologist to assist. If you are a patient with a question regarding this report, plea secontactyour referring physician directly. Professional Interpretation Provided By: Jingshi Wanwei, Phone , These documents contain legally protected [...] 1308 by Ayden Sanchez MDscribed on 04/12/12 1532 by ITS IMPORTSign by Isiah Sanchez MD on 04/12/12 153 Sign by: Isiah Sanchez MD 8-Zic-036548:16 Pap IG, Ct-Ng, Comments: Source.............Cervical;VaginalNo. of containers..01 CYTYC Thin Prep VialPERFORMED BY: WB [facility] [place] [id number] BY: =G [facility] Giovanna marino120 Hil HPV-hr ls [facility] Centerjudahlehigh [facility] [address] [place] [id number] Information: [id number] Gonococcus, Nuc. Acid Amp Negative (Normal) Chlamydia, [...] are present.V72.31 ; Routine gynecolog ical examina szgy696.5 ; Leukorrhea, not specified as infectiveJennifer Camilo Barrel Rifler [place] (ASCP) 0-Nlb-480144:13 Genital Culture, Routine Comments: PERFORMED BY: [facility]CoM[facility] Rehabilitation HospitalWcdfrw0200 [facility] [id number] Information: SRC:VA Result 1 RGF (Normal) Comments: Routine genital rochelle. Genital Culture, Routine Final report (Normal) 3-Zec-761379:03 GARDNERELLA VAG, NUCLEIC Comments: PATIENT NOT FASTINGPERFORMED BY: [facility]CoM[facility] HospitalRiavnp3359 [facility] [id number] Information: [id number] ACID DIR PROBE (70309) Gardnerella vaginalis Positive (Abnormal) Trichomonas vaginalis Negative (Normal) Aquiles species Negative (Normal) 73-Jwd-919821:59 BREAST UNILATERAL Radiology Report See Note (Normal) [...] radiologist regarding this report, please call our 14I6sffhnbv line @ Dictated on 07/22/11 1139 by Nicholas SUÁREZ,Effieranscribed on 07/26/11 0810 by ITS IMPORTSign by Isiah Sanchez MD on 07/26/11 0 811 Sign by: Isiah Sanchez MD 22-Njh-775957:38 CBCD ANC 1.3 3/uL (Abnormal) Range: 2.0-7.7 [...] 7-18 GLU 84 mg/dL (Normal) Range: 70-110 70-Gbk-626814:38 LIPID VLDL 18 mg/dL (Normal) Range: 5-40 [...] 200-240 mg/dL Borderline >240 mg/dL High Risk 23-Nub-858391:38 SED tSEDRATE 13 mm/h (Normal) Range: 0-30 :38 UA LORIE NEGATIVE (Normal) UOB NEGATIVE (Normal) KYM NEGATIVE (Normal) UROBU 0.2 EU/dl (Normal) Range: 0.2 - 1.0 uPROTU NEGATIVE (Normal) RAJESH 6.0 (Normal) Range: 5.0-8.0 SGU 1.020 (Normal) Range: 1.002-1.030 KETU NEGATIVE mg/dL (Normal) BILIU NEGATIVE (Normal) GLUR NEGATIVE (Normal) UCLAR CLEAR (Normal) UCOL YELLOW (Normal) 9-Kos-200483:54 URINE ROBERT CULTURE-BRYANNA COL Comments: PATIENT NOT FASTINGPERFORMED BY: LabCoM[facility] Rehabilitation HospitalVmymad2326 [facility] [id number] Information: SRC: URINE COUNT (18733) Result 1 NG36 (Normal) Comments: No growth in 36 - 48 hours. Urine Culture,Comprehensive Final report (Normal) 2-Lqf-225085:34 Urinalysis, Office (12648) UA - BILIRUBIN Negative (Normal) UA - BLOOD Negative (Normal) UA - GLUCOSE Negative (Normal) UA - KETONES Negative mg/dL (Normal) UA - LEUKOCYTE ESTERASE Negative (Normal) UA - NITRITE Negative (Normal) UA - PH 6.0 (Normal) UA - PROTEIN Negative mg/dL (Normal) UA - SPECIFIC GRAVITY 1.010 (Normal) URINE UROBILINGN BRYANNA TIMED Normal mg/dL (Normal) 30-Hej-739417:25 DEXA BONE DENSITY STUDY (HP) Radiology Report [...] 09/21/10 1543 by Kelli luna MD,Effieranscribed on 09/22/10 0858 by ITS IMPORTSign by Isiah Sanchez MD on 09/22/1058 Sign by: Isiah Sanchez MD 09-Kpr-352383:24 BILAT SCRN IMPLANT DIG & CAD Radiology [...] 09/22/10 1326 Sign by: NINO CARROLL MD 21-Wvu-43456:48 Microscopic Examination Comments: PATIENT WAS FASTINGPERFORMED BY: [employer] LabLightCyber6370 [facility] [id number] Bacteria Few (Normal) Mucus Threads Present (Normal) Epithelial Cells (non renal) 0-10 {/hpf} (Normal) Range: 0 - 10 RBC None seen {/hpf} (Normal) Range: 0 - 3 WBC 0-5 {/hpf} (Normal) Range: 0 - 5 13-Gxx-99678:48 Lipid Panel (95649) Comments: PATIENT WAS FASTINGPERFORMED BY: [employer] LabCoBroadcast InternationalDqnohm1900 [facility] [id number] LDL Cholesterol Calc 126 mg/dL (Abnormal) Range: 0-99 LDL/HDL Ratio 2.0 {ratio_units} (Normal) Range: 0.0-3.2 VLDL Cholesterol Miguel 19 mg/dL (Normal) Range: 5-40 Cholesterol, Total 207 mg/dL (Abnormal) Range: 100-199 HDL Cholesterol 62 mg/dL (Normal) Comments: According to ATP-III Guidelines, HDL-C >59 mg/dL is considered anegative risk factor for CHD. Triglycerides 95 mg/dL (Normal) Range: 0-149 :48 URINALYSIS (28860) Comments: PATIENT WAS FASTINGPERFORMED BY: Arthena Czjryy9820 [facility] [id number] Microscopic Examination See below: (Normal) Bilirubin Negative (Normal) Glucose Negative (Normal) Ketones Negative (Normal) Nitrite, Urine Negative (Normal) Occult Blood 3+ (Abnormal) Urobilinogen,Semi-Qn 0.2 mg/dL (Normal) Range: 0.0-1.9 Protein Negative (Normal) WBC Esterase Negative (Normal) Appearance Clear (Normal) Urine-Color Yellow (Normal) pH 6.5 (Normal) Range: 5.0-7.5 Specific [place] 1.020 (Normal) Range: 1.005-1.030 :48 CBC, Platelets & Auto Diff Comments: PATIENT WAS FASTINGPERFORMED BY: Arthena Xlcjfo4426 [facility] [id number] (57425) Immature Grans (Abs) 0.0 {x10E3/uL} (Normal) Range: [...] 3.2 {x10E3/uL} (Abnormal) Range: 4.0-10.5 :48 TSH (55136) Comments: PATIENT WAS FASTINGPERFORMED BY: [facility] Park[facility] SolutionsMarlton Rehabilitation HospitalViwvoh7019 [facility] [id number] TSH 3.920 {uIU/mL} (Normal) Range: 0.450-4.500 :48 Metabolic Panel, Comprehensive Comments: PATIENT WAS FASTINGPERFORMED BY: [facility] Park[facility] SolutionsMarlton Rehabilitation HospitalEyurbu1106 [facility] [id number] (53224) ALT (SGPT) 11 [iU]/L (Normal) Range: 0-40 [...] 65-99 :15 Anti-dsDNA Antibodies Comments: PERFORMED BY: [facility] [id number] Anti-DNA (DS) Ab Qn 4 {IU/mL} (Normal) Range: 0-9 Comments: Negative <5Equivocal 5 - 9Positive >9 C-Reactive Protein, 0.5 mg/L (Normal) Comments: PERFORMED BY: [facility] HoldingsThe [facility] [id number] :15 Quant Range: 0.0-4.9 :15 CBC With Differential/Platelet Comments: PERFORMED BY: [employer] [facility] [id number] Baso (Absolute) 0.0 {x10E3/uL} (Normal) Range: 0.0-0.2 [...] 3.80-5.10 WBC 3.0 {x10E3/uL} (Abnormal) Range: 4.0-10.5 73-Wrs-961282:15 Comp. Metabolic Panel (14) Comments: PERFORMED BY: [facility]6370 [facility] [id number] Alkaline Phosphatase, S 73 [iU]/L Range: 25-165 [...] C3, Serum 116 {mg/dL_Adult} Comments: PERFORMED BY: [employer] [facility] [id number] 12:15 (Normal) Range: 90-180 28-Jul-2009 Complement C4, Serum 15 {mg/dL_Adult} Comments: PERFORMED BY: [employer] [facility] [id number] 12:15 (Normal) Range: 9-36 28-Jul-2009 Complement, Total (CH50) 53 U/mL (Normal) Comments: PERFORMED BY: [employer] [facility] [id number] 12:15 Range: 22-60 28-Jul-2009 TSH 3.440 {uIU/mL} Comments: PERFORMED BY: [employer] [facility] [id number] 12:15 (Normal) Range: 0.450-4.500 12-Bba-988286:15 Urinalysis, Routine Comments: PERFORMED BY: [employer] [facility] [id number] Bilirubin Negative (Normal) Microscopic Examination MICRON (Normal) Comments: Microscopic follows if indicated. Nitrite, Urine Negative (Normal) Urobilinogen,Semi-Qn 0.2 mg/dL (Normal) Range: 0.0-1.9 Glucose Negative (Normal) Ketones Negative (Normal) Occult Blood Negative (Normal) Protein Negative (Normal) Appearance Clear (Normal) pH 6.5 (Normal) Range: 5.0-7.5 Specific [place] 1.019 (Normal) Range: 1.005-1.030 Urine-Color Yellow (Normal) WBC Esterase Negative (Normal) 51-Tbt-33987:06 [facility] D[facility] DIGITAL & CAD Radiology Report See Note (Normal) Comments: Exam Number: [id number] UNILATERAL DIAGNOSTIC MAMMOGRAM Oblique and craniocaudal views of the left breast were obtaineddigitally. Comparison is made with the prior examinations datedSeptember 22, 2008, and [facility]. Interpretation was made with thebenefit of [...] w erealso examined with computer-aided detection software ([employer], Stream[employer], [employer].). Reported By: ISIAH SANCHEZ 41-Adz-592046:53 [facility] DIA DIGITAL & CAD Radiology Report See Note (Normal) Comments: Exam Number: [id number] MAMMOGRAM, UNILATERAL LEFT DIAGNOSTIC DIGITAL AND CAD [...] mammograms werealso examined with computer-aided detection software ([employer] Reported By: NINO CARROLL M.D. :22 BILAT SCRN DIGITAL & CAD Radiology Report See Note (Normal) Comments: Exam Number: [id number] MAMMOGRAM, BILATERAL SCREENING DIGITAL AND CAD HISTORYRoutine [...] mammograms werealso examined with computer-aided detection software ([employer] Reported By: NINO CARROLL M.D. :22 DEXA BONE DENSITY STUDY (HP) Radiology Report See Note (Normal) Comments: Exam Number: [id number] BONE DENSITOMETRY HISTORYScreening, postmenopausal. TECHNIQUE Bone densitometry of the lumbar spine and both hips is now beingperformed. The best criteria for e valuation of osteoporosis is theT-value, which represents the comparison of the patient's bone mass israel expected peak bone mass. For most patients, the mean T-value of O1jhhsntg L4 is used to evaluate the lumbar [...] within normallimits. Reported By: NINO CARROLL M.D. 13-Vsy-34828:29 MYOCARD PERF SPECT REST/STRESS Radiology Report See Note (Normal) Comments: Exam Number: [id number] MYOCARDIAL PERFUSION SCAN TECHNIQUEThe patient was injected [...] patient was injected with 31 mCi of Fy08lGippwqfbcy and subsequently stress SPECT Cardiolite nuclear imagingwas [...] Anti-dsDNA Antibodies Comments: PATIENT WAS FASTINGPERFORMED BY: Arthena Puivwa5780 [facility] [id number] Anti-DNA (DS) Ab Qn 1 {IU/mL} (Normal) Range: 0-9 Comments: Negative <5 Equivocal 5 - 9 Positive >9 Antinuclear Antibodies Positive (Abnormal) Comments: PATIENT WAS FASTINGPERFORMED BY: [employer] POSlin6370 [facility] [id number] :53 Direct C-Reactive Protein, 0.7 mg/L (Normal) Comments: PATIENT WAS FASTINGPERFORMED BY: [employer]6370 [facility] [id number] :53 Quant Range: 0.0-4.9 :53 CBC With Differential/Platelet Comments: PATIENT WAS FASTINGPERFORMED BY: [employer]6370 [facility] [id number] Baso (Absolute) 0.0 {x10E3/uL} (Normal) Range: 0.0-0.2 [...] 11.7-15.0 WBC 2.6 {x10E3/uL} (Abnormal) Range: 4.0-10.5 1-Wja-911685:53 Comp. Metabolic Panel (14) Comments: PATIENT WAS FASTINGPERFORMED BY: LabCoMarlton Rehabilitation HospitalGxlzpo9232 [facility] [id number] A/G Ratio 1.4 (Normal) Range: 1.1-2.5 Albumin, [...] 119 {mg/dL_Adult} Comments: PATIENT WAS FASTINGPERFORMED BY: [employer] [facility] [id number] 0:53 (Normal) Range: 90-180 Complement C4, Serum 15 {mg/dL_Adult} Comments: PATIENT WAS FASTINGPERFORMED BY: [employer] [facility] [id number] 0:53 (Normal) Range: 9-36 Complement, Total (CH50) 55 U/mL (Normal) Comments: PATIENT WAS FASTINGPERFORMED BY: [employer] [facility] [id number] 0:53 Range: 22-60 7-Syq-620238:53 Lipid Panel With LDL/HDL Comments: PATIENT WAS FASTINGPERFORMED BY: [employer] [facility] [id number] Ratio Cholesterol, Total 180 mg/dL (Normal) Range: [...] mm/h (Normal) Comments: PATIENT WAS FASTINGPERFORMED BY: [facility]6370 [facility] [id number] :53 Rate-Westergren Range: 0-30 TSH 2.547 {uIU/mL} Comments: PATIENT WAS FASTINGPERFORMED BY: [facility]6370 [facility] [id number] :53 (Normal) Range: 0.450-4.500 :53 Urinalysis, Routine Comments: PATIENT WAS FASTINGPERFORMED BY: [place] 0578770 [facility] [id number] Appearance Clear (Normal) Bilirubin Negative (Normal) Glucose Negative (Normal) Ketones Negative (Normal) Microscopic Examination MICRON (Normal) Comments: Microscopic follows if indicated. Nitrite, Urine Negative (Normal) Occult Blood Negative (Normal) pH 6.5 (Normal) Range: 5.0-7.5 Protein Negative (Normal) Specific [place] 1.009 (Normal) Range: 1.005-1.030 Urine-Color Yellow (Normal) Urobilinogen,Semi-Qn 0.2 mg/dL (Normal) Range: 0.0-1.9 WBC Esterase Negative (Normal) 02-Aug-20079:44 Thin prep Pap Comments: Source.............Cervical;EndocervicalLMP / Prev Treat...HJX=[id number]. of containers..01 CYTYC Thin Prep VialPATIENT NOT FASTINGClinical Information: ADD [id number] PERFORMED BY: [facility] ([address]) [address] [id number] . . (Normal) DIAGNOSIS: SPRCS (Normal) Comments: NEGATIVE FOR INTRAEPITHELIAL LESION AND MALIGNANCY.Satisfactory for evaluation. No endocervical component is identified.V72.31 ; Routine gynecological examinationAlejandra Mendez Barrel Rifler [place] (ASCP) Note: PAPSMR (Normal) Comments: The Pap [...] woman exam Planned Observations METABOLIC PANEL, COMPREHENSIVE (74301)Indication: Hypercholesteremia On: :47 Request LIPOPROTEIN, BLD, BY NMR (58591)Indication: Hypercholesteremia On: 6-Ssu-164580:47 Request TSH (30862)Indication: Hypothyroidism On: 6-Cog-871780:46 Request TSH (63503)Indication: Hypothyroidism On: 85-Rng-283224:10 Request Systemic Lupus Profile (56084)Indication: Lupus (systemic lupus erythematosus) On: 05-Jan-20169:57 Request Comments: send to Dr Norton CBC (Auto) (99761)Indication: Pre-operative examination On: 4-Ibw-718946:08 Request Metabolic Panel, Basic (15630)Indication: Pre-operative examination On: 7-Ckq-900879:08 Request TSH (53453)Indication: Hypothyroidism On: 5-Gjd-139702:07 Request CALCIFEDIOL (32174)Indication: Hypothyroidism On: 8-Ela-779194:12 Request URINALYSIS, W/ MICRO (15485)Indication: Hypothyroidism On: 5-Kig-678742:11 Request CBC WITH MANUAL DIFF (42197)Indication: Hypothyroidism On: 3-Yay-243343:11 Request Metabolic Panel, Comprehensive (40852)Indication: Hypothyroidism On: 5-Zwp-223447:11 Request Lipid Panel (45785)Indication: Hypothyroidism On: 3-Zkb-777499:11 Request TSH (56872)Indication: Hypothyroidism On: 7-Kvz-979095:11 Request TSH (THYROID STIMULATING HORMONE) (27029)Indication: Hypothyroidism On: :43 Request METABOLIC PANEL, COMPREHENSIVE (45334)Indication: ERYTHEMATOSUS, LUPUS On: :43 Request LIPID PANEL (10913)Indication: ERYTHEMATOSUS, LUPUS On: :43 Request NEISSERIA (82561) (THIN PREP OBTAINED)Indication: Vaginal Discharge On: 9-Rco-882062:43 Request CHLAMYDIA (67785) (thin prep obtained)Indication: Vaginal Discharge On: :43 Request ROBERT CULTURE-OTHER (47550)Indication: Vaginal Discharge On: :43 Request BACT CULTURE ANY-ANAEROBIC (50218)Indication: Vaginal Discharge On: :43 Request INFCT ANTGN TRICH VAGIN DIRECT PRB (08452)Indication: Vaginal Discharge On: :43 Request AQUILES, NUCLEIC ACID DIRECT PROBE (64697)Indication: Vaginal Discharge On: :43 Request Thin prep Pap (00168)Indication: Well woman exam On: 6-Sto-046138:29 Request URINALYSIS (67373)Indication: Lupus (systemic lupus erythematosus) On: : Request Sed Rate Erythrocyte (14453)Indication: Lupus (systemic lupus erythematosus) On: :26 Request CBC, Platelets & Auto Diff (10595)Indication: Lupus (systemic lupus erythematosus) On: :25 Request Lipid Panel (09292)Indication: Hypothyroidism On: :25 Request Metabolic Panel, Comprehensive (77695)Indication: Lupus (systemic lupus erythematosus) On: :25 Request DNA ANTIBODY-NATV/DBL ST (15553)Indication: Lupus (systemic lupus erythematosus) On: :49 Request COMPLEMENT C4 (57344)Indication: Lupus (systemic lupus erythematosus) On: :48 Request COMPLEMENT C3 (23077)Indication: Lupus (systemic lupus erythematosus) On: :48 Request COMPLEMENT, TOTAL (CH50) (69280)Indication: Lupus (systemic lupus erythematosus) On: :48 Request C-Reactive Protein (19045)Indication: Lupus (systemic lupus erythematosus) On: :48 Request URINALYSIS (02194)Indication: Lupus (systemic lupus erythematosus) On: :48 Request CBC (Auto) (38446)Indication: Lupus (systemic lupus erythematosus) On: :48 Request Metabolic Panel, Comprehensive (44601)Indication: Lupus (systemic lupus erythematosus) On: :48 Request TSH (30035)Indication: Hypothyroidism On: :48 Request Thin prep Pap (75877)Indication: Well woman exam On: :35 Request C-Reactive Protein (22079)Indication: Lupus (systemic lupus erythematosus) On: :03 Request DNA ANTIBODY-NATV/DBL ST (51362)Indication: Lupus (systemic lupus erythematosus) On: :02 Request Sed Rate Erythrocyte ([id number])Indication: Lupus (systemic lupus erythematosus) On: :01 Request COMPLEMENT C4 ([id number])Indication: Lupus (systemic lupus erythematosus) On: :00 Request COMPLEMENT C3 ([id number])Indication: Lupus (systemic lupus erythematosus) On: :00 Request COMPLEMENT, TOTAL (CH50) ([id number])Indication: Lupus (systemic lupus erythematosus) On: :00 Request AMAN (ANTINUCLEAR ANTIBODY) ([id number])Indication: Lupus (systemic lupus erythematosus) On: :00 Request URINALYSIS ([id number])Indication: Lupus (systemic lupus erythematosus) On: :57 Request TSH ([id number])Indication: Hypothyroidism On: :57 Request CBC (Auto) ([id number])Indication: Lupus (systemic lupus erythematosus) On: :57 Request Metabolic Panel, Comprehensive ([id number])Indication: Lupus (systemic lupus erythematosus) On: :57 Request Lipid Panel ([id number])Indication: Lupus (systemic lupus erythematosus) On: :57 Request Lipid Panel ([id number])Indication: Hypothyroidism On: :47 Request TSH ([id number])Indication: Hypothyroidism On: :43 Request LIPID PANEL ([id number])Indication: Well woman exam On: [id number]-Wip-384914:00 Request CBC (AUTO) ([id number])Indication: Lupus (systemic lupus erythematosus) On: 11-May-20069:59 Request Planned Encounters Medical; [facility] 6 [facility] Fu - On: 21-Sep-2018 13:00 [facility] Araceli SUÁREZ, Talia Johnson MD Planned Procedures MRI RIGHT BREAST W/W/O CONTRAST On: 09-Mar-2018 Intent (C8905)By: Araceli SUÁREZ, Talia Johnson MD DIAGNOSTIC MAMMOGRAPHY OF BOTH On: 06-Mar-2018 Intent BREASTS ([id number])By: Talia Charles MD, MD, Dana M Breast Ultrasound - RightBy: On: 06-Mar-2018 Intent Araceli SUÁREZ, Talia Johnson MD ULTRASOUND OF NECK WITH FOCUS ON On: 25-Aug-2017 Intent THYROID ([id number])By: Araceli SUÁREZ, Comments: include area on left side where tender. Talia Johnson MD DEXA SCAN AXIAL SKELETON On: 07-Aug-2017 Intent ([id number])By: Talia Charles MD, MD, Dana M Flu Vaccine (Quadrivalent) On: 17-Jan-2017 Intent [id number]: Talia Charles MD Comments: QUAD flu shotlot number: [id number]: 07/2017L Deltoid IMAD WINDOWS [employer]ITY ENGINEER Talia Charles MD MAMMOGRAM BREAST BILATERAL On: 17-Jan-2017 Intent SCREENING DIGITAL ([id number])By: Talia Charles MD, MD, Dana M Nuclear Stress Test/Stress On: 02-Feb-2016 Intent SPECT/TreadmillBy: Talia Charles MD, MD, Dana M MAMMOGRAM, SCREENING, BOTH BREAST On: 05-Jan-2016 Intent ([id number])By: Talia Charles MD, MD, Dana M Flu Vaccine (Quadrivalent) On: 05-Jan-2016 Intent 25838Gy: Parker Ross Comments: Lot:[id number]:09/30/16Dose:0.5mLRoute:IMSite:L DltdGiven By:DINA signed PNEUM VAC ADLT/IMUMNOSPR, On: 28-Jul-2015 Intent SBC/INTRM ([id number])By: Araceli SUÁREZ, Comments: Lot:[id number]:01/08/17Dose:0.5mlRoute:imSite:l armGiven By:DINA signed Talia Johnson MD DEXA SCAN AXIAL SKELETON On: 28-Jul-2015 Intent ([id number])By: Talia Charles MD Comments: 10-16 due Talia Charles MD ELECTROCARDIOGRAM, COMPLETE (ECG) On: 02-Oct-2014 Intent ([id number])By: Talia Charles MD, MD, Dana M MRI - OtherBy: Talia Charles MD On: 24-Jul-2014 Intent Talia Charles MD Comments: R breast MRI OF RIGHT BREAST WITH AND On: 24-Jul-2014 Intent WITHOUT CONTRAST ([id number])By: Talia Charles MD, MD, Dana M MAMMOGRAM, SCREENING, BOTH BREAST On: 21-Jul-2014 Intent ([id number])By: Talia Charles MD, MD, Dana M ELECTROCARDIOGRAM, COMPLETE (ECG) On: 04-Mar-2014 Intent ([id number])By: Taila Charles MD, MD, Dana M DXA, BONE DENSITY, AXIAL SKELETON On: 01-Aug-2013 Intent ([id number])By: Talia Charles MD, MD Talia M EKG ([id number])By: Talia Charles MD On: 01-Aug-2013 Intent Talia Gunter MD Comments: see scanned document of test done to see results reviewed today with patient TDAP VACCINE >7 IM ([id number])By: On: 24-Sep-2012 Intent Talia Charles MD, MD, Dana M Ultrasound - PelvisBy: Araceli On: 06-Apr-2012 Intent Talia SUÁREZ MD, Dana M Comments: left ovary felt and postmenapausal EKG ([id number])By: Talia Charles MD On: 18-Jul-2011 Talia Gay MD Comments: see scanned document of test done to see results reviewed today with patient Breast Ultrasound - LeftBy: On: 18-Jul-2011 Intent Talia Charles MD, MD, Dana M DXA, BONE DENSITY, AXIAL SKELETON On: 20-Aug-2010 Intent ([id number])By: Talia Charles MD, MD, Dana M MAMMOGRAM, SCREENING, BOTH On: 20-Aug-2010 Intent BREASTS ([id number])By: Talia Charles MD, MD, Dana M Breast [...] On: 08-Aug-2008 Intent Talia Johnson MD EKG ([id number])By: Talia Charles MD On: 08-Aug-2008 Intent Talia Gunter MD MAMMOGRAM, SCREENING, BOTH On: 04-Jul-2007 Intent BREASTS ([id number])By: Talia Charles MD, MD, Dana M Bone Density StudyBy: Araceli SUÁREZ, On: 04-Jul-2007 Intent Talia Charles MD, Talia Carney MAMMOGRAM, SCREENING, BOTH On: 11-May-2006 Intent BREASTS ([id number])By: Araceli SUÁREZ, Talia Johnson MD Instructions Name Dates Details Annual Medicare Physical [...] Advance Directives Name Dates Details Immunization Registry [place] - Effective on Effective: 17-Jan-201701/17/2017. Expiration date [...] dosing regimen and considered effective by patient. Jyalen lele sleeps 7 hours per night. Impact [...] - Yes the patient did have (NOT LIME) a mini mental status exam done today. [...] The patient does have durable power of ip attorney and living will. The patient has [...] the patient did have (mms 30/30 wisper 3/) a mini me ntal status exam done [...] bracelet or put handrails in bathroom. [facility] the [facility]: PAP smear (under 5 years ago ), mammography (2014) and colonoscopy (2012). The patient does have durable power of ip attorney and living will. The joe ent [...] surgery the patient plans to recover at [facility] with family. Note for Pre-op visit: no [...] Pap (V72.31) (Mammo), Genital herpes, unspecified (054.10), [facility] Historical Summary On: 04-Jun-2008 [...] and unspecified noninfectious gastroenteritis and colitis (558.9), [facility] Office Visit On: 11-May-2006 [...]
--- OUTSIDE RECORDS SUMMARY | 2018-06-21 02:39 | XMS RPT_ITS | Continuity of Care Document ---
:1950 Author Organization [facility] Address [address] [facility] [address] [place] [address] Phone Care Team Providers Name Role Phone [...] shingles at executive physical scope 5-17 good. 7-15 new breast implants. mammo 02-01-17, BD 10-25-17, Hep C screening negative Status: Active BMI [...] not have 30 pack years. light. quit 4238-7817? Status: Active Hypercholesteremia (E78.00, 272.0) Comments: LDL [...] Medications Name Dates Details CALCIUM + D, 017-440TB-LNOH (Oral Tablet) 1 QD for 0 days [...] Start : 05-Jan-2016 End : 17-Jan-2017 Inactive HOSPICE CARE CONSULTANT-ZEL (Oral Tablet) 1 qd for 0 days Refills: 0 Ordered:28-Jul-2015 CLARENCE Grimm Start : 24-Sep-2012 End : 28-Jul-2015 Inactive ZOSTAVAX, 10458WCC/0.65ML (Subcutaneous Solution Reconstituted) uad For Solution For [...] Density Study Result: Comments: See Note; NOTES: [facility] Imaging Services [address] [place] [address] Dexa Bone Density Study MR#: [id number] Acct: [id number] Name: SHANITA MONTIEL Rep #: [id number] : 1950 F 67 From: Kar Sheridan MD PCP: Talia Charles MD Status: REG CLI Study: Dexa Bone Density Study Date of Exam: 10/25/17 Exam# [id number] Ordering Dr: Talia Charles MD STUDY: DUAL ENER GY X-RAY ABSORPTIOMETRY / DXA REASON FOR EXAM: Female, 67 years old. Postmenopausal screening TECHNIQUE: Bone Mineral Density (BMD) measurements of lumbar spine and bilateral hips were obtained. [facility]: 2015 FINDINGS: Lumbar Spine (L1- L4): g/cm2 [...] Service support , CC: Talia Charles MD Event Marketing Intern: Signed 25-Aug-2017 Thyroid Result: Comments: See Note; NOTES: [facility] Imaging Services [address] [place] [address] Thyroid MR#: [id number] Acct: [id number] Name: SHANITA MONTIEL Rep #: [id number] : [birth year] F 67 From: Isiah Sanchez MD PCP: Talia Charles MD Status: REG CLI Study: Thyroid Date of Exam: 08/25/17 Exam# [id number] Ordering Dr: Talia Charles MD STUDY: THYROID [...] Isiah Sanchez MD at 12:32 EDT Tel [phone], Service support , CC: Talia Charles MD Event Marketing Intern: Signed 01-Feb-2017 SCREENING MAMM (CAD), BILAT Result: Comments: See Note; NOTES: [facility] Imaging Services [address] [place] [place] [address] SCREENING MAMM (CAD), BILAT MR#: [id number] Acct: [id number] Name: SHANITA MONTIEL Rep #: : 1950 F 66 From: Isiah Sanchez MD PCP: Talia Charles MD Status: REG CLI Study: SCREENING MAMM (CAD), BILAT Date of Exam: 02/01/17 Exam# [id number] Ordering Dr: Talia Charles MD M AMMOGRAPHY [...] biopsy of a clinically suspicio us abnormality. [id number] Electronically Signed: Isiah Sanchez MD at 9:34 EDT Tel [phone], Service support , CC: Talia Charles MD Event Marketing Intern: Signed 05-Feb-2016 Nuclear Stress Test - Treadmil Result: Comments: See Note; NOTES: [facility] Imaging Services [address] [place] [address] Verdana 4d Nuclear Stress Test - Treadmil MR#: [id number] Acct: [id number] Name: Sean MONTIEL Rep #: [id number] : 1950 65 From: Juan Antonio Rubi MD Primary Care: Talia Charles MD Status: REG CLI Ordering Dr: Talia Charles MD Sex: F C DATE OF SERVICE: 02/05/2016 DATE OF STUDY: N 2015. EXERCISE TOLERANCE TEST: The patient exercised [...] Juan Antonio Rubi MD T: NTS JOB: [id number] 02/05/16 1525 <Electronically signed by Juan Antonio Rubi MD> Date Juan Antonio Rubi MD CC: Talia Charles MD Date Dictated: 02/05/16 1008 Date Transcribed: 02/05/161007 Event Marketing Intern: Signed 08-Jan-2016 Bilat Scrn Implant DIG AND CAD Result: Comments: See Note; NOTES: [facility] Imaging Services [address] [place] [address] Verdana 4d Bilat Scrn Implant DIG AND CAD MR#: [id number] Acct: [id number] Name: JODY MONTIEL Rep #: [id number] : 1950 F 65 From: Isiah Sanchez MD PCP: Talia Charles MD Status: REG CLI Study: Bilat Scrn Implant DIG AND CAD Date of Exam: 01/08/16 Exam# [id number] Ordering Dr: Talia Stapleton MD MAMMOGRAPHY - [...] delay biopsy of a clinically suspicious abnormality. [id number] Electronically Signed: Isiah Sanchez MD at 10:03 EDT Tel [phone], Service support [phone], CC: Talia Charles MD Event Marketing Intern: Signed 21-Oct-2015 Dexa Bone Density Study () Result: Comments: See Note; NOTES: [facility] Imaging Services [address] [place] [address] Verdana 4d Dexa Bone Density Study () MR#: [id number] Acct: [id number] Name : SHANITA MONTIEL Rep #: [id number] : 1950 F 65 From: Isiah Sanchez MD PCP: Talia Charles MD Status: REG CLI Study: Dexa Bone Density Study () Date of Exam: 10/21/15 Exam# [id number] Mabel du Dr: Talia Charles MD STUDY: [...] Isiah Sanchez MD at 12:45 EDT Tel [phone], Service support [phone], CC: Talia Charles MD Event Marketing Intern: Signed 30-Jul-2014 Breast w/o and/or W Cont Bilat Result: Comments: See Note; NOTES: [facility] Imaging Services [address] [place] [address] MRI Report MR#: [id number] Acct: [id number] Name: SHANITA MONTIEL Rep #: [id number] DO B: 1950 F 64 From: Nhan Berrios MD PCP: Talia Charles MD Status: REG CLI Study: Breast w/o and/or W Cont Bilat Date of Exam: 07/30/14 Exam# [id number] Ordering Dr: Talia Charles MD STUDY: LALA [...] MD at 15:53 EDT , Service support [phone], CC: Talia Charles MD Event Marketing Intern: Signed 23-Jul-2014 Breast Limited Unilateral Result: Comments: See Note; NOTES: [facility] Imaging Services [address] [place] [address] Ultrasound Report MR#: [id number] Acct: [id number] Name: SHANITA MONTIEL Rep #: [id number] : 1950 F 63 From: Isiah Sanchez MD PCP: Talia Charles MD Status: REG CLI Study: Breast Limited Unilateral Date of Exam: 07/23/14 Exam# [id number] Ordering Dr: Talia Charles MD S TUDY: [...] Isiah Sanchez MD at 16:02 EDT Tel [phone], Service support [phone], CC: Talia Charles MD Event Marketing Intern: Signed 23-Jul-2014 Bilat Diag Implant DIG AND CAD Result: Comments: See Note; NOTES: [facility] Imaging Services [address] [place] [address] Breast Imaging Report MR#: [id number] Acct: [id number] Name: SHANITA MONTIEL Rep #: : 1950 F 63 From: Isiah Sanchez MD PCP: Talia Charles MD Status: REG CLI Study: Bilat Diag Implant DIG AND CAD Date of Exam: 07/23/14 Exam# [id number] Ordering Dr: Talia Charles MD MAMMOGRAPHY - [...] Isiah burrows MD at 8:05 EDT Tel [phone], Service support [phone], CC: Talia Charles MD Event Marketing Intern: Signed Immunization Name Dates Details Influenza (3 years and up) on: 29-Jan-2018 Pneumococcal conjugate vaccine, 13 valent, IM on: 2015 Comments: [facility] Zoster (shingles) on: 2014 Comments: [facility] shingles Family History Unknown Family Member Name Dates Details Brother 1 Comments: [place] 58 yo, hypercholesterolemia Status: Active Brother 2 [...] Living Situation Comments: Lives with spouse, , Quaker important Status: Active No Caffeine Use Status: Active No Drug Use Status: Active Non Smoker/No Tobacco Use Status: Active Tobacco use: Former smoker. Status: Active Smoking Status Name Dates Details Former smoker Vital Signs Date Test Result Details 1-Knu-141639:36 Temperature 97.9 f Comments: Method: Temporal Pulse [...] 0.00 cm Results Date Description Value Details 6-Sif-300309:11 URINALYSIS (07123) Comments: PATIENT WAS FASTINGPERFORMED BY: CRAiLAR70 [facility] [id number] Microscopic Examination MICNIP (Normal) Comments: Microscopic not indicated and not performed. Nitrite, Urine Negative (Normal) Urobilinogen,Semi-Qn 0.2 mg/dL (Normal) Range: 0.2-1.0 Bilirubin Negative (Normal) Occult Blood Negative (Normal) Ketones Negative (Normal) Glucose Negative (Normal) Protein Negative (Normal) WBC Esterase Negative (Normal) Appearance Clear (Normal) Urine-Color Yellow (Normal) pH 6.5 (Normal) Range: 5.0-7.5 Specific [place] 1.013 (Normal) Range: 1.005-1.030 8-Xih-571774:11 CBC WITH MANUAL DIFF (13615) Comments: PATIENT WAS FASTINGPERFORMED BY: CRAiLAR70 [facility] [id number] Immature Grans (Abs) 0.0 {x10E3/uL} (Normal) Range: [...] 3.77-5.28 WBC 3.1 {x10E3/uL} (Abnormal) Range: 3.4-10.8 1-Sil-029091:11 Metabolic Panel, Comprehensive Comments: PATIENT WAS FASTINGPERFORMED BY: [facility]6370 [facility] [id number] (05025) ALT (SGPT) 12 [iU]/L (Normal) Range: 0-32 [...] 8-27 Glucose 84 mg/dL (Normal) Range: 65-99 8-Dll-347894:30 Thin prep Pap (73080) (no Comments: cuff scraping; No. of containers..01 ThinPrep VialPERFORMED BY: =G Tactics CloudSte[facility] [id number] BY: The DodoTurnTideSteward Health Care System [address] STD testing) [id number] Information: [id number] Age Gdln ACOG Testing AGE6 (Normal) Comments: <21 or >65 or no age provided 0-Brv-230065:30 Pap IG (Image Guided) Comments: No. of containers..01 ThinPrep VialPERFORMED BY: =G Margherita InventionsrRetail Optimizationst. luke's [facility] W [id number] BY: WB Margherita InventionsrRetail OptimizationSteward Health Care System [id number] Note: PAPSMR (Normal) Comments: The Pap smear [...] MALIGNANCY.THIS SPECIMEN WAS RESCREENED PART OF OUR BRANCH OPERATIONS MANAGER PROGRAM.Satisfactory for evaluation. No endocervical component is identified.Z0 1.419Erin Kayden gonzáles, Rf Manager (ASCP)Chela Armendariz, Rf Manager (ASCP) 2-Tkv-627387:00 CBC W/Diff, Automated Comments: [facility] [address] [place], [address] SMEAR COMMENT SCANNED (Normal) Comments: NEUTROPENIA NOTED [...] Range: 4.4-11.0 :47 CBC W/Diff, Automated Comments: [facility] [address] [place], [place], [id number] Absolute Lymph 1.05 {X10_3/ul} (Normal) Range: 0.83-4.51 [...] Range: 4.4-11.0 :16 CBC W/Diff, Automated Comments: [facility] [address] [place], [address] Absolute Lymph 0.95 {X10_3/ul} (Normal) Range: 0.83-4.51 [...] 4.2-5.4 WBC 2.7 K/mm3 (Abnormal) Range: 4.4-11.0 97-Srd-507160:18 METABOLIC PANEL, Comments: PATIENT WAS FASTINGPERFORMED BY: BN [facility] Qblokgsdfi1037 [facility] [id number] BY: CB [facility] Bvnbvu6961 [facility] [id number] [facility] (69075) ALT (SGPT) 11 [iU]/L (Normal) Range: 0-32 [...] 8-27 Glucose 86 mg/dL (Normal) Range: 65-99 86-Gqb-514229:18 TSH (03062) Comments: PATIENT WAS FASTINGPERFORMED BY: WowOwow [facility] [id number] BY: Beacon Holdinglin6370 [facility] [id number] TSH 1.780 {uIU/mL} (Normal) Range: 0.450-4.500 28-Xtr-655175:18 LIPOPROTEIN, BLD, BY NMR Comments: PATIENT WAS FASTINGPERFORMED BY: ToughSurgeryton1447 [facility] [id number] BY: Peeky Nplwwv0352 [facility] [id number]; fu 18 DB (78157) LP-IR Score <25 (Normal) Comments: INSULIN RESISTANCE MARKER <--Insulin Sensitive Insulin Resistant--> Percentile in Reference PopulationInsulin Resistance ScoreLP-IR Score Low 25th 50th 75th High <27 27 45 63 >63LP-IR Score is inaccurate if patient is non-fasting. .The LP-IR score is a laboratory developed i [facility] that has beenassociated with insulin resistance and [...] were developed and their performance characteristicsdetermined by [employer]. These assays have not been cleared by [...] 1600 - 2000 Very High > 2000 54-Vjw-799570:18 HEPATITIS C ANTIBODY Comments: PATIENT WAS FASTINGPERFORMED BY: [facility] [facility] [id number] BY: [address] [id number] (08636) Hep C Virus Ab <0.1 {s/co_ratio} (Normal) Range: 0.0-0.9 Comments: Negative: < 0.8 Indeterminate: 0.8 - 0.9 Positive: > 0.9 . The CDC recommends that a positive HCV antibody result be followed up with a HCV Nucleic Acid Amplification test (623182). 75-Sft-861986:08 Anti-Centromere B Ab Comments: [facility] (refer to report for specific site)refer to report for address and phone number ANTI-CENT B <0.2 {AI} (Normal) Range: 0.0-0.9 Comments: Performed at: [address] [id number] Director: Chang Greenberg PhD, Phone: [phone] 94-Yma-841074:08 Anti-Chromatin Comments: [facility] (refer to report for specific site)refer to report for address and phone number ANTICHROMATIN <0.2 {AI} (Normal) Range: 0.0-0.9 21-Tfo-417728:08 Anti-Kasia Comments: [facility] (refer to report for specific site)refer to report for address and phone number ANTI-KASIA <0.2 {AI} (Normal) Range: 0.0-0.9 25-Dlw-560198:08 Vlqr-Xvmpeojzoxt-41 AB Comments: [facility] (refer to report for specific site)refer to report for address and phone number ANTISCLER <0.2 {AI} (Normal) Range: 0.0-0.9 96-Qfb-040078:08 CBC W/Diff, Automated Comments: [facility] [address] [place], [address] Absolute Lymph 1.06 {X10_3/ul} (Normal) Range: 0.83-4.51 [...] 4.2-5.4 WBC 3.2 K/mm3 (Abnormal) Range: 4.4-11.0 04-Kjv-794258:08 Complement C3 Comments: [facility] (refer to report for specific site)refer to report for address and phone number COMP C3 107 mg/dL (Normal) Range: 82-167 Comments: Performed at: [address] [id number] Director: Chang Greenberg PhD, Phone: [phone] 42-Rqr-536920:08 Complement C4 Comments: [facility] (refer to report for specific site)refer to report for address and phone number COMP C4 15 mg/dL (Normal) Range: 14-44 06-Gas-012247:08 Liver Profile Comments: [facility] [address] [place], [place], [id number] D BILI 0.14 mg/dL (Normal) Range: 0.00-0.30 T BILI 0.90 mg/dL (Normal) Range: 0.20-1.00 ALT 19 U/L (Normal) Range: 12-78 ALK P 66 U/L (Normal) Range: 45-117 AST 14 U/L (Abnormal) Range: 15-37 GLOB 3.7 g/dL (Abnormal) Range: 2.3-3.5 ALB 4.1 g/dL (Normal) Range: 3.4-5.0 T PROT 7.8 g/dL (Normal) Range: 6.4-8.2 30-Cbd-095650:20 CBC W/Diff, Automated Comments: [facility] [address] [place], [place], [address] Absolute Lymph 1.15 {X10_3/ul} (Normal) Range: 0.83-4.51 [...] 4.2-5.4 WBC 2.9 K/mm3 (Abnormal) Range: 4.4-11.0 92-Vhw-384799:20 Liver Profile Comments: [facility] Bvuiecbcla7754 [facility] [place], [address] D BILI 0.14 mg/dL (Normal) Range: 0.00-0.30 T BILI 0.70 mg/dL (Normal) Range: 0.20-1.00 ALT 21 U/L (Normal) Range: 12-78 ALK P 65 U/L (Normal) Range: 45-117 AST 17 U/L (Normal) Range: 15-37 GLOB 3.9 g/dL (Abnormal) Range: 2.3-3.5 ALB 3.9 g/dL (Normal) Range: 3.4-5.0 T PROT 7.8 g/dL (Normal) Range: 6.4-8.2 46-Bag-124123:19 Thyroid Stim Hormone (TSH) Comments: [facility] N[address]ibamcft8503 [facility] [place], [address] TSH 1.62 {uIU/mL} (Normal) Range: 0.358-3.74 66-Tbj-893890:03 Anti-dsDNA Ab Comments: [facility] (refer to report for specific site)refer to report for address and phone number dsDNA AB 11 (Normal) Comments: High IU/mL 0 - 9Negative <5Equivocal 5 - 9Positive >9 98-Wva-149263:03 Anti-Histone Abs Comments: [facility] (refer to report for specific site)refer to report for address and phone number ANTIHISTO 3.0 (Normal) Comments: High Units 0.0 - 0.9Negative <1.0Weak Positive 1.0 - 1.5Moderate Positive 1.6 - 2.5Strong Positive >2.5 11-Fut-935658:03 Antiextractable Nug Ag Comments: [facility] (refer to report for specific site)refer to report for address and phone number CHENG Ab <0.2 (Normal) Comments: AI 0.0 - 0.9 RAILROAD CROSSING PROTECTION MAINTAINER Ab <0.2 (Normal) Comments: AI 0.0 - 0.9 04-Fjw-979629:03 Antinuclear Antibody, IFA Comments: [facility] (refer to [...] titers Nucleosomes, Histones Drug-induced SLE Speckled Sm, RAILROAD CROSSING PROTECTION MAINTAINER, SCL-70, SLE,MCTD,PSS (diffuse form), SS-A/SS-B Sjogrens Nuc leolar SCL-70, PM-1/SCL High titers Scleroderma, PM/DM Centromere Centromere PSS (limited form) w/Crest syndrome variable Nuclear Dot Sp100,y80-uoihdq Primary Biliary Cirrhosis ---------Nuclear GP210, Primary Biliary CirrhosisMembrane taryn A,B,C SPECKLED PAT. 1:640 (Normal) Comments: High AMAN test Positive Abnormal Comments: Negative <1:80Borderline 1:80Positive >1:80 (Normal) 95-Iwo-142997:03 CBC W/Diff, Automated Comments: [facility] [address] [place], [place], [id number] Absolute Lymph 1.58 {X10_3/ul} (Normal) Range: 0.83-4.51 [...] 4.2-5.4 WBC 3.5 K/mm3 (Abnormal) Range: 4.4-11.0 :03 Electrolyte Panel Comments: [facility] Yqotdednuk4815 [facility] [address] [place], [place], [id number] GAP 8 (Normal) Range: 5-15 CO2 29.0 mmol/L (Normal) Range: 21.0-32.0 CL 101 mmol/L (Normal) Range: 98-107 K 3.8 mmol/L (Normal) Range: 3.5-5.1 NA 138 mmol/L (Normal) Range: 136-145 :03 Liver Profile Comments: [facility] [address]62 [facility]. [place], [place], [address] D BILI 0.20 mg/dL (Normal) Range: 0.00-0.30 T BILI 0.80 mg/dL (Normal) Range: 0.20-1.00 ALT 20 U/L (Normal) Range: 12-78 ALK P 64 U/L (Normal) Range: 45-117 AST 15 U/L (Normal) Range: 15-37 GLOB 4.4 g/dL (Abnormal) Range: 2.3-3.5 ALB 4.0 g/dL (Normal) Range: 3.4-5.0 T PROT 8.4 g/dL (Abnormal) Range: 6.4-8.2 31-Jzq-477853:03 Sjogren's Antibodies A/B Comments: [facility] (refer to report for specific site)refer to report for address and phone number Anti-SS-B 2.0 (Normal) Comments: High AI 0.0 - 0.9 Anti-SS-A > 8.0 (Normal) Comments: High AI 0.0 - 0.9 0-Obv-608234:22 COMPLEMENT C4 (81913) Comments: copy Dr. jaime norton; PATIENT NOT FASTINGPERFORMED BY: [facility] Ezunjt2709 [facility] [id number] Complement C4, Serum 14 mg/dL (Normal) Range: 14-44 8-Jiw-016968:22 COMPLEMENT C3 (85734) Comments: copy Dr. geremias norton; PATIENT NOT FASTINGPERFORMED BY: CB [facility] Eufuys3166 [facility] [place] [id number] Complement C3, Serum 103 mg/dL (Normal) Range: 82-167 5-Brk-828548:22 C-Reactive Protein (13915) Comments: copy Dr. geremias norton; PATIENT NOT FASTINGPERFORMED BY: CB [facility] Xitykh6921 [facility] [place] [id number] C-Reactive Protein, Quant 0.5 mg/L (Normal) Range: 0.0-4.9 6-Mps-939300:22 Sed Rate Erythrocyte (93712) Comments: Dr. cierra scott; PATIENT NOT FASTINGPERFORMED BY: CB [facility] Wwqlge3179 [facility] [place] [id number] Sedimentation Rate-Westergren 4 mm/h (Normal) Range: 0-40 7-Tqr-647618:22 COMPLEMENT, TOTAL (CH50) Comments: seen Dr. norton; PATIENT NOT FASTINGPERFORMED BY: [facility] Vicsqa6422 [facility] [id number] (87595) Complement, Total (CH50) >60 U/mL (Abnormal) Range: 42-60 23-Pqx-821031:57 TSH (30797) Comments: PATIENT WAS FASTINGPERFORMED BY: INcubes[address] [id number] BY: [facility] Xtlbgd2619 [facility] [place] [id number] TSH 3.190 {uIU/mL} (Normal) Range: 0.450-4.500 83-Jss-402179:57 METABOLIC PANEL, Comments: PATIENT WAS FASTINGPERFORMED BY: Lab[address] [id number] BY: [facility] Shfgdq5623 [facility] [place] [id number] COMPREHENSIVE (71063) ALT (SGPT) 7 [iU]/L (Normal) Range: 0-32 [...] Glucose, Serum 84 mg/dL (Normal) Range: 65-99 22-Kfy-256066:57 LIPOPROTEIN, BLD, BY NMR Comments: PATIENT WAS FASTINGPERFORMED BY: BN [facility] [address] [id number] BY: CB [facility] Bqrybt4982 [facility] [id number]; fu 5-23 db (30535) LP-IR Score 30 (Normal) Comments: INSULIN RESISTANCE MARKER <--Insulin Sensitive Insulin Resistant--> Percentile in Reference PopulationInsulin Resistance ScoreLP-IR Score Low 25th 50th 75th High <27 27 45 63 >63LP-IR Score is inaccurate if patient is non-fasting. .The LP-IR score is a laboratory developed i [facility] that has beenassociated with insulin resistance and [...] were developed and their performance characteristicsdetermined by [employer]. These assays have not been cleared by [...] High 1600 - 2000 Very High > 28-Jul-201510:28 AMAN (ANTINUCLEAR ANTIBODY) Comments: PATIENT NOT FASTINGPERFORMED BY: INcubesMclaren Caro Region6370 [facility] [id number] (18832) AMAN Direct Positive (Abnormal) :28 URINALYSIS (73407) Comments: PATIENT NOT FASTINGPERFORMED BY: [facility]6370 [facility] [id number] Microscopic Examination MICNIP (Normal) Comments: Microscopic not indicated and not performed. Nitrite, Urine Negative (Normal) Urobilinogen,Semi-Qn 0.2 mg/dL (Normal) Range: 0.2-1.0 Bilirubin Negative (Normal) Occult Blood Negative (Normal) Ketones Negative (Normal) Glucose Negative (Normal) Protein Negative (Normal) WBC Esterase Negative (Normal) Appearance Cloudy (Abnormal) Urine-Color Yellow (Normal) pH 7.5 (Normal) Range: 5.0-7.5 Specific [place] 1.016 (Normal) Range: 1.005-1.030 :28 C-Reactive Protein (71605) Comments: PATIENT NOT FASTINGPERFORMED BY: INcubesMclaren Caro Region6370 [facility] [id number] C-Reactive Protein, Quant 7.7 mg/L (Abnormal) Range: 0.0-4.9 : Sed Rate Erythrocyte (38847) Comments: PATIENT NOT FASTINGPERFORMED BY: LabMclaren Caro Region6370 [facility] [id number] Sedimentation Rate-Westergren 7 mm/h (Normal) Range: 0-40 54-Eiu-933851:28 CBC (Auto) (03853) Comments: PATIENT NOT FASTINGPERFORMED BY: LabMclaren Car[facility] Region6370 [facility] [id number] Platelets 227 {x10E3/uL} (Normal) Range: 150-379 RDW 13.2 % (Normal) Range: 12.3-15.4 MCHC 33.2 g/dL (Normal) Range: 31.5-35.7 MCH 30.0 pg (Normal) Range: 26.6-33.0 MCV 90 fL (Normal) Range: 79-97 Hematocrit 38.2 % (Normal) Range: 34.0-46.6 Hemoglobin 12.7 g/dL (Normal) Range: 11.1-15.9 RBC 4.24 {x10E6/uL} (Normal) Range: 3.77-5.28 WBC 5.1 {x10E3/uL} (Normal) Range: 3.4-10.8 50-Gjj-018046:28 Metabolic Panel, Comments: PATIENT NOT FASTINGPERFORMED BY: LabCoMeadowview Psychiatric HospitalYdmqrz2760 [facility] [id number] Information: [id number],[id number] Comprehensive (06270) ALT (SGPT) 11 [iU]/L (Normal) Range: 0-32 [...] Glucose, Serum 79 mg/dL (Normal) Range: 65-99 6-Knf-640897:12 Basic Metabolic Panel (8) Comments: PATIENT NOT FASTINGPERFORMED BY: [employer] Psych[facility] HospitalGtlfxm4255 [facility] [id number] Calcium, Serum 9.5 mg/dL (Normal) Range: 8.7-10.3 [...] Glucose, Serum 81 mg/dL (Normal) Range: 65-99 7-Fpo-559434:12 CBC, Platelet, No Comments: PATIENT NOT FASTINGPERFORMED BY: [employer] HospitalDjiobg0825 [facility] [id number] Information: [id number] Differential Platelets 216 {x10E3/uL} Range: 150-379 (Normal) RDW 13.1 % (Normal) Range: 12.3-15.4 MCHC 32.8 g/dL (Normal) Range: 31.5-35.7 MCH 29.4 pg (Normal) Range: 26.6-33.0 MCV 90 fL (Normal) Range: 79-97 Hematocrit 40.6 % (Normal) Range: 34.0-46.6 Hemoglobin 13.3 g/dL (Normal) Range: 11.1-15.9 RBC 4.52 {x10E6/uL} Range: 3.77-5.28 (Normal) WBC 3.4 {x10E3/uL} Range: 3.4-10.8 (Normal) TSH 2.300 {uIU/mL} Comments: PATIENT NOT FASTINGPERFORMED BY: [facility]6370 [facility] [id number] 510:12 (Normal) Range: 0.450-4.500 BREAST BIOPSY (CHOOSE SITE) See Note (Normal) Comments: Test performed at:[facility] [address] [place] [address] 515:30 Comments: Patient: SHANITA MONTIEL : 1950 (64/F) Acct Num: [id number] Phys: Jaquan Padron MD Unit Num: [id number] Loc: LABSPEC Specimen: [id number] Received: 08/04/141614 Spec Type: BREAST BX TISSUES TISSUES: COMMENT Immunohistochemistry ([id number]) supports the above diagnosis. GROSS DESCRIPTION Received in a container labeled with the patient name and mary jo ignated needle core biopsy, right breast are three elongated cores of yellow- white soft tissuemeasuring in aggregate 2 x 0.5 x 0.1 cm. The specimen is totally submitted in one cassette. / AM: 08/06 TC:5 CPT: 26673 HEADER OPERATION: U/S guided needle core biopsy right breast PRE-OPERATIVE DIAGNOSIS: 793.89 abnormal finding on breast imaging TISSUE SUBMITTED: Right breast needle co re biopsy MICROSCOPIC DIAGNOSIS Right breast, ultrasound-guided needle core biopsy: Fat necrosis, fibrosis, and foreign body giant cell reaction to nonpolarizable material. Benign hist iocytic proliferation and mild chronic inflammation. No evidence of malignancy. AM: 08/06/14 Signed Anthony [facility] 08/07/14 <signature on file> IMMUNOHISTOCHEMISTRY See Note (Normal) Comments: Test performed at:[facility] [address] [place] [address] 50:00 Comments: Patient: SHANITA MONTIEL : 1950 (64/F) Acct Num: [id number] Phys: Jaquan Padron MD Unit Num: [id number] Loc: LABSPEC Specimen: [id number] Received: 08/06/14 1201 Spec Type: IMMUNO TISSUES TISSUES: SPECIMEN INFORMATION: Tissue Source: Right breast, core biopsy Clinical Info: Abnormal mammogram Specimen Number: [id number] CPT code: 27602, 89869 x3 METHODOLOGY: Deparaffinized sections of formalin-fixed tissue or PAP/DQ stained slides are incubated with monoclonal/polyclonal antibodies/oligonucleotide probes. Localization is made via biotin free immunoperoxidase method. Appropriate controls are performed and reacted as expected. Results on target cell population are indicated in the following table: RESULTS: ANTIBODY / CLONE RESULT AE1-3/PCK26 (AE1,AE3,PCK26) negative CK8 (TS1/27btmzV47) negative P53 (DO-7) negative Macro (HAM-56) positive These tests were developed and their performance characteristics determined by [facility]. They may not have been cleared or approved by the U.S. Food and Drug Administration. The FDA has de termined that such clearance or approval is not necessary. INTERPRETATION: Right breast, core biopsy: Consistent with fat necrosis. AM: 08/07/14 PHYSICIAN AND INSTITUTION [place] [address] Signed Anthony [facility] 08/07/14 <signature on file> :58 TSH (69355) Comments: PATIENT WAS FASTINGPERFORMED BY: [facility]Co[facility] HospitalLjmqpp7130 [facility] [id number] TSH 2.580 {uIU/mL} (Normal) Range: 0.450-4.500 58-Hlp-69815:58 METABOLIC PANEL, COMPREHENSIVE Comments: PATIENT WAS FASTINGPERFORMED BY: [facility] HospitalKbzxkg8137 [facility] [id number] (66535) ALT (SGPT) 9 [iU]/L (Normal) Range: 0-32 [...] mg/dL (Normal) Range: 65-99 :58 LIPID PANEL (29862) Comments: PATIENT WAS FASTINGPERFORMED BY: ADEA CuttersMaria [facility] [id number] LDL/HDL Ratio 1.9 {ratio_units} (Normal) Range: 0.0-3.2 [...] auto diff Comments: PATIENT WAS FASTINGPERFORMED BY: ADEA CuttersMaria [facility] [id number] Information: [id number] (44213) Immature Grans (Abs) 0.0 {x10E3/uL} (Normal) Range: [...] 3.77-5.28 WBC 3.9 {x10E3/uL} (Normal) Range: 3.4-10.8 3-Rpt-615211:11 Microscopic Examination Comments: PATIENT WAS FASTINGPERFORMED BY: [facility] Region6370 [facility] [id number] Bacteria None seen (Normal) Mucus Threads Present (Normal) Epithelial Cells (non renal) 0-10 {/hpf} (Normal) Range: 0 - 10 RBC None seen {/hpf} (Normal) Range: 0 - 3 WBC None seen {/hpf} (Normal) Range: 0 - 5 :03 T4, FREE (THYROXINE) (58959) Comments: PATIENT WAS FASTINGPERFORMED BY: IN[facility] Region6370 [facility] [id number] T4,Free(Direct) 1.28 ng/dL (Normal) Range: 0.82-1.77 5-Cgo-148201:03 URINALYSIS, W/ MICRO (97961) Comments: PATIENT WAS FASTINGPERFORMED BY: [facility]6370 [facility] [id number] Microscopic Examination See below: (Normal) Microscopic Examination MICRON (Normal) Comments: Microscopic follows if indicated. Nitrite, Urine Negative (Normal) Urobilinogen,Semi-Qn 0.2 mg/dL (Normal) Range: 0.0-1.9 Bilirubin Negative (Normal) Occult Blood Negative (Normal) Ketones Negative (Normal) Glucose Negative (Normal) Protein Negative (Normal) WBC Esterase Negative (Normal) Appearance Clear (Normal) Urine-Color Yellow (Normal) pH 6.5 (Normal) Range: 5.0-7.5 Specific [place] 1.015 (Normal) Range: 1.005-1.030 4-Uui-637450:03 CALCIFIDIOL (36443) VIT D 25 Comments: PATIENT WAS FASTINGPERFORMED BY: [facility]6370 [facility] [id number] Vitamin D, 25-Hydroxy 38.2 ng/mL (Normal) Range: 30.0-100.0 Comments: Vitamin D deficiency has been defined by the Fischer ofUc Healthcine and an Endocrine Society practice guideline as alevel of serum 25-OH vitamin D less than 20 ng/mL (1,2).The Endocrine Society went on to further define vitamin Dinsufficiency as a level between 21 and 29 ng/mL (2).1. IOM (Fischer of Medicine). 2010. Dietary reference intakes for calcium and D. [place]: The National Academies Press.2. Gustavo MF, Yvette ZUNIGA, Jus RIVERA, et al. Evaluation, treatment, and prevention of vitamin D deficiency: an Endocrine Society clinical practice guideline. JCEM. 2010; 96(7):1911-30. 5-Eet-499878:03 METABOLIC PANEL, COMPREHENSIVE Comments: PATIENT WAS FASTINGPERFORMED BY: [facility]6370 [facility] [id number] (70833) ALT (SGPT) 12 [iU]/L (Normal) Range: 0-32 [...] Glucose, Serum 86 mg/dL (Normal) Range: 65-99 5-Oim-480936:03 CBC WITH MANUAL DIFF (29264) Comments: PATIENT WAS FASTINGPERFORMED BY: [facility] Cgzvyl5822 [facility] [id number] Immature Grans (Abs) 0.0 {x10E3/uL} (Normal) Range: [...] 3.77-5.28 WBC 4.0 {x10E3/uL} (Normal) Range: 3.4-10.8 5-Dlk-364956:03 TSH (33572) Comments: PATIENT WAS FASTINGPERFORMED BY: [facility]Co[facility] HospitalPsaobj7586 [facility] [id number] TSH 2.970 {uIU/mL} (Normal) Range: 0.450-4.500 50-Jum-37585:21 CBC, Platelets & Auto Diff Comments: today; PATIENT NOT FASTINGPERFORMED BY: [facility]Co[facility] HospitalIudguy2590 [facility] [id number] Information: [id number] (39716) Immature Grans (Abs) 0.0 {x10E3/uL} (Normal) Range: [...] 3.77-5.28 WBC 3.2 {x10E3/uL} (Abnormal) Range: 4.0-10.5 03-Gfd-155926:04 PELVIC (NON ) Radiology Report See Note [...] Sanchez M.D.April 12, 2012 at 3:25:13 PM [id number] Signed GP/GP If you are the referring physician and would like to consult with theradiologist who provided this interpretation, please ruslan Lentz M.D. at [phone]. If this radiologist is unavailable, youwill be directed to another radiologist to assist. If you are a patient with a question regarding this report, rhona don referring physician directly. Professional Interpretation Provided By: [employer], Phone , These documents contain legally protected [...] documents. Dictated on 04/12/12 1308 by Nicholas SUÁREZ,fEfieranscribed on 04/12/12 153 by ITS IMPORTSign by Isiah Sanchez MD on 04/12/121531 Sign by: Isiah Sanchez MD 7-Lhb-674754:16 Pap IG, Ct-Ng, Comments: Source.............Cervical;VaginalNo. of containers..01 CYTYC Thin Prep VialPERFORMED BY: WB [facility] Slolosdwoq812 [facility] [id number] BY: =G [facility]120 Hil HPV-hr [facility] [id number] Information: [id number] Gonococcus, Nuc. Acid Amp Negative (Normal) Chlamydia, [...] are present.V72.31 ; Routine gynecolog ical examina tifc795.5 ; Leukorrhea, not specified as infectiveJennifer Camilo Rf Manager (ASCP) 1-Tai-433254:13 Genital Culture, Routine Comments: PERFORMED BY: [facility] LabCoybuy70 [facility] [id number] Information: SRC:VA Result 1 RGF (Normal) Comments: Routine genital rochelle. Genital Culture, Routine Final report (Normal) 9-Bwk-849100:03 GARDNERELLA VAG, NUCLEIC Comments: PATIENT NOT FASTINGPERFORMED BY: [facility] Erqhwp7608 [facility] [id number] Information: [id number] ACID DIR PROBE (44708) Gardnerella vaginalis Positive (Abnormal) Trichomonas vaginalis Negative (Normal) Aquiles species Negative (Normal) 06-Vci-693131:59 BREAST UNILATERAL Radiology Report See Note (Normal) [...] radiologist regarding this report, please call our [id number] line @ Dictated on 07/22/11 1139 by Nicholas SUÁREZ,Effieranscribed on 07/26/11 0810 by ITS IMPORTSign by Nicholas SUÁREZ,Isiah on 07/26/11 0 811 Sign by: Nicholas SUÁREZ,Isiah 53-Hql-138110:38 CBCD ANC 1.3 3/uL (Abnormal) Range: 2.0-7.7 [...] 4.2-5.4 WBC 3.2 K/mm3 (Abnormal) Range: 4.4-11.0 34-Fvi-505399:38 CMP GAP 6 (Normal) Range: 5-15 CO2 [...] 7-18 GLU 84 mg/dL (Normal) Range: 70-110 00-Qqw-499242:38 LIPID VLDL 18 mg/dL (Normal) Range: 5-40 [...] 200-240 mg/dL Borderline >240 mg/dL High Risk 68-Qev-894418:38 SED tSEDRATE 13 mm/h (Normal) Range: 0-30 68-Ewe-560304:38 UA LORIE NEGATIVE (Normal) UOB NEGATIVE (Normal) KYM NEGATIVE (Normal) UROBU 0.2 EU/dl (Normal) Range: 0.2 - 1.0 uPROTU NEGATIVE (Normal) RAJESH 6.0 (Normal) Range: 5.0-8.0 SGU 1.020 (Normal) Range: 1.002-1.030 KETU NEGATIVE mg/dL (Normal) BILIU NEGATIVE (Normal) GLUR NEGATIVE (Normal) UCLAR CLEAR (Normal) UCOL YELLOW (Normal) 9-Ptl-880872:54 URINE ROBERT CULTURE-BRYANNA COL Comments: PATIENT NOT FASTINGPERFORMED BY: MATY [facility] Jjlack6510 [facility] [id number] Information: SRC: URINE COUNT (86499) Result 1 NG36 (Normal) Comments: No growth in 36 - 48 hours. Urine Culture,Comprehensive Final report (Normal) 7-Lgx-553509:34 Urinalysis, Office (01530) UA - BILIRUBIN Negative (Normal) UA - BLOOD Negative (Normal) UA - GLUCOSE Negative (Normal) UA - KETONES Negative mg/dL (Normal) UA - LEUKOCYTE ESTERASE Negative (Normal) UA - NITRITE Negative (Normal) UA - PH 6.0 (Normal) UA - PROTEIN Negative mg/dL (Normal) UA - SPECIFIC GRAVITY 1.010 (Normal) URINE UROBILINGN BRYANNA TIMED Normal mg/dL (Normal) 56-Ftd-742750:25 DEXA BONE DENSITY STUDY () Radiology Report [...] on 09/22/10857 Sign by: Isiah Sanchez MD 84-Aev-190146:24 BILAT SCRN IMPLANT DIG & CAD Radiology [...] by ITS IMPORTSign by DURGA CARROLL MD [place] on 09/22/10 1326 Sign by: NINO CARROLL MD :48 Microscopic Examination Comments: PATIENT WAS FASTINGPERFORMED BY: [employer]6370 Wireless TechMaria [facility] Health [id number] Bacteria Few (Normal) Mucus Threads Present (Normal) Epithelial Cells (non renal) 0-10 {/hpf} (Normal) Range: 0 - 10 RBC None seen {/hpf} (Normal) Range: 0 - 3 WBC 0-5 {/hpf} (Normal) Range: 0 - 5 :48 Lipid Panel (85400) Comments: PATIENT WAS FASTINGPERFORMED BY: [employer]6370 Wireless TechMaria Parham Health [id number] LDL Cholesterol Calc 126 mg/dL (Abnormal) Range: 0-99 LDL/HDL Ratio 2.0 {ratio_units} (Normal) Range: 0.0-3.2 VLDL Cholesterol Miguel 19 mg/dL (Normal) Range: 5-40 Cholesterol, Total 207 mg/dL (Abnormal) Range: 100-199 HDL Cholesterol 62 mg/dL (Normal) Comments: According to ATP-III Guidelines, HDL-C >59 mg/dL is considered anegative risk factor for CHD. Triglycerides 95 mg/dL (Normal) Range: 0-149 :48 URINALYSIS (90021) Comments: PATIENT WAS FASTINGPERFORMED BY: [employer] Jileyy3532 Mcallister RezdyMaria Parham Health [id number] Microscopic Examination See below: (Normal) Bilirubin Negative (Normal) Glucose Negative (Normal) Ketones Negative (Normal) Nitrite, Urine Negative (Normal) Occult Blood 3+ (Abnormal) Urobilinogen,Semi-Qn 0.2 mg/dL (Normal) Range: 0.0-1.9 Protein Negative (Normal) WBC Esterase Negative (Normal) Appearance Clear (Normal) Urine-Color Yellow (Normal) pH 6.5 (Normal) Range: 5.0-7.5 Specific [place] 1.020 (Normal) Range: 1.005-1.030 :48 CBC, Platelets & Auto Diff Comments: PATIENT WAS FASTINGPERFORMED BY: [facility]Co[facility] HospitalYslhwz7926 [facility] [id number] (40857) Immature Grans (Abs) 0.0 {x10E3/uL} (Normal) Range: [...] 3.2 {x10E3/uL} (Abnormal) Range: 4.0-10.5 :48 TSH (91803) Comments: PATIENT WAS FASTINGPERFORMED BY: [facility]CoM[facility] HospitalLakxlq3844 [facility] [id number] TSH 3.920 {uIU/mL} (Normal) Range: 0.450-4.500 :48 Metabolic Panel, Comprehensive Comments: PATIENT WAS FASTINGPERFORMED BY: [facility]Co[facility] HospitalSjuvcw4465 [facility] [id number] (60247) ALT (SGPT) 11 [iU]/L (Normal) Range: 0-40 [...] Glucose, Serum 85 mg/dL (Normal) Range: 65-99 84-Hfv-671774:15 Anti-dsDNA Antibodies Comments: PERFORMED BY: [employer].[facility] HospitalMdiwns2918 [facility] [id number] Anti-DNA (DS) Ab Qn 4 {IU/mL} (Normal) Range: 0-9 Comments: Negative <5Equivocal 5 - 9Positive >9 C-Reactive Protein, 0.5 mg/L (Normal) Comments: PERFORMED BY: [employer] HospitalIljmjk9572 [facility] [id number] :15 Quant Range: 0.0-4.9 :15 CBC With Differential/Platelet Comments: PERFORMED BY: Col[employer]elin6370 [facility] [id number] Baso (Absolute) 0.0 {x10E3/uL} (Normal) Range: 0.0-0.2 [...] 3.80-5.10 WBC 3.0 {x10E3/uL} (Abnormal) Range: 4.0-10.5 55-Wjw-426861:15 Comp. Metabolic Panel (14) Comments: PERFORMED BY: LabCo Ewriei4321 [facility] [id number] Alkaline Phosphatase, S 73 [iU]/L Range: 25-165 [...] C3, Serum 116 {mg/dL_Adult} Comments: PERFORMED BY: [facility]6370 [facility] [id number] 12:15 (Normal) Range: 90-180 28-Jul-2009 Complement C4, Serum 15 {mg/dL_Adult} Comments: PERFORMED BY: IN[facility] Region6370 [facility] [id number] 12:15 (Normal) Range: 9-36 28-Jul-2009 Complement, Total (CH50) 53 U/mL (Normal) Comments: PERFORMED BY: [employer] HospitalBxhppq6439 [facility] [id number] 12:15 Range: 22-60 28-Jul-2009 TSH 3.440 {uIU/mL} Comments: PERFORMED BY: INcubesM[facility] Car[facility] Region[address] [place] [address] [id number] 12:15 (Normal) Range: 0.450-4.500 40-Xfv-182517:15 Urinalysis, Routine Comments: PERFORMED BY: [employer] HospitalFlemzb2750 [facility] [id number] Bilirubin Negative (Normal) Microscopic Examination MICRON (Normal) Comments: Microscopic follows if indicated. Nitrite, Urine Negative (Normal) Urobilinogen,Semi-Qn 0.2 mg/dL (Normal) Range: 0.0-1.9 Glucose Negative (Normal) Ketones Negative (Normal) Occult Blood Negative (Normal) Protein Negative (Normal) Appearance Clear (Normal) pH 6.5 (Normal) Range: 5.0-7.5 Specific [place] 1.019 (Normal) Range: 1.005-1.030 Urine-Color Yellow (Normal) WBC Esterase Negative (Normal) 34-Xwy-13575:06 UNILAT DIA DIGITAL & CAD Radiology Report See Note (Normal) Comments: Exam Number: [id number] UNILATERAL DIAGNOSTIC MAMMOGRAM Oblique and craniocaudal views of the left breast were obtaineddigitally. Comparison is made with the prior examinations datedJun2008, and J [facility] 2008. Interpretation was made with [...] w erealso examined with computer-aided detection software ([employer] !, [employer].). Reported By: ISIAH SANCHEZ 75-Dsb-783870:53 UNILAT LT DIAG DIGITAL & CAD Radiology Report See Note (Normal) Comments: Exam Number: [id number] MAMMOGRAM, UNILATERAL LEFT DIAGNOSTIC DIGITAL AND CAD [...] mammograms werealso examined with computer-aided detection software ([employer] !, Inc[employer] Reported By: NINO CARROLL M.D. 09-Sep-20088:22 BILAT SCRN DIGITAL & CAD Radiology Report See Note (Normal) Comments: Exam Number: [id number] MAMMOGRAM, BILATERAL SCREENING DIGITAL AND CAD HISTORYRoutine [...] mammograms werealso examined with computer-aided detection software ([employer], [employer].). Reported By: NINO CARROLL M.D. 09-Sep-20088:22 DEXA BONE DENSITY STUDY () Radiology Report See Note (Normal) Comments: Exam Number: [id number] BONE DENSITOMETRY HISTORYScreening, postmenopausal. TECHNIQUE Bone densitometry of the lumbar spine and both hips is now beingperformed. The best criteria for e valuation of osteoporosis is theT-value, which represents the comparison of the patient's bone mass israel expected peak bone mass. For most patients, the mean T-value of Z7uwlqnbd L4 is used to evaluate the lumbar [...] Report See Note (Normal) Comments: Exam Number: [id number] MYOCARDIAL PERFUSION SCAN TECHNIQUEThe patient was injected [...] patient was injected with 31 mCi of Fc29mVwdetlxwrs and subsequently stress SPECT Cardiolite nuclear imagingwas [...] reports an LVEF of 67%. Reported By: UJAN ANTONIO RUBI M.D. 3-Mtp-714450:53 Anti-dsDNA Antibodies Comments: PATIENT WAS FASTINGPERFORMED BY: LabM[facility]6370 [facility] [id number] Anti-DNA (DS) Ab Qn 1 {IU/mL} (Normal) Range: 0-9 Comments: Negative <5 Equivocal 5 - 9 Positive >9 Antinuclear Antibodies Positive (Abnormal) Comments: PATIENT WAS FASTINGPERFORMED BY: [facility]6370 [facility] [id number] :53 Direct C-Reactive Protein, 0.7 mg/L (Normal) Comments: PATIENT WAS FASTINGPERFORMED BY: [facility]6370 [facility] [id number] :53 Quant Range: 0.0-4.9 :53 CBC With Differential/Platelet Comments: PATIENT WAS FASTINGPERFORMED BY: [facility]6370 [facility] [id number] Baso (Absolute) 0.0 {x10E3/uL} (Normal) Range: 0.0-0.2 [...] 11.7-15.0 WBC 2.6 {x10E3/uL} (Abnormal) Range: 4.0-10.5 6-Ayc-163143:53 Comp. Metabolic Panel (14) Comments: PATIENT WAS FASTINGPERFORMED BY: [facility]6370 [facility] [id number] A/G Ratio 1.4 (Normal) Range: 1.1-2.5 Albumin, [...] 119 {mg/dL_Adult} Comments: PATIENT WAS FASTINGPERFORMED BY: [address] [id number] 0:53 (Normal) Range: 90-180 Complement C4, Serum 15 {mg/dL_Adult} Comments: PATIENT WAS FASTINGPERFORMED BY: [address] [id number] 0:53 (Normal) Range: 9-36 Complement, Total (CH50) 55 U/mL (Normal) Comments: PATIENT WAS FASTINGPERFORMED BY: [address] [id number] 0:53 Range: 22-60 :53 Lipid Panel With LDL/HDL Comments: PATIENT WAS FASTINGPERFORMED BY: [address] [id number] Ratio Cholesterol, Total 180 mg/dL (Normal) Range: [...] mm/h (Normal) Comments: PATIENT WAS FASTINGPERFORMED BY: [address] [id number] :53 Rate-Westergren Range: 0-30 TSH 2.547 {uIU/mL} Comments: PATIENT WAS FASTINGPERFORMED BY: [address] [id number] :53 (Normal) Range: 0.450-4.500 8-Ifi-504269:53 Urinalysis, Routine Comments: PATIENT WAS FASTINGPERFORMED BY: [facility]CoM[facility] HospitalRzdrxz7056 [facility] [id number] Appearance Clear (Normal) Bilirubin Negative (Normal) Glucose Negative (Normal) Ketones Negative (Normal) Microscopic Examination MICRON (Normal) Comments: Microscopic follows if indicated. Nitrite, Urine Negative (Normal) Occult Blood Negative (Normal) pH 6.5 (Normal) Range: 5.0-7.5 Protein Negative (Normal) Specific [place] 1.009 (Normal) Range: 1.005-1.030 Urine-Color Yellow (Normal) Urobilinogen,Semi-Qn 0.2 mg/dL (Normal) Range: 0.0-1.9 WBC Esterase Negative (Normal) :44 Thin prep Pap Comments: Source.............Cervical;EndocervicalLMP / Prev Treat...NSB=[id number]. of containers..01 CYTYC Thin Prep VialPATIENT NOT FASTINGClinical Information: ADD [id number] PERFORMED BY: [employer] ([address]11) [address] [id number] . . (Normal) DIAGNOSIS: SPRCS (Normal) Comments: NEGATIVE FOR INTRAEPITHELIAL LESION AND MALIGNANCY.Satisfactory for evaluation. No endocervical component is identified.V72.31 ; Routine gynecological examinationAlejandra Mendez Rf Manager (ASCP) Note: PAPSMR (Normal) Comments: The Pap [...] Well woman exam : *Well Female Maintenance ([place]) Indication: Well woman exam Well woman exam [...] woman exam Planned Observations METABOLIC PANEL, COMPREHENSIVE (56929)Indication: Hypercholesteremia On: 3-Cnw-345903:47 Request LIPOPROTEIN, BLD, BY NMR (12732)Indication: Hypercholesteremia On: 0-Yto-096590:47 Request TSH (60225)Indication: Hypothyroidism On: 3-Zqt-221646:46 Request TSH (50047)Indication: Hypothyroidism On: 63-Ywb-707480:10 Request Systemic Lupus Profile (93068)Indication: Lupus (systemic lupus erythematosus) On: 05-Jan-20169:57 Request Comments: send to Dr Norton CBC (Auto) (26373)Indication: Pre-operative examination On: 2-Dlp-752711:08 Request Metabolic Panel, Basic (96125)Indication: Pre-operative examination On: 0-Uvm-259586:08 Request TSH (00972)Indication: Hypothyroidism On: 2-Xsq-519095:07 Request CALCIFEDIOL (83679)Indication: Hypothyroidism On: 6-Tee-009479:12 Request URINALYSIS, W/ MICRO (67105)Indication: Hypothyroidism On: 7-Evs-753891:11 Request CBC WITH MANUAL DIFF (44411)Indication: Hypothyroidism On: 0-Nog-596535:11 Request Metabolic Panel, Comprehensive (72360)Indication: Hypothyroidism On: 1-Kjw-784626:11 Request Lipid Panel (08418)Indication: Hypothyroidism On: 0-Whx-110693:11 Request TSH (51009)Indication: Hypothyroidism On: 7-Cnt-861362:11 Request TSH (THYROID STIMULATING HORMONE) (34999)Indication: Hypothyroidism On: :43 Request METABOLIC PANEL, COMPREHENSIVE (55956)Indication: ERYTHEMATOSUS, LUPUS On: :43 Request LIPID PANEL (10094)Indication: ERYTHEMATOSUS, LUPUS On: :43 Request NEISSERIA (48461) (THIN PREP OBTAINED)Indication: Vaginal Discharge On: :43 Request CHLAMYDIA (52802) (thin prep obtained)Indication: Vaginal Discharge On: :43 Request ROBERT CULTURE-OTHER (20928)Indication: Vaginal Discharge On: :43 Request BACT CULTURE ANY-ANAEROBIC (44113)Indication: Vaginal Discharge On: :43 Request INFCT ANTGN TRICH VAGIN DIRECT PRB (19868)Indication: Vaginal Discharge On: :43 Request AQUILES, NUCLEIC ACID DIRECT PROBE (14882)Indication: Vaginal Discharge On: :43 Request Thin prep Pap (53858)Indication: Well woman exam On: :29 Request URINALYSIS (59889)Indication: Lupus (systemic lupus erythematosus) On: :26 Request Sed Rate Erythrocyte (39082)Indication: Lupus (systemic lupus erythematosus) On: :26 Request CBC, Platelets & Auto Diff (44331)Indication: Lupus (systemic lupus erythematosus) On: :25 Request Lipid Panel (29694)Indication: Hypothyroidism On: :25 Request Metabolic Panel, Comprehensive (94451)Indication: Lupus (systemic lupus erythematosus) On: :25 Request DNA ANTIBODY-NATV/DBL ST (19845)Indication: Lupus (systemic lupus erythematosus) On: :49 Request COMPLEMENT C4 (64203)Indication: Lupus (systemic lupus erythematosus) On: :48 Request COMPLEMENT C3 (88412)Indication: Lupus (systemic lupus erythematosus) On: :48 Request COMPLEMENT, TOTAL (CH50) (88057)Indication: Lupus (systemic lupus erythematosus) On: :48 Request C-Reactive Protein (07915)Indication: Lupus (systemic lupus erythematosus) On: :48 Request URINALYSIS (77421)Indication: Lupus (systemic lupus erythematosus) On: :48 Request CBC (Auto) (35288)Indication: Lupus (systemic lupus erythematosus) On: :48 Request Metabolic Panel, Comprehensive (71592)Indication: Lupus (systemic lupus erythematosus) On: :48 Request TSH (31632)Indication: Hypothyroidism On: :48 Request Thin prep Pap (99884)Indication: Well woman exam On: :35 Request C-Reactive Protein (12896)Indication: Lupus (systemic lupus erythematosus) On: :03 Request DNA ANTIBODY-NATV/DBL ST (37974)Indication: Lupus (systemic lupus erythematosus) On: :02 Request Sed Rate Erythrocyte (77776)Indication: Lupus (systemic lupus erythematosus) On: :01 Request COMPLEMENT C4 (86199)Indication: Lupus (systemic lupus erythematosus) On: 08-Aug-20088:00 Request COMPLEMENT C3 (71687)Indication: Lupus (systemic lupus erythematosus) On: :00 Request COMPLEMENT, TOTAL (CH50) (13692)Indication: Lupus (systemic lupus erythematosus) On: 08-Aug-20088:00 Request AMAN (ANTINUCLEAR ANTIBODY) (57583)Indication: Lupus (systemic lupus erythematosus) On: :00 Request URINALYSIS (43858)Indication: Lupus (systemic lupus erythematosus) On: :57 Request TSH ([id number])Indication: Hypothyroidism On: :57 Request CBC (Auto) ([id number])Indication: Lupus (systemic lupus erythematosus) On: :57 Request Metabolic Panel, Comprehensive ([id number])Indication: Lupus (systemic lupus erythematosus) On: :57 Request Lipid Panel ([id number])Indication: Lupus (systemic lupus erythematosus) On: :57 Request Lipid Panel ([id number])Indication: Hypothyroidism On: :47 Request TSH ([id number])Indication: Hypothyroidism On: 2-Apr-64908:43 Request LIPID PANEL ([id number])Indication: Well woman exam On: 2-Mzx-557053:00 Request CBC (AUTO) ([id number])Indication: Lupus (systemic lupus erythematosus) On: 11-May-20069:59 Request Planned Encounters Medical; MIRIAM 6 Month Fu - On: 21-Sep-2018 13:00 [facility] Araceli SUÁREZ, Talia Johnson MD Planned Procedures DIAGNOSTIC MAMMOGRAPHY OF BOTH On: 06-Mar-2018 Intent BREASTS ([id number])By: Talia Charles MD, MD, Dana M Breast Ultrasound - RightBy: On: 06-Mar-2018 Intent Talia Charles MD, MD, Dana M ULTRASOUND OF NECK WITH FOCUS ON On: 25-Aug-2017 Intent THYROID ([id number])By: Araceli SUÁREZ, Comments: include area on left side where tender. Talia Johnson MD DEXA SCAN AXIAL SKELETON On: 07-Aug-2017 Intent ([id number])By: Talia Charles MD, MD, Dana M Flu Vaccine (Quadrivalent) On: 17-Jan-2017 Intent [id number]: Talia Charles MD Comments: QUAD flu shotlot number: [id number]: 07/2017L Deltoid IMAD HOT KETTLE TENDER Talia Charles MD MAMMOGRAM BREAST BILATERAL On: 17-Jan-2017 Intent SCREENING DIGITAL ([id number])By: Talia Charles MD, MD, Dana M Nuclear Stress Test/Stress On: 02-Feb-2016 Intent SPECT/TreadmillBy: Talia Charles MD, MD, Dana M MAMMOGRAM, SCREENING, BOTH BREAST On: 05-Jan-2016 Intent ([id number])By: Talia Charles MD, MD, Dana M Flu Vaccine (Quadrivalent) On: 05-Jan-2016 Intent [id number]: Parker Ross Comments: Lot:[id number]:09/30/16Dose:0.5mLRoute:IMSite:L DltdGiven By:DINA signed PNEUM VAC ADLT/IMUMNOSPR, On: 28-Jul-2015 Intent SBC/INTRM ([id number])By: Araceli SUÁREZ, Comments: Lot:[id number]:01/08/17Dose:0.5mlRoute:imSite:l [place] By:JKOLBY signed Talia Johnson MD DEXA SCAN AXIAL SKELETON On: 28-Jul-2015 Intent ([id number])By: Talia Charles MD Comments: - due Talia Charles MD ELECTROCARDIOGRAM, COMPLETE (ECG) On: 02-Oct-2014 Intent ([id number])By: Talia Charles MD, MD, Dana M MRI - OtherBy: Talia Charles MD On: 24-Jul-2014 Intent Talia Charles MD Comments: R breast MRI OF RIGHT BREAST WITH AND On: 24-Jul-2014 Intent WITHOUT CONTRAST ([id number])By: Talia Charles MD, MD, Dana M MAMMOGRAM, SCREENING, BOTH BREAST On: 21-Jul-2014 Intent ([id number])By: Talia Charles MD, MD, Dana M ELECTROCARDIOGRAM, COMPLETE (ECG) On: 04-Mar-2014 Intent ([id number])By: Talia Charles MD, MD, Dana M DXA, BONE DENSITY, AXIAL SKELETON On: 01-Aug-2013 Intent ([id number])By: Talia Charles MD, MD, Dana M EKG ([id number])By: Talia Charles MD On: 01-Aug-2013 Intent Talia Gunter MD Comments: see scanned document of test done to see results reviewed today with patient TDAP VACCINE >7 IM ([id number])By: On: 24-Sep-2012 Intent Talia Charles MD, MD, Dana M Ultrasound - PelvisBy: Araceli On: 06-Apr-2012 Talia Mcneil MD, MD, Dana M Comments: left ovary felt and postmenapausal EKG ([id number])By: Talia Charles MD On: 18-Jul-2011 Intent Talia Gunter MD Comments: see scanned document of test done to see results reviewed today with patient Breast Ultrasound - LeftBy: On: 18-Jul-2011 Intent Talia Charles MD, MD, Talia Carney DXA, BONE DENSITY, AXIAL SKELETON On: 20-Aug-2010 Intent ([id number])By: Talia Charles MD, MD, Dana M MAMMOGRAM, SCREENING, BOTH On: 20-Aug-2010 Intent BREASTS ([id number])By: Talia Charles MD, MD, Dana M Breast [...] On: 08-Aug-2008 Intent Talia Johnson MD EKG ([id number])By: Talia Charles MD On: 08-Aug-2008 Intent Talia Gunter MD MAMMOGRAM, SCREENING, BOTH On: 04-Jul-2007 Intent BREASTS ([id number])By: Talia Charles MD, MD, Dana M Bone Density StudyBy: Araceli SUÁREZ, On: 04-Jul-2007 Intent Talia Johnson MD MAMMOGRAM, SCREENING, BOTH On: 11-May-2006 Intent BREASTS ([id number])By: Talia Charles MD, MD, Dana M Instructions [...] Advance Directives Name Dates Details Immunization Registry [place] - Effective on Effective: 17-Jan-201701/17/2017. Expiration date unspecified Encounters Office Visit On: 06-Mar-2018 10:21 Encounter Reason: [...] regimen and considered effective by patient. Jaylen rheaonel sleeps 7 hours per night. Impact of [...] - Yes the patient did have (NOT [place]) a mini mental status exam done today. The activities of daily living the patient needs help with are none. The patient has driven in past 6 months and put area rugs through house, but the patient has not had fecal incontinence, had urinary incontinence, missed or ran out of medications to soon, fallen in the past 6 mons, gotten lost, has a medalert necklace or bracelet or put handrails in bathroom. The patient has completed the following preventative measures: PAP smear (years ago ), mammography (annually ) and col onoscopy (2012). The patient does have durable power of assistant attorney general and living will. The patient has noticed [...] screening, mammography (2014) and screening, visual acuity (/).Encounter Diagnosis: BMI between 19-24,adult, Current nonsmoker, Need [...] The patient does have durable power of assistant attorney general and living will. The joe ent has [...] surgery the patient plans to recover at [facility] with family. Note for Pre-op visit: [...] Pap (V72.31) (Mammo), Genital herpes, unspecified (054.10), [facility] Historical [...] and unspecified noninfectious gastroenteritis and colitis (558.9), [facility] Office [...]
--- OUTSIDE RECORDS SUMMARY | 2018-06-21 02:40 | XMS RPT_ITS | Continuity of Care Document ---
:1950 Author Organization [facility] Address [address] [facility] [address] [place] [address] Phone Care Team Providers Name Role Phone [...] not have 30 pack years. light. quit [phone]? Status: Active Hypercholesteremia (E78.00, 272.0) Comments: LDL [...] Medications Name Dates Details CALCIUM + D, 087-368AD-IWDQ (Oral Tablet) 1 QD for 0 days Refills: 0 Ordered:07-Aug-2017 Ciara Luong Levothyroxine Sodium 75 MCG Oral Tablet 1 [...] days Quantity: 90 {Tablet} Refills: 3 Ordered:28-Jul-2015 Talia Charles MD, MD, Dana M Start : 28-Jul-2015 Active Aspirin 81 MG [...] Start : 05-Jan-2016 End : 17-Jan-2017 Inactive STEMHOLE BORER AND TOPPER-ZEL (Oral Tablet) 1 qd for 0 days Refills: 0 Ordered:28-Jul-2015 CLARENCE Grimm Start : 24-Sep-2012 End : 28-Jul-2015 Inactive ZOSTAVAX, 80311XHF/0.65ML (Subcutaneous Solution Reconstituted) uad For Solution For Solution once SC for 0 days Quantity: 1 {Vial} Refills: 0 Ordered:28-Jul-2015 CLARENCE Grimm Start : 01-Aug-2013 End : 28-Jul-2015 Inactive HYDROXYCHLOROQUINE SULFATE, 200MG (Oral Tablet) 1 Tablet QD for 0 days Quantity: 90 {Tablet} Refills: 3 Ordered:04-Jul-2007 AlafCLARENCE Start : 04-Jul-2007 End : 02-Aug-2007 Discontinued SYNTHROID, 75MCG (Oral Tablet) 1 Tablet qd for 0 days Quantity: 30 {Tablet} Refills: 3 Ordered:12-Feb-2006 Alfa CLARENCE Start : 12-Feb-2006 End : 11-May-2006 Discontinued [...] Density Study Result: Comments: See Note; NOTES: [facility] Imaging Services [address] [place] [address] Dexa Bone Density Study MR#: [id number] Acct: [id number] Name: SHANITA MONTIEL Rep #: [id number] : 1950 F 67 From: Kar Sheridan MD PCP: Talia Charles MD Status: REG CLI Study: Dexa Bone Density Study Date of Exam: 10/25/17 Exam# [id number] Ordering Dr: Talia Charles MD STUDY: DUAL ENER GY X-RAY ABSORPTIOMETRY / DXA REASON FOR EXAM: Female, 67 years old. Postmenopausal screening TECHNIQUE: Bone Mineral Density (BMD) measurements of lumbar spine and bilateral hips were obtained. COMP [facility]: 2015 FINDINGS: Lumbar Spine (L1- L4): g/cm2 [...] Service support , CC: Talia Charles MD Stage Rigger: Signed 25-Aug-2017 Thyroid Result: Comments: See Note; NOTES: [facility] Imaging Services [address] [place] [address] Thyroid MR#: [id number] Acct: [id number] Name: SHANITA MONTIEL Rep #: [id number] : [birth year] F 67 From: Isiah Sanchez MD PCP: Talia Charles MD Status: REG CLI Study: Thyroid Date of Exam: 08/25/17 Exam# [id number] Ordering Dr: Talia Charles MD STUDY: THYROID [...] Isiah Sanchez MD at 12:32 EDT Tel [phone], Service support , CC: Talia Charles MD Stage Rigger: Signed 01-Feb-2017 SCREENING MAMM (CAD), BILAT Result: Comments: See Note; NOTES: [facility] Imaging Services [address] [place] [address] SCREENING MAMM (CAD), BILAT MR#: [id number] Acct: [id number] Name: SHANITA MONTIEL Rep #: [id number] : 1950 F 66 From: Isiah Sanchez MD PCP: Talia Charles MD Status: REG CLI Study: SCREENING MAMM (CAD), BILAT Date of Exam: 02/01/17 Exam# [id number] Ordering Dr: Talia Charles MD M AMMOGRAPHY [...] biopsy of a clinically suspicio us abnormality. [id number] Electronically Signed: Isiah Sanchez MD at 9:34 EDT Tel [phone], Service support , CC: Talia Charles MD Stage Rigger: Signed 05-Feb-2016 Nuclear Stress Test - Treadmil Result: Comments: See Note; NOTES: [facility] Imaging Services [address] [place] [address] Verdana 4d Nuclear Stress Test - Treadmil MR#: [id number] Acct: [id number] Name: Sean MONTIEL Rep #: [id number] : 1950 65 From: Juan Antonio Rubi [...] Juan Antonio Rubi MD T: NTS JOB: [id number] 02/05/16 1525 <Electronically signed by Juan Antonio Rubi MD> Date Juan Antonio Rubi MD CC: Talia Charles MD Date Dictated: 02/05/16 1008 Date Transcribed: 02/05/161007 Stage Rigger: Signed 08-Jan-2016 Bilat Scrn Implant DIG AND CAD Result: Comments: See Note; NOTES: [facility] Imaging Services [address] [place] [address] Verdana 4d Bilat Scrn Implant DIG AND CAD MR#: [id number] Acct: [id number] Name: JODY MONTIEL Rep #: [id number] : 1950 F 65 From: Isiah Sanchez MD PCP: Talia Charles MD Status: REG CLI Study: Bilat Scrn Implant DIG AND CAD Date of Exam: 01/08/16 Exam# [id number] Ordering Dr: Talia Stapleton MD MAMMOGRAPHY - [...] delay biopsy of a clinically suspicious abnormality. [id number] Electronically Signed: Isiah Sanchez MD at 10:03 EDT Tel [phone], Service support [phone], CC: Talia Charles MD Stage Rigger: Signed 21-Oct-2015 Dexa Bone Density Study (HP) Result: Comments: See Note; NOTES: [facility] Imaging Services [address] [place] [address] Verdana 4d Dexa Bone Density Study () MR#: [id number] Acct: [id number] Name : SHANITA MONTIEL Rep #: [id number] : 1950 F 65 From: Isiah Sanchez MD PCP: Talia Charles MD Status: REG CLI Study: Dexa Bone Density Study () Date of Exam: 10/21/15 Exam# [id number] Mabel du Dr: Talia Charles MD STUDY: [...] Isiah Sanchez MD at 12:45 EDT Tel [phone], Service support [phone], CC: Talia Charles MD Stage Rigger: Signed 30-Jul-2014 Breast w/o and/or W Cont Bilat Result: Comments: See Note; NOTES: [facility] Imaging Services [facility] [place] [address] MRI Report MR#: [id number] Acct: [id number] Name: SHANITA MONTIEL Rep #: [id number] DO B: 1950 F 64 From: Nhan Berrios MD PCP: Talia Charles MD Status: REG CLI Study: Breast w/o and/or W Cont Bilat Date of Exam: 07/30/14 Exam# [id number] Ordering Dr: Talia Charles MD STUDY: LALA [...] MD at 15:53 EDT , Service support [phone], CC: Talia Charles MD Stage Rigger: Signed 23-Jul-2014 Breast Limited Unilateral Result: Comments: See Note; NOTES: [facility] Imaging Services [address] [place] [address] Ultrasound Report MR#: [id number] Acct: [id number] Name: SHANITA MONTIEL Rep #: [id number] : 1950 F 63 From: Isiah Sanchez MD PCP: Talia Charles MD Status: REG CLI Study: Breast Limited Unilateral Date of Exam: 07/23/14 Exam# [id number] Ordering Dr: Talia Charles MD S TUDY: [...] Isiah Sanchez MD at 16:02 EDT Tel [phone], Service support [phone], CC: Talia Charles MD Stage Rigger: Signed 23-Jul-2014 Bilat Diag Implant DIG AND CAD Result: Comments: See Note; NOTES: [facility] Imaging Services [address] [place] [address] Breast Imaging Report MR#: [id number] Acct: [id number] Name: SHANITA MONTIEL Rep #: [id number] : 1950 F 63 From: Isiah Sanchez MD PCP: Talia Charles MD Status: REG CLI Study: Bilat Diag Implant DIG AND CAD Date of Exam: 07/23/14 Exam# [id number] Ordering Dr: Talia Charles MD MAMMOGRAPHY - [...] Isiah burrows MD at 8:05 EDT Tel [phone], Service support [phone], CC: Talia Charles MD Stage Rigger: Signed Immunization Name Dates Details Influenza (3 years and up) on: 29-Jan-2018 Pneumococcal conjugate vaccine, 13 valent, IM on: 2015 Comments: [facility] Zoster (shingles) on: 2014 Comments: [facility]les Family History Unknown Family Member Name Dates Details Brother 1 Comments: [place] 58 yo, hypercholesterolemia Status: Active Brother 2 [...] smoker Vital Signs Date Test Result Details 4-Frv-238134:36 Temperature 97.9 f Comments: Method: Temporal Pulse [...] 0.00 cm Results Date Description Value Details 9-Mzs-607029:11 URINALYSIS (12585) Comments: PATIENT WAS FASTINGPERFORMED BY: [employer] Lijuvd4940 [facility] [id number] Microscopic Examination MICNIP (Normal) Comments: Microscopic not indicated and not performed. Nitrite, Urine Negative (Normal) Urobilinogen,Semi-Qn 0.2 mg/dL (Normal) Range: 0.2-1.0 Bilirubin Negative (Normal) Occult Blood Negative (Normal) Ketones Negative (Normal) Glucose Negative (Normal) Protein Negative (Normal) WBC Esterase Negative (Normal) Appearance Clear (Normal) Urine-Color Yellow (Normal) pH 6.5 (Normal) Range: 5.0-7.5 Specific Carlisle 1.013 (Normal) Range: 1.005-1.030 8-Sxa-153874:11 CBC WITH MANUAL DIFF (39499) Comments: PATIENT WAS FASTINGPERFORMED BY: [facility]6[address] [facility] [id number] Immature Grans (Abs) 0.0 {x10E3/uL} (Normal) Range: [...] 3.77-5.28 WBC 3.1 {x10E3/uL} (Abnormal) Range: 3.4-10.8 5-Cle-757619:11 Metabolic Panel, Comprehensive Comments: PATIENT WAS FASTINGPERFORMED BY: [facility]6[address] [facility] [id number] (21887) ALT (SGPT) 12 [iU]/L (Normal) Range: 0-32 [...] 8-27 Glucose 84 mg/dL (Normal) Range: 65-99 3-Dzq-305295:30 Thin prep Pap (32752) (no Comments: cuff scraping; No. of containers..01 ThinPrep VialPERFORMED BY: =G [place]-Asian. IncDelta Community Medical Center [id number] BY: Sword DiagnosticsBrightBox TechnologiesDelta Community Medical Center [address] STD testing) [id number] Information: [id number] Age Gdln ACOG Testing AGE6 (Normal) Comments: <21 or >65 or no age provided 3-Uda-797456:30 Pap IG (Image Guided) Comments: No. of containers..01 ThinPrep VialPERFORMED BY: =G Jiongji ApprMission Product Holdingsbacharach institute for rehabilitation W [id number] BY: Han grass biomassrMission Product HoldingsDelta Community Medical Center [id number] Note: PAPSMR (Normal) Comments: The Pap smear [...] MALIGNANCY.THIS SPECIMEN WAS RESCREENED PART OF OUR DIRECT SALES PROFESSIONAL PROGRAM.Satisfactory for evaluation. No endocervical component is identified.Z0 1.419Erin Kayden gonzáles, Emergency Management Specialist (ASCP)Chela Armendariz, Emergency Management Specialist (ASCP) 9-Hes-612457:00 CBC W/Diff, Automated Comments: [facility] [address] [place], [address] SMEAR COMMENT SCANNED (Normal) Comments: NEUTROPENIA NOTED [...] Range: 4.4-11.0 :47 CBC W/Diff, Automated Comments: [facility] [address] [place], [place], [address] Absolute Lymph 1.05 {X10_3/ul} (Normal) Range: 0.83-4.51 [...] Range: 4.4-11.0 :16 CBC W/Diff, Automated Comments: [facility] [address] [place], [address] Absolute Lymph 0.95 {X10_3/ul} (Normal) Range: 0.83-4.51 [...] 4.2-5.4 WBC 2.7 K/mm3 (Abnormal) Range: 4.4-11.0 32-Usc-556650:18 METABOLIC PANEL, Comments: PATIENT WAS FASTINGPERFORMED BY: BN [facility] [address] [id number] BY: CB [facility] [address] [id number] [facility] ([address]) ALT (SGPT) 11 [iU]/L (Normal) Range: 0-32 [...] 8-27 Glucose 86 mg/dL (Normal) Range: 65-99 51-Zda-153585:18 TSH (35816) Comments: PATIENT WAS FASTINGPERFORMED BY: [employer] [facility] [id number] BY: [employer]70 [facility] [id number] TSH 1.780 {uIU/mL} (Normal) Range: 0.450-4.500 53-Mgo-659227:18 LIPOPROTEIN, BLD, BY NMR Comments: PATIENT WAS FASTINGPERFORMED BY: [facility] Switchton14[address] [facility] [id number] BY: AMTT Digital Service GroupPalisades Medical CenterShvmbx6524 [facility] [id number]; fu 5-7-18 DB (34392) LP-IR Score <25 (Normal) Comments: INSULIN RESISTANCE MARKER <--Insulin Sensitive Insulin Resistant--> Percentile in Reference PopulationInsulin Resistance ScoreLP-IR Score Low 25th 50th 75th High <27 27 45 63 >63LP-IR Score is inaccurate if patient is non-fasting. .The LP-IR score is a laboratory developed i [facility] that has beenassociated with insulin resistance and [...] 1600 - 2000 Very High > 2000 82-Cbh-263508:18 HEPATITIS C ANTIBODY Comments: PATIENT WAS FASTINGPERFORMED BY: LabHa[place] [address] [facility] [id number] BY: [address] [id number] ([address]) Hep C Virus Ab <0.1 {s/co_ratio} (Normal) Range: 0.0-0.9 Comments: Negative: < 0.8 Indeterminate: 0.8 - 0.9 Positive: > 0.9 . The CDC recommends that a positive HCV antibody result be followed up with a HCV Nucleic Acid Amplification test (671401). 53-Xjr-222932:08 Anti-Centromere B Ab Comments: [facility] (refer to report for specific site)refer to report for address and phone number ANTI-CENT B <0.2 {AI} (Normal) Range: 0.0-0.9 Comments: Performed at: [address] [id number] Director: Chang Greenberg PhD, Phone: [phone] 39-Qmd-531175:08 Anti-Chromatin Comments: [facility] (refer to report for specific site)refer to report for address and phone number ANTICHROMATIN <0.2 {AI} (Normal) Range: 0.0-0.9 86-Jyd-702521:08 Anti-Kasia Comments: [facility] (refer to report for specific site)refer to report for address and phone number ANTI-KASIA <0.2 {AI} (Normal) Range: 0.0-0.9 58-Exr-283354:08 Sxpx-Euozavqlenb-37 AB Comments: [facility] (refer to report for specific site)refer to report for address and phone number ANTISCLER <0.2 {AI} (Normal) Range: 0.0-0.9 69-Mxb-719832:08 CBC W/Diff, Automated Comments: [facility] [address] [place], [address] Absolute Lymph 1.06 {X10_3/ul} (Normal) [...] 4.2-5.4 WBC 3.2 K/mm3 (Abnormal) Range: 4.4-11.0 87-Nhz-224025:08 Complement C3 Comments: [facility] (refer to report for specific site)refer to report for address and phone number COMP C3 107 mg/dL (Normal) Range: 82-167 Comments: Performed at: [address] [id number] Director: Chang Greenberg PhD, Phone: [phone] 01-Yaz-633511:08 Complement C4 Comments: [facility] (refer to report for specific site)refer to report for address and phone number COMP C4 15 mg/dL (Normal) Range: 14-44 11-Fmo-746126:08 Liver Profile Comments: [facility] [address] [place], [place], [address] D BILI 0.14 mg/dL (Normal) Range: 0.00-0.30 T BILI 0.90 mg/dL (Normal) Range: 0.20-1.00 ALT 19 U/L (Normal) Range: 12-78 ALK P 66 U/L (Normal) Range: 45-117 AST 14 U/L (Abnormal) Range: 15-37 GLOB 3.7 g/dL (Abnormal) Range: 2.3-3.5 ALB 4.1 g/dL (Normal) Range: 3.4-5.0 T PROT 7.8 g/dL (Normal) Range: 6.4-8.2 34-Oyc-012281:20 CBC W/Diff, Automated Comments: [facility] [address] [place], [place], [address] Absolute Lymph 1.15 {X10_3/ul} (Normal) Range: 0.83-4.51 [...] 4.2-5.4 WBC 2.9 K/mm3 (Abnormal) Range: 4.4-11.0 25-Xvu-707733:20 Liver Profile Comments: [facility] [address] [place], [place], [address] D BILI 0.14 mg/dL (Normal) Range: 0.00-0.30 T BILI 0.70 mg/dL (Normal) Range: 0.20-1.00 ALT 21 U/L (Normal) Range: 12-78 ALK P 65 U/L (Normal) Range: 45-117 AST 17 U/L (Normal) Range: 15-37 GLOB 3.9 g/dL (Abnormal) Range: 2.3-3.5 ALB 3.9 g/dL (Normal) Range: 3.4-5.0 T PROT 7.8 g/dL (Normal) Range: 6.4-8.2 77-Wkv-512366:19 Thyroid Stim Hormone (TSH) Comments: [facility] [address] [place], [place], [address] TSH 1.62 {uIU/mL} (Normal) Range: 0.358-3.74 39-Roq-104712:03 Anti-dsDNA Ab Comments: [facility] (refer to report for specific site)refer to report for address and phone number dsDNA AB 11 (Normal) Comments: High IU/mL 0 - 9Negative <5Equivocal 5 - 9Positive >9 27-Qhl-699461:03 Anti-Histone Abs Comments: [facility] (refer to report for specific site)refer to report for address and phone number ANTIHISTO 3.0 (Normal) Comments: High Units 0.0 - 0.9Negative <1.0Weak Positive 1.0 - 1.5Moderate Positive 1.6 - 2.5Strong Positive >2.5 57-Zpv-319979:03 Antiextractable Nug Ag Comments: [facility] (refer to report for specific site)refer to report for address and phone number CHENG Ab <0.2 (Normal) Comments: AI 0.0 - 0.9 FISH FARM LABORER Ab <0.2 (Normal) Comments: AI 0.0 - 0.9 65-Hyd-792021:03 Antinuclear Antibody, IFA Comments: [facility] (refer to [...] titers Nucleosomes, Histones Drug-induced SLE Speckled Sm, FISH FARM LABORER, SCL-70, SLE,MCTD,PSS (diffuse form), SS-A/SS-B Sjogrens Nuc leolar SCL-70, PM-1/SCL High titers Scleroderma, PM/DM Centromere Centromere PSS (limited form) w/Crest syndrome variable Nuclear Dot Sp100,u57-qkiisz Primary Biliary Cirrhosis ---------Nuclear GP210, Primary Biliary CirrhosisMembrane taryn A,B,C SPECKLED PAT. 1:640 (Normal) Comments: High AMAN test Positive Abnormal Comments: Negative <1:80Borderline 1:80Positive >1:80 (Normal) 29-Txs-511096:03 CBC W/Diff, Automated Comments: [facility] [address] [place], [place], [address] Absolute Lymph 1.58 {X10_3/ul} (Normal) Range: 0.83-4.51 [...] 4.2-5.4 WBC 3.5 K/mm3 (Abnormal) Range: 4.4-11.0 62-Rre-015325:03 Electrolyte Panel Comments: [facility] [address] [facility] [address]. [place], [place], [address] GAP 8 (Normal) Range: 5-15 CO2 29.0 mmol/L (Normal) Range: 21.0-32.0 CL 101 mmol/L (Normal) Range: 98-107 K 3.8 mmol/L (Normal) Range: 3.5-5.1 NA 138 mmol/L (Normal) Range: 136-145 :03 Liver Profile Comments: [facility] [address] [facility]. [place], [place], [address] D BILI 0.20 mg/dL (Normal) Range: 0.00-0.30 T BILI 0.80 mg/dL (Normal) Range: 0.20-1.00 ALT 20 U/L (Normal) Range: 12-78 ALK P 64 U/L (Normal) Range: 45-117 AST 15 U/L (Normal) Range: 15-37 GLOB 4.4 g/dL (Abnormal) Range: 2.3-3.5 ALB 4.0 g/dL (Normal) Range: 3.4-5.0 T PROT 8.4 g/dL (Abnormal) Range: 6.4-8.2 39-Nvx-376026:03 Sjogren's Antibodies A/B Comments: [facility] (refer to report for specific site)refer to report for address and phone number Anti-SS-B 2.0 (Normal) Comments: High AI 0.0 - 0.9 Anti-SS-A > 8.0 (Normal) Comments: High AI 0.0 - 0.9 7-Gnj-741232:22 COMPLEMENT C4 (37798) Comments: copy Dr. jaime norton; PATIENT NOT FASTINGPERFORMED BY: LabCoPalisades Medical CenterFsruaf9476 [facility] [id number] Complement C4, Serum 14 mg/dL (Normal) Range: 14-44 1-Axn-057642:22 COMPLEMENT C3 (89736) Comments: copy Dr. geremias norton; PATIENT NOT FASTINGPERFORMED BY: CB [facility] [address] [place] [id number] Complement C3, Serum 103 mg/dL (Normal) Range: 82-167 3-Hyx-400053:22 C-Reactive Protein (60768) Comments: copy Dr. geremias norton; PATIENT NOT FASTINGPERFORMED BY: CB [facility] Uswics25[address] Mcallister RoadNovant Healthin [place] [id number] C-Reactive Protein, Quant 0.5 mg/L (Normal) Range: 0.0-4.9 9-Ehg-796035:22 Sed Rate Erythrocyte (47552) Comments: Dr. cierra scott; PATIENT NOT FASTINGPERFORMED BY: CB [facility] Csnhjt[address] [facility] [place] [id number] Sedimentation Rate-Westergren 4 mm/h (Normal) Range: 0-40 8-Zwk-100922:22 COMPLEMENT, TOTAL (CH50) Comments: seen Dr. norton; PATIENT NOT FASTINGPERFORMED BY: [facility] Hxzqoi[address] [facility] [place] [id number] (99667) Complement, Total (CH50) >60 U/mL (Abnormal) Range: 42-60 14-Kfz-773570:57 TSH (76646) Comments: PATIENT WAS FASTINGPERFORMED BY: Lab[address] [id number] BY: [facility] Cyboxs7832 [facility] [place] [id number] TSH 3.190 {uIU/mL} (Normal) Range: 0.450-4.500 99-Ebu-331174:57 METABOLIC PANEL, Comments: PATIENT WAS FASTINGPERFORMED BY: Lab[address] [id number] BY: [facility] Fszewi[address] [facility] [place] [id number] COMPREHENSIVE (33396) ALT (SGPT) 7 [iU]/L (Normal) Range: 0-32 [...] Glucose, Serum 84 mg/dL (Normal) Range: 65-99 91-Tal-021839:57 LIPOPROTEIN, BLD, BY NMR Comments: PATIENT WAS FASTINGPERFORMED BY: BN [facility] [address] [id number] BY: CB [facility] Tmwwvs2035 [facility] [id number]; fu 5-23 db (63096) LP-IR Score 30 (Normal) Comments: INSULIN RESISTANCE MARKER <--Insulin Sensitive Insulin Resistant--> Percentile in Reference PopulationInsulin Resistance ScoreLP-IR Score Low 25th 50th 75th High <27 27 45 63 >63LP-IR Score is inaccurate if patient is non-fasting. .The LP-IR score is a laboratory developed i [employer]dex that has beenassociated with insulin resistance and [...] were developed and their performance characteristicsdetermined by [facility]. These assays have not been cleared by [...] 1600 - 2000 Very High > 2000 61-Zms-841182:28 AMAN (ANTINUCLEAR ANTIBODY) Comments: PATIENT NOT FASTINGPERFORMED BY: LiquidTalkKalkaska Memorial [facility] Center6370 [facility] [id number] (77973) AMAN Direct Positive (Abnormal) :28 URINALYSIS (21428) Comments: PATIENT NOT FASTINGPERFORMED BY: [facility]TalkKalkaska [facility] Center6370 [facility] [id number] Microscopic Examination MICNIP (Normal) Comments: Microscopic not indicated and not performed. Nitrite, Urine Negative (Normal) Urobilinogen,Semi-Qn 0.2 mg/dL (Normal) Range: 0.2-1.0 Bilirubin Negative (Normal) Occult Blood Negative (Normal) Ketones Negative (Normal) Glucose Negative (Normal) Protein Negative (Normal) WBC Esterase Negative (Normal) Appearance Cloudy (Abnormal) Urine-Color Yellow (Normal) pH 7.5 (Normal) Range: 5.0-7.5 Specific Carlisle 1.016 (Normal) Range: 1.005-1.030 :28 C-Reactive Protein (55624) Comments: PATIENT NOT FASTINGPERFORMED BY: Menara NetworksPalisades Medical CenterYkjstn0999 [facility] [id number] C-Reactive Protein, Quant 7.7 mg/L (Abnormal) Range: 0.0-4.9 :28 Sed Rate Erythrocyte (49264) Comments: PATIENT NOT FASTINGPERFORMED BY: LiquidTalkKalkaska [facility] Center6370 [facility] [id number] Sedimentation Rate-Westergren 7 mm/h (Normal) Range: 0-40 27-Hrl-146433:28 CBC (Auto) (47114) Comments: PATIENT NOT FASTINGPERFORMED BY: LiquidTalkKalkaska [facility] Center6370 [facility] [id number] Platelets 227 {x10E3/uL} (Normal) Range: 150-379 RDW 13.2 % (Normal) Range: 12.3-15.4 MCHC 33.2 g/dL (Normal) Range: 31.5-35.7 MCH 30.0 pg (Normal) Range: 26.6-33.0 MCV 90 fL (Normal) Range: 79-97 Hematocrit 38.2 % (Normal) Range: 34.0-46.6 Hemoglobin 12.7 g/dL (Normal) Range: 11.1-15.9 RBC 4.24 {x10E6/uL} (Normal) Range: 3.77-5.28 WBC 5.1 {x10E3/uL} (Normal) Range: 3.4-10.8 21-Wam-693530:28 Metabolic Panel, Comments: PATIENT NOT FASTINGPERFORMED BY: LabCoPalisades Medical CenterSitewa4050 [facility] [id number] Information: [id number] Comprehensive (12202) ALT (SGPT) 11 [iU]/L (Normal) Range: 0-32 [...] Glucose, Serum 79 mg/dL (Normal) Range: 65-99 6-Frx-086081:12 Basic Metabolic Panel (8) Comments: PATIENT NOT FASTINGPERFORMED BY: Menara NetworksPalisades Medical CenterEugbvr0981 [facility] [id number] Calcium, Serum 9.5 mg/dL (Normal) Range: 8.7-10.3 [...] Glucose, Serum 81 mg/dL (Normal) Range: 65-99 0-Bvj-791929:12 CBC, Platelet, No Comments: PATIENT NOT FASTINGPERFORMED BY: Menara NetworksPalisades Medical CenterMnkjan0778 [facility] [id number] Information: [id number] Differential Platelets 216 {x10E3/uL} Range: 150-379 (Normal) RDW 13.1 % (Normal) Range: 12.3-15.4 MCHC 32.8 g/dL (Normal) Range: 31.5-35.7 MCH 29.4 pg (Normal) Range: 26.6-33.0 MCV 90 fL (Normal) Range: 79-97 Hematocrit 40.6 % (Normal) Range: 34.0-46.6 Hemoglobin 13.3 g/dL (Normal) Range: 11.1-15.9 RBC 4.52 {x10E6/uL} Range: 3.77-5.28 (Normal) WBC 3.4 {x10E3/uL} Range: 3.4-10.8 (Normal) TSH 2.300 {uIU/mL} Comments: PATIENT NOT FASTINGPERFORMED BY: [facility]6370 [facility] [id number] 510:12 (Normal) Range: 0.450-4.500 BREAST BIOPSY (CHOOSE SITE) See Note (Normal) Comments: Test performed at:[facility] [address] [place] [address] 515:30 Comments: Patient: SHANITA MONTIEL : 1950 (64/F) Acct Num: [id number] Phys: Jaquan Padron MD Unit Num: [id number] Loc: LAB[facility] Specimen: [id number] Received: 08/04/141614 Spec Type: BREAST BX TISSUES TISSUES: COMMENT Immunohistochemistry ([id number]) supports the above diagnosis. GROSS DESCRIPTION Received in a container labeled with the patient name and mary jo ignated needle core biopsy, right breast are three elongated cores of yellow- white soft tissuemeasuring in aggregate 2 x 0.5 x 0.1 cm. The specimen is totally submitted in one cassette. / AM: 08/06 TC:5 CPT: 72993 HEADER OPERATION: U/S guided needle core biopsy right breast PRE-OPERATIVE DIAGNOSIS: 793.89 abnormal finding on breast imaging TISSUE SUBMITTED: Right breast needle co re biopsy MICROSCOPIC DIAGNOSIS Right breast, ultrasound-guided needle core biopsy: Fat necrosis, fibrosis, and foreign body giant cell reaction to nonpolarizable material. Benign hist iocytic proliferation and mild chronic inflammation. No evidence of malignancy. AM: 08/06/14 Signed [facility] 08/07/14 <signature on file> IMMUNOHISTOCHEMISTRY See Note (Normal) Comments: Test performed at:[facility] [address] [place] [address] 50:00 Comments: Patient: SHANITA MONTIEL : 1950 (64/F) Acct Num: [id number] Phys: Jaquan Padron MD Unit Num: [id number] Loc: LABSPEC Specimen: [id number] Received: 08/06/14 120 Spec Type: IMMUNO TISSUES TISSUES: SPECIMEN INFORMATION: Tissue Source: Right breast, core biopsy Clinical Info: Abnormal mammogram Specimen Number: [id number] CPT code: 01167, 11696 x3 METHODOLOGY: Deparaffinized sections of formalin-fixed tissue or PAP/DQ stained slides are incubated with monoclonal/polyclonal antibodies/oligonucleotide probes. Localization is made via biotin free immunoperoxidase method. Appropriate controls are performed and reacted as expected. Results on target cell population are indicated in the following table: RESULTS: ANTIBODY / CLONE RESULT AE1-3/PCK26 (AE1,AE3,PCK26) negative CK8 (TS1/64hukhJ80) negative P53 (DO-7) negative Macro (HAM-56) positive These tests were developed and their performance characteristics determined by [facility]. They may not have been cleared or approved by the U.S. Food and Drug Administration. The FDA has de termined that such clearance or approval is not necessary. INTERPRETATION: Right breast, core biopsy: Consistent with fat necrosis. AM: 08/07/14 PHYSICIAN AND INSTITUTION [place] [address] Signed [facility] 08/07/14 <signature on file> :58 TSH (23034) Comments: PATIENT WAS FASTINGPERFORMED BY: [facility]Co[facility] CenterUplvrl8038 [facility] [id number] TSH 2.580 {uIU/mL} (Normal) Range: 0.450-4.500 48-Khh-14147:58 METABOLIC PANEL, COMPREHENSIVE Comments: PATIENT WAS FASTINGPERFORMED BY: [facility]CoPal[facility] CenterShqhuf7283 [facility] [id number] (33397) ALT (SGPT) 9 [iU]/L (Normal) Range: 0-32 [...] mg/dL (Normal) Range: 65-99 :58 LIPID PANEL (23899) Comments: PATIENT WAS FASTINGPERFORMED BY: [employer] [id number] LDL/HDL Ratio 1.9 {ratio_units} (Normal) Range: 0.0-3.2 [...] auto diff Comments: PATIENT WAS FASTINGPERFORMED BY: [employer] [id number] Information: [id number] (29793) Immature Grans (Abs) 0.0 {x10E3/uL} (Normal) Range: [...] 3.77-5.28 WBC 3.9 {x10E3/uL} (Normal) Range: 3.4-10.8 9-Jlg-359105:11 Microscopic Examination Comments: PATIENT WAS FASTINGPERFORMED BY: [facility] Cirqex7851 [place] [place] [id number] Bacteria None seen (Normal) Mucus Threads Present (Normal) Epithelial Cells (non renal) 0-10 {/hpf} (Normal) Range: 0 - 10 RBC None seen {/hpf} (Normal) Range: 0 - 3 WBC None seen {/hpf} (Normal) Range: 0 - 5 :03 T4, FREE (THYROXINE) (38637) Comments: PATIENT WAS FASTINGPERFORMED BY: [facility] Center6370 [facility] [id number] T4,Free(Direct) 1.28 ng/dL (Normal) Range: 0.82-1.77 2-Gth-131576:03 URINALYSIS, W/ MICRO (89664) Comments: PATIENT WAS FASTINGPERFORMED BY: [facility]6370 [facility] [id number] Microscopic Examination See below: (Normal) Microscopic Examination MICRON (Normal) Comments: Microscopic follows if indicated. Nitrite, Urine Negative (Normal) Urobilinogen,Semi-Qn 0.2 mg/dL (Normal) Range: 0.0-1.9 Bilirubin Negative (Normal) Occult Blood Negative (Normal) Ketones Negative (Normal) Glucose Negative (Normal) Protein Negative (Normal) WBC Esterase Negative (Normal) Appearance Clear (Normal) Urine-Color Yellow (Normal) pH 6.5 (Normal) Range: 5.0-7.5 Specific [place] 1.015 (Normal) Range: 1.005-1.030 3-Mtz-374910:03 CALCIFIDIOL (33316) VIT D 25 Comments: PATIENT WAS FASTINGPERFORMED BY: [facility] Center6370 [facility] [id number] Vitamin D, 25-Hydroxy 38.2 ng/mL (Normal) Range: 30.0-100.0 Comments: Vitamin D deficiency has been defined by the [place] ofThe [facility]cine and an Endocrine Society practice guideline as alevel of serum 25-OH vitamin D less than 20 ng/mL (1,2).The Endocrine Society went on to further define vitamin Dinsufficiency as a level between 21 and 29 ng/mL (2).1. IOM ([place] of Medicine). 2010. Dietary reference intakes for calcium and D. [place]: The National Academies Press.2. Gustavo MF, Yvette ZUNIGA, Jus RIVERA, et al. Evaluation, treatment, and prevention of vitamin D deficiency: an Endocrine Society clinical practice guideline. JCEM. 2010; 96(7):1911-30. 5-Jlo-417789:03 METABOLIC PANEL, COMPREHENSIVE Comments: PATIENT WAS FASTINGPERFORMED BY: [facility]6370 [facility] [id number] (90838) ALT (SGPT) 12 [iU]/L (Normal) Range: 0-32 [...] Glucose, Serum 86 mg/dL (Normal) Range: 65-99 0-Ulx-077150:03 CBC WITH MANUAL DIFF (17633) Comments: PATIENT WAS FASTINGPERFORMED BY: [facility]CoPal[facility] CenterTcmbgi1881 [facility] [id number] Immature Grans (Abs) 0.0 {x10E3/uL} (Normal) Range: [...] 3.77-5.28 WBC 4.0 {x10E3/uL} (Normal) Range: 3.4-10.8 9-Zbk-483572:03 TSH (78344) Comments: PATIENT WAS FASTINGPERFORMED BY: [facility]Co[facility] CenterYtuhpz5146 [facility] [id number] TSH 2.970 {uIU/mL} (Normal) Range: 0.450-4.500 13-Wvk-47808:21 CBC, Platelets & Auto Diff Comments: today; PATIENT NOT FASTINGPERFORMED BY: [facility]CoPal[facility] CenterZsnrxe7664 [facility] [id number] Information: [id number] (99905) Immature Grans (Abs) 0.0 {x10E3/uL} (Normal) Range: [...] 3.77-5.28 WBC 3.2 {x10E3/uL} (Abnormal) Range: 4.0-10.5 09-Fpi-147630:04 PELVIC (NON ) Radiology Report See Note [...] Sanchez M.D.April 12, 2012 at 3:25:13 PM [id number] Signed GP/GP If you are the referring physician and would like to consult with theradiologist who provided this interpretation, please ruslan Lentz M.D. at [phone]. If this radiologist is unavailable, youwill be directed to another radiologist to assist. If you are a patient with a question regarding this report, rhona don referring physician directly. Professional Interpretation Provided By: [employer], Phone , These documents contain legally protected [...] on 04/12/12 1308 by Nicholas SUÁREZ,Effieranscribed on 04/12/12 1532 by ITS IMPORTSign by Isiah Sanchez MD on 04/12/12 153 Sign by: Isiah Sanchez MD 9-Vyd-913969:16 Pap IG, Ct-Ng, Comments: Source.............Cervical;VaginalNo. of containers..01 CYTYC Thin Prep VialPERFORMED BY: WB [facility] Irdfzbxmml621 [facility] [id number] BY: =G [facility]120 [facility] HPV-hr [facility] [id number] Information: [id number] Gonococcus, Nuc. Acid Amp Negative (Normal) Chlamydia, [...] are present.V72.31 ; Routine gynecolog ical examina wtpn351.5 ; Leukorrhea, not specified as infectiveJennifer Camilo Emergency Management Specialist (ASCP) 0-Eaz-417825:13 Genital Culture, Routine Comments: PERFORMED BY: [facility] Jpxthd4429 [facility] [id number] Information: SRC:VA Result 1 RGF (Normal) Comments: Routine genital rochelle. Genital Culture, Routine Final report (Normal) 9-Qfc-953162:03 GARDNERELLA VAG, NUCLEIC Comments: PATIENT NOT FASTINGPERFORMED BY: [facility] Ycxogr1014 [facility] [id number] Information: [id number] ACID DIR PROBE (99263) Gardnerella vaginalis Positive (Abnormal) Trichomonas vaginalis Negative (Normal) Aquiles species Negative (Normal) 80-Lft-898921:59 BREAST UNILATERAL Radiology Report See Note (Normal) [...] radiologist regarding this report, please call our [id number] line @ Dictated on 07/22/11 1139 by [...] 7-18 GLU 84 mg/dL (Normal) Range: 70-110 64-Itd-322003:38 LIPID VLDL 18 mg/dL (Normal) Range: 5-40 [...] 200-240 mg/dL Borderline >240 mg/dL High Risk 77-Ygb-140895:38 SED tSEDRATE 13 mm/h (Normal) Range: 0-30 27-Cac-016163:38 UA LORIE NEGATIVE (Normal) UOB NEGATIVE (Normal) KYM NEGATIVE (Normal) UROBU 0.2 EU/dl (Normal) Range: 0.2 - 1.0 uPROTU NEGATIVE (Normal) RAJESH 6.0 (Normal) Range: 5.0-8.0 SGU 1.020 (Normal) Range: 1.002-1.030 KETU NEGATIVE mg/dL (Normal) BILIU NEGATIVE (Normal) GLUR NEGATIVE (Normal) UCLAR CLEAR (Normal) UCOL YELLOW (Normal) 2-Lal-117552:54 URINE ROBERT CULTURE-BRYANNA COL Comments: PATIENT NOT FASTINGPERFORMED BY: MATY [facility] Dsqhkb9467 [facility] [id number] Information: SRC: URINE COUNT (72911) Result 1 NG36 (Normal) Comments: No growth in 36 - 48 hours. Urine Culture,Comprehensive Final report (Normal) 7-Czu-387406:34 Urinalysis, Office (05550) UA - BILIRUBIN Negative (Normal) UA - BLOOD Negative (Normal) UA - GLUCOSE Negative (Normal) UA - KETONES Negative mg/dL (Normal) UA - LEUKOCYTE ESTERASE Negative (Normal) UA - NITRITE Negative (Normal) UA - PH 6.0 (Normal) UA - PROTEIN Negative mg/dL (Normal) UA - SPECIFIC GRAVITY 1.010 (Normal) URINE UROBILINGN BRYANNA TIMED Normal mg/dL (Normal) 14-Jya-068645:25 DEXA BONE DENSITY STUDY () Radiology Report [...] on 09/22/10857 Sign by: Isiah Sanchez MD 58-Kay-762132:24 BILAT SCRN IMPLANT DIG & CAD Radiology [...] Microscopic Examination Comments: PATIENT WAS FASTINGPERFORMED BY: [employer]70 [facility]TRANUNC [facility]als [facility] [id number] Bacteria Few (Normal) Mucus Threads Present (Normal) Epithelial Cells (non renal) 0-10 {/hpf} (Normal) Range: 0 - 10 RBC None seen {/hpf} (Normal) Range: 0 - 3 WBC 0-5 {/hpf} (Normal) Range: 0 - 5 :48 Lipid Panel (74433) Comments: PATIENT WAS FASTINGPERFORMED BY: [employer]6370 [facility]TRANUNC [facility]als Hills[facility] [id number] LDL Cholesterol Calc 126 mg/dL (Abnormal) Range: 0-99 LDL/HDL Ratio 2.0 {ratio_units} (Normal) Range: 0.0-3.2 VLDL Cholesterol Miguel 19 mg/dL (Normal) Range: 5-40 Cholesterol, Total 207 mg/dL (Abnormal) Range: 100-199 HDL Cholesterol 62 mg/dL (Normal) Comments: According to ATP-III Guidelines, HDL-C >59 mg/dL is considered anegative risk factor for CHD. Triglycerides 95 mg/dL (Normal) Range: 0-149 :48 URINALYSIS (61515) Comments: PATIENT WAS FASTINGPERFORMED BY: [employer] Vziuzj4539 [facility]TRANUNC [facility] Hills[facility] [id number] Microscopic Examination See below: (Normal) Bilirubin Negative (Normal) Glucose Negative (Normal) Ketones Negative (Normal) Nitrite, Urine Negative (Normal) Occult Blood 3+ (Abnormal) Urobilinogen,Semi-Qn 0.2 mg/dL (Normal) Range: 0.0-1.9 Protein Negative (Normal) WBC Esterase Negative (Normal) Appearance Clear (Normal) Urine-Color Yellow (Normal) pH 6.5 (Normal) Range: 5.0-7.5 Specific [place] 1.020 (Normal) Range: 1.005-1.030 :48 CBC, Platelets & Auto Diff Comments: PATIENT WAS FASTINGPERFORMED BY: [facility] Wqogau8538 [facility] [id number] (48614) Immature Grans (Abs) 0.0 {x10E3/uL} (Normal) Range: [...] 3.2 {x10E3/uL} (Abnormal) Range: 4.0-10.5 :48 TSH (90875) Comments: PATIENT WAS FASTINGPERFORMED BY: [facility]CoPal[facility] CenterTlpvbb3635 [facility] [id number] TSH 3.920 {uIU/mL} (Normal) Range: 0.450-4.500 :48 Metabolic Panel, Comprehensive Comments: PATIENT WAS FASTINGPERFORMED BY: [facility]Co[facility] CenterEajbyj6783 [facility] [id number] (96155) ALT (SGPT) 11 [iU]/L (Normal) Range: 0-40 [...] Glucose, Serum 85 mg/dL (Normal) Range: 65-99 51-Aye-477580:15 Anti-dsDNA Antibodies Comments: PERFORMED BY: [employer]6370 [facility] [id number] Anti-DNA (DS) Ab Qn 4 {IU/mL} (Normal) Range: 0-9 Comments: Negative <5Equivocal 5 - 9Positive >9 C-Reactive Protein, 0.5 mg/L (Normal) Comments: PERFORMED BY: [facility] [place] [address] [id number] :15 Quant Range: 0.0-4.9 :15 CBC With Differential/Platelet Comments: PERFORMED BY: TERMINALFOURlin6370 [facility] [id number] Baso (Absolute) 0.0 {x10E3/uL} (Normal) Range: 0.0-0.2 [...] 3.80-5.10 WBC 3.0 {x10E3/uL} (Abnormal) Range: 4.0-10.5 77-Ncw-052903:15 Comp. Metabolic Panel (14) Comments: PERFORMED BY: [facility] Qslvje4907 [facility] [id number] Alkaline Phosphatase, S 73 [iU]/L Range: 25-165 [...] C3, Serum 116 {mg/dL_Adult} Comments: PERFORMED BY: [facility] Center6370 [facility] [id number] 12:15 (Normal) Range: 90-180 28-Jul-2009 Complement C4, Serum 15 {mg/dL_Adult} Comments: PERFORMED BY: [facility]TalkSt[facility] Cwzqaf2803 [facility] [id number] 12:15 (Normal) Range: 9-36 28-Jul-2009 Complement, Total (CH50) 53 U/mL (Normal) Comments: PERFORMED BY: [employer] Fvvlqp1663 [facility] [id number] 12:15 Range: 22-60 28-Jul-2009 TSH 3.440 {uIU/mL} Comments: PERFORMED BY: [facility] Center[address] [place] [address] [id number] 12:15 (Normal) Range: 0.450-4.500 07-Kmq-416487:15 Urinalysis, Routine Comments: PERFORMED BY: Menara NetworksPalisades Medical CenterEeyblw8[address] [place] [address] [id number] Bilirubin Negative (Normal) Microscopic Examination MICRON (Normal) Comments: Microscopic follows if indicated. Nitrite, Urine Negative (Normal) Urobilinogen,Semi-Qn 0.2 mg/dL (Normal) Range: 0.0-1.9 Glucose Negative (Normal) Ketones Negative (Normal) Occult Blood Negative (Normal) Protein Negative (Normal) Appearance Clear (Normal) pH 6.5 (Normal) Range: 5.0-7.5 Specific [place] 1.019 (Normal) Range: 1.005-1.030 Urine-Color Yellow (Normal) WBC Esterase Negative (Normal) 86-Isd-74865:06 UNILAT LT DIA DIGITAL & CAD Radiology Report See Note (Normal) Comments: Exam Number: [id number] UNILATERAL DIAGNOSTIC MAMMOGRAM Oblique and craniocaudal views of the left breast were obtaineddigitally. Comparison is made with the prior examinations datedSeptember 22, 2008, and J une 2008. Interpretation was made with thebenefit of [...] w erealso examined with computer-aided detection software ([employer], [employer].). Reported By: ISIAH SANCHEZ 35-Qbv-816071:53 UNILAT LT DIAG DIGITAL & CAD Radiology Report See Note (Normal) Comments: Exam Number: [id number] MAMMOGRAM, UNILATERAL LEFT DIAGNOSTIC DIGITAL AND CAD [...] mammograms werealso examined with computer-aided detection software ([employer] Reported By: NINO CARROLL M.D. 09-Sep-20088:22 BILAT SCRN DIGITAL & CAD Radiology Report See Note (Normal) Comments: Exam Number: [id number] MAMMOGRAM, BILATERAL SCREENING DIGITAL AND CAD HISTORYRoutine [...] mammograms werealso examined with computer-aided detection software (ImageOriginal, Viv[employer]ream.). Reported By: NINO CARROLL M.D. 09-Sep-20088:22 DEXA BONE DENSITY STUDY () Radiology Report See Note (Normal) Comments: Exam Number: [id number] BONE DENSITOMETRY HISTORYScreening, postmenopausal. TECHNIQUE Bone densitometry of the lumbar spine and both hips is now beingperformed. The best criteria for e valuation of osteoporosis is theT-value, which represents the comparison of the patient's bone mass israel expected peak bone mass. For most patients, the mean T-value of A4thszjqn L4 is used to evaluate the lumbar [...] Report See Note (Normal) Comments: Exam Number: [id number] MYOCARDIAL PERFUSION SCAN TECHNIQUEThe patient was injected [...] patient was injected with 31 mCi of Gh58vUbczivoepl and subsequently stress SPECT Cardiolite nuclear imagingwas [...] Anti-dsDNA Antibodies Comments: PATIENT WAS FASTINGPERFORMED BY: [facility] Center6370 [facility] [id number] Anti-DNA (DS) Ab Qn 1 {IU/mL} (Normal) Range: 0-9 Comments: Negative <5 Equivocal 5 - 9 Positive >9 Antinuclear Antibodies Positive (Abnormal) Comments: PATIENT WAS FASTINGPERFORMED BY: [facility]6370 [facility] [id number] :53 Direct C-Reactive Protein, 0.7 mg/L (Normal) Comments: PATIENT WAS FASTINGPERFORMED BY: [facility]6370 [facility] [id number] :53 Quant Range: 0.0-4.9 :53 CBC With Differential/Platelet Comments: PATIENT WAS FASTINGPERFORMED BY: [facility]6370 [facility] [id number] Baso (Absolute) 0.0 {x10E3/uL} (Normal) Range: 0.0-0.2 [...] 11.7-15.0 WBC 2.6 {x10E3/uL} (Abnormal) Range: 4.0-10.5 2-Ulx-906020:53 Comp. Metabolic Panel (14) Comments: PATIENT WAS FASTINGPERFORMED BY: [facility] Center6370 [facility] [id number] A/G Ratio 1.4 (Normal) Range: 1.1-2.5 Albumin, [...] 119 {mg/dL_Adult} Comments: PATIENT WAS FASTINGPERFORMED BY: [address] [id number] 0:53 (Normal) Range: 90-180 Complement C4, Serum 15 {mg/dL_Adult} Comments: PATIENT WAS FASTINGPERFORMED BY: [employer] [id number] 0:53 (Normal) Range: 9-36 Complement, Total (CH50) 55 U/mL (Normal) Comments: PATIENT WAS FASTINGPERFORMED BY: [employer] [id number] 0:53 Range: 22-60 :53 Lipid Panel With LDL/HDL Comments: PATIENT WAS FASTINGPERFORMED BY: [employer] [id number] Ratio Cholesterol, Total 180 mg/dL (Normal) Range: [...] mm/h (Normal) Comments: PATIENT WAS FASTINGPERFORMED BY: [address] [id number] :53 Rate-Westergren Range: 0-30 TSH 2.547 {uIU/mL} Comments: PATIENT WAS FASTINGPERFORMED BY: [address] [id number] :53 (Normal) Range: 0.450-4.500 1-Omu-006830:53 Urinalysis, Routine Comments: PATIENT WAS FASTINGPERFORMED BY: [facility]CoPal[facility] CenterNqojud9039 [facility] [id number] Appearance Clear (Normal) Bilirubin Negative (Normal) Glucose Negative (Normal) Ketones Negative (Normal) Microscopic Examination MICRON (Normal) Comments: Microscopic follows if indicated. Nitrite, Urine Negative (Normal) Occult Blood Negative (Normal) pH 6.5 (Normal) Range: 5.0-7.5 Protein Negative (Normal) Specific [place] 1.009 (Normal) Range: 1.005-1.030 Urine-Color Yellow (Normal) Urobilinogen,Semi-Qn 0.2 mg/dL (Normal) Range: 0.0-1.9 WBC Esterase Negative (Normal) :44 Thin prep Pap Comments: Source.............Cervical;EndocervicalLMP / Prev Treat...IDZ=[id number]. of containers..01 CYTYC Thin Prep VialPATIENT NOT FASTINGClinical Information: ADD [id number] PERFORMED BY: [employer] (20668) [address] [id number] . . (Normal) DIAGNOSIS: SPRCS (Normal) Comments: NEGATIVE FOR INTRAEPITHELIAL LESION AND MALIGNANCY.Satisfactory for evaluation. No endocervical component is identified.V72.31 ; Routine gynecological examinationAlejandra Mendez Emergency Management Specialist (ASCP) Note: PAPSMR (Normal) Comments: The Pap [...] Well woman exam : *Well Female Maintenance ([facility]) Indication: Well woman exam Well woman exam [...] woman exam Planned Observations METABOLIC PANEL, COMPREHENSIVE (27702)Indication: Hypercholesteremia On: 4-Dne-505557:47 Request LIPOPROTEIN, BLD, BY NMR (85683)Indication: Hypercholesteremia On: 8-Jom-667148:47 Request TSH (63078)Indication: Hypothyroidism On: 1-Lpe-861196:46 Request TSH (73399)Indication: Hypothyroidism On: 74-Amm-739467:10 Request Systemic Lupus Profile (66856)Indication: Lupus (systemic lupus erythematosus) On: 05-Jan-20169:57 Request Comments: send to Dr Norton CBC (Auto) (76105)Indication: Pre-operative examination On: 3-Ucj-851337:08 Request Metabolic Panel, Basic (99760)Indication: Pre-operative examination On: 9-Qwi-131676:08 Request TSH (87028)Indication: Hypothyroidism On: 4-Kur-212846:07 Request CALCIFEDIOL (32463)Indication: Hypothyroidism On: 2-Cpx-960397:12 Request URINALYSIS, W/ MICRO (06828)Indication: Hypothyroidism On: 6-Aag-567505:11 Request CBC WITH MANUAL DIFF (26609)Indication: Hypothyroidism On: 0-Vkx-641675:11 Request Metabolic Panel, Comprehensive (90068)Indication: Hypothyroidism On: 0-Kwt-222913:11 Request Lipid Panel (94828)Indication: Hypothyroidism On: 8-Jab-330109:11 Request TSH (97211)Indication: Hypothyroidism On: 0-Grk-929924:11 Request TSH (THYROID STIMULATING HORMONE) (83922)Indication: Hypothyroidism On: :43 Request METABOLIC PANEL, COMPREHENSIVE (86321)Indication: ERYTHEMATOSUS, LUPUS On: :43 Request LIPID PANEL (30185)Indication: ERYTHEMATOSUS, LUPUS On: :43 Request NEISSERIA (75224) (THIN PREP OBTAINED)Indication: Vaginal Discharge On: :43 Request CHLAMYDIA (52143) (thin prep obtained)Indication: Vaginal Discharge On: :43 Request ROBERT CULTURE-OTHER (25110)Indication: Vaginal Discharge On: :43 Request BACT CULTURE ANY-ANAEROBIC (68295)Indication: Vaginal Discharge On: :43 Request INFCT ANTGN TRICH VAGIN DIRECT PRB (38991)Indication: Vaginal Discharge On: :43 Request AQUILES, NUCLEIC ACID DIRECT PROBE (98585)Indication: Vaginal Discharge On: :43 Request Thin prep Pap (59211)Indication: Well woman exam On: :29 Request URINALYSIS (59219)Indication: Lupus (systemic lupus erythematosus) On: :26 Request Sed Rate Erythrocyte (40557)Indication: Lupus (systemic lupus erythematosus) On: :26 Request CBC, Platelets & Auto Diff (52925)Indication: Lupus (systemic lupus erythematosus) On: :25 Request Lipid Panel (35478)Indication: Hypothyroidism On: :25 Request Metabolic Panel, Comprehensive (39464)Indication: Lupus (systemic lupus erythematosus) On: :25 Request DNA ANTIBODY-NATV/DBL ST (31029)Indication: Lupus (systemic lupus erythematosus) On: :49 Request COMPLEMENT C4 (86456)Indication: Lupus (systemic lupus erythematosus) On: :48 Request COMPLEMENT C3 (26469)Indication: Lupus (systemic lupus erythematosus) On: :48 Request COMPLEMENT, TOTAL (CH50) (75256)Indication: Lupus (systemic lupus erythematosus) On: :48 Request C-Reactive Protein (05653)Indication: Lupus (systemic lupus erythematosus) On: :48 Request URINALYSIS (25955)Indication: Lupus (systemic lupus erythematosus) On: :48 Request CBC (Auto) (33568)Indication: Lupus (systemic lupus erythematosus) On: :48 Request Metabolic Panel, Comprehensive (54419)Indication: Lupus (systemic lupus erythematosus) On: :48 Request TSH (62571)Indication: Hypothyroidism On: :48 Request Thin prep Pap (70858)Indication: Well woman exam On: :35 Request C-Reactive Protein (96885)Indication: Lupus (systemic lupus erythematosus) On: :03 Request DNA ANTIBODY-NATV/DBL ST (32509)Indication: Lupus (systemic lupus erythematosus) On: :02 Request Sed Rate Erythrocyte (60688)Indication: Lupus (systemic lupus erythematosus) On: :01 Request COMPLEMENT C4 (15698)Indication: Lupus (systemic lupus erythematosus) On: :00 Request COMPLEMENT C3 (14378)Indication: Lupus (systemic lupus erythematosus) On: :00 Request COMPLEMENT, TOTAL (CH50) (24717)Indication: Lupus (systemic lupus erythematosus) On: 08-Aug-20088:00 Request AMAN (ANTINUCLEAR ANTIBODY) (17149)Indication: Lupus (systemic lupus erythematosus) On: :00 Request URINALYSIS (05887)Indication: Lupus (systemic lupus erythematosus) On: :57 Request TSH (24612)Indication: Hypothyroidism On: :57 Request CBC (Auto) (04409)Indication: Lupus (systemic lupus erythematosus) On: :57 Request Metabolic Panel, Comprehensive (97838)Indication: Lupus (systemic lupus erythematosus) On: :57 Request Lipid Panel (37021)Indication: Lupus (systemic lupus erythematosus) On: :57 Request Lipid Panel (10919)Indication: Hypothyroidism On: :47 Request TSH (78431)Indication: Hypothyroidism On: 2-Apr-76964:43 Request LIPID PANEL (99411)Indication: Well woman exam On: 0-Fuu-907724:00 Request CBC (AUTO) (48468)Indication: Lupus (systemic lupus erythematosus) On: 11-May-20069:59 Request Planned Encounters Medical; MIRIAM 6 Month Fu - On: 21-Sep-2018 13:00 [facility] Talia Charles MD, MD, Dana M Planned Procedures DIAGNOSTIC MAMMOGRAPHY OF BOTH On: 06-Mar-2018 Intent BREASTS ([id number])By: Talia Charles MD, MD, Dana M Breast Ultrasound - RightBy: On: 06-Mar-2018 Intent Talia Charles MD, MD, Dana M ULTRASOUND OF NECK WITH FOCUS ON On: 25-Aug-2017 Intent THYROID ([id number])By: Araceli SUÁREZ, Comments: include area on left side where tender. Talia Johnson MD DEXA SCAN AXIAL SKELETON On: 07-Aug-2017 Intent ([id number])By: Talia Charles MD, MD, Dana M Flu Vaccine (Quadrivalent) On: 17-Jan-2017 Intent [id number]: Talia Charles MD Comments: QUAD flu shotlot number: [id number]: 07/2017L Deltoid [employer] Talia Charles MD MAMMOGRAM BREAST BILATERAL On: 17-Jan-2017 Intent SCREENING DIGITAL ([id number])By: Talia Charles MD, MD, Dana M Nuclear Stress Test/Stress On: 02-Feb-2016 Intent SPECT/TreadmillBy: Talia Charles MD, MD, Dana M MAMMOGRAM, SCREENING, BOTH BREAST On: 05-Jan-2016 Intent ([id number])By: Talia Charles MD, MD, Dana M Flu Vaccine (Quadrivalent) On: 05-Jan-2016 Intent [id number]: Parker Ross Comments: Lot:[id number]:09/30/16Dose:0.5mLRoute:IMSite:L DltdGiven By:DINA signed PNEUM VAC ADLT/IMUMNOSPR, On: 28-Jul-2015 Intent SBC/INTRM ([id number])By: Araceli SUÁREZ, Comments: Lot:[id number]:01/08/17Dose:0.5mlRoute:imSite:l [place] By:JKOLBY signed Talia Johnson MD DEXA SCAN AXIAL SKELETON On: 28-Jul-2015 Intent ([id number])By: Talia Charles MD Comments: - due Talia Charles MD ELECTROCARDIOGRAM, COMPLETE (ECG) On: 02-Oct-2014 Intent ([id number])By: Talia Charles MD, MD, Dana M MRI - OtherBy: Talia Charles MD On: 24-Jul-2014 Intent Talia Charles MD Comments: R breast MRI OF RIGHT BREAST WITH AND On: 24-Jul-2014 Intent WITHOUT CONTRAST ([id number])By: Talia Charles MD, MD, Dana M MAMMOGRAM, SCREENING, BOTH BREAST On: 21-Jul-2014 Intent ([id number])By: Talia Charles MD, MD, Dana M ELECTROCARDIOGRAM, COMPLETE (ECG) On: 04-Mar-2014 Intent ([id number])By: Talia Charles MD, MD, Dana M DXA, BONE DENSITY, AXIAL SKELETON On: 01-Aug-2013 Intent ([id number])By: Talia Charles MD, MD, Dana M EKG ([id number])By: Talia Charles MD On: 01-Aug-2013 Intent Talia Gunter MD Comments: see scanned document of test done to see results reviewed today with patient TDAP VACCINE >7 IM ([id number])By: On: 24-Sep-2012 Intent Talia Charles MD, MD, Dana M Ultrasound - PelvisBy: Araceli On: 06-Apr-2012 Intent Talia SUÁREZ MD, Dana M Comments: left ovary felt and postmenapausal EKG ([id number])By: Talia Charles MD On: 18-Jul-2011 Intent Talia Gunter MD Comments: see scanned document of test done to see results reviewed today with patient Breast Ultrasound - LeftBy: On: 18-Jul-2011 Intent Talia Charles MD, MD, Talia Carney DXA, BONE DENSITY, AXIAL SKELETON On: 20-Aug-2010 Intent ([id number])By: Talia Charles MD, MD, Talia Carney MAMMOGRAM, SCREENING, BOTH On: 20-Aug-2010 Intent BREASTS ([id number])By: Talia Charles MD, MD, Dana M Breast Screening - RightBy: On: 28-Jul-2009 Intent Talia Charles MD, MD, Talia Carney Breast Diagnostic - LeftBy: On: 28-Jul-2009 Intent Talia Charles MD, MD, Talia Carney Nuclear Stress Test/Stress On: 08-Aug-2008 Intent SPECT/TreadmillBy: Talia Charles MD, MD, Talia Carney Echo CompleteBy: Talia Charles MD On: 08-Aug-2008 Intent Talia Gunter MD Bone Density StudyBy: Araceli SUÁREZ, On: 08-Aug-2008 Intent Talia Johnson MD EKG ([id number])By: Talia Charles MD On: 08-Aug-2008 Intent Talia Gunter MD MAMMOGRAM, SCREENING, BOTH On: 04-Jul-2007 Intent BREASTS ([id number])By: Talia Charles MD, MD, Dana M Bone Density StudyBy: Araceli SUÁREZ, On: 04-Jul-2007 Intent Talia Johnson MD MAMMOGRAM, SCREENING, BOTH On: 11-May-2006 Intent BREASTS ([id number])By: Talia Charles MD, MD, Dana M Instructions [...] Advance Directives Name Dates Details Immunization Registry [place] - Effective on Effective: 17-Jan-201701/17/2017. Expiration date unspecified Encounters Review On: 06-Mar-2018 10:21 Encounter Reason: Physical female exam - Last seen between 3-6 months ago. General health: does not feel well and has good energy level. The patient's appetite is normal. Nutrition: normal/adequate. Exercises 4 days per week. Sleeps on average 7 hours per [...] - Yes the patient did have (NOT [place] [employer]) a mini mental status exam done today. [...] The patient does have durable power of securities attorney and living will. The patient has [...] The patient does have durable power of securities attorney and living will. The joe ent [...] surgery the patient plans to recover at [facility] with family. Note for Pre-op visit: [...] Pap (V72.31) (Mammo), Genital herpes, unspecified (054.10), [facility] Historical Summary On: 04-Jun-2008 [...] and unspecified noninfectious gastroenteritis and colitis (558.9), [facility] Office Visit On: 11-May-2006 [...]
--- OUTSIDE RECORDS SUMMARY | 2018-06-21 02:41 | XMS RPT_ITS | Continuity of Care Document ---
:1950 Author Organization [facility] Address [address] [facility] [address] [place] [address] Phone Care Team Providers Name Role Phone [...] not have 30 pack years. light. quit [phone]? Status: Active Hypercholesteremia (E78.00, 272.0) Comments: LDL [...] Medications Name Dates Details CALCIUM + D, 597-003IZ-AXMR (Oral Tablet) 1 QD for 0 days [...] Start : 05-Jan-2016 End : 17-Jan-2017 Inactive MAID CLEANING COOKING-ZEL (Oral Tablet) 1 qd for 0 days Refills: 0 Ordered:28-Jul-2015 CLARENCE Grimm Start : 24-Sep-2012 End : 28-Jul-2015 Inactive ZOSTAVAX, 07425AJC/0.65ML (Subcutaneous Solution Reconstituted) uad For Solution For Solution once SC for 0 days Quantity: 1 {Vial} Refills: 0 Ordered:28-Jul-2015 CLARENCE Grimm Start : 01-Aug-2013 End : 28-Jul-2015 Inactive HYDROXYCHLOROQUINE SULFATE, 200MG (Oral Tablet) 1 Tablet QD for 0 days Quantity: 90 {Tablet} Refills: 3 Ordered:04-Jul-2007 AlfaCLARENCE Start : 04-Jul-2007 End : 02-Aug-2007 Discontinued [...] Density Study Result: Comments: See Note; NOTES: [facility] Imaging Services [address] [place] [address] Dexa Bone Density Study MR#: [id number] Acct: [id number] Name: SHANITA MONTIEL Rep #: [id number] : 1950 F 67 From: Kar Sheridan MD PCP: Talia Charles MD Status: REG CLI Study: Dexa Bone Density Study Date of Exam: 10/25/17 Exam# [id number] Ordering Dr: Talia Charles MD STUDY: DUAL ENER GY X-RAY ABSORPTIOMETRY / DXA REASON FOR EXAM: Female, 67 years old. Postmenopausal screening TECHNIQUE: Bone Mineral Density (BMD) measurements of lumbar spine and bilateral hips were obtained. COMP [facility]: 2015 FINDINGS: Lumbar Spine (L1- L4): [...] Service support , CC: Talia Charles MD Wire Frame Maker: Signed 25-Aug-2017 Thyroid Result: Comments: See Note; NOTES: [facility] Imaging Services [address] [place] [address] Thyroid MR#: [id number] Acct: [id number] Name: SHANITA MONTIEL Rep #: [id number] : [birth year] F 67 From: Isiah Sanchez MD PCP: Talia Charles MD Status: REG CLI Study: Thyroid Date of Exam: 08/25/17 Exam# [id number] Ordering Dr: Talia Charles MD STUDY: THYROID [...] Isiah Sanchez MD at 12:32 EDT Tel [phone], Service support , CC: Talia Charles MD Wire Frame Maker: Signed 01-Feb-2017 SCREENING MAMM (CAD), BILAT Result: Comments: See Note; NOTES: [facility] Imaging Services [address] [place] [address] SCREENING MAMM (CAD), BILAT MR#: [id number] Acct: [id number] Name: SHANITA MONTIEL Rep #: [id number] : 1950 F 66 From: Isiah Sanchez MD PCP: Talia Charles MD Status: REG CLI Study: SCREENING MAMM (CAD), BILAT Date of Exam: 02/01/17 Exam# [id number] Ordering Dr: Talia Charles MD M AMMOGRAPHY [...] biopsy of a clinically suspicio us abnormality. [id number] Electronically Signed: Isiah Sanchez MD at 9:34 EDT Tel [phone], Service support , CC: Talia Charles MD Wire Frame Maker: Signed 05-Feb-2016 Nuclear Stress Test - Treadmil Result: Comments: See Note; NOTES: [facility] Imaging Services [address] [place] [address] Verdana 4d Nuclear Stress Test - Treadmil MR#: [id number] Acct: [id number] Name: Sean MONTIEL Rep #: [id number] : 1950 65 From: Juan Antonio Rubi [...] Juan Antonio Rubi MD T: NTS JOB: [id number] 02/05/16 1525 <Electronically signed by Juan Antonio Rubi MD> Date Juan Antonio Rubi MD CC: Talia Charles MD Date Dictated: 02/05/16 1008 Date Transcribed: 02/05/161007 Wire Frame Maker: Signed 08-Jan-2016 Bilat Scrn Implant DIG AND CAD Result: Comments: See Note; NOTES: [facility] Imaging Services [address] [place] [address] Verdana 4d Bilat Scrn Implant DIG AND CAD MR#: [id number] Acct: [id number] Name: JODY MONTIEL Rep #: [id number] : 1950 F 65 From: Isiah Sanchez MD PCP: Talia Charles MD Status: REG CLI Study: Bilat Scrn Implant DIG AND CAD Date of Exam: 01/08/16 Exam# [id number] Ordering Dr: Talia Stapleton MD MAMMOGRAPHY - [...] delay biopsy of a clinically suspicious abnormality. [id number] Electronically Signed: Isiah Sanchez MD at 10:03 EDT Tel [phone], Service support [phone], CC: Talia Charles MD Wire Frame Maker: Signed 21-Oct-2015 Dexa Bone Density Study (HP) Result: Comments: See Note; NOTES: [facility] Imaging Services [address] [place] [address] Verdana 4d Dexa Bone Density Study () MR#: [id number] Acct: [id number] Name : SHANITA MONTIEL Rep #: [id number] : 1950 F 65 From: Isiah Sanchez MD PCP: Talia Charles MD Status: REG CLI Study: Dexa Bone Density Study () Date of Exam: 10/21/15 Exam# [id number] Mabel du Dr: Talia Charles MD STUDY: [...] Isiah Sanchez MD at 12:45 EDT Tel [phone], Service support [phone], CC: Talia Charles MD Wire Frame Maker: Signed 30-Jul-2014 Breast w/o and/or W Cont Bilat Result: Comments: See Note; NOTES: [facility] Imaging Services [facility] [place] [address] MRI Report MR#: [id number] Acct: [id number] Name: SHANITA MONTIEL Rep #: [id number] DO B: 1950 F 64 From: Nhan Berrios MD PCP: Talia Charles MD Status: REG CLI Study: Breast w/o and/or W Cont Bilat Date of Exam: 07/30/14 Exam# [id number] Ordering Dr: Talia Charles MD STUDY: LALA [...] MD at 15:53 EDT , Service support [phone], CC: Talia Charles MD Wire Frame Maker: Signed 23-Jul-2014 Breast Limited Unilateral Result: Comments: See Note; NOTES: [facility] Imaging Services [address] [place] [address] Ultrasound Report MR#: [id number] Acct: [id number] Name: SHANITA MONTIEL Rep #: [id number] : 1950 F 63 From: Isiah Sanchez MD PCP: Talia Charles MD Status: REG CLI Study: Breast Limited Unilateral Date of Exam: 07/23/14 Exam# [id number] Ordering Dr: Talia Charles MD S TUDY: [...] Isiah Sanchez MD at 16:02 EDT Tel [phone], Service support [phone], CC: Talia Charles MD Wire Frame Maker: Signed 23-Jul-2014 Bilat Diag Implant DIG AND CAD Result: Comments: See Note; NOTES: [facility] Imaging Services [address] [place] [address] Breast Imaging Report MR#: [id number] Acct: [id number] Name: SHANITA MONTIEL Rep #: [id number] : 1950 F 63 From: Isiah Sanchez MD PCP: Talia Charles MD Status: REG CLI Study: Bilat Diag Implant DIG AND CAD Date of Exam: 07/23/14 Exam# [id number] Ordering Dr: Talia Charles MD MAMMOGRAPHY - [...] Isiah burrows MD at 8:05 EDT Tel [phone], Service support [phone], CC: Talia Charles MD Wire Frame Maker: Signed Immunization Name Dates Details Influenza (3 years and up) on: 29-Jan-2018 Pneumococcal conjugate vaccine, 13 valent, IM on: 2015 Comments: [facility] Zoster (shingles) on: 2014 Comments: [facility]les Family History Unknown Family Member Name Dates Details Brother 1 Comments: MD 58 yo, hypercholesterolemia Status: Active Brother 2 [...] Living Situation Comments: Lives with spouse, , Orthodox important Status: Active No Caffeine Use Status: Active No Drug Use Status: Active Non Smoker/No Tobacco Use Status: Active Tobacco use: Former smoker. Status: Active Smoking Status Name Dates Details Former smoker Vital Signs Date Test Result Details 1-Uxk-874993:36 Temperature 97.9 f Comments: Method: Temporal Pulse [...] 0.00 cm Results Date Description Value Details 7-Lrk-937298:11 URINALYSIS (69840) Comments: PATIENT WAS FASTINGPERFORMED BY: [employer] Wjqded6227 [facility] [id number] Microscopic Examination MICNIP (Normal) Comments: Microscopic not indicated and not performed. Nitrite, Urine Negative (Normal) Urobilinogen,Semi-Qn 0.2 mg/dL (Normal) Range: 0.2-1.0 Bilirubin Negative (Normal) Occult Blood Negative (Normal) Ketones Negative (Normal) Glucose Negative (Normal) Protein Negative (Normal) WBC Esterase Negative (Normal) Appearance Clear (Normal) Urine-Color Yellow (Normal) pH 6.5 (Normal) Range: 5.0-7.5 Specific [place] 1.013 (Normal) Range: 1.005-1.030 5-Skc-651761:11 CBC WITH MANUAL DIFF (75869) Comments: PATIENT WAS FASTINGPERFORMED BY: [facility]6370 [facility] [id number] Immature Grans (Abs) 0.0 {x10E3/uL} (Normal) Range: [...] 3.77-5.28 WBC 3.1 {x10E3/uL} (Abnormal) Range: 3.4-10.8 0-Wrc-667808:11 Metabolic Panel, Comprehensive Comments: PATIENT WAS FASTINGPERFORMED BY: [facility]6370 [facility] [id number] (27296) ALT (SGPT) 12 [iU]/L (Normal) Range: 0-32 [...] 8-27 Glucose 84 mg/dL (Normal) Range: 65-99 4-Czr-735833:30 Thin prep Pap (25275) (no Comments: cuff scraping; No. of containers..01 ThinPrep VialPERFORMED BY: =G Futurestream NetworksAcadia Healthcare [id number] BY: I2 TELE[employer] INTERNATIONAOverseeAcadia Healthcare [address] STD testing) [id number] Information: [id number] Age Gdln ACOG Testing AGE6 (Normal) Comments: <21 or >65 or no age provided 7-Jeu-515369:30 Pap IG (Image Guided) Comments: No. of containers..01 ThinPrep VialPERFORMED BY: =G XerosrDreamstreet Golfvirtua berlin W [id number] BY: KongZhongrDreamstreet GolfAcadia Healthcare [id number] Note: PAPSMR (Normal) Comments: The Pap smear [...] MALIGNANCY.THIS SPECIMEN WAS RESCREENED PART OF OUR BULLET ASSEMBLY PRESS SETTER OPERATOR PROGRAM.Satisfactory for evaluation. No endocervical component is identified.Z0 1.419Erin Kayden gonzáles, Trimming Department Blocker (ASCP)Chela Armendariz, Trimming Department Blocker (ASCP) 3-Xjj-724882:00 CBC W/Diff, Automated Comments: [facility] [address] [place], [address] SMEAR COMMENT SCANNED (Normal) Comments: NEUTROPENIA NOTED [...] Range: 4.4-11.0 :47 CBC W/Diff, Automated Comments: [facility] [address] [place], [place], [address] Absolute Lymph 1.05 {X10_3/ul} (Normal) Range: 0.83-4.51 [...] Range: 4.4-11.0 :16 CBC W/Diff, Automated Comments: [facility] [address] [place], [address] Absolute Lymph 0.95 {X10_3/ul} (Normal) Range: 0.83-4.51 [...] 4.2-5.4 WBC 2.7 K/mm3 (Abnormal) Range: 4.4-11.0 70-Llv-692792:18 METABOLIC PANEL, Comments: PATIENT WAS FASTINGPERFORMED BY: BN [facility] [address] [id number] BY: CB [facility] [address] [id number] [facility] (96733) ALT (SGPT) 11 [iU]/L (Normal) Range: 0-32 [...] 8-27 Glucose 86 mg/dL (Normal) Range: 65-99 13-Sop-926672:18 TSH (24709) Comments: PATIENT WAS FASTINGPERFORMED BY: Buru Buru [facility] [id number] BY: [employer]70 [facility] [id number] TSH 1.780 {uIU/mL} (Normal) Range: 0.450-4.500 88-Nyt-113770:18 LIPOPROTEIN, BLD, BY NMR Comments: PATIENT WAS FASTINGPERFORMED BY: [employer]1447 [facility] [id number] BY: Applied StemCellJersey City Medical CenterExzntq7267 [facility] [id number]; fu 5-7-18 DB (88614) LP-IR Score <25 (Normal) Comments: INSULIN RESISTANCE MARKER <--Insulin Sensitive Insulin Resistant--> Percentile in Reference PopulationInsulin Resistance ScoreLP-IR Score Low 25th 50th 75th High <27 27 45 63 >63LP-IR Score is inaccurate if patient is non-fasting. .The LP-IR score is a laboratory developed i [facility] that has beenassociated with insulin resistance and [...] 1600 - 2000 Very High > 2000 64-Ppq-760560:18 HEPATITIS C ANTIBODY Comments: PATIENT WAS FASTINGPERFORMED BY: LabAmanda [place] 905687 [facility] [id number] BY: [address] [id number] ([address]) Hep C Virus Ab <0.1 {s/co_ratio} (Normal) Range: 0.0-0.9 Comments: Negative: < 0.8 Indeterminate: 0.8 - 0.9 Positive: > 0.9 . The CDC recommends that a positive HCV antibody result be followed up with a HCV Nucleic Acid Amplification test (684823). 32-Edh-636819:08 Anti-Centromere B Ab Comments: [facility] (refer to report for specific site)refer to report for address and phone number ANTI-CENT B <0.2 {AI} (Normal) Range: 0.0-0.9 Comments: Performed at: [address] [id number] Director: Chang Greenberg PhD, Phone: [phone] 44-Lye-964770:08 Anti-Chromatin Comments: [facility] (refer to report for specific site)refer to report for address and phone number ANTICHROMATIN <0.2 {AI} (Normal) Range: 0.0-0.9 92-Aug-950314:08 Anti-Kasia Comments: [facility] (refer to report for specific site)refer to report for address and phone number ANTI-KASIA <0.2 {AI} (Normal) Range: 0.0-0.9 82-Ygn-609369:08 Bpug-Afmygmqglij-68 AB Comments: [facility] (refer to report for specific site)refer to report for address and phone number ANTISCLER <0.2 {AI} (Normal) Range: 0.0-0.9 18-Phz-986476:08 CBC W/Diff, Automated Comments: [facility] [address] [place], [address] Absolute Lymph 1.06 {X10_3/ul} (Normal) [...] 4.2-5.4 WBC 3.2 K/mm3 (Abnormal) Range: 4.4-11.0 35-Jpu-104410:08 Complement C3 Comments: [facility] (refer to report for specific site)refer to report for address and phone number COMP C3 107 mg/dL (Normal) Range: 82-167 Comments: Performed at: [address] [id number] Director: Chang Greenberg PhD, Phone: [phone] 70-Uck-831001:08 Complement C4 Comments: [facility] (refer to report for specific site)refer to report for address and phone number COMP C4 15 mg/dL (Normal) Range: 14-44 95-Wdv-011283:08 Liver Profile Comments: [facility] [address] [place], [place], [address] D BILI 0.14 mg/dL (Normal) Range: 0.00-0.30 T BILI 0.90 mg/dL (Normal) Range: 0.20-1.00 ALT 19 U/L (Normal) Range: 12-78 ALK P 66 U/L (Normal) Range: 45-117 AST 14 U/L (Abnormal) Range: 15-37 GLOB 3.7 g/dL (Abnormal) Range: 2.3-3.5 ALB 4.1 g/dL (Normal) Range: 3.4-5.0 T PROT 7.8 g/dL (Normal) Range: 6.4-8.2 64-Azv-454614:20 CBC W/Diff, Automated Comments: [facility] [address] [place], [place], [address] Absolute Lymph 1.15 {X10_3/ul} (Normal) Range: 0.83-4.51 [...] 4.2-5.4 WBC 2.9 K/mm3 (Abnormal) Range: 4.4-11.0 62-Hoy-538138:20 Liver Profile Comments: [facility] [address] [place], [place], [address] D BILI 0.14 mg/dL (Normal) Range: 0.00-0.30 T BILI 0.70 mg/dL (Normal) Range: 0.20-1.00 ALT 21 U/L (Normal) Range: 12-78 ALK P 65 U/L (Normal) Range: 45-117 AST 17 U/L (Normal) Range: 15-37 GLOB 3.9 g/dL (Abnormal) Range: 2.3-3.5 ALB 3.9 g/dL (Normal) Range: 3.4-5.0 T PROT 7.8 g/dL (Normal) Range: 6.4-8.2 89-Eqh-073986:19 Thyroid Stim Hormone (TSH) Comments: [facility] [address] [place], [place], [address] TSH 1.62 {uIU/mL} (Normal) Range: 0.358-3.74 01-Asf-948876:03 Anti-dsDNA Ab Comments: [facility] (refer to report for specific site)refer to report for address and phone number dsDNA AB 11 (Normal) Comments: High IU/mL 0 - 9Negative <5Equivocal 5 - 9Positive >9 50-Mkk-457108:03 Anti-Histone Abs Comments: [facility] (refer to report for specific site)refer to report for address and phone number ANTIHISTO 3.0 (Normal) Comments: High Units 0.0 - 0.9Negative <1.0Weak Positive 1.0 - 1.5Moderate Positive 1.6 - 2.5Strong Positive >2.5 48-Eiq-110868:03 Antiextractable Nug Ag Comments: [facility] (refer to report for specific site)refer to report for address and phone number CHENG Ab <0.2 (Normal) Comments: AI 0.0 - 0.9 OBSERVATION NURSE Ab <0.2 (Normal) Comments: AI 0.0 - 0.9 72-Xgq-010181:03 Antinuclear Antibody, IFA Comments: [facility] (refer to [...] titers Nucleosomes, Histones Drug-induced SLE Speckled Sm, OBSERVATION NURSE, SCL-70, SLE,MCTD,PSS (diffuse form), SS-A/SS-B Sjogrens Nuc leolar SCL-70, PM-1/SCL High titers Scleroderma, PM/DM Centromere Centromere PSS (limited form) w/Crest syndrome variable Nuclear Dot Sp100,b18-yggwee Primary Biliary Cirrhosis ---------Nuclear GP210, Primary Biliary CirrhosisMembrane taryn A,B,C SPECKLED PAT. 1:640 (Normal) Comments: High AMAN test Positive Abnormal Comments: Negative <1:80Borderline 1:80Positive >1:80 (Normal) 71-Pwy-523409:03 CBC W/Diff, Automated Comments: [facility] [address] [place], [place], [address] Absolute Lymph 1.58 {X10_3/ul} (Normal) Range: 0.83-4.51 [...] 4.2-5.4 WBC 3.5 K/mm3 (Abnormal) Range: 4.4-11.0 04-Zmh-379235:03 Electrolyte Panel Comments: [facility] [address] [facility] [address] [place], [place], [address] GAP 8 (Normal) Range: 5-15 CO2 29.0 mmol/L (Normal) Range: 21.0-32.0 CL 101 mmol/L (Normal) Range: 98-107 K 3.8 mmol/L (Normal) Range: 3.5-5.1 NA 138 mmol/L (Normal) Range: 136-145 :03 Liver Profile Comments: [facility] [address] [facility] [place], [place], [address] D BILI 0.20 mg/dL (Normal) Range: 0.00-0.30 T BILI 0.80 mg/dL (Normal) Range: 0.20-1.00 ALT 20 U/L (Normal) Range: 12-78 ALK P 64 U/L (Normal) Range: 45-117 AST 15 U/L (Normal) Range: 15-37 GLOB 4.4 g/dL (Abnormal) Range: 2.3-3.5 ALB 4.0 g/dL (Normal) Range: 3.4-5.0 T PROT 8.4 g/dL (Abnormal) Range: 6.4-8.2 83-Tdg-757512:03 Sjogren's Antibodies A/B Comments: [facility] (refer to report for specific site)refer to report for address and phone number Anti-SS-B 2.0 (Normal) Comments: High AI 0.0 - 0.9 Anti-SS-A > 8.0 (Normal) Comments: High AI 0.0 - 0.9 5-Jcx-195135:22 COMPLEMENT C4 (99004) Comments: copy Dr. jaime norton; PATIENT NOT FASTINGPERFORMED BY: LabCoJersey City Medical CenterZudayu7246 [facility] [id number] Complement C4, Serum 14 mg/dL (Normal) Range: 14-44 8-Emj-445108:22 COMPLEMENT C3 (68172) Comments: copy Dr. geremias norton; PATIENT NOT FASTINGPERFORMED BY: CB [facility] [address]vs[address] [place] [id number] Complement C3, Serum 103 mg/dL (Normal) Range: 82-167 9-Qsr-373890:22 C-Reactive Protein (96288) Comments: copy Dr. geremias norton; PATIENT NOT FASTINGPERFORMED BY: CB [facility] Aelttj87[address] Mcallister RoadAtrium Healthin [place] [id number] C-Reactive Protein, Quant 0.5 mg/L (Normal) Range: 0.0-4.9 8-Rzg-249343:22 Sed Rate Erythrocyte (25690) Comments: Dr. cierra scott; PATIENT NOT FASTINGPERFORMED BY: CB [facility] Uynqxi[address] [facility] [place] [id number] Sedimentation Rate-Westergren 4 mm/h (Normal) Range: 0-40 2-Bzx-481034:22 COMPLEMENT, TOTAL (CH50) Comments: seen Dr. norton; PATIENT NOT FASTINGPERFORMED BY: [facility] Yvhyac[address] [facility] [place] [id number] (85128) Complement, Total (CH50) >60 U/mL (Abnormal) Range: 42-60 61-Zsd-809069:57 TSH (93103) Comments: PATIENT WAS FASTINGPERFORMED BY: Lab[address] [id number] BY: [facility] Ptcpfu0235 [facility] [place] [id number] TSH 3.190 {uIU/mL} (Normal) Range: 0.450-4.500 06-Mrm-182736:57 METABOLIC PANEL, Comments: PATIENT WAS FASTINGPERFORMED BY: Lab[address] [id number] BY: [facility] Byscjv1923 [address] [facility] [place] [id number] COMPREHENSIVE (24295) ALT (SGPT) 7 [iU]/L (Normal) Range: 0-32 [...] Glucose, Serum 84 mg/dL (Normal) Range: 65-99 96-Oog-670059:57 LIPOPROTEIN, BLD, BY NMR Comments: PATIENT WAS FASTINGPERFORMED BY: BN [facility] [address] [id number] BY: CB [facility] Vunqbs4413 [facility] [id number]; fu 5-23 db (01404) LP-IR Score 30 (Normal) Comments: INSULIN RESISTANCE [...] were developed and their performance characteristicsdetermined by [employer]. These assays have not been cleared by [...] 1600 - 2000 Very High > 2000 34-Yrs-589712:28 AMAN (ANTINUCLEAR ANTIBODY) Comments: PATIENT NOT FASTINGPERFORMED BY: [facility]ataDeckerville [facility] Hospital6370 [facility] [id number] (61988) AMAN Direct Positive (Abnormal) :28 URINALYSIS (70389) Comments: PATIENT NOT FASTINGPERFORMED BY: [facility]De[facility] Hospital6370 [facility] [id number] Microscopic Examination MICNIP (Normal) Comments: Microscopic not indicated and not performed. Nitrite, Urine Negative (Normal) Urobilinogen,Semi-Qn 0.2 mg/dL (Normal) Range: 0.2-1.0 Bilirubin Negative (Normal) Occult Blood Negative (Normal) Ketones Negative (Normal) Glucose Negative (Normal) Protein Negative (Normal) WBC Esterase Negative (Normal) Appearance Cloudy (Abnormal) Urine-Color Yellow (Normal) pH 7.5 (Normal) Range: 5.0-7.5 Specific [place] 1.016 (Normal) Range: 1.005-1.030 :28 C-Reactive Protein (96988) Comments: PATIENT NOT FASTINGPERFORMED BY: BembaJersey City Medical CenterYlnyrt6943 [facility] [id number] C-Reactive Protein, Quant 7.7 mg/L (Abnormal) Range: 0.0-4.9 :28 Sed Rate Erythrocyte (99684) Comments: PATIENT NOT FASTINGPERFORMED BY: [facility]ataDe[facility] Hospital6370 [facility] [id number] Sedimentation Rate-Westergren 7 mm/h (Normal) Range: 0-40 42-Bjp-625177:28 CBC (Auto) (63663) Comments: PATIENT NOT FASTINGPERFORMED BY: [facility]De[facility] Hospital6370 [facility] [id number] Platelets 227 {x10E3/uL} (Normal) Range: 150-379 RDW 13.2 % (Normal) Range: 12.3-15.4 MCHC 33.2 g/dL (Normal) Range: 31.5-35.7 MCH 30.0 pg (Normal) Range: 26.6-33.0 MCV 90 fL (Normal) Range: 79-97 Hematocrit 38.2 % (Normal) Range: 34.0-46.6 Hemoglobin 12.7 g/dL (Normal) Range: 11.1-15.9 RBC 4.24 {x10E6/uL} (Normal) Range: 3.77-5.28 WBC 5.1 {x10E3/uL} (Normal) Range: 3.4-10.8 53-Prn-978746:28 Metabolic Panel, Comments: PATIENT NOT FASTINGPERFORMED BY: LabCoJersey City Medical CenterPbiail5692 [facility] [id number] Information: [id number] Comprehensive (69235) ALT (SGPT) 11 [iU]/L (Normal) Range: 0-32 [...] Glucose, Serum 79 mg/dL (Normal) Range: 65-99 3-Dyj-578156:12 Basic Metabolic Panel (8) Comments: PATIENT NOT FASTINGPERFORMED BY: BembaJersey City Medical CenterGdzfgx0023 [facility] [id number] Calcium, Serum 9.5 mg/dL (Normal) Range: 8.7-10.3 [...] Glucose, Serum 81 mg/dL (Normal) Range: 65-99 7-Fwh-654251:12 CBC, Platelet, No Comments: PATIENT NOT FASTINGPERFORMED BY: BembaJersey City Medical CenterUujjhw4098 [facility] [id number] Information: [id number] Differential Platelets 216 {x10E3/uL} Range: 150-379 (Normal) RDW 13.1 % (Normal) Range: 12.3-15.4 MCHC 32.8 g/dL (Normal) Range: 31.5-35.7 MCH 29.4 pg (Normal) Range: 26.6-33.0 MCV 90 fL (Normal) Range: 79-97 Hematocrit 40.6 % (Normal) Range: 34.0-46.6 Hemoglobin 13.3 g/dL (Normal) Range: 11.1-15.9 RBC 4.52 {x10E6/uL} Range: 3.77-5.28 (Normal) WBC 3.4 {x10E3/uL} Range: 3.4-10.8 (Normal) TSH 2.300 {uIU/mL} Comments: PATIENT NOT FASTINGPERFORMED BY: [facility]6370 [facility] [id number] 510:12 (Normal) Range: 0.450-4.500 BREAST BIOPSY (CHOOSE SITE) See Note (Normal) Comments: Test performed at:[facility] [address] [place] [address] 515:30 Comments: Patient: SHANITA MONTIEL : 1950 (64/F) Acct Num: [id number] Phys: Jaquan Padron MD Unit Num: [id number] Loc: LABSPEC Specimen: [id number] Received: 08/04/141614 Spec Type: BREAST BX TISSUES TISSUES: COMMENT Immunohistochemistry ([id number]) supports the above diagnosis. GROSS DESCRIPTION Received in a container labeled with the patient name and mary jo ignated needle core biopsy, right breast are three elongated cores of yellow- white soft tissuemeasuring in aggregate 2 x 0.5 x 0.1 cm. The specimen is totally submitted in one cassette. / AM: 08/06 TC:5 CPT: 01118 HEADER OPERATION: U/S guided needle core biopsy right breast PRE-OPERATIVE DIAGNOSIS: 793.89 abnormal finding on breast imaging TISSUE SUBMITTED: Right breast needle co re biopsy MICROSCOPIC DIAGNOSIS Right breast, ultrasound-guided needle core biopsy: Fat necrosis, fibrosis, and foreign body giant cell reaction to nonpolarizable material. Benign hist iocytic proliferation and mild chronic inflammation. No evidence of malignancy. AM: 08/06/14 Signed [facility] 08/07/14 <signature on file> IMMUNOHISTOCHEMISTRY See Note (Normal) Comments: Test performed at:[facility] [address] [place] [address] 50:00 Comments: Patient: SHANITA MONTIEL : 1950 (64/F) Acct Num: [id number] Phys: Jaquan Padron MD Unit Num: [id number] Loc: LABSPEC Specimen: [id number] Received: 08/06/14 120 Spec Type: IMMUNO TISSUES TISSUES: SPECIMEN INFORMATION: Tissue Source: Right breast, core biopsy Clinical Info: Abnormal mammogram Specimen Number: [id number] CPT code: 60632, 69338 x3 METHODOLOGY: Deparaffinized sections of formalin-fixed tissue or PAP/DQ stained slides are incubated with monoclonal/polyclonal antibodies/oligonucleotide probes. Localization is made via biotin free immunoperoxidase method. Appropriate controls are performed and reacted as expected. Results on target cell population are indicated in the following table: RESULTS: ANTIBODY / CLONE RESULT AE1-3/PCK26 (AE1,AE3,PCK26) negative CK8 (TS1/32oxncU93) negative P53 (DO-7) negative Macro (HAM-56) positive These tests were developed and their performance characteristics determined by [facility]. They may not have been cleared or approved by the U.S. Food and Drug Administration. The FDA has de termined that such clearance or approval is not necessary. INTERPRETATION: Right breast, core biopsy: Consistent with fat necrosis. AM: 08/07/14 PHYSICIAN AND INSTITUTION [place] [address] Signed [facility] 08/07/14 <signature on file> :58 TSH (57054) Comments: PATIENT WAS FASTINGPERFORMED BY: [facility]CoJer[facility] CenterBfrrxg1003 [facility] [id number] TSH 2.580 {uIU/mL} (Normal) Range: 0.450-4.500 96-Gwd-90112:58 METABOLIC PANEL, COMPREHENSIVE Comments: PATIENT WAS FASTINGPERFORMED BY: [facility]CoJer[facility] City [facility] CenterXasjwr6045 [facility] [id number] (34511) ALT (SGPT) 9 [iU]/L (Normal) Range: 0-32 [...] mg/dL (Normal) Range: 65-99 :58 LIPID PANEL (12045) Comments: PATIENT WAS FASTINGPERFORMED BY: [facility] [id number] LDL/HDL Ratio 1.9 {ratio_units} (Normal) Range: 0.0-3.2 [...] auto diff Comments: PATIENT WAS FASTINGPERFORMED BY: [facility] [id number] Information: [id number] (90109) Immature Grans (Abs) 0.0 {x10E3/uL} (Normal) Range: [...] 3.77-5.28 WBC 3.9 {x10E3/uL} (Normal) Range: 3.4-10.8 4-Wmp-234947:11 Microscopic Examination Comments: PATIENT WAS FASTINGPERFORMED BY: LabCo Czrhhb4504 [address] [place] [id number] Bacteria None seen (Normal) Mucus Threads Present (Normal) Epithelial Cells (non renal) 0-10 {/hpf} (Normal) Range: 0 - 10 RBC None seen {/hpf} (Normal) Range: 0 - 3 WBC None seen {/hpf} (Normal) Range: 0 - 5 :03 T4, FREE (THYROXINE) (17029) Comments: PATIENT WAS FASTINGPERFORMED BY: [facility]ataDe[facility]erville [facility] Hospital6370 [facility] [id number] T4,Free(Direct) 1.28 ng/dL (Normal) Range: 0.82-1.77 6-Lxd-158676:03 URINALYSIS, W/ MICRO (41416) Comments: PATIENT WAS FASTINGPERFORMED BY: [facility]6370 [facility] [id number] Microscopic Examination See below: (Normal) Microscopic Examination MICRON (Normal) Comments: Microscopic follows if indicated. Nitrite, Urine Negative (Normal) Urobilinogen,Semi-Qn 0.2 mg/dL (Normal) Range: 0.0-1.9 Bilirubin Negative (Normal) Occult Blood Negative (Normal) Ketones Negative (Normal) Glucose Negative (Normal) Protein Negative (Normal) WBC Esterase Negative (Normal) Appearance Clear (Normal) Urine-Color Yellow (Normal) pH 6.5 (Normal) Range: 5.0-7.5 Specific [place] 1.015 (Normal) Range: 1.005-1.030 7-Xhk-253128:03 CALCIFIDIOL (14028) VIT D 25 Comments: PATIENT WAS FASTINGPERFORMED BY: [facility] Hospital6370 [facility] [id number] Vitamin D, 25-Hydroxy 38.2 ng/mL (Normal) Range: 30.0-100.0 Comments: Vitamin D deficiency has been defined by the [place] of[facility] Hospitalcine and an Endocrine Society practice guideline as alevel of serum 25-OH vitamin D less than 20 ng/mL (1,2).The Endocrine Society went on to further define vitamin Dinsufficiency as a level between 21 and 29 ng/mL (2).1. IOM ([place] of Medicine). 2010. Dietary reference intakes for calcium and D. [place]: The National Academies Press.2. Gustavo MF, Yvette ZUNIGA, Jus RIVERA, et al. Evaluation, treatment, and prevention of vitamin D deficiency: an Endocrine Society clinical practice guideline. JCEM. 2010; 96(7):1911-30. 2-Ozn-864084:03 METABOLIC PANEL, COMPREHENSIVE Comments: PATIENT WAS FASTINGPERFORMED BY: [facility]6370 [facility] [id number] (68060) ALT (SGPT) 12 [iU]/L (Normal) Range: 0-32 [...] Glucose, Serum 86 mg/dL (Normal) Range: 65-99 3-Gfy-959714:03 CBC WITH MANUAL DIFF (08027) Comments: PATIENT WAS FASTINGPERFORMED BY: [facility]CoJer[facility] City [facility] CenterDtdfnr9802 [facility] [id number] Immature Grans (Abs) 0.0 {x10E3/uL} (Normal) Range: [...] 3.77-5.28 WBC 4.0 {x10E3/uL} (Normal) Range: 3.4-10.8 0-Dfy-251302:03 TSH (66583) Comments: PATIENT WAS FASTINGPERFORMED BY: [facility]CoJer[facility] City Medical CenterTurtfl5158 [facility] [id number] TSH 2.970 {uIU/mL} (Normal) Range: 0.450-4.500 06-Jjm-80564:21 CBC, Platelets & Auto Diff Comments: today; PATIENT NOT FASTINGPERFORMED BY: LabCoJer[facility] City [facility] CenterSvwkhr1992 [facility] [id number] Information: [id number] (21639) Immature Grans (Abs) 0.0 {x10E3/uL} (Normal) Range: [...] 3.77-5.28 WBC 3.2 {x10E3/uL} (Abnormal) Range: 4.0-10.5 25-Cea-809403:04 PELVIC (NON ) Radiology Report See Note [...] Sanchez M.D.April 12, 2012 at 3:25:13 PM [id number] Signed GP/GP If you are the referring physician and would like to consult with theradiologist who provided this interpretation, please ruslan Lentz M.D. at [phone]. If this radiologist is unavailable, youwill be directed to another radiologist to assist. If you are a patient with a question regarding this report, rhona don referring physician directly. Professional Interpretation Provided By: [employer], Phone , These documents contain legally protected [...] 04/12/12 153 Sign by: Isiah Sanchez MD 3-Azw-753175:16 Pap IG, Ct-Ng, Comments: Source.............Cervical;VaginalNo. of containers..01 CYTYC Thin Prep VialPERFORMED BY: WB [facility] Bfbpzdjwsm607 [facility] [id number] BY: =G [facility]120 [facility] HPV-hr [facility] [id number] Information: [id number] Gonococcus, Nuc. Acid Amp Negative (Normal) Chlamydia, [...] are present.V72.31 ; Routine gynecolog ical examina xnyc846.5 ; Leukorrhea, not specified as infectiveJennifer Camilo Trimming Department Blocker (ASCP) 8-Rxo-669051:13 Genital Culture, Routine Comments: PERFORMED BY: [facility] Ehatlz7865 [facility] [id number] Information: SRC:VA Result 1 RGF (Normal) Comments: Routine genital rochelle. Genital Culture, Routine Final report (Normal) 3-Oyc-313265:03 GARDNERELLA VAG, NUCLEIC Comments: PATIENT NOT FASTINGPERFORMED BY: [facility] Ovdudp0131 [facility] [id number] Information: [id number] ACID DIR PROBE (25296) Gardnerella vaginalis Positive (Abnormal) Trichomonas vaginalis Negative (Normal) Aquiles species Negative (Normal) 96-Hom-184923:59 BREAST UNILATERAL Radiology Report See Note (Normal) [...] radiologist regarding this report, please call our 57M2ksdpmdy line @ Dictated on 07/22/11 1139 by [...] 7-18 GLU 84 mg/dL (Normal) Range: 70-110 34-Vno-328269:38 LIPID VLDL 18 mg/dL (Normal) Range: 5-40 [...] 200-240 mg/dL Borderline >240 mg/dL High Risk 38-Lnw-051444:38 SED tSEDRATE 13 mm/h (Normal) Range: 0-30 36-Swb-843506:38 UA LORIE NEGATIVE (Normal) UOB NEGATIVE (Normal) KYM NEGATIVE (Normal) UROBU 0.2 EU/dl (Normal) Range: 0.2 - 1.0 uPROTU NEGATIVE (Normal) RAJESH 6.0 (Normal) Range: 5.0-8.0 SGU 1.020 (Normal) Range: 1.002-1.030 KETU NEGATIVE mg/dL (Normal) BILIU NEGATIVE (Normal) GLUR NEGATIVE (Normal) UCLAR CLEAR (Normal) UCOL YELLOW (Normal) 4-Yth-041967:54 URINE ROBERT CULTURE-BRYANNA COL Comments: PATIENT NOT FASTINGPERFORMED BY: MATY [facility] Wfkuws3849 [facility] [id number] Information: SRC: URINE COUNT (96218) Result 1 NG36 (Normal) Comments: No growth in 36 - 48 hours. Urine Culture,Comprehensive Final report (Normal) 5-Ycs-975326:34 Urinalysis, Office (42670) UA - BILIRUBIN Negative (Normal) UA - BLOOD Negative (Normal) UA - GLUCOSE Negative (Normal) UA - KETONES Negative mg/dL (Normal) UA - LEUKOCYTE ESTERASE Negative (Normal) UA - NITRITE Negative (Normal) UA - PH 6.0 (Normal) UA - PROTEIN Negative mg/dL (Normal) UA - SPECIFIC GRAVITY 1.010 (Normal) URINE UROBILINGN BRYANNA TIMED Normal mg/dL (Normal) 34-Oip-772925:25 DEXA BONE DENSITY STUDY () Radiology Report [...] on 09/22/10857 Sign by: Isiah Sanchez MD 26-Jzq-412927:24 BILAT SCRN IMPLANT DIG & CAD Radiology [...] Microscopic Examination Comments: PATIENT WAS FASTINGPERFORMED BY: [employer]70 [facility] [id number] Bacteria Few (Normal) Mucus Threads Present (Normal) Epithelial Cells (non renal) 0-10 {/hpf} (Normal) Range: 0 - 10 RBC None seen {/hpf} (Normal) Range: 0 - 3 WBC 0-5 {/hpf} (Normal) Range: 0 - 5 :48 Lipid Panel (17849) Comments: PATIENT WAS FASTINGPERFORMED BY: [employer]6370 [facility] [id number] LDL Cholesterol Calc 126 mg/dL (Abnormal) Range: 0-99 LDL/HDL Ratio 2.0 {ratio_units} (Normal) Range: 0.0-3.2 VLDL Cholesterol Miguel 19 mg/dL (Normal) Range: 5-40 Cholesterol, Total 207 mg/dL (Abnormal) Range: 100-199 HDL Cholesterol 62 mg/dL (Normal) Comments: According to ATP-III Guidelines, HDL-C >59 mg/dL is considered anegative risk factor for CHD. Triglycerides 95 mg/dL (Normal) Range: 0-149 :48 URINALYSIS (59890) Comments: PATIENT WAS FASTINGPERFORMED BY: [employer] Iwfwmb7422 [facility]WM[facility] [id number] Microscopic Examination See below: (Normal) Bilirubin Negative (Normal) Glucose Negative (Normal) Ketones Negative (Normal) Nitrite, Urine Negative (Normal) Occult Blood 3+ (Abnormal) Urobilinogen,Semi-Qn 0.2 mg/dL (Normal) Range: 0.0-1.9 Protein Negative (Normal) WBC Esterase Negative (Normal) Appearance Clear (Normal) Urine-Color Yellow (Normal) pH 6.5 (Normal) Range: 5.0-7.5 Specific [place] 1.020 (Normal) Range: 1.005-1.030 :48 CBC, Platelets & Auto Diff Comments: PATIENT WAS FASTINGPERFORMED BY: [facility] Xnjlki7095 [facility] [id number] (48428) Immature Grans (Abs) 0.0 {x10E3/uL} (Normal) Range: [...] 3.2 {x10E3/uL} (Abnormal) Range: 4.0-10.5 :48 TSH (39953) Comments: PATIENT WAS FASTINGPERFORMED BY: LabCoJersey City Medical CenterDilwpr0458 [facility] [id number] TSH 3.920 {uIU/mL} (Normal) Range: 0.450-4.500 :48 Metabolic Panel, Comprehensive Comments: PATIENT WAS FASTINGPERFORMED BY: LabCoJersey City Medical CenterIgwnoh6908 [facility] [id number] (87100) ALT (SGPT) 11 [iU]/L (Normal) Range: 0-40 [...] Glucose, Serum 85 mg/dL (Normal) Range: 65-99 47-Dbb-931834:15 Anti-dsDNA Antibodies Comments: PERFORMED BY: [employer]6370 [facility] [id number] Anti-DNA (DS) Ab Qn 4 {IU/mL} (Normal) Range: 0-9 Comments: Negative <5Equivocal 5 - 9Positive >9 C-Reactive Protein, 0.5 mg/L (Normal) Comments: PERFORMED BY: [employer] Equipmentlin[address] [place] [address] [id number] :15 Quant Range: 0.0-4.9 :15 CBC With Differential/Platelet Comments: PERFORMED BY: [employer]6370 [facility] [id number] Baso (Absolute) 0.0 {x10E3/uL} (Normal) Range: 0.0-0.2 [...] 3.80-5.10 WBC 3.0 {x10E3/uL} (Abnormal) Range: 4.0-10.5 31-Fzh-723336:15 Comp. Metabolic Panel (14) Comments: PERFORMED BY: [facility] Tgbxzn9996 [facility] [id number] Alkaline Phosphatase, S 73 [iU]/L Range: 25-165 [...] C3, Serum 116 {mg/dL_Adult} Comments: PERFORMED BY: [facility]De[facility] Hospital6370 [facility] [id number] 12:15 (Normal) Range: 90-180 28-Jul-2009 Complement C4, Serum 15 {mg/dL_Adult} Comments: PERFORMED BY: [facility]Haw[facility] Vczlmw2752 [facility] [id number] 12:15 (Normal) Range: 9-36 28-Jul-2009 Complement, Total (CH50) 53 U/mL (Normal) Comments: PERFORMED BY: [employer] Lwqqrz9738 [facility] [id number] 12:15 Range: 22-60 28-Jul-2009 TSH 3.440 {uIU/mL} Comments: PERFORMED BY: [facility]De[facility] Hospital[address] [place] [address] [id number] 12:15 (Normal) Range: 0.450-4.500 89-Tzk-988527:15 Urinalysis, Routine Comments: PERFORMED BY: BembaJersey City Medical CenterUttqxn34[address] [place] [address] [id number] Bilirubin Negative (Normal) Microscopic Examination MICRON (Normal) Comments: Microscopic follows if indicated. Nitrite, Urine Negative (Normal) Urobilinogen,Semi-Qn 0.2 mg/dL (Normal) Range: 0.0-1.9 Glucose Negative (Normal) Ketones Negative (Normal) Occult Blood Negative (Normal) Protein Negative (Normal) Appearance Clear (Normal) pH 6.5 (Normal) Range: 5.0-7.5 Specific [place] 1.019 (Normal) Range: 1.005-1.030 Urine-Color Yellow (Normal) WBC Esterase Negative (Normal) 86-Jbt-26001:06 UNILAT LT DIA DIGITAL & CAD Radiology Report See Note (Normal) Comments: Exam Number: [id number] UNILATERAL DIAGNOSTIC MAMMOGRAM Oblique and craniocaudal views [...] w erealso examined with computer-aided detection software ([employer], [employer].). Reported By: ISIAH SANCHEZ 40-Gjw-045846:53 UNILAT LT DIAG DIGITAL & CAD Radiology Report See Note (Normal) Comments: Exam Number: [id number] MAMMOGRAM, UNILATERAL LEFT DIAGNOSTIC DIGITAL AND CAD [...] mammograms werealso examined with computer-aided detection software ([employer] Reported By: NINO CARROLL M.D. 09-Sep-20088:22 BILAT SCRN DIGITAL & CAD Radiology Report See Note (Normal) Comments: Exam Number: [id number] MAMMOGRAM, BILATERAL SCREENING DIGITAL AND CAD HISTORYRoutine [...] mammograms werealso examined with computer-aided detection software ([employer]Pack, [employer].). Reported By: NINO CARROLL M.D. 09-Sep-20088:22 DEXA BONE DENSITY STUDY () Radiology Report See Note (Normal) Comments: Exam Number: [id number] BONE DENSITOMETRY HISTORYScreening, postmenopausal. TECHNIQUE Bone densitometry of the lumbar spine and both hips is now beingperformed. The best criteria for e valuation of osteoporosis is theT-value, which represents the comparison of the patient's bone mass israel expected peak bone mass. For most patients, the mean T-value of G6cfjxenj L4 is used to evaluate the lumbar [...] Report See Note (Normal) Comments: Exam Number: [id number] MYOCARDIAL PERFUSION SCAN TECHNIQUEThe patient was injected [...] patient was injected with 31 mCi of Ri86gWuquvgwumh and subsequently stress SPECT Cardiolite nuclear imagingwas [...] Anti-dsDNA Antibodies Comments: PATIENT WAS FASTINGPERFORMED BY: LabDeckerville [facility] Hospital6370 [facility] [id number] Anti-DNA (DS) Ab Qn 1 {IU/mL} (Normal) Range: 0-9 Comments: Negative <5 Equivocal 5 - 9 Positive >9 Antinuclear Antibodies Positive (Abnormal) Comments: PATIENT WAS FASTINGPERFORMED BY: [facility]6370 [facility] [id number] :53 Direct C-Reactive Protein, 0.7 mg/L (Normal) Comments: PATIENT WAS FASTINGPERFORMED BY: [facility]6370 [facility] [id number] :53 Quant Range: 0.0-4.9 :53 CBC With Differential/Platelet Comments: PATIENT WAS FASTINGPERFORMED BY: [facility]6370 [facility] [id number] Baso (Absolute) 0.0 {x10E3/uL} (Normal) Range: 0.0-0.2 [...] 11.7-15.0 WBC 2.6 {x10E3/uL} (Abnormal) Range: 4.0-10.5 3-Ndn-311161:53 Comp. Metabolic Panel (14) Comments: PATIENT WAS FASTINGPERFORMED BY: LabDe[facility] Hospital6370 [facility] [id number] A/G Ratio 1.4 (Normal) Range: 1.1-2.5 Albumin, [...] 119 {mg/dL_Adult} Comments: PATIENT WAS FASTINGPERFORMED BY: [address] [id number] 0:53 (Normal) Range: 90-180 Complement C4, Serum 15 {mg/dL_Adult} Comments: PATIENT WAS FASTINGPERFORMED BY: Inivata[address] [id number] 0:53 (Normal) Range: 9-36 Complement, Total (CH50) 55 U/mL (Normal) Comments: PATIENT WAS FASTINGPERFORMED BY: Inivata[address] [id number] 0:53 Range: 22-60 :53 Lipid Panel With LDL/HDL Comments: PATIENT WAS FASTINGPERFORMED BY: Inivata[address] [id number] Ratio Cholesterol, Total 180 mg/dL (Normal) Range: [...] mm/h (Normal) Comments: PATIENT WAS FASTINGPERFORMED BY: [address] [id number] :53 Rate-Westergren Range: 0-30 TSH 2.547 {uIU/mL} Comments: PATIENT WAS FASTINGPERFORMED BY: [address] [id number] :53 (Normal) Range: 0.450-4.500 3-Bxk-063461:53 Urinalysis, Routine Comments: PATIENT WAS FASTINGPERFORMED BY: LabCoJer[facility] City Medical CenterXxfogr0685 [facility] [id number] Appearance Clear (Normal) Bilirubin Negative (Normal) Glucose Negative (Normal) Ketones Negative (Normal) Microscopic Examination MICRON (Normal) Comments: Microscopic follows if indicated. Nitrite, Urine Negative (Normal) Occult Blood Negative (Normal) pH 6.5 (Normal) Range: 5.0-7.5 Protein Negative (Normal) Specific [place] 1.009 (Normal) Range: 1.005-1.030 Urine-Color Yellow (Normal) Urobilinogen,Semi-Qn 0.2 mg/dL (Normal) Range: 0.0-1.9 WBC Esterase Negative (Normal) :44 Thin prep Pap Comments: Source.............Cervical;EndocervicalLMP / Prev Treat...IJA=[id number]. of containers..01 CYTYC Thin Prep VialPATIENT NOT FASTINGClinical Information: ADD [id number] PERFORMED BY: Bemba ([address]) [address] [id number] . . (Normal) DIAGNOSIS: SPRCS (Normal) Comments: NEGATIVE FOR INTRAEPITHELIAL LESION AND MALIGNANCY.Satisfactory for evaluation. No endocervical component is identified.V72.31 ; Routine gynecological examinationAlejandra Mendez Trimming Department Blocker (ASCP) Note: PAPSMR (Normal) Comments: The Pap [...] Well woman exam : *Well Female Maintenance ([facility]) Indication: Well woman exam Well woman [...] woman exam Planned Observations METABOLIC PANEL, COMPREHENSIVE (53102)Indication: Hypercholesteremia On: 2-Tsj-075060:47 Request LIPOPROTEIN, BLD, BY NMR (58180)Indication: Hypercholesteremia On: 4-Zry-819228:47 Request TSH (99556)Indication: Hypothyroidism On: 8-Blq-611701:46 Request TSH (01183)Indication: Hypothyroidism On: 88-Eui-829013:10 Request Systemic Lupus Profile (36547)Indication: Lupus (systemic lupus erythematosus) On: 05-Jan-20169:57 Request Comments: send to Dr Norton CBC (Auto) (56216)Indication: Pre-operative examination On: 2-Grw-170050:08 Request Metabolic Panel, Basic (16421)Indication: Pre-operative examination On: 9-Qlc-038326:08 Request TSH (02566)Indication: Hypothyroidism On: 8-Dqm-740467:07 Request CALCIFEDIOL (72833)Indication: Hypothyroidism On: 5-Nxt-839477:12 Request URINALYSIS, W/ MICRO (13909)Indication: Hypothyroidism On: 8-Wys-830712:11 Request CBC WITH MANUAL DIFF (59823)Indication: Hypothyroidism On: 5-Cvc-238359:11 Request Metabolic Panel, Comprehensive (65764)Indication: Hypothyroidism On: 6-Twy-483442:11 Request Lipid Panel (37060)Indication: Hypothyroidism On: 0-Zwm-996185:11 Request TSH (32322)Indication: Hypothyroidism On: 4-Zit-725302:11 Request TSH (THYROID STIMULATING HORMONE) (02134)Indication: Hypothyroidism On: :43 Request METABOLIC PANEL, COMPREHENSIVE (04137)Indication: ERYTHEMATOSUS, LUPUS On: :43 Request LIPID PANEL (90863)Indication: ERYTHEMATOSUS, LUPUS On: :43 Request NEISSERIA (47522) (THIN PREP OBTAINED)Indication: Vaginal Discharge On: :43 Request CHLAMYDIA (18364) (thin prep obtained)Indication: Vaginal Discharge On: :43 Request ROBERT CULTURE-OTHER (91607)Indication: Vaginal Discharge On: :43 Request BACT CULTURE ANY-ANAEROBIC (49420)Indication: Vaginal Discharge On: :43 Request INFCT ANTGN TRICH VAGIN DIRECT PRB (43792)Indication: Vaginal Discharge On: :43 Request AQUILES, NUCLEIC ACID DIRECT PROBE (49853)Indication: Vaginal Discharge On: :43 Request Thin prep Pap (00551)Indication: Well woman exam On: :29 Request URINALYSIS (43861)Indication: Lupus (systemic lupus erythematosus) On: :26 Request Sed Rate Erythrocyte (31132)Indication: Lupus (systemic lupus erythematosus) On: :26 Request CBC, Platelets & Auto Diff (15376)Indication: Lupus (systemic lupus erythematosus) On: :25 Request Lipid Panel (51296)Indication: Hypothyroidism On: :25 Request Metabolic Panel, Comprehensive (23052)Indication: Lupus (systemic lupus erythematosus) On: :25 Request DNA ANTIBODY-NATV/DBL ST (78660)Indication: Lupus (systemic lupus erythematosus) On: :49 Request COMPLEMENT C4 (34565)Indication: Lupus (systemic lupus erythematosus) On: :48 Request COMPLEMENT C3 (81454)Indication: Lupus (systemic lupus erythematosus) On: :48 Request COMPLEMENT, TOTAL (CH50) (43047)Indication: Lupus (systemic lupus erythematosus) On: :48 Request C-Reactive Protein (09656)Indication: Lupus (systemic lupus erythematosus) On: :48 Request URINALYSIS (44897)Indication: Lupus (systemic lupus erythematosus) On: :48 Request CBC (Auto) (19157)Indication: Lupus (systemic lupus erythematosus) On: :48 Request Metabolic Panel, Comprehensive (97506)Indication: Lupus (systemic lupus erythematosus) On: :48 Request TSH (11835)Indication: Hypothyroidism On: :48 Request Thin prep Pap (99927)Indication: Well woman exam On: :35 Request C-Reactive Protein (31776)Indication: Lupus (systemic lupus erythematosus) On: :03 Request DNA ANTIBODY-NATV/DBL ST (64425)Indication: Lupus (systemic lupus erythematosus) On: :02 Request Sed Rate Erythrocyte (80127)Indication: Lupus (systemic lupus erythematosus) On: :01 Request COMPLEMENT C4 (72531)Indication: Lupus (systemic lupus erythematosus) On: :00 Request COMPLEMENT C3 (98912)Indication: Lupus (systemic lupus erythematosus) On: :00 Request COMPLEMENT, TOTAL (CH50) (53118)Indication: Lupus (systemic lupus erythematosus) On: 08-Aug-20088:00 Request AMAN (ANTINUCLEAR ANTIBODY) (33102)Indication: Lupus (systemic lupus erythematosus) On: :00 Request URINALYSIS (99797)Indication: Lupus (systemic lupus erythematosus) On: :57 Request TSH (89351)Indication: Hypothyroidism On: :57 Request CBC (Auto) (80735)Indication: Lupus (systemic lupus erythematosus) On: :57 Request Metabolic Panel, Comprehensive (35521)Indication: Lupus (systemic lupus erythematosus) On: :57 Request Lipid Panel (93049)Indication: Lupus (systemic lupus erythematosus) On: :57 Request Lipid Panel (65255)Indication: Hypothyroidism On: :47 Request TSH (09687)Indication: Hypothyroidism On: 2-Apr-01000:43 Request LIPID PANEL (23395)Indication: Well woman exam On: 8-Fhx-459775:00 Request CBC (AUTO) (74330)Indication: Lupus (systemic lupus erythematosus) On: 11-May-20069:59 Request Planned Encounters Medical; MIRIAM 6 Month Fu - On: 21-Sep-2018 13:00 [facility] Talia Charles MD, MD, Dana M Planned Procedures DIAGNOSTIC MAMMOGRAPHY OF BOTH On: 06-Mar-2018 Intent BREASTS (67702)By: Talia Charles MD, MD, Dana M Breast Ultrasound - RightBy: On: 06-Mar-2018 Intent Talia Charles MD, MD, Dana M ULTRASOUND OF NECK WITH FOCUS ON On: 25-Aug-2017 Intent THYROID (07450)By: Araceli SUÁREZ, Comments: include area on left side where tender. Talia Johnson MD DEXA SCAN AXIAL SKELETON On: 07-Aug-2017 Intent (21766)By: Talia Charles MD, MD, Dana M Flu Vaccine (Quadrivalent) On: 17-Jan-2017 Intent [id number]: Talia Charles MD Comments: QUAD flu shotlot number: [id number]: 07/2017L Deltoid IMAD DIESEL MECHANIC Talia Charles MD MAMMOGRAM BREAST BILATERAL On: 17-Jan-2017 Intent SCREENING DIGITAL (03038)By: Talia Charles MD, MD, Dana M Nuclear Stress Test/Stress On: 02-Feb-2016 Intent SPECT/TreadmillBy: Talia Charles MD, MD, Dana M MAMMOGRAM, SCREENING, BOTH BREAST On: 05-Jan-2016 Intent (28008)By: Talia Charles MD, MD, Dana M Flu Vaccine (Quadrivalent) On: 05-Jan-2016 Intent [id number]: Parker Ross Comments: Lot:[id number]:09/30/16Dose:0.5mLRoute:IMSite:L DltdGiven By:DINA signed PNEUM VAC ADLT/IMUMNOSPR, On: 28-Jul-2015 Intent SBC/INTRM ([id number])By: Araceli SUÁREZ, Comments: Lot:[id number]:01/08/17Dose:0.5mlRoute:imSite:l [place] By:JKOLBY signed Talia Johnson MD DEXA SCAN AXIAL SKELETON On: 28-Jul-2015 Intent ([id number])By: Talia Charles MD Comments: - due Talia Charles MD ELECTROCARDIOGRAM, COMPLETE (ECG) On: 02-Oct-2014 Intent ([id number])By: Talia Charles MD, MD, Dana M MRI - OtherBy: Talia Charles MD On: 24-Jul-2014 Intent Talia Charles MD Comments: R breast MRI OF RIGHT BREAST WITH AND On: 24-Jul-2014 Intent WITHOUT CONTRAST ([id number])By: Talia Charles MD, MD, Dana M MAMMOGRAM, SCREENING, BOTH BREAST On: 21-Jul-2014 Intent ([id number])By: Talia Charles MD, MD, Dana M ELECTROCARDIOGRAM, COMPLETE (ECG) On: 04-Mar-2014 Intent ([id number])By: Talia Charles MD, MD, Dana M DXA, BONE DENSITY, AXIAL SKELETON On: 01-Aug-2013 Intent ([id number])By: Talia Charles MD, MD, Dana M EKG ([id number])By: Talia Charles MD On: 01-Aug-2013 Intent Talia Gunter MD Comments: see scanned document of test done to see results reviewed today with patient TDAP VACCINE >7 IM ([id number])By: On: 24-Sep-2012 Intent Talia Charles MD, MD, Dana M Ultrasound - PelvisBy: Araceli On: 06-Apr-2012 Intent Talia SUÁREZ MD, Dana M Comments: left ovary felt and postmenapausal EKG ([id number])By: Talia Charles MD On: 18-Jul-2011 Intent Talia Gunter MD Comments: see scanned document of test done to see results reviewed today with patient Breast Ultrasound - LeftBy: On: 18-Jul-2011 Intent Talia Charles MD, MD, Talia Carney DXA, BONE DENSITY, AXIAL SKELETON On: 20-Aug-2010 Intent ([id number])By: Talia Charles MD, MD, Talia Carney MAMMOGRAM, SCREENING, BOTH On: 20-Aug-2010 Intent BREASTS ([id number])By: Talia Charles MD, MD, Dana M Breast [...] On: 08-Aug-2008 Intent Talia Johnson MD EKG ([id number])By: Talia Charles MD On: 08-Aug-2008 Intent Talia Gunter MD MAMMOGRAM, SCREENING, BOTH On: 04-Jul-2007 Intent BREASTS ([id number])By: Talia Charles MD, MD, Dana M Bone Density StudyBy: Araceli SUÁREZ, On: 04-Jul-2007 Intent Talia Johnson MD MAMMOGRAM, SCREENING, BOTH On: 11-May-2006 Intent BREASTS ([id number])By: Talia Charles MD, MD, Dana M Instructions [...] Advance Directives Name Dates Details Immunization Registry [place] - Effective on Effective: 17-Jan-201701/17/2017. Expiration date [...] - Yes the patient did have (NOT HUSLIA) a mini mental status exam done today. [...] The patient does have durable power of contracts attorney and living will. The patient has [...] The patient does have durable power of contracts attorney and living will. The joe ent [...] surgery the patient plans to recover at [facility] with family. Note for Pre-op visit: [...] Pap (V72.31) (Mammo), Genital herpes, unspecified (054.10), [facility] Historical Summary [...] and unspecified noninfectious gastroenteritis and colitis (558.9), [facility] Office Visit [...]
--- OUTSIDE RECORDS SUMMARY | 2018-06-21 02:42 | XMS RPT_ITS | Continuity of Care Document ---
:1950 Author Organization [facility] Address [address] [facility] [address] [place] [address] Phone Care Team Providers Name Role Phone [...] not have 30 pack years. light. quit 4845-7150? Status: Active Hypercholesteremia (E78.00, 272.0) Comments: LDL [...] Medications Name Dates Details CALCIUM + D, 709-220OQ-ADLG (Oral Tablet) 1 QD for 0 days [...] Start : 05-Jan-2016 End : 17-Jan-2017 Inactive PHOTO FINISHER-ZEL (Oral Tablet) 1 qd for 0 days Refills: 0 Ordered:28-Jul-2015 CLARENCE Grimm Start : 24-Sep-2012 End : 28-Jul-2015 Inactive ZOSTAVAX, 50569RHX/0.65ML (Subcutaneous Solution Reconstituted) uad For Solution For [...] Limited Unilateral Result: Comments: See Note; NOTES: [facility] Imaging Services [address] [place] [address] Breast Limited Unilateral MR#: [id number] Acct: [id number] Name: SHANITA MONTIEL Rep #: [id number] : 1950 F 67 From: Isiah Sanchez MD PCP: Talia Charles MD Status: REG CLI Study: Breast Limited Unilateral Date of Exam: 03/09/18 Exam# [id number] Ordering Dr: Talia Charles MD STUDY: ULTRASOUND [...] Isiah Sanchez MD at 10:58 EST Tel [phone], Service support , CC: Talia Charles MD Embossing Clerk: Signed 09-Mar-2018 DIAG MAMM W/CAD, BILAT Result: Comments: See Note; NOTES: [facility] Imaging Services [address] [place] [address] DIAG MAMM W/CAD, BILAT MR#: [id number] Acct: [id number] Name: SHANITA MONTIEL Rep #: [id number] : 1950 F 67 From: Isiah Sanchez MD PCP: Talia Charles MD Status: REG CLI Study: DIAG MAMM W/CAD, BILAT Date of Exam: 03/09/18 Exam# [id number] Ordering Dr: Talia Charles MD MAMMOGRAPHY - [...] Sanchez MD at 1 0:23 EST Tel [phone], Service support , CC: Talia Charles MD Embossing Clerk: Signed 25-Oct-2017 Dexa Bone Density Study Result: Comments: See Note; NOTES: [facility] Imaging Services [address] [place] [address]71 Dexa Bone Density Study MR#: [id number] Acct: [id number] Name: SHANITA MONTIEL Rep #: [id number] : 1950 F 67 From: Kar Sheridan MD PCP: Talia Charles MD Status: REG CLI Study: Dexa Bone Density Study Date of Exam: 10/25/17 Exam# [id number] Ordering Dr: Talia Charles MD STUDY: DUAL [...] Service support , CC: Talia Charles MD Embossing Clerk: Signed 25-Aug-2017 Thyroid Result: Comments: See Note; NOTES: [facility] Imaging Services [address] [place] [address] Thyroid MR#: [id number] Acct: [id number] Name: SHANITA MONTIEL Rep #: [id number] : [birth year] F 67 From: Isiah Sanchez MD PCP: Talia Charles MD Status: REG CLI Study: Thyroid Date of Exam: 08/25/17 Exam# [id number] Ordering Dr: Talia Charles MD STUDY: THYROID [...] Isiah Sanchez MD at 12:32 EDT Tel [phone], Service support , CC: Talia Charles MD Embossing Clerk: Signed 01-Feb-2017 SCREENING MAMM (CAD), BILAT Result: Comments: See Note; NOTES: [facility] Imaging Services [address] [place] [address] SCREENING MAMM (CAD), BILAT MR#: [id number] Acct: [id number] Name: SHANITA MONTIEL Rep #: [id number] : 1950 F 66 From: Isiah Sanchez MD PCP: Talia Charles MD Status: REG CLI Study: SCREENING MAMM (CAD), BILAT Date of Exam: 02/01/17 Exam# [id number] Ordering Dr: Talia Charles MD M AMMOGRAPHY [...] biopsy of a clinically suspicio us abnormality. [id number] Electronically Signed: Isiah Sanchez MD at 9:34 EDT Tel [phone], Service support , CC: Talia Charles MD Embossing Clerk: Signed 05-Feb-2016 Nuclear Stress Test - Treadmil Result: Comments: See Note; NOTES: [facility] Imaging Services [address] [place] [address] Verdana 4d Nuclear Stress Test - Treadmil MR#: [id number] Acct: [id number] Name: Sean MONTIEL Rep #: [id number] : 1950 65 From: Juan Antonio Rubi [...] Juan Antonio Rubi MD T: NTS JOB: [id number] 02/05/16 1525 <Electronically signed by Juan Antonio Rubi MD> Date Juan Antonio Rubi MD CC: Talia Charles MD Date Dictated: 02/05/16 1008 Date Transcribed: 02/05/16 1008 Embossing Clerk: Signed 08-Jan-2016 Bilat Scrn Implant DIG AND CAD Result: Comments: See Note; NOTES: [facility] Imaging Services [address] [facility] [place] [address] Verdana 4d Bilat Scrn Implant DIG AND CAD MR#: [id number] Acct: [id number] Name: JODY MONTIEL Rep #: [id number] : 1950 F 65 From: Isiah Sanchez MD PCP: Talia Charles MD Status: REG CLI Study: Bilat Scrn Implant DIG AND CAD Date of Exam: 01/08/16 Exam# [id number] Ordering Dr: Talia Stapleton MD MAMMOGRAPHY - [...] delay biopsy of a clinically suspicious abnormality. [id number] Electronically Signed: Isiah Sanchez MD at 10:03 EDT Tel [phone], Service support [phone], CC: Talia Charles MD Embossing Clerk: Signed 21-Oct-2015 Dexa Bone Density Study () Result: Comments: See Note; NOTES: [facility] Imaging Services [address] [place] [address] Verda 4d Dexa Bone Density Study () MR#: [id number] Acct: [id number] Name : SHANITA MONTIEL Rep #: [id number] : 1950 F 65 From: Isiah Sanchez MD PCP: Talia Charles MD Status: [facility] Study: Dexa Bone Density Study (HP) Date of Exam: 10/21/15 Exam# [id number] Mabel du Dr: Talia Charles MD STUDY: [...] Isiah Sanchez MD at 12:45 EDT Tel [phone], Service support [phone], CC: Talia Charles MD Embossing Clerk: Signed 30-Jul-2014 Breast w/o and/or W Cont Bilat Result: Comments: See Note; NOTES: [facility] Imaging Services [address] [place] [address] MRI Report MR#: [id number] Acct: [id number] Name: SHANITA MONTIEL Rep #: [id number] DO B: 1950 F 64 From: Nhan Berrios MD PCP: Talia Charles MD Status: REG CLI Study: Breast w/o and/or W Cont Bilat Date of Exam: 07/30/14 Exam# [id number] Ordering Dr: Talia Charles MD STUDY: LALA [...] MD at 15:53 EDT , Service support [phone], CC: Talia Charles MD Embossing Clerk: Signed 23-Jul-2014 Breast Limited Unilateral Result: Comments: See Note; NOTES: [facility] Imaging Services [address] [place] [address] Ultrasound Report MR#: [id number] Acct: [id number] Name: SHANITA MONTIEL Rep #: [id number] : 1950 F 63 From: Isiah Sanchez MD PCP: Talia Charles MD Status: REG CLI Study: Breast Limited Unilateral Date of Exam: 07/23/14 Exam# [id number] Ordering Dr: Talia Charles MD S TUDY: [...] Isiah Sanchez MD at 16:02 EDT Tel [phone], Service support [phone], CC: Talia Charles MD Embossing Clerk: Signed 23-Jul-2014 Bilat Diag Implant DIG AND CAD Result: Comments: See Note; NOTES: [facility] Imaging Services [address] [place] [address] Breast Imaging Report MR#: [id number] Acct: [id number] Name: SHANITA MONTIEL Rep #: [id number] : 1950 F 63 From: Isiah Sanchez MD PCP: Talia Charles MD Status: REG CLI Study: Bilat Diag Implant DIG AND CAD Date of Exam: 07/23/14 Exam# [id number] Ordering Dr: Talia Charles MD MAMMOGRAPHY - [...] Isiah burrows MD at 8:05 EDT Tel [phone], Service support [phone], CC: Talia Charles MD Embossing Clerk: Signed Immunization Name Dates Details Influenza (3 years and up) on: 29-Jan-2018 Pneumococcal conjugate vaccine, 13 valent, IM on: 2015 Comments: [facility] Zoster (shingles) on: 2014 Comments: [facility]les Family History Unknown Family Member Name Dates Details Brother 1 Comments: [place] 58 yo, hypercholesterolemia Status: Active Brother 2 [...] Living Situation Comments: Lives with spouse, , [employer] important Status: Active No Caffeine Use Status: [...] 0.00 cm Results Date Description Value Details 8-Luy-553668:11 URINALYSIS (96114) Comments: PATIENT WAS FASTINGPERFORMED BY: MATY [facility] Qtutxr3956 [facility] [id number] Microscopic Examination MICNIP (Normal) Comments: Microscopic not indicated and not performed. Nitrite, Urine Negative (Normal) Urobilinogen,Semi-Qn 0.2 mg/dL (Normal) Range: 0.2-1.0 Bilirubin Negative (Normal) Occult Blood Negative (Normal) Ketones Negative (Normal) Glucose Negative (Normal) Protein Negative (Normal) WBC Esterase Negative (Normal) Appearance Clear (Normal) Urine-Color Yellow (Normal) pH 6.5 (Normal) Range: 5.0-7.5 Specific [place] 1.013 (Normal) Range: 1.005-1.030 9-Cvl-211596:11 CBC WITH MANUAL DIFF (31872) Comments: PATIENT WAS FASTINGPERFORMED BY: LabCoSt. Joseph's [facility] Medical CenterMwpged6966 [facility] [id number] Immature Grans (Abs) 0.0 {x10E3/uL} (Normal) Range: [...] 3.77-5.28 WBC 3.1 {x10E3/uL} (Abnormal) Range: 3.4-10.8 8-Jef-900471:11 Metabolic Panel, Comprehensive Comments: PATIENT WAS FASTINGPERFORMED BY: MATY LabTapImmuneSt. Joseph's Regional Medical CenterLwrazl4103 [facility] [id number] (08035) ALT (SGPT) 12 [iU]/L (Normal) Range: 0-32 [...] 8-27 Glucose 84 mg/dL (Normal) Range: 65-99 2-Zpe-211653:30 Thin prep Pap (58637) (no Comments: cuff scraping; No. of containers..01 ThinPrep VialPERFORMED BY: =G LabTapImmune [address] [place] [address] [id number] BY: DANIELLE [employer] [address] [place] [address] STD testing) [id number] Information: [id number] Age Gdln ACOG Testing AGE4 (Normal) Comments: <21 or >65 or no age provided 7-Mia-563727:30 Pap IG (Image Guided) Comments: No. of containers..01 ThinPrep VialPERFORMED BY: =G [facility] [id number] BY: WB [facility] [id number] Note: PAPSMR (Normal) Comments: The Pap smear [...] MALIGNANCY.THIS SPECIMEN WAS RESCREENED PART OF OUR THERMAL CUTTING TRACER MACHINE OPERATOR PROGRAM.Satisfactory for evaluation. No endocervical component is identified.Z0 1.419Erin Kayden gonzáles, Loan Processor (ASCP)Chela Armendariz Loan Processor (ASCP) 0-Nqu-439109:00 CBC W/Diff, Automated Comments: [facility] [address] [place], [address] SMEAR COMMENT SCANNED (Normal) Comments: NEUTROPENIA NOTED [...] :47 CBC W/Diff, Automated Comments: [facility] I[address]vzfptuh[address] [facility] [place], [address] Absolute Lymph 1.05 {X10_3/ul} (Normal) Range: 0.83-4.51 [...] :16 CBC W/Diff, Automated Comments: [facility] Sir[address] [place], [place], [address] Absolute Lymph 0.95 {X10_3/ul} (Normal) Range: 0.83-4.51 [...] 4.2-5.4 WBC 2.7 K/mm3 (Abnormal) Range: 4.4-11.0 77-Gwf-066199:18 METABOLIC PANEL, Comments: PATIENT WAS FASTINGPERFORMED BY: [employer] [id number] BY: iCreate SoftwareSt. Joseph's Regional Medical CenterEvdhmn1131 [facility] [id number] COMPREHENSIVE (48133) ALT (SGPT) 11 [iU]/L (Normal) Range: 0-32 [...] 8-27 Glucose 86 mg/dL (Normal) Range: 65-99 39-Cir-307089:18 TSH (04225) Comments: PATIENT WAS FASTINGPERFORMED BY: [employer] [id number] BY: iCreate SoftwareSt. Joseph's Regional Medical CenterFjompg4747 [facility] [id number] TSH 1.780 {uIU/mL} (Normal) Range: 0.450-4.500 58-Qsu-117794:18 LIPOPROTEIN, BLD, BY NMR Comments: PATIENT WAS FASTINGPERFORMED BY: BN [facility] Wyyimohgow8197 [facility] [id number] BY: CB [facility] Fmhmsx6553 [address] [place] [id number]; fu 5-7-18 DB (67619) LP-IR Score <25 (Normal) Comments: INSULIN RESISTANCE MARKER <--Insulin Sensitive Insulin Resistant--> Percentile in Reference PopulationInsulin Resistance ScoreLP-IR Score Low 25th 50th 75th High <27 27 45 63 >63LP-IR Score is inaccurate if patient is non-fasting. .The LP-IR score is a laboratory developed i [facility] that has beenassociated with [...] 1600 - 2000 Very High > 2000 37-Ivh-972650:18 HEPATITIS C ANTIBODY Comments: PATIENT WAS FASTINGPERFORMED BY: [employer] [id number] BY: [employer] [id number] ([address]) Hep C Virus Ab <0.1 {s/co_ratio} (Normal) Range: 0.0-0.9 Comments: Negative: < 0.8 Indeterminate: 0.8 - 0.9 Positive: > 0.9 . The CDC recommends that a positive HCV antibody result be followed up with a HCV Nucleic Acid Amplification test (111880). 05-Qte-650085:08 Anti-Centromere B Ab Comments: [facility] (refer to report for specific site)refer to report for address and phone number ANTI-CENT B <0.2 {AI} (Normal) Range: 0.0-0.9 Comments: Performed at: [facility] [employer] [id number] Director: Chang Greenberg PhD, Phone: [phone] 10-Wvj-985967:08 Anti-Chromatin Comments: [facility] (refer to report for specific site)refer to report for address and phone number ANTICHROMATIN <0.2 {AI} (Normal) Range: 0.0-0.9 91-Suv-798633:08 Anti-Kasia Comments: [facility] (refer to report for specific site)refer to report for address and phone number ANTI-KASIA <0.2 {AI} (Normal) Range: 0.0-0.9 92-Znw-303498:08 Tyow-Mqieksjvrzq-84 AB Comments: [facility] (refer to report for specific site)refer to report for address and phone number ANTISCLER <0.2 {AI} (Normal) Range: 0.0-0.9 95-Edn-204775:08 CBC W/Diff, Automated Comments: [facility] [address] [place], [place], [address] Absolute Lymph 1.06 {X10_3/ul} (Normal) Range: 0.83-4.51 [...] 4.2-5.4 WBC 3.2 K/mm3 (Abnormal) Range: 4.4-11.0 71-Yss-500629:08 Complement C3 Comments: [facility] (refer to report for specific site)refer to report for address and phone number COMP C3 107 mg/dL (Normal) Range: 82-167 Comments: Performed at: - [facility] [address] [id number] Director: Chang Greenberg PhD, Phone: [phone] 84-Ycu-081877:08 Complement C4 Comments: [facility] (refer to report for specific site)refer to report for address and phone number COMP C4 15 mg/dL (Normal) Range: 14-44 54-Xlu-367607:08 Liver Profile Comments: [facility] Zrpguisjzw1518 [facility] [address] [place], [place], [address] D BILI 0.14 mg/dL (Normal) Range: 0.00-0.30 T BILI 0.90 mg/dL (Normal) Range: 0.20-1.00 ALT 19 U/L (Normal) Range: 12-78 ALK P 66 U/L (Normal) Range: 45-117 AST 14 U/L (Abnormal) Range: 15-37 GLOB 3.7 g/dL (Abnormal) Range: 2.3-3.5 ALB 4.1 g/dL (Normal) Range: 3.4-5.0 T PROT 7.8 g/dL (Normal) Range: 6.4-8.2 36-Uvs-184957:20 CBC W/Diff, Automated Comments: [facility] [address] [place], [address] Absolute Lymph 1.15 {X10_3/ul} (Normal) [...] 4.2-5.4 WBC 2.9 K/mm3 (Abnormal) Range: 4.4-11.0 14-Mmx-602536:20 Liver Profile Comments: [facility] [address] [place], [place], [address] D BILI 0.14 mg/dL (Normal) Range: 0.00-0.30 T BILI 0.70 mg/dL (Normal) Range: 0.20-1.00 ALT 21 U/L (Normal) Range: 12-78 ALK P 65 U/L (Normal) Range: 45-117 AST 17 U/L (Normal) Range: 15-37 GLOB 3.9 g/dL (Abnormal) Range: 2.3-3.5 ALB 3.9 g/dL (Normal) Range: 3.4-5.0 T PROT 7.8 g/dL (Normal) Range: 6.4-8.2 71-Qrw-074035:19 Thyroid Stim Hormone (TSH) Comments: [facility] [address] [place], [place], [id number] TSH 1.62 {uIU/mL} (Normal) Range: 0.358-3.74 40-Zoc-326711:03 Anti-dsDNA Ab Comments: [facility] (refer to report [...] <0.2 (Normal) Comments: AI 0.0 - 0.9 HEALTH AND FITNESS INSTRUCTOR Ab <0.2 (Normal) Comments: AI 0.0 - [...] titers Nucleosomes, Histones Drug-induced SLE Speckled Sm, HEALTH AND FITNESS INSTRUCTOR, SCL-70, SLE,MCTD,PSS (diffuse form), SS-A/SS-B Sjogrens Nuc leolar SCL-70, PM-1/SCL High titers Scleroderma, PM/DM Centromere Centromere PSS (limited form) w/Crest syndrome variable Nuclear Dot Sp100,r42-wjddvh Primary Biliary Cirrhosis ---------Nuclear GP210, Primary Biliary CirrhosisMembrane taryn A,B,C SPECKLED PAT. 1:640 (Normal) Comments: High AMAN test Positive Abnormal Comments: Negative <1:80Borderline 1:80Positive >1:80 (Normal) 93-Ihn-774199:03 CBC W/Diff, Automated Comments: [facility] [address] [place], [place], [address] Absolute Lymph 1.58 {X10_3/ul} (Normal) Range: 0.83-4.51 [...] 4.2-5.4 WBC 3.5 K/mm3 (Abnormal) Range: 4.4-11.0 36-Mlj-758018:03 Electrolyte Panel Comments: [facility] Qflntpvizb86[address] [facility]. [place], [place], [address] GAP 8 (Normal) Range: 5-15 CO2 29.0 mmol/L (Normal) Range: 21.0-32.0 CL 101 mmol/L (Normal) Range: 98-107 K 3.8 mmol/L (Normal) Range: 3.5-5.1 NA 138 mmol/L (Normal) Range: 136-145 12-Sbw-345442:03 Liver Profile Comments: [facility] Nwpsbputbu[address] [facility]. [place], [place], [address] D BILI 0.20 mg/dL (Normal) Range: 0.00-0.30 T BILI 0.80 mg/dL (Normal) Range: 0.20-1.00 ALT 20 U/L (Normal) Range: 12-78 ALK P 64 U/L (Normal) Range: 45-117 AST 15 U/L (Normal) Range: 15-37 GLOB 4.4 g/dL (Abnormal) Range: 2.3-3.5 ALB 4.0 g/dL (Normal) Range: 3.4-5.0 T PROT 8.4 g/dL (Abnormal) Range: 6.4-8.2 20-Qii-985094:03 Sjogren's Antibodies A/B Comments: [facility] (refer to report for specific site)refer to report for address and phone number Anti-SS-B 2.0 (Normal) Comments: High AI 0.0 - 0.9 Anti-SS-A > 8.0 (Normal) Comments: High AI 0.0 - 0.9 3-Wtw-949492:22 COMPLEMENT C4 (67793) Comments: copy Dr. jaime norton; PATIENT NOT FASTINGPERFORMED BY: BellstrikeUniversity [facility] Michigan Health[address] Mcallister RoadColumbus Regional Healthcare Systemin [place] [id number] Complement C4, Serum 14 mg/dL (Normal) Range: 14-44 4-Kfe-836410:22 COMPLEMENT C3 (83360) Comments: copy Dr. geremias norton; PATIENT NOT FASTINGPERFORMED BY: BellstrikeUniversity Of Michigan Health6[address] Mc[address] RoadColumbus Regional Healthcare Systemin [place] [id number] Complement C3, Serum 103 mg/dL (Normal) Range: 82-167 6-Twx-766131:22 C-Reactive Protein (14462) Comments: copy Dr. geremias norton; PATIENT NOT FASTINGPERFORMED BY: BellstrikeUniversity [facility] Health6[address] [facility]in [place] [id number] C-Reactive Protein, Quant 0.5 mg/L (Normal) Range: 0.0-4.9 3-Cmo-099991:22 Sed Rate Erythrocyte (64131) Comments: Dr. cierra scott; PATIENT NOT FASTINGPERFORMED BY: [facility]strikeUniversity [facility]6[address] [facility]in [place] [id number] Sedimentation Rate-Westergren 4 mm/h (Normal) Range: 0-40 3-Ske-088671:22 COMPLEMENT, TOTAL (CH50) Comments: seen Dr. norton; PATIENT NOT FASTINGPERFORMED BY: BellstrikeUniversity [facility] Health6[address] [facility] Hospitalin [place] [id number] (66534) Complement, Total (CH50) >60 U/mL (Abnormal) Range: 42-60 04-Zrw-997225:57 TSH (93483) Comments: PATIENT WAS FASTINGPERFORMED BY: [address] [id number] BY: LabCoSt. Joseph's Regional Medical CenterVfbgqq5013 [facility] [id number] TSH 3.190 {uIU/mL} (Normal) Range: 0.450-4.500 34-Awr-232801:57 METABOLIC PANEL, Comments: PATIENT WAS FASTINGPERFORMED BY: LabTapImmuneLourdes Specialty HospitalBszaxnzdkh3306 [facility] [id number] BY: LabTapImmuneSt. Joseph's Regional Medical CenterAivwmw0560 [facility] [id number] COMPREHENSIVE (17816) ALT (SGPT) 7 [iU]/L (Normal) Range: 0-32 [...] BY NMR Comments: PATIENT WAS FASTINGPERFORMED BY: LabTapImmunerp Bpxnwkptvx1337 [facility] [id number] BY: CB [facility] Isdhlz[address] [facility] [id number]; fu 5-23 db (52359) LP-IR Score 30 (Normal) Comments: INSULIN RESISTANCE MARKER <--Insulin Sensitive Insulin Resistant--> Percentile in Reference PopulationInsulin Resistance ScoreLP-IR Score Low 25th 50th 75th High <27 27 45 63 >63LP-IR Score is inaccurate if patient is non-fasting. .The LP-IR score is a laboratory developed i [facility] that has beenassociated with [...] 1600 - 2000 Very High > 2000 51-Byh-226875:28 AMAN (ANTINUCLEAR ANTIBODY) Comments: PATIENT NOT FASTINGPERFORMED BY: [facility]textE[facility] [id number] (73728) MAAN Direct Positive (Abnormal) 01-Chb-965921:28 URINALYSIS (38478) Comments: PATIENT NOT FASTINGPERFORMED BY: SaveUpNovant [facility] [id number] Microscopic Examination MICNIP (Normal) Comments: Microscopic not indicated and not performed. Nitrite, Urine Negative (Normal) Urobilinogen,Semi-Qn 0.2 mg/dL (Normal) Range: 0.2-1.0 Bilirubin Negative (Normal) Occult Blood Negative (Normal) Ketones Negative (Normal) Glucose Negative (Normal) Protein Negative (Normal) WBC Esterase Negative (Normal) Appearance Cloudy (Abnormal) Urine-Color Yellow (Normal) pH 7.5 (Normal) Range: 5.0-7.5 Specific [place] 1.016 (Normal) Range: 1.005-1.030 84-Jxx-967310:28 C-Reactive Protein (02641) Comments: PATIENT NOT FASTINGPERFORMED BY: [facility]textE[facility] [id number] C-Reactive Protein, Quant 7.7 mg/L (Abnormal) Range: 0.0-4.9 40-Ypg-509430:28 Sed Rate Erythrocyte (63805) Comments: PATIENT NOT FASTINGPERFORMED BY: SaveUpNov[facility] [id number] Sedimentation Rate-Westergren 7 mm/h (Normal) Range: 0-40 :28 CBC (Auto) (52284) Comments: PATIENT NOT FASTINGPERFORMED BY: [place] [address] [facility] [id number] Platelets 227 {x10E3/uL} (Normal) Range: 150-379 RDW 13.2 % (Normal) Range: 12.3-15.4 MCHC 33.2 g/dL (Normal) Range: 31.5-35.7 MCH 30.0 pg (Normal) Range: 26.6-33.0 MCV 90 fL (Normal) Range: 79-97 Hematocrit 38.2 % (Normal) Range: 34.0-46.6 Hemoglobin 12.7 g/dL (Normal) Range: 11.1-15.9 RBC 4.24 {x10E6/uL} (Normal) Range: 3.77-5.28 WBC 5.1 {x10E3/uL} (Normal) Range: 3.4-10.8 32-Pff-666066:28 Metabolic Panel, Comments: PATIENT NOT FASTINGPERFORMED BY: [facility]6370 [facility] [id number] Information: [id number] Comprehensive (60970) ALT (SGPT) 11 [iU]/L (Normal) Range: 0-32 [...] Glucose, Serum 79 mg/dL (Normal) Range: 65-99 9-Stv-348142:12 Basic Metabolic Panel (8) Comments: PATIENT NOT FASTINGPERFORMED BY: [facility] Ssjiey9053 Chrono24.comNovant Health Brunswick Medical Center [id number] Calcium, Serum 9.5 mg/dL (Normal) Range: 8.7-10.3 [...] Glucose, Serum 81 mg/dL (Normal) Range: 65-99 0-Jcu-271912:12 CBC, Platelet, No Comments: PATIENT NOT FASTINGPERFORMED BY: [facility] Xiktzb9669 McallisterCox BransonTsavo MediaNovant Health Brunswick [facility] Center [id number] Information: [id number] Differential Platelets 216 {x10E3/uL} Range: 150-379 (Normal) [...] {uIU/mL} Comments: PATIENT NOT FASTINGPERFORMED BY: [facility] Ixvczz9452 [facility] [id number] 510:12 (Normal) Range: 0.450-4.500 BREAST BIOPSY (CHOOSE SITE) See Note (Normal) Comments: Test performed at:[facility] [address]aczv[address] [place] [address] 515:30 Comments: Patient: SHANITA MONTIEL : 1950 (64/F) Acct Num: [id number] Phys: Nereida SUÁREZ,Jaquan Unit Num: [id number] Loc: [facility] Specimen: [id number] Received: 08/04/141614 Spec Type: BREAST BX TISSUES TISSUES: COMMENT Immunohistochemistry ([id number]) supports the above diagnosis. GROSS DESCRIPTION Received in a container labeled with the patient name and mary jo ignated needle core biopsy, right breast are three elongated cores of yellow- white soft tissuemeasuring in aggregate 2 x 0.5 x 0.1 cm. The specimen is totally submitted in one cassette. / AM:pq 08/06 TC:5 CPT: 15234 HEADER OPERATION: U/S guided needle core biopsy right breast PRE-OPERATIVE DIAGNOSIS: 793.89 abnormal finding on breast imaging TISSUE SUBMITTED: Right breast needle co re biopsy MICROSCOPIC DIAGNOSIS Right breast, ultrasound-guided needle core biopsy: Fat necrosis, fibrosis, and foreign body giant cell reaction to nonpolarizable material. Benign hist iocytic proliferation and mild chronic inflammation. No evidence of malignancy. AM:pq 08/06/14 Signed [facility] 08/07/14 <signature on file> IMMUNOHISTOCHEMISTRY See Note (Normal) Comments: Test performed at:[address] [address] 50:00 Comments: Patient: SHANITA MONTIEL : 1950 (64/F) Acct Num: [id number] Phys: Nereida SUÁREZ,Jaquan Unit Num: [id number] Loc: LABSPEC Specimen: [id number] Received: 08/06/141200 Spec Type: IMMUNO TISSUES TISSUES: SPECIMEN INFORMATION: Tissue Source: Right breast, core biopsy Clinical Info: Abnormal mammogram Specimen Number: [id number] CPT code: 56393, 29189 x3 METHODOLOGY: Deparaffinized sections of formalin-fixed tissue or PAP/DQ stained slides are incubated with monoclonal/polyclonal antibodies/oligonucleotide probes. Localization is made via biotin free immunoperoxidase method. Appropriate controls are performed and reacted as expected. Results on target cell population are indicated in the following table: RESULTS: ANTIBODY / CLONE RESULT AE1-3/PCK26 (AE1,AE3,PCK26) negative CK8 (TS1/89wzfaN64) negative P53 (DO-7) negative Macro (HAM-56) positive These tests were developed and their performance characteristics determined by [facility]. They may not have been cleared or approved by the U.S. Food and Drug Administration. The FDA has de termined that such clearance or approval is not necessary. INTERPRETATION: Right breast, core biopsy: Consistent with fat necrosis. AM:tom 08/07/14 PHYSICIAN AND INSTITUTION [address] [address] Signed [facility] 08/07/14 <signature on file> :58 TSH ([id number]) Comments: PATIENT WAS FASTINGPERFORMED BY: [facility] Ywsoxh1327 [facility] [id number] TSH 2.580 {uIU/mL} (Normal) Range: 0.450-4.500 :58 METABOLIC PANEL, COMPREHENSIVE Comments: PATIENT WAS FASTINGPERFORMED BY: [employer] Qaibow9431 [facility] [id number] (54571) ALT (SGPT) 9 [iU]/L (Normal) Range: 0-32 [...] mg/dL (Normal) Range: 65-99 :58 LIPID PANEL (87501) Comments: PATIENT WAS FASTINGPERFORMED BY: Billawaylin6370 [facility] [id number] LDL/HDL Ratio 1.9 {ratio_units} (Normal) Range: 0.0-3.2 [...] Cholesterol, Total 184 mg/dL (Normal) Range: 100-199 11-Jmf-69680:58 CBC with auto diff Comments: PATIENT WAS FASTINGPERFORMED BY: [facility] Lohinn1651 [facility] [id number] Information: [id number] (58777) Immature Grans (Abs) 0.0 {x10E3/uL} (Normal) Range: [...] 3.77-5.28 WBC 3.9 {x10E3/uL} (Normal) Range: 3.4-10.8 7-Nht-963197:11 Microscopic Examination Comments: PATIENT WAS FASTINGPERFORMED BY: Mobstats6370 [facility] [id number] Bacteria None seen (Normal) Mucus Threads Present (Normal) Epithelial Cells (non renal) 0-10 {/hpf} (Normal) Range: 0 - 10 RBC None seen {/hpf} (Normal) Range: 0 - 3 WBC None seen {/hpf} (Normal) Range: 0 - 5 4-Tza-996956:03 T4, FREE (THYROXINE) (65762) Comments: PATIENT WAS FASTINGPERFORMED BY: [employer] [facility] [id number] T4,Free(Direct) 1.28 ng/dL (Normal) Range: 0.82-1.77 8-Bqv-688696:03 URINALYSIS, W/ MICRO (28206) Comments: PATIENT WAS FASTINGPERFORMED BY: enavu70 [facility] [id number] Microscopic Examination See below: (Normal) Microscopic Examination MICRON (Normal) Comments: Microscopic follows if indicated. Nitrite, Urine Negative (Normal) Urobilinogen,Semi-Qn 0.2 mg/dL (Normal) Range: 0.0-1.9 Bilirubin Negative (Normal) Occult Blood Negative (Normal) Ketones Negative (Normal) Glucose Negative (Normal) Protein Negative (Normal) WBC Esterase Negative (Normal) Appearance Clear (Normal) Urine-Color Yellow (Normal) pH 6.5 (Normal) Range: 5.0-7.5 Specific [place] 1.015 (Normal) Range: 1.005-1.030 2-Cpf-403055:03 CALCIFIDIOL (29282) VIT D 25 Comments: PATIENT WAS FASTINGPERFORMED BY: [employer] Hiavvq4022 [facility] [id number] Vitamin D, 25-Hydroxy 38.2 ng/mL (Normal) Range: 30.0-100.0 Comments: Vitamin D deficiency has been defined by the [place] ofMedicine and an Endocrine Society practice guideline as alevel of serum 25-OH vitamin D less than 20 ng/mL (1,2).The Endocrine Society went on to further define vitamin Dinsufficiency as a level between 21 and 29 ng/mL (2).1. IOM ([place] of Medicine). 2010. Dietary reference intakes for calcium and D. [place]: The National Academies Press.2. Gustavo MF, Yvette NC, Jus RIVERA, et al. Evaluation, treatment, and prevention of vitamin D deficiency: an Endocrine Society clinical practice guideline. JCEM. 2010; 96(7):1911-30. 7-Xmi-774949:03 METABOLIC PANEL, COMPREHENSIVE Comments: PATIENT WAS FASTINGPERFORMED BY: LabCoSt. Joseph's Regional Medical CenterLuyele9122 [facility] [id number] (30853) ALT (SGPT) 12 [iU]/L (Normal) Range: 0-32 [...] Range: 65-99 :03 CBC WITH MANUAL DIFF (15005) Comments: PATIENT WAS FASTINGPERFORMED BY: iCreate SoftwareSt. Joseph's Regional Medical CenterOrqcyx7983 [facility] [id number] Immature Grans (Abs) 0.0 {x10E3/uL} (Normal) Range: [...] 4.0 {x10E3/uL} (Normal) Range: 3.4-10.8 :03 TSH (79779) Comments: PATIENT WAS FASTINGPERFORMED BY: LabTapImmuneSt. Joseph's Regional Medical CenterXoymvu2226 [facility] [id number] TSH 2.970 {uIU/mL} (Normal) Range: 0.450-4.500 75-Fph-16334:21 CBC, Platelets & Auto Diff Comments: today; PATIENT NOT FASTINGPERFORMED BY: MATY [facility] Zphomo9006 [facility] [id number] Information: [id number] (16172) Immature Grans (Abs) 0.0 {x10E3/uL} (Normal) Range: [...] 3.77-5.28 WBC 3.2 {x10E3/uL} (Abnormal) Range: 4.0-10.5 60-Bzv-493701:04 PELVIC (NON ) Radiology Report See Note [...] Sanchez M.D.April 12, 2012 at 3:25:13 PM [id number] Signed GP/GP If you are the referring physician and would like to consult with theradiologist who provided this interpretation, please c evelyn Lentz M.D. at [phone]. If this radiologist is unavailable, youwill be directed to another radiologist to assist. If you are a patient with a question regarding this report, plea secontactyour referring physician directly. Professional Interpretation Provided By: [employer], Phone , These documents contain legally protected [...] 04/12/12 153 Sign by: Isiah Sanchez MD 6-Pij-345375:16 Pap IG, Ct-Ng, Comments: Source.............Cervical;VaginalNo. of containers..01 CYTYC Thin Prep VialPERFORMED BY: WB [facility] [place] [id number] BY: =G [facility] Giovanna marino120 Hil HPV-hr ls [facility] [place] [id number] Information: [id number] Gonococcus, Nuc. Acid Amp Negative (Normal) Chlamydia, [...] are present.V72.31 ; Routine gynecolog ical examina bepe638.5 ; Leukorrhea, not specified as infectiveJennifer Camilo Loan Processor (ASCP) 5-Toy-615555:13 Genital Culture, Routine Comments: PERFORMED BY: LabCoSt. Joseph's Regional Medical CenterBaswul8111 [facility] [id number] Information: SRC:VA Result 1 RGF (Normal) Comments: Routine genital rochelle. Genital Culture, Routine Final report (Normal) 6-Uew-833906:03 GARDNERELLA VAG, NUCLEIC Comments: PATIENT NOT FASTINGPERFORMED BY: LabCoSt. Joseph's Regional Medical CenterCsznkr8736 [facility] [id number] Information: [id number] ACID DIR PROBE (54663) Gardnerella vaginalis Positive (Abnormal) Trichomonas vaginalis Negative (Normal) Aquiles species Negative (Normal) 73-Nsa-236854:59 BREAST UNILATERAL Radiology Report See Note (Normal) [...] radiologist regarding this report, please call our [id number] line @ Dictated on 07/22/11 1139 by Nicholas SUÁREZ,Effieranscribed on 07/26/11 0810 by ITS IMPORTSign by Isiah Sanchez MD on 07/26/11 0 811 Sign by: Isiah Sanchez MD 89-Jsj-042385:38 CBCD ANC 1.3 3/uL (Abnormal) Range: 2.0-7.7 [...] 7-18 GLU 84 mg/dL (Normal) Range: 70-110 46-Kwi-382305:38 LIPID VLDL 18 mg/dL (Normal) Range: 5-40 [...] 200-240 mg/dL Borderline >240 mg/dL High Risk 22-Adb-301489:38 SED tSEDRATE 13 mm/h (Normal) Range: 0-30 :38 UA LORIE NEGATIVE (Normal) UOB NEGATIVE (Normal) KYM NEGATIVE (Normal) UROBU 0.2 EU/dl (Normal) Range: 0.2 - 1.0 uPROTU NEGATIVE (Normal) RAJESH 6.0 (Normal) Range: 5.0-8.0 SGU 1.020 (Normal) Range: 1.002-1.030 KETU NEGATIVE mg/dL (Normal) BILIU NEGATIVE (Normal) GLUR NEGATIVE (Normal) UCLAR CLEAR (Normal) UCOL YELLOW (Normal) 1-Jbu-872025:54 URINE ROBERT CULTURE-BRYANNA COL Comments: PATIENT NOT FASTINGPERFORMED BY: LabCoSt. Joseph's Regional Medical CenterGlvqjg0295 [facility] [id number] Information: SRC: URINE COUNT (78894) Result 1 NG36 (Normal) Comments: No growth in 36 - 48 hours. Urine Culture,Comprehensive Final report (Normal) 3-Ygp-314066:34 Urinalysis, Office (49109) UA - BILIRUBIN Negative (Normal) UA - BLOOD Negative (Normal) UA - GLUCOSE Negative (Normal) UA - KETONES Negative mg/dL (Normal) UA - LEUKOCYTE ESTERASE Negative (Normal) UA - NITRITE Negative (Normal) UA - PH 6.0 (Normal) UA - PROTEIN Negative mg/dL (Normal) UA - SPECIFIC GRAVITY 1.010 (Normal) URINE UROBILINGN BRYANNA TIMED Normal mg/dL (Normal) 38-Cwd-954475:25 DEXA BONE DENSITY STUDY (HP) Radiology Report [...] on 09/22/1058 Sign by: Isiah Sanchez MD 27-Hhw-527212:24 BILAT SCRN IMPLANT DIG & CAD Radiology [...] 09/22/10 1326 Sign by: NINO CARROLL MD 67-Emg-54695:48 Microscopic Examination Comments: PATIENT WAS FASTINGPERFORMED BY: [employer]6370 [facility] [id number] Bacteria Few (Normal) Mucus Threads Present (Normal) Epithelial Cells (non renal) 0-10 {/hpf} (Normal) Range: 0 - 10 RBC None seen {/hpf} (Normal) Range: 0 - 3 WBC 0-5 {/hpf} (Normal) Range: 0 - 5 66-Ali-31351:48 Lipid Panel (26583) Comments: PATIENT WAS FASTINGPERFORMED BY: [employer] LabCoPicPrizesJlfvef4691 [facility] [id number] LDL Cholesterol Calc 126 mg/dL (Abnormal) Range: 0-99 LDL/HDL Ratio 2.0 {ratio_units} (Normal) Range: 0.0-3.2 VLDL Cholesterol Miguel 19 mg/dL (Normal) Range: 5-40 Cholesterol, Total 207 mg/dL (Abnormal) Range: 100-199 HDL Cholesterol 62 mg/dL (Normal) Comments: According to ATP-III Guidelines, HDL-C >59 mg/dL is considered anegative risk factor for CHD. Triglycerides 95 mg/dL (Normal) Range: 0-149 :48 URINALYSIS (88959) Comments: PATIENT WAS FASTINGPERFORMED BY: [employer] Huakwx4985 [facility] [id number] Microscopic Examination See below: (Normal) Bilirubin Negative (Normal) Glucose Negative (Normal) Ketones Negative (Normal) Nitrite, Urine Negative (Normal) Occult Blood 3+ (Abnormal) Urobilinogen,Semi-Qn 0.2 mg/dL (Normal) Range: 0.0-1.9 Protein Negative (Normal) WBC Esterase Negative (Normal) Appearance Clear (Normal) Urine-Color Yellow (Normal) pH 6.5 (Normal) Range: 5.0-7.5 Specific [place] 1.020 (Normal) Range: 1.005-1.030 :48 CBC, Platelets & Auto Diff Comments: PATIENT WAS FASTINGPERFORMED BY: [employer] Hjynxb1502 [facility] [id number] (03581) Immature Grans (Abs) 0.0 {x10E3/uL} (Normal) Range: [...] 3.2 {x10E3/uL} (Abnormal) Range: 4.0-10.5 :48 TSH (81128) Comments: PATIENT WAS FASTINGPERFORMED BY: iCreate SoftwareSt. Joseph's Regional Medical CenterLxxndo4994 [facility] [id number] TSH 3.920 {uIU/mL} (Normal) Range: 0.450-4.500 :48 Metabolic Panel, Comprehensive Comments: PATIENT WAS FASTINGPERFORMED BY: iCreate SoftwareSt. Joseph's Regional Medical CenterBwiaiy1956 [facility] [id number] (11086) ALT (SGPT) 11 [iU]/L (Normal) Range: 0-40 [...] 65-99 :15 Anti-dsDNA Antibodies Comments: PERFORMED BY: [facility] [id number] Anti-DNA (DS) Ab Qn 4 {IU/mL} (Normal) Range: 0-9 Comments: Negative <5Equivocal 5 - 9Positive >9 C-Reactive Protein, 0.5 mg/L (Normal) Comments: PERFORMED BY: [facility]UpNov[facility] [id number] :15 Quant Range: 0.0-4.9 :15 CBC With Differential/Platelet Comments: PERFORMED BY: [employer] [facility] [id number] Baso (Absolute) 0.0 {x10E3/uL} (Normal) Range: 0.0-0.2 [...] 3.80-5.10 WBC 3.0 {x10E3/uL} (Abnormal) Range: 4.0-10.5 40-Nbk-384148:15 Comp. Metabolic Panel (14) Comments: PERFORMED BY: [facility]6370 [facility] [id number] Alkaline Phosphatase, S 73 [iU]/L Range: 25-165 [...] C3, Serum 116 {mg/dL_Adult} Comments: PERFORMED BY: [employer] [facility] [id number] 12:15 (Normal) Range: 90-180 28-Jul-2009 Complement C4, Serum 15 {mg/dL_Adult} Comments: PERFORMED BY: [employer]St[employer] [facility] [id number] 12:15 (Normal) Range: 9-36 28-Jul-2009 Complement, Total (CH50) 53 U/mL (Normal) Comments: PERFORMED BY: [employer] [facility] [id number] 12:15 Range: 22-60 28-Jul-2009 TSH 3.440 {uIU/mL} Comments: PERFORMED BY: [employer]St[employer] [facility] [id number] 12:15 (Normal) Range: 0.450-4.500 32-Lfw-708364:15 Urinalysis, Routine Comments: PERFORMED BY: Public[employer] [facility] [id number] Bilirubin Negative (Normal) Microscopic Examination MICRON (Normal) Comments: Microscopic follows if indicated. Nitrite, Urine Negative (Normal) Urobilinogen,Semi-Qn 0.2 mg/dL (Normal) Range: 0.0-1.9 Glucose Negative (Normal) Ketones Negative (Normal) Occult Blood Negative (Normal) Protein Negative (Normal) Appearance Clear (Normal) pH 6.5 (Normal) Range: 5.0-7.5 Specific [place] 1.019 (Normal) Range: 1.005-1.030 Urine-Color Yellow (Normal) WBC Esterase Negative (Normal) 80-Amq-17825:06 [facility] Radiology Report See Note (Normal) Comments: Exam Number: [id number] UNILATERAL DIAGNOSTIC MAMMOGRAM Oblique and craniocaudal views of the left breast were obtaineddigitally. Comparison is made with the prior examinations datedSeptember 22, 2008, and [facility]. Interpretation was made with [...] w erealso examined with computer-aided detection software (MiArch, Outlisten, AlpineReplay.). Reported By: ISIAH SANCHEZ 36-Dwt-303442:53 [facility] DIA DIGITAL & CAD Radiology Report See Note (Normal) Comments: Exam Number: [id number] MAMMOGRAM, UNILATERAL LEFT DIAGNOSTIC DIGITAL AND CAD [...] mammograms werealso examined with computer-aided detection software ([employer] Reported By: NINO CARROLL M.D. :22 BILAT SCRN DIGITAL & CAD Radiology Report See Note (Normal) Comments: Exam Number: [id number] MAMMOGRAM, BILATERAL SCREENING DIGITAL AND CAD HISTORYRoutine [...] mammograms werealso examined with computer-aided detection software ([employer] Reported By: NINO CARROLL M.D. :22 DEXA BONE DENSITY STUDY (HP) Radiology Report See Note (Normal) Comments: Exam Number: [id number] BONE DENSITOMETRY HISTORYScreening, postmenopausal. TECHNIQUE Bone densitometry of the lumbar spine and both hips is now beingperformed. The best criteria for e valuation of osteoporosis is theT-value, which represents the comparison of the patient's bone mass israel expected peak bone mass. For most patients, the mean T-value of S9xuootyy L4 is used to evaluate the lumbar [...] within normallimits. Reported By: NINO CARROLL M.D. 95-Cqs-67833:29 MYOCARD PERF SPECT REST/STRESS Radiology Report See Note (Normal) Comments: Exam Number: [id number] MYOCARDIAL PERFUSION SCAN TECHNIQUEThe patient was injected [...] patient was injected with 31 mCi of Px50zSwmnzuqhdg and subsequently stress SPECT Cardiolite nuclear imagingwas [...] Anti-dsDNA Antibodies Comments: PATIENT WAS FASTINGPERFORMED BY: [employer] Cdczdb9578 [facility] [id number] Anti-DNA (DS) Ab Qn 1 {IU/mL} (Normal) Range: 0-9 Comments: Negative <5 Equivocal 5 - 9 Positive >9 Antinuclear Antibodies Positive (Abnormal) Comments: PATIENT WAS FASTINGPERFORMED BY: iCare Intelligencelin6370 [facility] [id number] :53 Direct C-Reactive Protein, 0.7 mg/L (Normal) Comments: PATIENT WAS FASTINGPERFORMED BY: Mobstats6370 [facility] [id number] :53 Quant Range: 0.0-4.9 :53 CBC With Differential/Platelet Comments: PATIENT WAS FASTINGPERFORMED BY: Mobstats6370 [facility] [id number] Baso (Absolute) 0.0 {x10E3/uL} (Normal) Range: 0.0-0.2 [...] 11.7-15.0 WBC 2.6 {x10E3/uL} (Abnormal) Range: 4.0-10.5 7-Kxt-827773:53 Comp. Metabolic Panel (14) Comments: PATIENT WAS FASTINGPERFORMED BY: LabCoSt. Joseph's Regional Medical CenterCjrsty3157 [facility] [id number] A/G Ratio 1.4 (Normal) Range: 1.1-2.5 Albumin, [...] 119 {mg/dL_Adult} Comments: PATIENT WAS FASTINGPERFORMED BY: PublicStuff [facility] [id number] 0:53 (Normal) Range: 90-180 Complement C4, Serum 15 {mg/dL_Adult} Comments: PATIENT WAS FASTINGPERFORMED BY: PublicStuff [facility] [id number] 0:53 (Normal) Range: 9-36 Complement, Total (CH50) 55 U/mL (Normal) Comments: PATIENT WAS FASTINGPERFORMED BY: PublicStuff [facility] [id number] 0:53 Range: 22-60 0-Duh-307236:53 Lipid Panel With LDL/HDL Comments: PATIENT WAS FASTINGPERFORMED BY: PublicStuff [facility] [id number] Ratio Cholesterol, Total 180 mg/dL (Normal) Range: [...] mm/h (Normal) Comments: PATIENT WAS FASTINGPERFORMED BY: [facility]6[address] [facility] [id number] :53 Rate-Westergren Range: 0-30 TSH 2.547 {uIU/mL} Comments: PATIENT WAS FASTINGPERFORMED BY: [facility]6[address] [facility] [id number] :53 (Normal) Range: 0.450-4.500 :53 Urinalysis, Routine Comments: PATIENT WAS FASTINGPERFORMED BY: [place] [address] [facility] [id number] Appearance Clear (Normal) Bilirubin Negative (Normal) Glucose Negative (Normal) Ketones Negative (Normal) Microscopic Examination MICRON (Normal) Comments: Microscopic follows if indicated. Nitrite, Urine Negative (Normal) Occult Blood Negative (Normal) pH 6.5 (Normal) Range: 5.0-7.5 Protein Negative (Normal) Specific [place] 1.009 (Normal) Range: 1.005-1.030 Urine-Color Yellow (Normal) Urobilinogen,Semi-Qn 0.2 mg/dL (Normal) Range: 0.0-1.9 WBC Esterase Negative (Normal) 02-Aug-20079:44 Thin prep Pap Comments: Source.............Cervical;EndocervicalLMP / Prev Treat...XUG=[id number]. of containers..01 CYTYC Thin Prep VialPATIENT NOT FASTINGClinical Information: ADD [id number] PERFORMED BY: [facility] ([address]) [address] [id number] . . (Normal) DIAGNOSIS: SPRCS (Normal) Comments: NEGATIVE FOR INTRAEPITHELIAL LESION AND MALIGNANCY.Satisfactory for evaluation. No endocervical component is identified.V72.31 ; Routine gynecological examinationAlejandra Mendez Loan Processor (ASCP) Note: PAPSMR (Normal) Comments: The Pap [...] woman exam Planned Observations METABOLIC PANEL, COMPREHENSIVE (32680)Indication: Hypercholesteremia On: :47 Request LIPOPROTEIN, BLD, BY NMR (02142)Indication: Hypercholesteremia On: 2-Dki-681258:47 Request TSH (40611)Indication: Hypothyroidism On: 4-Pze-669559:46 Request TSH (23824)Indication: Hypothyroidism On: 31-Yxe-589430:10 Request Systemic Lupus Profile (89954)Indication: Lupus (systemic lupus erythematosus) On: 05-Jan-20169:57 Request Comments: send to Dr Norton CBC (Auto) (80270)Indication: Pre-operative examination On: 9-Vie-980319:08 Request Metabolic Panel, Basic (37524)Indication: Pre-operative examination On: 8-Vom-142718:08 Request TSH (63953)Indication: Hypothyroidism On: 4-Nly-949079:07 Request CALCIFEDIOL (90801)Indication: Hypothyroidism On: 6-Cdm-206890:12 Request URINALYSIS, W/ MICRO (12112)Indication: Hypothyroidism On: 3-Qao-846489:11 Request CBC WITH MANUAL DIFF (89505)Indication: Hypothyroidism On: 1-Hgr-283708:11 Request Metabolic Panel, Comprehensive (56362)Indication: Hypothyroidism On: 3-Itm-630223:11 Request Lipid Panel (67263)Indication: Hypothyroidism On: 7-Xss-899698:11 Request TSH (29439)Indication: Hypothyroidism On: 4-Hgl-380594:11 Request TSH (THYROID STIMULATING HORMONE) (98926)Indication: Hypothyroidism On: :43 Request METABOLIC PANEL, COMPREHENSIVE (03805)Indication: ERYTHEMATOSUS, LUPUS On: :43 Request LIPID PANEL (42934)Indication: ERYTHEMATOSUS, LUPUS On: :43 Request NEISSERIA (35554) (THIN PREP OBTAINED)Indication: Vaginal Discharge On: 5-Pbk-722157:43 Request CHLAMYDIA (01812) (thin prep obtained)Indication: Vaginal Discharge On: :43 Request ROBERT CULTURE-OTHER (59430)Indication: Vaginal Discharge On: :43 Request BACT CULTURE ANY-ANAEROBIC (73011)Indication: Vaginal Discharge On: :43 Request INFCT ANTGN TRICH VAGIN DIRECT PRB (04233)Indication: Vaginal Discharge On: :43 Request AQUILES, NUCLEIC ACID DIRECT PROBE (44862)Indication: Vaginal Discharge On: :43 Request Thin prep Pap (49536)Indication: Well woman exam On: 2-Qny-942588:29 Request URINALYSIS (45628)Indication: Lupus (systemic lupus erythematosus) On: : Request Sed Rate Erythrocyte (15501)Indication: Lupus (systemic lupus erythematosus) On: :26 Request CBC, Platelets & Auto Diff (83070)Indication: Lupus (systemic lupus erythematosus) On: :25 Request Lipid Panel (69535)Indication: Hypothyroidism On: :25 Request Metabolic Panel, Comprehensive (42312)Indication: Lupus (systemic lupus erythematosus) On: :25 Request DNA ANTIBODY-NATV/DBL ST (68953)Indication: Lupus (systemic lupus erythematosus) On: :49 Request COMPLEMENT C4 (58139)Indication: Lupus (systemic lupus erythematosus) On: :48 Request COMPLEMENT C3 (39992)Indication: Lupus (systemic lupus erythematosus) On: :48 Request COMPLEMENT, TOTAL (CH50) (50782)Indication: Lupus (systemic lupus erythematosus) On: :48 Request C-Reactive Protein (58069)Indication: Lupus (systemic lupus erythematosus) On: :48 Request URINALYSIS (42945)Indication: Lupus (systemic lupus erythematosus) On: :48 Request CBC (Auto) (51897)Indication: Lupus (systemic lupus erythematosus) On: :48 Request Metabolic Panel, Comprehensive (87215)Indication: Lupus (systemic lupus erythematosus) On: :48 Request TSH (64896)Indication: Hypothyroidism On: :48 Request Thin prep Pap (89514)Indication: Well woman exam On: :35 Request C-Reactive Protein (67114)Indication: Lupus (systemic lupus erythematosus) On: :03 Request DNA ANTIBODY-NATV/DBL ST (25614)Indication: Lupus (systemic lupus erythematosus) On: :02 Request Sed Rate Erythrocyte (55888)Indication: Lupus (systemic lupus erythematosus) On: :01 Request COMPLEMENT C4 (86264)Indication: Lupus (systemic lupus erythematosus) On: :00 Request COMPLEMENT C3 (54130)Indication: Lupus (systemic lupus erythematosus) On: :00 Request COMPLEMENT, TOTAL (CH50) (06651)Indication: Lupus (systemic lupus erythematosus) On: :00 Request AMAN (ANTINUCLEAR ANTIBODY) (42151)Indication: Lupus (systemic lupus erythematosus) On: :00 Request URINALYSIS (22618)Indication: Lupus (systemic lupus erythematosus) On: :57 Request TSH (64827)Indication: Hypothyroidism On: :57 Request CBC (Auto) (68050)Indication: Lupus (systemic lupus erythematosus) On: :57 Request Metabolic Panel, Comprehensive (43260)Indication: Lupus (systemic lupus erythematosus) On: :57 Request Lipid Panel (03658)Indication: Lupus (systemic lupus erythematosus) On: :57 Request Lipid Panel (98522)Indication: Hypothyroidism On: :47 Request TSH (38257)Indication: Hypothyroidism On: :43 Request LIPID PANEL (82664)Indication: Well woman exam On: 5-Hcz-500288:00 Request CBC (AUTO) (36057)Indication: Lupus (systemic lupus erythematosus) On: 11-May-20069:59 Request Planned Encounters Medical; [facility] 6 [facility] Fu - On: 21-Sep-2018 13:00 [facility] Araceli SUÁREZ, Talia Johnson MD Planned Procedures MRI RIGHT BREAST W/W/O CONTRAST On: 09-Mar-2018 Intent (C8905)By: Araceli SUÁREZ, Talia Johnson MD DIAGNOSTIC MAMMOGRAPHY OF BOTH On: 06-Mar-2018 Intent BREASTS (62566)By: Talia Charles MD, MD, Dana M Breast Ultrasound - RightBy: On: 06-Mar-2018 Intent Araceli SUÁREZ, Talia Johnson MD ULTRASOUND OF NECK WITH FOCUS ON On: 25-Aug-2017 Intent THYROID (38463)By: Araceli SUÁREZ, Comments: include area on left side where tender. Talia Johnson MD DEXA SCAN AXIAL SKELETON On: 07-Aug-2017 Intent (01443)By: Talia Charles MD, MD, Dana M Flu Vaccine (Quadrivalent) On: 17-Jan-2017 Intent 54976Hg: Talia Charles MD Comments: QUAD flu shotlot number: [id number]: 07/2017L Deltoid IMAD GATE ATTENDANT Talia Charles MD MAMMOGRAM BREAST BILATERAL On: 17-Jan-2017 Intent SCREENING DIGITAL (49506)By: Talia Charles MD, MD, Dana M Nuclear Stress Test/Stress On: 02-Feb-2016 Intent SPECT/TreadmillBy: Talia Charles MD, MD, Dana M MAMMOGRAM, SCREENING, BOTH BREAST On: 05-Jan-2016 Intent (34334)By: Talia Charles MD, MD, Dana M Flu Vaccine (Quadrivalent) On: 05-Jan-2016 Intent 63138Rh: Parker Ross Comments: Lot:[id number]:09/30/16Dose:0.5mLRoute:IMSite:L DltdGiven By:DINA signed PNEUM VAC ADLT/IMUMNOSPR, On: 28-Jul-2015 Intent SBC/INTRM (15189)By: Araceli SUÁREZ, Comments: Lot:[id number]:01/08/17Dose:0.5mlRoute:imSite:l armGiven By:DINA signed Talia Johnson MD DEXA SCAN AXIAL SKELETON On: 28-Jul-2015 Intent (16258)By: Talia Charles MD Comments: 10-16 due Talia Charles MD ELECTROCARDIOGRAM, COMPLETE (ECG) On: 02-Oct-2014 Intent (53251)By: Talia Charles MD, MD, Dana M MRI - OtherBy: Talia Charles MD On: 24-Jul-2014 Intent Talia Charles MD Comments: R breast MRI OF RIGHT BREAST WITH AND On: 24-Jul-2014 Intent WITHOUT CONTRAST (C8905)By: Talia Charles MD, MD, Dana M MAMMOGRAM, SCREENING, BOTH BREAST On: 21-Jul-2014 Intent (11261)By: Talia Charles MD, MD, Dana M ELECTROCARDIOGRAM, COMPLETE (ECG) On: 04-Mar-2014 Intent (00574)By: Talia Charles MD, MD, Dana M DXA, BONE DENSITY, AXIAL SKELETON On: 01-Aug-2013 Intent (13134)By: Talia Charles MD, MD Talia M EKG (65431)By: Talia Charles MD On: 01-Aug-2013 Intent Talia Gunter MD Comments: see scanned document of test done to see results reviewed today with patient TDAP VACCINE >7 IM (62410)By: On: 24-Sep-2012 Intent Talia Charles MD, MD, Dana M Ultrasound - PelvisBy: Araceli On: 06-Apr-2012 Intent Talia SUÁREZ MD, Dana M Comments: left ovary felt and postmenapausal EKG (13128)By: Talia Charles MD On: 18-Jul-2011 Talia Gay MD Comments: see scanned document of test done to see results reviewed today with patient Breast Ultrasound - LeftBy: On: 18-Jul-2011 Intent Talia Charles MD, MD, Dana M DXA, BONE DENSITY, AXIAL SKELETON On: 20-Aug-2010 Intent (62500)By: Talia Charles MD, MD, Dana M MAMMOGRAM, SCREENING, BOTH On: 20-Aug-2010 Intent BREASTS (42660)By: Talia Charles MD, MD, Dana M Breast [...] On: 08-Aug-2008 Intent Talia Johnson MD EKG (46174)By: Talia Charles MD On: 08-Aug-2008 Intent Talia Gunter MD MAMMOGRAM, SCREENING, BOTH On: 04-Jul-2007 Intent BREASTS (47168)By: Talia Charles MD, MD, Dana M Bone Density StudyBy: Araceli SUÁREZ, On: 04-Jul-2007 Intent Talia Charles MD, aTlia Carney MAMMOGRAM, SCREENING, BOTH On: 11-May-2006 Intent BREASTS (75412)By: Araceli SUÁREZ, Talia Johnson MD Instructions Name [...] Advance Directives Name Dates Details Immunization Registry [place] - Effective on Effective: 17-Jan-201701/17/2017. Expiration date [...] - Yes the patient did have (NOT LUMBEE) a mini mental status exam done today. [...] The patient does have durable power of trust and estates attorney and living will. The patient has [...] bracelet or put handrails in bathroom. [facility] the following preventative measures: PAP smear (under 5 years ago ), mammography (2014) and colonoscopy (2012). The patient does have durable power of trust and estates attorney and living will. The joe ent [...] patient plans [facility]. Note for Pre-op visit: [...] Pap (V72.31) (Mammo), Genital herpes, unspecified (054.10), [facility] Internal Medicine Historical Summary [...] and unspecified noninfectious gastroenteritis and colitis (558.9), [facility] Medicine Office Visit [...]
--- OUTSIDE RECORDS SUMMARY | 2018-06-21 02:42 | XMS RPT_ITS ---
:1950 Author Organization [place] Care Team Providers Name Role Phone Talia Charles MD Attending Unavailable Talia Charles MD Referring Unavailable Talia Charles MD Consulting Unavailable DICKSON TOVAR Attending Unavailable Araceli, Talia Attending Unavailable Araceli, Talia Referring Unavailable Araceli, Talia Primary Care Unavailable Talia Charles Attending Unavailable Talia Charles Referring Unavailable Araceli, Talia Primary Care Unavailable Talia Charles Attending Unavailable Araceli, Talia Primary Care Unavailable Talia Charles Attending Unavailable Bonedeanna, Talia Referring Unavailable Bonezzkalani, Talia Primary Care Unavailable PROBLEMS PROBLEMS DATE TYPE CONDITION / CODE ATTENDING STATUS SOURCE 04/05/2018 Admitting [facility] Guest Services Lead DICKSON TOVAR Active [facility] diagnosis Review Required / BOY Repository [id number](ICD-10) 10/25/2017 Unknown Z78.0 - Talia Charles Active [facility] menopausal state / Hospital Z78.0(ICD-10) Repository 10/19/2017 Unknown M54.2 - Talia Charles Active [facility] M54.2(ICD-10) Hospital Repository PROCEDURES PROCEDURES No Procedure Records FoundRESULTS RESULTS BREAST W/O AND/OR W Observed: 03/19/2018 Status: F Source: [place] CONT BILAT 12:47 PM [facility] REPOSITORY [facility] Imaging Services [address] [place] [address] Breast w/o and/or W Cont Bilat MR#: [id number] Acct: [id number] Name: SHANITA MONTIEL Rep #: [id number] : 1950 F 67 From: Nhan Berrios MD PCP: Talia Charles MD Status: REG CLI Study: Breast w/o and/or W Cont Bilat Date of Exam: 03/19/18 Exam# [id number] Ordering Dr: Talia Charles MD STUDY: BILATERAL BREAST MR WITHOUT AND WITH CONTRAST REASON FOR EXAM: Female, 67 years old. Lump in superior aspect of the right breast for 2 months. Evaluate for implant rupture. TECHNIQUE: Multi-sequence multi-echo imaging of both breasts was performed with a dedicated breast coil. T1-weighted and T2- weighted images were obtained without contrast. COMPARISON: Ultrasound of the right breast dated March 09, 2018. Bilateral diagnostic mammogram dated March 09, 2018. FINDINGS: There is a subglandular implants bilaterally. There are prominent folds in both implants. In the area of the ultrasonographic abnormality and the mammographic abnormality, there is a small focal area of extracapsular implant material near the 12:00 position best seen on sagittal series 7 images 7-11). This area represents a small focal area of extracapsular rupture. There are no enlarged or abnormal lymph nodes. There is no abnormality in the visualized regions of the chest or liver. MRI/Breast w/o and/or W Cont Bilat IMPRESSION: Bilateral subglandular implants with prominent folds. Small extracapsular rupture of the right implant correlating with the palpable abnormality, the mammographic abnormality and the ultrasonographic abnormality. CATEGORY: BIRADS Category 2: Benign. A letter regarding these results will be sent to the patient by the facility within 30 days. Electronically Signed: Nhan Berrios MD at 14:24 EST , Service support , CC: Talia Charles MD Religious Education Teacher: Signed DIAG MAMM W/CAD, Observed: 03/09/2018 Status: F Source: [place] BILAT 8:58 AM [facility] Imaging Services [address] [place] [address] DIAG MAMM W/CAD, BILAT MR#: [id number] Acct: [id number] Name: SHANITA MONTIEL Rep #: [id number] : 1950 F 67 From: Isiah Peterson MD PCP: Talia Charles MD Status: REG CLI Study: DIAG MAMM W/CAD, BILAT Date of Exam: 03/09/18 Exam# [id number] Ordering Dr: Talia Charles MD MAMMOGRAPHY - BILATERAL DIAGNOSTIC REASON FOR EXAM: Female, 67 years old. Right breast lump. Prior implants. PERTINENT HISTORY: Non-contributory. TECHNIQUE: Digital bilateral breast lucia (3D mammographic acquisition) [...] since the prior study. BI/DIAG MAMM W/CAD, BILAT IMPRESSION: Stable bilateral diagnostic mammogram. With the [...] a clinically suspicious abnormality. Electronically Signed: Isiah Peterson MD at 10:23 EST Tel [phone], Service support , CC: Talia Charles MD Religious Education Teacher: Signed BREAST LIMITED Observed: 03/09/2018 Status: F Source: [place] UNILATERAL 8:58 AM [facility] Imaging Services [address] [place] [address] Breast Limited Unilateral MR#: [id number] Acct: [id number] Name: SHANITA MONTIEL Rep #: [id number] : 1950 F 67 From: Isiah Peterson MD PCP: Talia Charles MD Status: REG CLI Study: Breast Limited Unilateral Date of Exam: 03/09/18 Exam# [id number] Ordering Dr: Talia Charles MD STUDY: ULTRASOUND BREAST - RIGHT REASON FOR EXAM: Female, 67 years old. Palpable lump in the right breast. TECHNIQUE: Axial and longitudinal images of the RIGHT breast were performed with a high resolution ultrasound transducer. COMPARISON: Comparison is made with prior mammogram done earlier today. FINDINGS: RIGHT Breast: Breast implant is seen. The palpable abnormality corresponds to a 1.5 cm x 0.7 cm x 0.5 cm hypoechoic nodule just superior to the breast implant. This is at the 11:00 position breast at 8 cm from nipple. A small amount of free fluid is seen adjacent to the implant. There is also evidence of a snowstorm appearance of the implant. Localized rupture should BE ruled out. US/Breast Limited Unilateral IMPRESSION: Findings suggestive of possible focal breast implant rupture at the site of the palpable abnormality. Correlation with MRI is recommended. ASSESSMENT CATEGORY: BIRADS Category 2: Benign. A letter regarding these results will be sent to the patient by the facility within 30 days. Electronically Signed: Isiah Peterson MD at 10:58 EST Tel [phone], Service support , CC: Talia Charles MD Religious Education Teacher: Signed DEXA BONE DENSITY Observed: 10/25/2017 Status: F Source: [place]UM[place] STUDY 8:32 AM [facility] Imaging Services [address] [place] [address] Dexa Bone Density Study MR#: [id number] Acct: [id number] Name: SHANITA MONTIEL Rep #: [id number] : 1950 F 67 From: Kar Sheridan MD PCP: Talia Charles MD Status: REG CLI Study: Dexa Bone Density Study Date of Exam: 10/25/17 Exam# [id number] Ordering Dr: Talia Charles MD STUDY: DUAL ENERGY X-RAY ABSORPTIOMETRY / DXA REASON FOR EXAM: Female, 67 years old. Postmenopausal screening TECHNIQUE: Bone Mineral Density (BMD) measurements of lumbar spine and bilateral hips were obtained. COMPARISON: 2015 FINDINGS: Lumbar Spine (L1-L4): g/cm2 (0.927) / T-score (-2.0) / Z-score (-0.3) Findings are suggestive of osteopenia with a moderate fracture risk. Left Femur Total: g/cm2 (0.812) / T-score (-1.6) / Z- score (-0.1) Left Femoral Neck: g/cm2 (0.888) / T-score (-1.1) / Z- score (0.6) Right Femur Total: g/cm2 (0.760) / T-score (-2.0) / Z- score (-0.5) Right Femoral Neck: g/cm2 (0.816) / T-score (-1.6) [...] examination. Reference Information: The T-score is the number of standard deviations above or below the standard which is normal for young adults at their peak bone mineral density. The World Health Organization (WHO) interprets the T-scores as follows: Above -1 Normal bone density Between -1 and [...] -1.5 would be considered abnormal. References: 1. NIH Osteoporosis and Related Bone Diseases http://www.osteo.org 2. International Society for Clinical Densitometry http://www.iscd.org 3. National Osteoporosis Foundation http://www.nof.org Electronically Signed: Micky Sheridan MD at 9:46 EDT , Service support , CC: Talia Charles MD Religious Education Teacher: Signed THYROID Observed: 08/25/2017 Status: F Source: SHUMWAY 11:22 AM [facility] Imaging Services [address] [place] [address] Thyroid MR#: [id number] Acct: [id number] Name: SHANITA MONTIEL Rep #: [id number] : 1950 F 67 From: Isiah Peterson MD PCP: Talia Charles MD Status: REG CLI Study: Thyroid Date of Exam: 08/25/17 Exam# [id number] Ordering Dr: Talia Charles MD STUDY: THYROID ULTRASOUND REASON FOR EXAM: Female, 67 years old. Tenderness along the [...] no demonstrated solid, cystic or complex lesions. ISTHMUS: The isthmus measures 3.0 mm. There is a 7 mm x 6 mm x 3 mm lymph node lateral to the left lobe of the thyroid. US/Thyroid IMPRESSION: Normal ultrasound examination of the thyroid. Electronically Signed: Isiah Peterson MD at 12:32 EDT Tel [phone], Service support , CC: Talia Charles MD Religious Education Teacher: Signed ALLERGIES ALLERGIES No Allergies Records FoundENCOUNTERS ENCOUNTERS ADMIT/DISCHARGE ACCOUNT NUMBER ADMITTING ENCOUNTER LOCATION SOURCE CLASS 04/05/2018/04/05/19 [id number] Ambulatory Building:LAB [address] Repository 03/28/2018 [id number] Ambulatory Building:[facility] Repository 03/19/2018 [id number] [facility] ding:MRI Repository 03/09/2018 [id number] [facility] ding:OPBI Repository 10/25/2017 [id number] [facility] ding:OPBD Repository 08/25/2017 [id number] [facility] ding:US Repository PAYERS PAYERS ENCOUNTER GUARANTOR PAYER SUBSCRIBER SOURCE 04/05/2018 SHANITA PÉREZ: Primary SHANITA GARCIAB: [facility] E Insurance:MEDICAREPol [id number] Repository [facility] Number: E [facility] [address]Lkx: [id number] [place], [place] Date:8939-88-37DUV 34962Dgz: [phone]) (NP) J15 PART A CLAIMSPO [phone] () [address] [address]JO[place], [place] [address]IU: 04/05/2018 Secondary SHANITA PÉREZ: [facility] Insurance:COMMERCIALP [id number] Repository olicy Number: E [facility] [id number] [place], [place] Date:0524-74-51JQEIQW [address]Thh: 419) OF [address] [phone] () [place] [address]PB: 03/28/2018 SHANITA A Primary SHANITA A OHIP Practices YOUNGDOB: Insurance:MedicarePol YOUNGDOB: Repository E icy Number: [id number] Brandon Figueroaarabella, [id number] [address] [place] [address]Hpo: Date:1628-04-87Nibd [place], [place] Name:[facility] Nathaly [address]Hrm: [phone]) (HP)Tel: [phone], [place] [phone] (HP) [phone] () [address]WS: 03/28/2018 Secondary SHANITA A OHIP Practices Insurance:[place] [facility] Repository [facility] Number: [id number] [address] Date:2582-70-99[place]ahOld [place], [place] Name:[place] [address]Kir: [phone]) [place], [place] [phone] () [address]HY: 03/28/2018 Tertiary SHANITA A OHIP Practices Insurance:Health YOUNGDOB: Repository [facility] [id number] cy Number: [address] [id number], [place] Date:2009-04-0306967Jlz: [phone]) [id number] [phone] () Name:[address], [place] [address]SR: 03/28/2018 Tertiary Jeaneth L OHIP Practices Insurance:Medical YoungDOB: Repository [facility] [id number] Number: [address] [id number] [place] Date:2011-01-01 [address]Vbw: [phone] [id number] [phone] (HP) Name:[address] [address], [place] [address]EC: 03/28/2018 Tertiary Jeaneth L OHIP Practices Insurance:[facility] YoungDOB: Repository licy Number: [id number] [address] Date:2012-04-03 - [place], [place] 9653-97-93Sxhu [address]Yor: 419 Name:Natanael [facility] [phone] () RANJEET Flowers [address]CK: 03/19/2018 SHANITA Patsy AYANA Primary SHANITA A [place] [address] Insurance:MEDICARE YOUNGDOB: [place], [place] PART A olic [id number]9312Tel: Number: Repository [id number] () Date:2018-03-09 03/19/2018 Secondary SHANITA A [place] Insurance:MUTUAL OF YOUNGDOB: [facility] Number: [id number] [id number] Repository Date:6854-97-86MWTAQH [place], [place] [address]KY: 03/19/2018 Tertiary NOT GIVENUNK [facility] Insurance:SELF PAY [facility] Hospital Number: Effective Repository Date:2018-03-09 03/09/2018 SHANITASIMON PIÑA Primary SHANITA A [facility] [address] Insurance:MEDICARE YOUNGDOB: [place], [place] PART A [facility] [id number] [place] [address]Tel: Number: Repository [id number] () Date:2018-03-06 03/09/2018 Secondary SHANITA A [facility] Insurance:MUTUAL OF YOUNGDOB: [facility] Number: [id number] [id number] Repository Date:4237-25-25IQSCTP [place], [place] [address]FS: 03/09/2018 Tertiary NOT GIVENUNK [facility] Insurance:SELF PAY [facility] Number: Effective Repository Date:2018-03-06 10/25/2017 Jeaneth Piña Primary SHANITA A [facility] [address] Insurance:MEDICARE YOUNGDOB: [place], [place] PART A [facility] [id number] Ville [address]Tel: Number: Repository [id number] (HP) Date:2017-08-07 10/25/2017 Secondary SHANITA A [facility] Insurance:MUTUAL OF YOUNGDOB: [facility] Number: [id number] [id number] Repository Date:2416-98-63NONFIC OF [place] [address]VX: 10/25/2017 Tertiary SHANITA A [facility] Insurance:ANTHEMPolic YOUNGDOB: Community y Number: [id number] [id number] Repository Date:6803-95-43JP [address] [place] [address] [place] [address]SF: 10/25/2017 Tertiary NOT GIVENUNK [facility] Insurance:SELF PAY [facility] Number: Effective Repository Date:2017-08-07 08/25/2017 Jeaneth Piña Primary SHANITA A [place] [address] Insurance:MEDICARE YOUNGDOB: [place], [place] PART A [facility] [id number] Ville [address]Tel: Number: Repository [id number] (HP) Date:2017-08-25 08/25/2017 Secondary SHANITA A [facility] Insurance:ANTHEMPolic YOUNGDOB: Community y Number: Effective [id number] Hospital Date:1048-84-43AO BOX Repository [address]NVOUSMC, [place] [address]XF: 08/25/2017 Tertiary SHANITA A [facility] Insurance:MUTUAL OF YOUNGDOB: [facility] Number: [id number] Hospital [id number] Repository Date:9071-10-78FHZTQO OF [place] [address]LH: 08/25/2017 Tertiary NOT GIVENUNK [place] Insurance:SELF PAY [facility] Number: Effective Repository Date:2017-08-25
== END ==
PROVIDERS: Family Provider Internal Medicine; PCP Internal Medicine; Referring Provider Internal Medicine; Visit Provider Internal Medicine
DX: R92.8 Other abnormal and inconclusive findings on diagnostic imaging of breast (principal)
CPT/HCPCS: 77059; C8908

== ENCOUNTER → 2018-08-10 | Outpatient (CLI) | payer MEDICARE, OTHER, BC, SELFPAY ==
[2018-08-10 13:05] LABS: ALB/GLOB Ratio 1.1 RATIO (0.9-2.4); AST(SGOT) 21 U/L (15-37); Alanine Aminotransfer ALT/SGPT 25 U/L (13-56); Albumin, Serum 3.9 g/dL (3.2-5.0); Alkaline Phosphatase 64 U/L (45-117); Anion Gap 5 (5-15); BUN 15 mg/dL (7-18); Calcium,Total 9.1 mg/dL (8.5-10.1); Chloride 108 mmol/L (98-107); Creatinine, Serum 0.71 mg/dL (0.55-1.02); EST Glomerular Filtration Rate 86 mL/min (>60); Est Glom Filt Rate - Afr Amer 104 mL/min (>60); Globulin 3.4 g/dL (2.2-4.2); Glucose 88 mg/dL (74-106); Potassium 4.7 mmol/L (3.5-5.1); Protein, Total 7.3 g/dL (6.4-8.2); Sodium Level 142 mmol/L (136-145)
[2018-08-11 20:06] LABS: CHOLESTEROL TOTAL 207 mg/dL (100-199); HDL-C 63 mg/dL (>39); HDL-P TOTAL 29.2 umol/L (>=30.5); SMALL LDL-P 434 nmol/L (<=527); TRIGLYCERIDES 69 mg/dL (0-149)
[2018-08-13 13:18] LABS: INSULIN RESISTANCE SCORE 33 (<=45); LDL SIZE 21.1 nm (>20.5); LDL-C 130 mg/dL (0-99); LDL-P 1600 nmol/L (<1000)
== END | disposition home or self-care (01) ==
LOC: MTLAB 09:48
PROVIDERS: Family Provider Internal Medicine; PCP Internal Medicine; Referring Provider Internal Medicine; Visit Provider Internal Medicine
DX: E78.00 Pure hypercholesterolemia, unspecified (principal); E03.9 Hypothyroidism, unspecified
CPT/HCPCS: 36415; 80053; 80061; 83695; 83704; 84443

== ENCOUNTER → 2018-10-01 | Outpatient (CLI) | payer SELFPAY ==
--- NOTE | 2018-10-01 14:52 | CT_ITS ---
STUDY: CARDIAC CALCIUM SCORING - CT CHEST REASON FOR EXAM: Female, 68 years old. Hyperlipidemia RADIATION DOSAGE (If Supplied By Facility): CTDIvol = ( 12.19 ) mGy, DLP = ( 170.66 ) mGycm TECHNIQUE: Axial non-enhanced images were acquired through the heart for the sole purpose of measuring coronary artery calcium. Individualized dose optimization techniques were used for this CT. COMPARISON: None. FINDINGS: Coronary calcium score is 558. This represents approximately 80th percentile compared to population control. There is mild left ventricular spherical remodeling with normal overall dimensions. There is fibrofatty thickening of the proximal right ventricle with normal overall dimensions. There is lipoid metaplasia in the left ventricular apex and apical inferoseptal segment. Nodular portions of the lungs are clear. Lower airways are patent. There is no pulmonary edema or pleural effusions. There is a benign appearing cyst in the left lower lobe posterior basal segment. Bilateral mammary prostheses are in place. CT/Limited Chest CT w/CCTA IMPRESSION: 1. Calcium score 558. 2. 80th population percentile. 3. Severely elevated risk of adverse future cardiovascular events, estimated at greater than 20% over the next 10 years. 4. Myocardial fibrofatty changes in the right and left heart. Consider arrhythmogenic right ventricular dysplasia in the differential diagnosis. Cardiology referral advised. Please go to: [email or web address] , for a description of the calculator. Electronically Signed: Alberto Dean, at 15:57 EDT Tel , Service support ,
[2018-10-01 15:07] VITALS: BP 110/57; PULSE 52; RESP 16; O2SAT 100; BMI 20.9
--- NOTE | 2018-10-08 09:07 | CA.SCORE ---
Calcium Scoring Date of Study:: 10/01/18 Coronary Calcium Scoring: High-resolution Computed Tomographic imaging of the chest was performed on [ ], with particular attention paid to the coronary arteries. Images from the examination were analyzed for the presence and extent of coronary artery calcification , using coronary calcium quantification software. The patient tolerated the procedure well and there were no complications. The results of the coronary calcification analysis are provided below. - Findings Left Main (LM): 209 Left Anterior Descending (LAD): 266 Left Circumflex (LCX): 67.2 Right Coronary Artery (RCA): 15.1 Total Agatston Score: 558 Percentile Rankin - Conclusion Calcium Scoring Interpretation: Calcium Score Interpretation 0 No identifiable atherosclerotic plaque. Very low cardiovascular disease risk. <5% chance of presence coronary artery disease A Negative Examination 1-10 Minimal Plaque burden. Significant coronary artery disease very unlikely. 11-100 Mild plaque burden. Likely mild or minimal coronary atherosclerosis. 101-400 Moderate plaque burden Moderate non-obstructive coronary artery disease highly likely. Over 400 Extensive plaque burden. High likelihood of at least one significant coronary stenosis (>50% diameter) Calcium score of 558 is suggestive of extensive plaque burden. High likelihood of at least one significant coronary artery stenosis (greater than 50% diameter).
== END | disposition home or self-care (01) ==
LOC: CT 14:50
PROVIDERS: Family Provider Internal Medicine; PCP Internal Medicine; Referring Provider Internal Medicine; Visit Provider Internal Medicine
DX: E78.5 Hyperlipidemia, unspecified (principal)
CPT/HCPCS: 75571; 76380

== ENCOUNTER → 2018-10-09 | Outpatient (CLI) | payer MEDICARE, BC, OTHER, SELFPAY ==
[2018-10-03 11:42] VITALS: BMI 21.2
== END | disposition home or self-care (01) ==
LOC: PSN 10:48
PROVIDERS: Family Provider Internal Medicine; PCP Internal Medicine; Referring Provider Specialist; Visit Provider Specialist
DX: R00.2 Palpitations (principal)
CPT/HCPCS: 93225; 93226

== ENCOUNTER → 2018-10-15 | Outpatient (CLI) | payer MEDICARE, BC, OTHER, SELFPAY ==
[2018-10-03 11:42] VITALS: BMI 21.2
--- NOTE | 2018-10-15 13:53 | ECHOD_ITS ---
Reason For Study: ABN CTA Procedure This was a 2D Doppler, Color Flow transthoracic echocardiogram. Exam performed in department. Left Ventricle Normal size and thickness. The estimated ejection fraction is 60 %. Normal diastology for age. No regional wall motion abnormalities noted. Right Ventricle Normal RV size. Normal systolic function. Atria Normal left atrium. Normal right atrium. No doppler evidence for ASD. Mitral Valve There is no mitral valve stenosis. Trivial mitral valve insufficiency. Tricuspid Valve There is no tricuspid stenosis. Trivial tricuspid valve insufficiency. Normal pulmonary artery pressure. Aortic Valve Trisinus/trileaflet aortic valve. There is no aortic stenosis. No aortic valve insufficiency. Pulmonic Valve There is no pulmonic valvular stenosis. No pulmonic valve insufficiency. Great Vessels Normal aortic root. Pericardium/Pleural No pericardial effusion. MMode/2D Measurements & Calculations LVIDd: 3.8 cm IVSd: 0.76 cm Ao root diam: 2.8 cm LVIDs: 2.6 cm LVPWd: 0.73 cm RVDd: 3.2 cm FS: 31.2 % LAV(MOD-bp): 61.0 ml LVAd ap4: 23.1 cm2 SV(MOD-sp4): 33.6 ml LAV(MOD-bp) Indexed: 39.4 ml/m2 EDV(MOD-sp4): 58.6 ml LAV(MOD-sp2): 63.9 ml EDV(sp4-el): 60.0 ml LAV(MOD-sp4): 43.5 ml LVAs ap4: 13.7 cm2 ESV(MOD-sp4): 25.0 ml ESV(sp4-el): 24.3 ml EF(MOD-sp4): 57.4 % EF(sp4-el): 59.5 % SV(sp4-el): 35.7 ml LA A4 area: 15.3 cm2 LA dimension(2D): 2.8 cm RA A4 area: 11.3 cm2 Time Measurements MV dec time: 0.22 sec Doppler Measurements & Calculations MV E max kevin: 90.7 cm/sec Lat Peak E' Kevin: 9.8 cm/sec Med Peak E' Kevin: 9.2 cm/sec MV A max kevin: 70.7 cm/sec E/E' lat: 9.2 E/E' med: 9.8 MV E/A: 1.3 Ao V2 max: 99.3 cm/sec LV V1 max: 91.3 cm/sec TR max kevin: 182.8 cm/sec Ao max P.9 mmHg LV V1 max P.3 mmHg TR max P.4 mmHg Interpretation Summary The estimated ejection fraction is 60 %. Normal diastology for age. Trivial mitral valve insufficiency. Ordering Physician: Gary Kapadia Referring Physician: CELESTE CASTRO Performed By: Nicol Guzman, JAZMINE, RVT
== END | disposition home or self-care (01) ==
LOC: CVS 13:52
PROVIDERS: Family Provider Internal Medicine; PCP Internal Medicine; Referring Provider Specialist; Visit Provider Specialist
DX: I42.8 Other cardiomyopathies (principal); R93.1 Abnormal findings on diagnostic imaging of heart and coronary circulation
CPT/HCPCS: 93306

== ENCOUNTER → 2019-11-19 15:24 | Outpatient (CLI) | payer MEDICARE, OTHER, SELFPAY ==
[2018-11-14 10:34] VITALS: BMI 21.2
--- NOTE | 2019-11-19 15:27 | BI_ITS ---
MAMMOGRAPHY - BILATERAL SCREENING 3-D TOMOSYNTHESIS REASON FOR EXAM: Female, 69 years old. Routine screening PERTINENT HISTORY: NO FM HX , CURRENT VAG HRT CREAM X 5+ YRS., ORIG IMPLANTS 1981 REPLACED IN 2015(RUPTURE) AND EXC BX TO REMOVED SILICONE AFTER MRI IN 2018. TECHNIQUE: 2-D mammograms and 3-D Tomosynthesis of the breast (s) were performed, along with implant displaced views. CAD was performed. COMPARISON: 2018 FINDINGS: The breast composition is heterogeneously dense that can obscure small breast masses. Scattered benign calcifications are seen in the left breast. No dense spiculated masses or suspicious microcalcifications are identified. No architectural distortion is identified. There is no skin thickening or retraction. There has been no significant change since the prior study. Implants intact and free of complication BI/SCREEN MAMM (CAD) W/MAIXM BILAT IMPRESSION: No mammographic signs of malignancy. Routine yearly mammograms recommended. ASSESSMENT CATEGORY: BIRADS Category 2: Benign. A letter regarding these results will be sent to the patient by the facility within 30 days. FOLLOW UP RECOMMENDATION: Yearly follow up mammogram recommended. (A) Approximately 10% of breast cancers are not detected by mammography. A normal mammogram should not delay biopsy of a clinically suspicious abnormality. Electronically Signed: Micky Sheridan MD at 10:28 EDT , Service support ,
--- NOTE | 2019-11-19 15:35 | BD_ITS ---
STUDY: DUAL ENERGY X-RAY ABSORPTIOMETRY / DXA REASON FOR EXAM: Female, 69 years old. Age of jorge 38. Pat is 117.5# and 62.5 and quot; a loss of 1 and quot; per pat. Past hx of smoking and taking an HRT. Takes synthroid and 600 mg of calcium along with a multi-vit. Exercises a lot. Sister has osteo. Hx of a nose fx. Takes plaguinil for lupus. TECHNIQUE: Bone Mineral Density (BMD) measurements of lumbar spine and bilateral hips were obtained. COMPARISON: Comparison is made with prior study dated 10/25/2017. FINDINGS: Lumbar Spine (L1-L4): g/cm2 (0.953) / T-score (-1.8) / Z-score (-0.1) Findings are suggestive of osteopenia with a moderate fracture risk. Left Femur Total: g/cm2 (0.780) / T-score (-1.8) / Z-score (-0.3) Left Femoral Neck: g/cm2 (0.864) / T-score (-1.3) / Z-score (0.5) Right Femur Total: g/cm2 (0.744) / T-score (-2.1) / Z-score (-0.6) Right Femoral Neck: g/cm2 (0.803) / T-score (-1.7) / Z-score (0.1) The T-Scores on the most recent prior examination were: Lumbar Spine (L1-L4): There has been improvement of bone density since the previous examination. Left Femur Total: which represents a worsening of 3.9%. Right Femur Total: which represents a worsening of 2.1%. BD/Dexa Bone Density Study IMPRESSION: The patient is considered osteopenic as outlined below according to World Maycol Organization (WHO) criteria with a moderate fracture risk. There has been worsening of bone density since the previous examination. Reference Information: The T-score is the number of standard deviations above or below the standard which is normal for young adults at their peak bone mineral density. The World Health Organization (WHO) interprets the T-scores as follows: Above -1 Normal bone density Between -1 and -2.5 Osteopenia Equal to / or below -2.5 Osteoporosis As a practical clinical guideline, osteopenia may be graded as follows: Mild -1 through -1.5 Moderate -1.6 through -2.0 Severe -2.1 through -2.4 The Z-score is the number of standard deviations above or below age-matched controls. A Z-score of less than -1.5 would be considered abnormal. References: 1. NIH Osteoporosis and Related Bone Diseases http://www.osteo.org 2. International Society for Clinical Densitometry http://www.iscd.org 3. National Osteoporosis Foundation http://www.nof.org Electronically Signed: Isiah Peterson, at 14:45 EDT , Service support ,
== END ==
PROVIDERS: PCP Internal Medicine; Referring Provider Nurse Practitioner; Visit Provider Nurse Practitioner
DX: Z12.31 Encounter for screening mammogram for malignant neoplasm of breast (principal); Z78.0 Asymptomatic menopausal state
CPT/HCPCS: 77063; 77067; 77080

== ENCOUNTER → 2020-11-24 11:50 | Outpatient (CLI) | payer MEDICARE, SELFPAY ==
[2020-08-19 10:33] VITALS: BMI 21.2
--- NOTE | 2020-11-24 11:54 | BI_ITS ---
MAMMOGRAPHY - BILATERAL SCREENING REASON FOR EXAM: Female, 70 years old. Routine annual screening examination. PERTINENT HISTORY: Non-contributory. Bilateral breast implants. TECHNIQUE: Digital bilateral breast maxim (3D mammographic acquisition) in the CC and MLO projections. 2-D mediolateral oblique (MLO) and craniocaudad (CC) views of both breasts were obtained. CAD: Full Field Digital Mammography with Computer Added Detection was performed. COMPARISON: Comparison is made with prior study dated 11/19/2019 and 03/09/2018. FINDINGS: Breast Composition: The breasts are heterogeneously dense, which may obscure small masses. There are no dominant masses or suspicious calcifications. Bilateral breast implants are seen. These are unchanged. Multiple calcific densities are seen within the left breast implant. No other significant abnormalities are identified. There has been no significant change since the prior study. BI/SCRN MAMM (CAD)W/MAXIM BILAT IMPRESSION: Stable bilateral screening mammogram. Yearly follow-up mammogram recommended. (A) ASSESSMENT CATEGORY: BIRADS Category 2: Benign. A letter regarding these results will be sent to the patient by the facility within 30 days. Approximately 10% of breast cancers are not detected by mammography. A normal mammogram should not delay biopsy of a clinically suspicious abnormality. [id number] Electronically Signed: Isiah Peterson MD at 13:50 EDT , Service support ,
== END ==
PROVIDERS: PCP Internal Medicine; Referring Provider Nurse Practitioner; Visit Provider Nurse Practitioner
DX: Z12.31 Encounter for screening mammogram for malignant neoplasm of breast (principal)
CPT/HCPCS: 77063; 77067

== ENCOUNTER → 2021-12-02 | Outpatient (CLI) | payer MEDICARE, SELFPAY ==
--- NOTE | 2021-12-02 09:53 | BD_ITS ---
STUDY: DUAL ENERGY X-RAY ABSORPTIOMETRY / DXA REASON FOR EXAM: Female, 71 years old. Z780. The patient is postmenopausal. TECHNIQUE: Bone Mineral Density (BMD) measurements of lumbar spine and bilateral hips were obtained. COMPARISON: Comparison is made with prior study 11/19/2019. FINDINGS: Lumbar Spine (L1-L4): g/cm2 (0.841) / T-score (-1.8) / Z-score (0.5) Findings are suggestive of osteopenia with a moderate fracture risk. Left Femur Total: g/cm2 (0.734) / T-score (-1.7) / Z-score (0.0) Left Femoral Neck: g/cm2 (0.672) / T-score (-1.6) / Z-score (0.4) Right Femur Total: g/cm2 (0.701) / T-score (-2.0) / Z-score (-0.3) Right Femoral Neck: g/cm2 (0.665) / T-score (-1.7) / Z-score (0.3) The T-Scores on the most recent prior examination were: Lumbar Spine (L1-L4): There has been worsening of bone density since the previous examination. Left Femur Total: which represents an improvement of 1.9%. Right Femur Total: which represents an improvement of 2.2%. BD/Dexa Bone Density Study IMPRESSION: The patient is considered osteopenic as outlined below according to World Maycol Organization (WHO) criteria with a moderate fracture risk. There has been improvement of bone density since the previous examination. Reference Information: The T-score is the number of standard deviations above or below the standard which is normal for young adults at their peak bone mineral density. The World Health Organization (WHO) interprets the T-scores as follows: Above -1 Normal bone density Between -1 and -2.5 Osteopenia Equal to / or below -2.5 Osteoporosis As a practical clinical guideline, osteopenia may be graded as follows: Mild -1 through -1.5 Moderate -1.6 through -2.0 Severe -2.1 through -2.4 The Z-score is the number of standard deviations above or below age-matched controls. A Z-score of less than -1.5 would be considered abnormal. References: 1. NIH Osteoporosis and Related Bone Diseases www osteo.org 2. International Society for Clinical Densitometry www iscd.org 3. National Osteoporosis Foundation www nof.org Electronically Signed: Isiah Peterson MD at 12:42 EDT ,
--- NOTE | 2021-12-02 09:53 | BI_ITS ---
MAMMOGRAPHY - BILATERAL SCREENING REASON FOR EXAM: Female, 71 years old. Routine annual screening examination. PERTINENT HISTORY: Non-contributory. Bilateral breast implants. TECHNIQUE: Digital bilateral breast maxim (3D mammographic acquisition) in the CC and MLO projections. 2-D mediolateral oblique (MLO) and craniocaudad (CC) views of both breasts were obtained. CAD: Full Field Digital Mammography with Computer Added Detection was performed. COMPARISON: Comparison is made with prior study dated 11/24/2020 and 11/19/2019. FINDINGS: Breast Composition: The breasts are heterogeneously dense, which may obscure small masses. There are no dominant masses or suspicious calcifications. Stable appearance of the bilateral breast implants. Once again, calcific densities are seen within the left breast implants No other significant abnormalities are identified. There has been no significant change since the prior study. BI/SCRN MAMM (CAD)W/MAXIM BILAT IMPRESSION: Stable bilateral screening mammogram. Yearly follow-up mammogram recommended. (A) ASSESSMENT CATEGORY: BIRADS Category 2: Benign. A letter regarding these results will be sent to the patient by the facility within 30 days. Approximately 10% of breast cancers are not detected by mammography. A normal mammogram should not delay biopsy of a clinically suspicious abnormality. [id number] Electronically Signed: Isiah Peterson MD at 11:27 EDT ,
== END | disposition home or self-care (01) ==
LOC: OPBD 09:51
PROVIDERS: PCP Internal Medicine; Visit Provider Nurse Practitioner Family
DX: Z12.31 Encounter for screening mammogram for malignant neoplasm of breast (principal); Z78.0 Asymptomatic menopausal state
CPT/HCPCS: 77063; 77067; 77080

== ENCOUNTER → 2022-09-02 | Outpatient (CLI) | payer MEDICARE, SELFPAY ==
[2022-09-02 11:46] LABS: Absolute Lymphocyte Count 0.96 X10^3/uL (0.83-4.51); Absolute Neutrophil Count 1.5 X10^3/uL (2.0-7.7); Basophil# 0.04 X10^3/uL; Basophil% 1.2 % (0-1); Eosinophil# 0.13 X10^3/uL; Eosinophils% 3.9 % (0-5); Hematocrit 40.8 % (37-47); Hemoglobin 12.8 g/dL (12.0-15.0); Lymphocyte # 0.96 X10^3/ul (0.83-4.51); Mean Corp Hgb Conc 31.4 g/dL (32-36); Mean Corpuscular Hgb 29.2 pg (27.0-32.0); Mean Corpuscular Volume 93.2 fL (81-99); Mean Platelet Vol. 10.8 fl (6.2-12.0); Monocyte# 0.64 X10^3/uL; Monocyte% 19.3 % (0-10); NRBC Flagged by Analyzer 0 % (0-5); Neutrophil # 1.54 X10^3/uL (2.7-7.7); Neutrophil % 46.6 % (47-70); Platelet Count 214 K/mm3 (150-450); RBC Distribution Width CV 12.5 % (11.6-14.6); RBC Distribution Width SD 43.2 fl (35.1-43.9); Red Blood Count 4.38 M/mm3 (4.2-5.4); White Blood Count 3.3 K/mm3 (4.4-11.0)
== END | disposition home or self-care (01) ==
LOC: LAB 11:18
PROVIDERS: PCP Internal Medicine; Referring Provider Internal Medicine Rheumatology; Visit Provider Internal Medicine Rheumatology
DX: D72.819 Decreased white blood cell count, unspecified (principal)
CPT/HCPCS: 36415; 85025

== ENCOUNTER → 2022-09-13 | Outpatient (CLI) | payer MEDICARE, SELFPAY ==
--- NOTE | 2022-09-13 08:00 | PCM.CR.HP2 ---
CR - History & Physical - General Arrival date:: 09/13/22 Arrival time:: 08:02 Date of Referral:: 09/06/22 Date of CR Evaluation:: 09/13/22 Referring Physician: Dr. Tanner Kirkland Primary Diagnosis: PCI w/coronary stenting - History of Present Cardiac Event Onset Date: Enter Onset Date of cardiac illnesses in Comment field below PTCA or coronary stenting:: Yes - 07/06/2022 Type of Symptoms:: walk daily, shorting diastance walking, began to have shortness of breath walking and a burning sensation in back of the throat. Went to a removable prosthodontist in [place] for about 5 minutes and was sent to the emergency room. Interventions with present event:: Nuclear stress then heart cath, presence of angioplasty implant & graft Were there any complications?: Coded on the hemodialysis lab technician table during procedure - Sleep Disorder Evaluation Hx of Sleep Apnea: No Do you snore loudly (louder than talking or can be heard through closed doors)?: No Do you often feel tired/ fatigued/ sleepy during daytime?: Yes - I do have some fatigue Has anyone observed you stop breathing during sleep?: No History of Hypertension (for STOP score): No STOP Results: Negative - Medications Home Medications: Ambulatory Orders Medication Instructions Recorded calcium carbonate 500 mg-vitamin 1 tab PO DAILY 10/03/18 D3 5 mcg (200 unit) tablet (Calcium 500 + D) hydroxychloroquine 200 mg tablet 200 mg PO DAILY 10/03/18 (Plaquenil) levothyroxine 75 mcg tablet 75 mcg PO DAILY 10/03/18 multivitamin 1 tab PO DAILY 10/03/18 valacyclovir 500 mg tablet 500 mg PO DAILY PRN 10/03/18 (Valtrex) aspirin 81 mg tablet,delayed 81 mg PO DAILY 09/02/22 release (Adult Low Dose Aspirin) atorvastatin 40 mg tablet 40 mg PO DAILY 09/02/22 prasugrel 10 mg tablet (Effient) 10 mg PO DAILY 09/02/22 - Allergies Allergies/Adverse Reactions: Allergies acetaminophen Allergy (Mild, Verified 09/02/22 10:39) Hives Penicillins Allergy (Verified 09/02/22 10:39) Unknown Sulfa (Sulfonamide Antibiotics) Allergy (Verified 09/02/22 10:39) Unknown Advanced Directives - Advanced Directives Power of Enforcement Safety Officer: Yes Living Will: Yes Advance Directives Information Provided: No Advance Directives on File: No DNR Order?:: No - MOLST See MOLST form: No Past Medical History - Covid-19 Screening Fever: No Unexplained muscle aches: No Current respiratory symptoms: No Upper respiratory infections symptoms: No Gastro-intestinal symptoms: No Ayy-Hvur-Feimbh symptoms: No Has tested positive for COVID-19 in last 30 days: No Date of testin09/13/22 - Initial vaccince adn had reaction., did have COVID 2 years ago. Had contact w/person w/symptoms or Covid-19 (+) last 14 days: No Has High Risk Exposures ID'd by Health dept/Inf Control team: No 65 years or older:: Yes Lives in Assisted Living facility:: No Has a chronic lung disease or moderate to severe asthma:: No Has a serious heart condition:: No Immunocompromised:: No Severely obese (Body Mass Index of 40 or higher):: No Diabetic:: No Has chronic kidney disease undergoing dialysis:: No Has liver disease:: No - Past Medical Illness Medical History: Past Medical History (Last Updated 09/13/22 @ 08:12 by Darrel Christiansen CRT, MARKETING COMMUNICATIONS SPECIALIST, BS) Cardiogenic shock R57.0 Cigarette nicotine dependence in remission F17.211 Coronary artery disease I25.10 Elevated coronary artery calcium score R93.1 Hyperlipidemia E78.5 Hyperthyroidism E05.90 Hypothyroidism E03.9 Lupus M32.9 - Past Surgical History Surgical History: Past Surgical History (Last Updated 09/13/22 @ 08:12 by Darrel Christiansen CRT, MARKETING COMMUNICATIONS SPECIALIST, BS) History of bilateral breast implants Z98.82 History of cholecystectomy Z90.49 History of hysterectomy Z90.710 History of lumpectomy of right breast Z98.890 consisted of silicone from previous breast implant leak. Presence of coronary angioplasty implant and graft Onset Date: ~07/06/22 Z95.5 LAD - Family History Summary Family History: Family History (Last Reviewed 09/02/22 @ 10:40 by Raiza Alvarado NP, ASSEMBLY LINE UPHOLSTERER-C) Brother , age 58 Heart disease Sister CAD (coronary artery disease) stents Brother CAD (coronary artery disease) stents Father Diabetes Mother Hypertension Social History - Smoking History Smoking Status: Former smoker Hx Tobacco Use: No Hx Smoking Exposure: No - Alcohol Use Alcohol Usage: Yes - special occassions/holidays - Substance Abuse Hx Substance Use: No - Occupation Occupation (List type of work in comments):: Retired - Hobbies, Recreation, Social Activities Hobbies: Sports - Golf, Sewing - Needle work, Reading, Walking, Exercise - Regular exercise, Other - Travel between [place] & [place]; friends go on outings Recreational Activities: I am able to engage in all my recreational activities Social Environment - Status Marital Status: - Current Living Arrangements Living Environment:: Spouse - Children How many children do you have?: 1 Do any of your children live nearby?: Yes - Grandson, 2 step children and step-grandchildren - Safety Do you feel safe in your surroundings?: Yes - Assistance Do you need any assistance at home?: no Review of Systems - Review of Systems Hints: Right click = Denies (Slash). Left click = Reports ([place]) Review of Present Symptoms: Reports: Shortness of Breath with Exertion, Angina - still having discomfort , not like previous but still having discomfort that is hard to describe, Fatigue - some mild, Appetite - Normal, Appetite - Special Diet - Low Sodium, Low Fat always been pretty good eaters, Sleep - Normal. Denies: Dizziness/Lightheadedness, Heart Arrhythmia/Irregularities - Pain Is Patient Pain Free?: Yes Pain Location: none Pain Level: 0/10 Risk Factor Assessment - Vital Signs Temperature: 97.8 F Respiratory Rate: 14 Pulse Ox: 97 Blood Pressure: 120/80 - Pulse Pulse Rate: 62 Pulse Rhythm: Regular - Hypertension How long have you been treated?: Recently w/the onset of the heart issue, otherwise have been healthy up now Blood Pressure Sitting - Left Arm: 120/80 - Blood Cholesterol/Lipids Total Cholesterol (mg/dL) Goal = less than 200 mg/dL: 207 - 08/10/2018 HDL Cholesterol (mg/dL) Goal = less than 40 mg/dL: 63 LDL Cholesterol (mg/dL) Goal = less than 70 mg/dL: 130 Triglycerides (mg/dL) Goal = less than 150 mg/dL: 69 - Obesity Height: 5 ft 2 in Weight:: 124 lb Weight in Pounds: 124.0 lbs Weight Source: Stated by Patient Body Mass Index (BMI): 22.6 Nutritional Referral for Obesity: No - Risk Stratification Risk Guidelines: Lowest Risk: Risk Factor for Smoking, Risk Factor for Diabetes, Risk Factor for Obesity, Risk Factor for Hypertension, Risk Factor for Sedentary Lifestyle, Moderate Risk: Risk Factor for Dyslipidemia - Family History Family History: Family History (Last Reviewed 09/02/22 @ 10:40 by Raiza Alvarado NP, [employer]SEM[employer] UPHOL[employer]ER-C) Brother Heart disease Sister CAD (coronary artery disease) Brother CAD (coronary artery disease) Father Diabetes Mother Hypertension Motivation - Motivation to Participate On a scale of 1 to 10, how prepared are you to commit to attending program?: 10 What do you see as barriers to successfully being able to complete the program?: no What do you see as the benefits of succesfully completing the program? In other words, what do you hope to get out of participating in the program?: Put mind at ease; can continue to exercise, build strenght and endurance Are there issues you are dealing with that will interfere with completing the program?: No Do you have a spouse or signficant other, family or friends who will help support you to complete the program?: Yes
--- NOTE | 2022-09-13 08:01 | CR.ITP_ITS ---
Diagnosis - General Information Admitting Diagnosis: S/P PCI intervention with coronary stenting to the LAD Secondary Diagnosis: CAD, Cardiogenic Shock, HLD, ASHD Personal Learning Style:: Audio/Visual, Written Barriers to Learning: Vision Impairment Stage of change r/t lifestyle modifications:: Action Gave educational material for:: Treating Heart Disease, Emotions & Heart Disease, Stress Management & Relaxation, Sleep Disorders & Heart Disease, How The Heart Works, What it means to have Heart Disease, How Coronary Artery Disease is Diagnosed, Heart Procedures, What Heart Medications Do, Risk Factors & Modifications, Living an Active Life, Nutrition - Education/Goals Individual Counseling: Initial Assessment: Abnormal Cholesterol Levels, High Blo od Pressure Cardiac Rehabilitation Goals: 1. Maintain the individual as the primary focus of care. 2. To improve the patient's quality of life. 3. Identification of cardiac risk factors and provide cardiac risk factor management. 4. Enhance the psychosocial status of the patient. 5. Reconditioning enough to allow the patient to resume customary activities. 6. Control symptoms of cardiac disease Personal Goals: Initial Assessment: Improve management of stress and emotions, Improve energy level, Participate in home exercise program, Improve knowledge of cardiac disease, Improve muscle strength and endurance, Control risk factors (learn risk factor modification) Scale for measuring improvement of personal goals: Enter appropriate number in Comments. 2 = Unchanged. 3 = Slightly Better. 4 = Moderate Improvement. 5 = Met my Goal - Diagnosis & Disease Process Outcomes/Goals: Pt IDs own risk factors & lifestyle modifications by Session 10, Verbalizes symptoms of angina & response by session 3., Pt independently manages Plan/Interventions: Assist Pt to ID & engage in lifestyle modification to reduce CVD risk, Instruct on individual risk factors, Review symptoms of angina & emergency actions, Review secondary diagnosis & identify educational needs. - Safety Referral to Physical Therapy: No Referral to [facility] Case Management: No Fall Risk Assessed:: Yes Assistive Devices:: None Exercise - Initial Assessment - Visit Date of Eval: 09/13/22 Session #:: 0 - Pre-cardiac rehab evaluation Mets: Pre-: >7 METS for 30 minutes by discharge - Physician Prescribed Exercise Modalities: Treadmill, Rower, Airdyne Frequency: 3x/week for 12 weeks [36 sessions] Intensity: 60-80% of age predicted maximum heart rate reserve Duration: 30 - 45 minutes Current METSs:: 3.0 Target Heart Rate:: 94-109 Resting Blood Pressure: 120/80 EKG Type: Sinus Rhythm Current Physical Activity or Exercising minutes: Physically Active/no regular exercise - Outcomes & Goals Goals:: Verbalizes understanding of THR, RPE & goal METS by session 6, Documents in home exercise log/reports 30 min aerobic 5 day/wk by DC, Demonstrates accurate pulse taking by DC - Intervention & Plan Exercise Program Goals: Instruct on personal THR & RPE, Instruct on MET level & personal MET goal, Show patient to take own pulse /validate performance until accurate, Instruct on home exercise - Physical Activity Home Exercise Physical Activity - Home Exercise: Safe Exercise, Warm-up, Self-monitoring, Cool-Down, Home Exercise > 30 min Daily, Sitting Time <3 hours/daily - Outcomes & Goals Outcomes/Goals: Demonstrates correct Warm-up/exercise Cool-Down (S3) if = 2.5 METs, Verbalizes symptoms of exercise intolerance by Session 3 (S3), Demonstrate safe equipment use (S3) & follows exercise prescrition (6) - Intervention & Plan Plan/Intervention: Instruct warm-up & cool-down if exercising at > 2 METs, Instruct on symptoms of exercise intolerance & actions to take, Instruct & monitor on saf, Assess intial functional capacity & safety risk Nutrition - Initial Assessment - Program Goals Nutrition Program Goals: LDL <100 optimal. 100 - 129 Near optimal. 130 - 159 Borderline High. 160 - 189 High. Total Cholesterol <200 desirable. 200 - 239 Borderline High. >/= 240 High. HDL < 40 Low >/=60 High. Triglycerides <150 desirable. <199 optimal. VlDL 5 - 40. HgbA1C <7%. BMI <25 Patient has diagnosis of Hyperlipidemia (ICD E78)?: Yes - Visit Date of Assessment:: 09/13/22 Session #:: 0 - Cholesterol/Lipids (Other Core Measures) Triglycerides (mg/dL): 69 - 08/10/2018 Total Cholesterol (mg/dL): 207 LDL Cholesterol (mg/dL): 130 HDL Cholesterol (mg/dL): 63 Determine presence & major risk factors that modify LDL goal: Cigarette smoking, Hypertension or hypertensive medication, Family history of premature CHD in Male < 55 years: female <65 yearsFa, Age men > 45 years; women >/= 55 years Outcomes/Goals: Pt IDs own risk factors & lifestyle modifications by Session 10, Verbalizes symptoms of angina & response by session 3., Pt independently manages Intervention/Plan: Instruct on personal lipid levels & lipid goals/NCEP guidelines, Instruct on cholesterol Referral to dietitian:: Yes - Medical Nutrition Therapy BMI 21.9 - Diabetes (Other Core Measures) Diabetes Type: Not Applicable - Weight Mgt (Other Care) Not Applicable: No Height: 5 ft 3 in Weight:: 124 lb BMI: 21.9 Diagnosis Overweight/Obesity BMI> 30% ICD-10 E66: No Diagnosis High BMI/Morbid Obesity BMI> 35% ICD-10 Z68: No Outcomes/Goals: Pt sets, maintains & shows weight loss goal & trend during rehab Intervention/Plan: Instruct on ideal BMI & set weight loss goal w/patient - Healthy Eating Habits Will attend diet classes:: Yes Outcomes/Goals:: Consume diet rich in vegs,fruits,whole grain/high fiber,fish,lean meat, Limit sat/trans fats,cholesterol & added salts & sugars Intervention/Plan:: Assess current eating habits - Education Gave educational materials for:: Healthy eating Nutrition - 30-Day Assessment Nutrition - 60-Day Assessment Nutrition - 90-Day Assessment Nutrition - Final Assessment Core - Initial Assessment - Visit Date of Eval: 09/13/22 Session #:: 0 - Pre-cardiac rehab evaluation - Medication Compliance Preventative Medication(s):: Aspirin - Also taking Prasugrel 10mg, Statin/lipid, Beta logan H/O mental health issues: depression, anxiety, or addiction?: No Doesn?t believe in the benefits of treatment?: No Believes medications are unnecessary or harmful?: No Has a concern about medication side effects?: No Expresses concern over the cost of medications?: No Outcomes/Goals: Verbalizes medications,desired effect & common side effects @ DC, Pt self-reports following medication regimen, Keeps card in wallet w/medications listed by DC Interventions/plans: Instruct on medication effects & side effects, Review medication list w/patient every two weeks, Instruct importance of taking meds as ordered & assist problem solving - Tobacco Use Tobacco Use: Non-smoker Comments:: Cigarette nicotine dependence in remission - Hypertension Hypertension Diagnosis:: Hypertension ICD-10 I10 Resting Blood Pressure:: 120/80 [place] [employer] Hypertension Guidelines: [place] [employer] Hypertension Guidelines. Normal BP Less than 120/80. Elevated BP 120/80. Hypertension Stage 1: BP 130-139/80-89. Hypertesnion Stage 2: BP 140 or higher/90 or higher. Hypertension Crisis: BP higher than 180/120 Outcomes/Goals: Able to verbalize/achieve optimal blood pressure <130/80, Incorporates diet changes & exercise for blood pressure control by DC Interventions/plan: Instruct on optimal blood pressure, hypertension & medications, Instruct on effects of sodium, alcohol, stress, exercise &hypertension - Tobacco Cessation Referral Smoking Cessation Referral:: No Individual Education/Counseling:: No Education Schedule Given:: Yes Core - 30-Day Assessment Core - 60-Day Assessment Core - 90 Day Assessment Core - Final Assessment Psychosocial - Initial Assess - VIsit Date of Eval: 09/13/22 Session #:: 0 - Pre-cardiac rehab evaluation Not Applicable: Yes History of previous Mental disease:: No - Psychosocial Test Tool Used:: Ernst Hooper QOL Cardiac, PHQ-9 Questionnaire phq-9 Severity: Severity. 1-4 Minimal Depression. 5-9 Mild Depression. 10-14 Moderate Depression. 15-19 Moderately Sever Depression. 20-27 Severe Depression. Rule: - Referral to Behavioral Health PS - Interventions: Yes Attend Stress Management Classes, No Referral to Behavioral Health if PHQ-9 score >9:, No Referral to [facility], No Referral to Physician if PHQ-9 if score is 5-9: - Outcomes/Goals: See list Psychosocial Outcomes/Goals:: ID's personal stressors & 2 strategies to manage stress by discharge - Intervention/Plan: See List Interventions/Plan:: Assess stressors,coping strategies & signs of derpression on admission, Instruct/assist pt to develop coping & personal stress Mgt strategies, Instruct patient to recognize signs & symptoms of depression, Instruct patient to recog Psychosocial - 30-Day Assess Psychosocial - 60-Day Assess Psychosocial - 90-Day Assess Psychosocial - Final Assessmen Patient Health Questionnaire Initial Assessment 1. Little interest or pleasure in doing things: Not at all 2. Feeling down, depressed, or hopeless: Not at all 3. Trouble falling or staying asleep, or sleeping too much: Several days 4. Feeling tired or having little energy: Several days 5. Poor appetite or overeating: Not at all 6. Feeling bad about yourself -- or that you are a failure or have let yourself or your family down: Not at all 7. Trouble concentrating on things, such as reading the newspaper or watching television: Not at all 8. Moving or speaking so slowly that other people could have noticed. Or the opposite - being so fidgety or restless that you have been moving around a lot more than usual: Not at all 9. Thoughts that you would be better off , or of hurting yourself in some way: Not at all How difficult have these problems made it for you to do your work, take care of things at home, or get along with other people?: Somewhat difficult Total Score: 2 CIRO-Q SV Test - Statements CAD is a disease of the arteries in the heart: False Examples of risk factors for heart disease: True Angina is chest pain or discomfort: True The benefits of resistance training include: True Eating more meat and dairy products: False Anti-platelet medications such as aspirin are important: True The only effective way to manage stress: False An exercise warm-up slowly increases heart rate: False Prepared, processed foods usually have high sodium: True Depression is common after a heart attack: True The statin medications lower cholesterol: True To control blood pressure, lower the amount of sodium: True If someone gets chest discomfort during walking: False Transfats are partially hydrogenated vegetable oils: False Sleep apnea that is not treated increases the risk: False To control cholesterol, one should become a vegetarian: False Someone knows if he/she is exercising at the right level: True Diabetes cannot be prevented with exercise & health eating: False Stress is a large risk for heart attack: True A diet that can help lower blood pressure is rich in: True - Total Score Total Correct Responses: 18 Self-Efficacy Initial Assessment We would like to know how confident you are in doing certain activities. Please select your confidence level for:: Select your confidence level for the following using the scale 1-10 where 1 is not at all confident and 10 is totally confident. Your score is the average of all 6 responses. Fatigue: How confident are you that you can keep the fatigue caused by your disease from interfering with the things you want to do? Select Number: 7 Physical Discomfort or Pain: How confident are you that you can keep the physical discomfort or pain of your disease from interfering with the things you want to do? Select Number: 7 Emotional Distress: How confident are you that you can keep the emotional distress caused by your disease from interfering with the things you want to do? Select Number: 9 Other Symptoms or Health Problems: How confident are you that you can keep other symptoms or health problems from interfering with the things you want to do? Select Number: 9 Different Tasks and Activities: How confident are you that you can do the different tasks and activities needed to manage your health condition so as to reduce your need to see a doctor? Select Number: 9 Medication: How confident are you that you can do things other than just taking medication to reduce how much your illness affects your everyday life? Select Number: 9 Total Score:: 8 Nutrition Survey - Nutrition Survey Initial Have you lost >10 lbs over the past 2 months without trying?: No Are you following a special diet at home for diabetes, low fat, or low salt?: Yes Are you interested in meeting with a dietitian for help understanding your diet?: No Do you eat less than 3 meals a day?: Yes Do you eat fatty meats (kate, sausage, ribs, etc), fried foods, desserts, large amounts of salad dressings, margarine, butter, or cheese most days?: No Do you have food allergies? [Enter types in comment field]: No Do you eat in restaurants more than 3 times a week?: Yes Do you season food with salt, seasoning salt, or garlic salt?: No Do you used canned, boxed, frozen meals, or soups, seasoning packets?: No Total Score:: 3
[2022-09-13 08:34] VITALS: BP 120/80; PULSE 62; RESP 14; TEMP 36.6; O2SAT 97; BMI 22.6
[2022-09-13 09:30] VITALS: BP 120/80; BMI 21.9
== END | disposition home or self-care (01) ==
LOC: CR 07:57
PROVIDERS: PCP Internal Medicine; Referring Provider Internal Medicine Cardiovascular Disease; Visit Provider Internal Medicine Cardiovascular Disease
DX: Z95.5 Presence of coronary angioplasty implant and graft (principal); M32.9 Systemic lupus erythematosus, unspecified; R57.0 Cardiogenic shock; R53.83 Other fatigue; I25.10 Atherosclerotic heart disease of native coronary artery without angina pectoris; R93.1 Abnormal findings on diagnostic imaging of heart and coronary circulation; E78.5 Hyperlipidemia, unspecified; E05.90 Thyrotoxicosis, unspecified without thyrotoxic crisis or storm; E03.9 Hypothyroidism, unspecified; Z98.82 Breast implant status; Z90.49 Acquired absence of other specified parts of digestive tract; Z90.710 Acquired absence of both cervix and uterus; Z98.890 Other specified postprocedural states; Z87.891 Personal history of nicotine dependence; R06.02 Shortness of breath

== ENCOUNTER 2022-09-28 09:30 | Outpatient (RCR) | payer MEDICARE, SELFPAY ==
[2022-09-13 08:50] VITALS: BMI 21.9
== END 2022-09-30 23:59 ==
LOC: CR 09:30
PROVIDERS: PCP Internal Medicine; Referring Provider Internal Medicine Cardiovascular Disease; Visit Provider Internal Medicine Cardiovascular Disease
DX: Z95.5 Presence of coronary angioplasty implant and graft (principal)
CPT/HCPCS: 93798

== ENCOUNTER → 2022-10-28 | Outpatient (CLI) | payer MEDICARE, SELFPAY ==
[2022-10-12 07:28] VITALS: BMI 21.9
[2022-10-28 08:57] LABS: Absolute Lymphocyte Count 0.89 X10^3/uL (0.83-4.51); Basophil# 0.04 X10^3/uL; Basophil% 1.5 % (0-1); Eosinophil# 0.12 X10^3/uL; Eosinophils% 4.6 % (0-5); Hematocrit 39.2 % (37-47); Hemoglobin 12.3 g/dL (12.0-15.0); Lymphocyte # 0.89 X10^3/ul (0.83-4.51); Lymphocyte % 34.2 % (19-41); Mean Corp Hgb Conc 31.4 g/dL (32-36); Mean Corpuscular Hgb 29.1 pg (27.0-32.0); Mean Corpuscular Volume 92.9 fL (81-99); Mean Platelet Vol. 11.3 fl (6.2-12.0); Monocyte# 0.51 X10^3/uL; Monocyte% 19.6 % (0-10); NRBC Flagged by Analyzer 0 % (0-5); Neutrophil # 1.03 X10^3/uL (2.7-7.7); Neutrophil % 39.7 % (47-70); Platelet Count 198 K/mm3 (150-450); RBC Distribution Width SD 43.8 fl (35.1-43.9); Red Blood Count 4.22 M/mm3 (4.2-5.4); White Blood Count 2.6 K/mm3 (4.4-11.0)
[2022-10-28 09:29] LABS: Anion Gap 5 (5-15); BUN 16 mg/dL (7-18); BUN/Creat Ratio 19.7 RATIO (10-20); Calcium,Total 9.1 mg/dL (8.5-10.1); Chloride 108 mmol/L (98-107); Creatinine, Serum 0.81 mg/dL (0.55-1.02); EST Glomerular Filtration Rate 73 mL/min (>60); Est Glom Filt Rate - Afr Amer 89 mL/min (>60); Glucose 78 mg/dL (74-106); Potassium 4.2 mmol/L (3.5-5.1); Sodium Level 140 mmol/L (136-145)
== END | disposition home or self-care (01) ==
PROVIDERS: PCP Internal Medicine; Referring Provider Nurse Practitioner Family; Visit Provider Nurse Practitioner Family
DX: R07.9 Chest pain, unspecified (principal); R06.09 Other forms of dyspnea
CPT/HCPCS: 36415; 80048; 85025

== ENCOUNTER 2022-10-31 09:30 | Outpatient (RCR) | payer MEDICARE, SELFPAY ==
[2022-09-13 09:30] VITALS: BMI 21.9
--- NOTE | 2022-10-12 07:17 | PCM.CR.ITP ---
Exercise - Initial Assessment Visit Session #:: 10 Nutrition - Initial Assessment Weight Mgt (Other Care) Height: 5 ft 3 in Weight:: 124 lb BMI: 21.9 Psychosocial - Initial Assess Target Goals Target Goals Referral to Behavioral Health PS - Interventions: Yes: Attend Stress Management Classes and No: Referral to Behavioral Health if PHQ-9 score >9:, No: Referral to [facility] and No: Referral to Physician if PHQ-9 if score is 5-9: Patient Health Questionnaire PHQ-9 Screening 30-Day Re-eval Assessment: 1. Little interest or pleasure in doing things: Not at all 2. Feeling down, depressed, or hopeless: Not at all 3. Trouble falling or staying asleep, or sleeping too much: Not at all 4. Feeling tired or having little energy: Not at all 5. Poor appetite or overeating: Not at all 6. Feeling bad about yourself -- or that you are a failure or have let yourself or your family down: Not at all 7. Trouble concentrating on things, such as reading the newspaper or watching television: Not at all 8. Moving or speaking so slowly that other people could have noticed. Or the opposite - being so fidgety or restless that you have been moving around a lot more than usual: Not at all 9. Thoughts that you would be better off , or of hurting yourself in some way: Not at all Total Score: 0 Self-Efficacy 6-Item Scale 30-Day Re-eval Assessment: We would like to know how confident you are in doing certain activities. Please select your confidence level for: Fatigue Select Number: 10 Physical Discomfort or Pain Select Number: 10 Emotional Distress Select Number: 10 Other Symptoms or Health Problems Select Number: 10 Different Tasks and Activities Select Number: 10 Medication Select Number: 10 Total Score:: 10 Nutrition Survey Nutrition Survey Instructions Scoring Instructions Exercise - 30-day Assessment Visit Date of Eval: 10/12/22 Session #:: 10 Physician Prescribed Exercise Modalities: Treadmill, Rower and Airdyne Frequency: 3x/week for 12 weeks [36 sessions] Intensity: 60-80% of age predicted maximum heart rate reserve Duration: 30 - 45 minutes METs - Progression 0.5-1.0 weekly:: Current METSs:: 7.0 Target Heart Rate:: 94-109 Current RPE:: 12-14 Maximum Excercise HR:: 126 Resting Blood Pressure: 132/64 Maximum Exercise Blood Pressure: 180/90 EKG Type: NSR to sinus tach with rare PAC noted. Current Physical Activity or Exercising minutes: Physically active Outcomes & Goals Goals:: Verbalizes understanding of THR, RPE & goal METS by session 6, Documents in home exercise log/reports 30 min aerobic 5 day/wk by DC and Demonstrates accurate pulse taking by DC Intervention & Plan Exercise Program Goals: Instruct on personal THR & RPE, Instruct on MET level & personal MET goal, Show patient to take own pulse /validate performance until accurate and Instruct on home exercise 30-day Reassessments 30 day Reassessments:: Progressing Physical Activity Home Exercise Physical Activity - Home Exercise: Safe Exercise, Warm-up, Self-monitoring, Cool-Down, Home Exercise > 30 min Daily and Sitting Time <3 hours/daily Outcomes & Goals Outcomes/Goals: Demonstrates correct Warm-up/exercise Cool-Down (S3) if = 2.5 METs, Verbalizes symptoms of exercise intolerance by Session 3 (S3) and Demonstrate safe equipment use (S3) & follows exercise prescrition (6) Intervention & Plan Plan/Intervention: Instruct warm-up & cool-down if exercising at > 2 METs, Instruct on symptoms of exercise intolerance & actions to take, Instruct & monitor on saf and Assess intial functional capacity & safety risk 30-day Reassessments 30 day Reassessments:: Met Nutrition - 30-Day Assessment Program Goals Nutrition Program Goals Patient has diagnosis of Hyperlipidemia (ICD E78)?: Yes Visit Date of Eval: 10/12/22 Session #:: 10 Cholesterol/Lipids (Other Core Measures) Triglycerides (mg/dL): 69 Total Cholesterol (mg/dL): 207 LDL Cholesterol (mg/dL): 130 HDL Cholesterol (mg/dL): 63 Determine presence & major risk factors that modify LDL goal: Hypertension or hypertensive medication and Age men > 45 years; women >/= 55 years Outcomes/Goals: Pt IDs own risk factors & lifestyle modifications by Session 10, Verbalizes symptoms of angina & response by session 3. and Pt independently manages Intervention/Plan: Instruct on personal lipid levels & lipid goals/NCEP guidelines and Instruct on cholesterol Referral to dietitian:: Yes 30-day Reassessments:: Progressing Diabetes (Other Core Measures) Diabetes Type: Not Applicable Weight Mgt (Other Care) Not Applicable: Yes Height: 5 ft 3 in Weight:: 124 lb BMI: 21.9 Diagnosis Overweight/Obesity BMI> 30% ICD-10 E66: No Diagnosis High BMI/Morbid Obesity BMI> 35% ICD-10 Z68: No Outcomes/Goals: Pt sets, maintains & shows weight loss goal & trend during rehab Intervention/Plan: Instruct on ideal BMI & set weight loss goal w/patient 30 day Reassessments:: Met Healthy Eating Habits Will attend diet classes:: Yes Outcomes/Goals:: Consume diet rich in vegs,fruits,whole grain/high fiber,fish,lean meat and Limit sat/trans fats,cholesterol & added salts & sugars Intervention/Plan:: Assess current eating habits 30-day Reassessments:: Met Education Gave educational materials for:: Signs & symptoms of hypoglycemia, Signs & symptoms of hyperglycemia, Relate diabetes to coronary artery disease and Healthy eating Nutrition - 60-Day Assessment Weight Mgt (Other Care) Height: 5 ft 3 in Weight:: 124 lb BMI: 21.9 Core - 30-Day Assessment Visit Date of Eval: 10/12/22 Session #:: 10 Medication Compliance Preventative Medication(s):: Aspirin, Statin/lipid (DC'd her atorvastatin) and Beta logan H/O mental health issues: depression, anxiety, or addiction?: No Doesn?t believe in the benefits of treatment?: No Believes medications are unnecessary or harmful?: No Has a concern about medication side effects?: No Expresses concern over the cost of medications?: No Outcomes/Goals: Verbalizes medications,desired effect & common side effects @ DC, Pt self-reports following medication regimen and Keeps card in wallet w/medications listed by DC Interventions/plans: Instruct on medication effects & side effects, Review medication list w/patient every two weeks and Instruct importance of taking meds as ordered & assist problem solving 30-day Reassessments:: Met Tobacco Use Tobacco Use: Non-smoker Hypertension Hypertension Diagnosis:: Hypertension ICD-10 I10 Resting Blood Pressure:: 132/64 [place] [employer] Hypertension Guidelines Peak Exercise Blood Pressure:: 180/90 Outcomes/Goals: Able to verbalize/achieve optimal blood pressure <130/80 and Incorporates diet changes & exercise for blood pressure control by DC Interventions/plan: Instruct on optimal blood pressure, hypertension & medications 30 day Reassessments:: Progressing Tobacco Cessation Referral Smoking Cessation Referral:: No Individual Education/Counseling:: No Education Schedule Given:: Yes Psychosocial - 30-Day Assess VIsit Date of Eval: 10/12/22 Session #:: 10 Not Applicable: Yes History of previous Mental disease:: No Target Goals Target Goals Referral to Behavioral Health PS - Interventions: Yes: Attend Stress Management Classes and No: Referral to Behavioral Health if PHQ-9 score >9:, No: Referral to [facility] and No: Referral to Physician if PHQ-9 if score is 5-9: Outcomes/Goals: See list Psychosocial Outcomes/Goals:: ID's personal stressors & 2 strategies to manage stress by discharge Intervention/Plan: See List Interventions/Plan:: Assess stressors,coping strategies & signs of derpression on admission, Instruct/assist pt to develop coping & personal stress Mgt strategies, Instruct patient to recognize signs & symptoms of depression and Instruct patient to recog 30-day Reassessments: 30 day Reassessments:: Met Psychosocial - 60-Day Assess Target Goals Target Goals Referral to Behavioral Health PS - Interventions: Yes: Attend Stress Management Classes and No: Referral to Behavioral Health if PHQ-9 score >9:, No: Referral to [facility] and No: Referral to Physician if PHQ-9 if score is 5-9: Outcomes/Goals: See list Psychosocial Outcomes/Goals:: ID's personal stressors & 2 strategies to manage stress by discharge Psychosocial - 90-Day Assess Target Goals Target Goals Referral to Behavioral Health PS - Interventions: Yes: Attend Stress Management Classes and No: Referral to Behavioral Health if PHQ-9 score >9:, No: Referral to [facility] and No: Referral to Physician if PHQ-9 if score is 5-9: Psychosocial - Final Assessmen Target Goals Target Goals Referral to Behavioral Health PS - Interventions: Yes: Attend Stress Management Classes and No: Referral to Behavioral Health if PHQ-9 score >9:, No: Referral to [facility] and No: Referral to Physician if PHQ-9 if score is 5-9: Nutrition - 90-Day Assessment Weight Mgt (Other Care) Height: 5 ft 3 in Weight:: 124 lb BMI: 21.9 Nutrition - Final Assessment Weight Mgt (Other Care) Height: 5 ft 3 in Weight:: 124 lb BMI: 21.9
[2022-10-12 07:28] VITALS: BP 132/64; BMI 21.9
== END 2022-10-31 23:59 ==
LOC: CR 09:30
PROVIDERS: PCP Internal Medicine; Referring Provider Internal Medicine Cardiovascular Disease; Visit Provider Internal Medicine Cardiovascular Disease
DX: Z95.5 Presence of coronary angioplasty implant and graft (principal); I25.10 Atherosclerotic heart disease of native coronary artery without angina pectoris
CPT/HCPCS: 93798

== ENCOUNTER 2022-11-07 06:39 | Day surgery (SDC) | payer MEDICARE, SELFPAY ==
[2022-10-12 07:28] VITALS: BMI 21.9
--- NOTE | 2022-10-28 10:11 | HP.PCM_ITS ---
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 She has a past medical history of dyslipidemia, family history of coronary artery disease referred to us because of an abnormal calcium score with chest CT. Patient's calcium score was [address] was suggestive of fibrofatty changes in the right and left side. Her brother at the age of 58. He had an NC about a year prior to that and when he with sudden cardiac the family was told that he had a massive NC. Patient's father at the age of 50 with an NC. In July 2022, patient presented to the cardiology office in [place] with complaints of exertional angina. She was sent to the emergency room for evaluation of progressive and unstable angina. She did undergo a cardiac catheterization which demonstrated an ejection fraction of 55 to 60%, and LAD proximal to mid segment had 99% stenosis. She did undergo a VIDAL to her mid- proximal LAD. She denies any palpitations. She has been having chest pain with exertion, and at rest-this has increased in frequency. She states this chest pain is located midsternal and radiates to her back. She does have an occasional SOB with exertion. She states she can walk 3 miles with out SOB, but other times has SOB with climbing stairs. She denies Orthopnea, and PND. She does not have bleeding issues; no blood in urine, stool or nosebleeds. She denies any decrease in energy level, myalgias, or claudication. She does not have edema, or sudden weight gain. She does have an occasional dizziness/lightheadedness with quick positional changes. She denies syncopal or near syncopal episodes, and headac hes. She states she golfs and walks daily. Intake Vital Signs See EMR Allergies See EMR Medications See EMR [facility] Medical History Elevated coronary artery calcium score Hyperlipidemia Hypothyroidism Lupus Surgical History History of bilateral breast implants History of cholecystectomy History of hysterectomy History of lumpectomy of right breast Family History Brother , age 58 Heart diseaseSister CAD (coronary artery disease) stentsBrother CAD (coronary artery disease) stentsFather DiabetesMother Hypertension Social History Smoking Status: Former smoker how long ago did patient quit smokin years ago alcohol intake: current alcohol intake frequency: a few times a week substance use type: does not use caffeine: No ROS Const Const: Negative for fatigue, weakness, fever(s), headache(s), chills, frequent falls, weight gain or weight loss Eyes Eyes: Negative for blind spots, loss of peripheral vision, transient loss of vision, blurry vision, change in vision, double vision, floaters or tunnel vision ENT ENT: Negative for headache(s), dizziness, Nosebleed/epistaxis, balance problems or neck pain Cardio Chest Pain: Yes-increasing in frequency. Located midsternal, and radiates to back. Occurs with rest and exertion. Palpitations: No Edema: None Muscle aches with walking: None Resp Respiratory: Positive for SOB with activity (occasional); Negative for SOB at rest or SOB orthopnea\SOB lying down GI GI: Negative nausea, vomiting, heartburn, bloating, vomiting blood/hematemesis, bright, red blood in stools or black,tarry stools Musc Musc: Negative for muscle aches/ myalgia, muscle weakness, joint pain or balance problems Neuro Neuro: Positive for lightheadedness (with quick positional changes); Negative for dizziness, near syncope, syncope, orthostatic symptoms, frequent falls, headache(s), weakness, blurry vision or double vision Roberto Hematologic/Lymphatic: Negative for easy bleeding or easy bruising Endo Endo: Negative for fatigue Cardiology Exam Const Appearance: cooperative, healthy appearing, comfortable and no acute distress Nutritional Appearance: average body habitus and well nourished Orientation: alert, awake and oriented x3 Head Head: normal to inspection Ears: hearing grossly normal bilaterally Nose: external nose normal Face and Sinus: face symmetric Eyes General: appearance normal, both eyes and all related structures Eyelids: eyelids normal EOM: EOM intact bilaterally Neck Neck: normal visual inspection and no JVD Carotids: normal carotid upstroke Chest Chest inspection: normal inspection of the chest, symmetric chest movement and normal respiratory effort; Negative cough Auscultation: Bilateral: Clear to Auscultation Cardio Rate: regular rate Rhythm: regular rhythm Heart sounds: S1 normal and S2 normal; Negative rub, gallop or murmur GI GI: normal to inspection Neuro General: patient alert, patient awake, patient oriented x3 and CN's II-XI intact bilaterally Skin Skin: no rashes or lesions noted Extremities Pulses: Normal: Right Posterior Tibial Pulse, Left Posterior Tibial Pulse, Right Radial Pulse and Left Radial Pulse Lower Extremity Edema: None: Bilateral Psych Psychological: normal affect Supplemental Info Supplemental Information Echocardiogram from 10/16/2018: Interpretation Summary The estimated ejection fraction is 60 %. Normal diastology for age. Trivial mitral valve insufficiency. Assessment and Plan Assessment and Plan (1) History of placement of stent in LAD coronary artery: Status: Acute Comment: [facility] in [place], [place] Plan: Patient has a history of coronary artery disease with stent placement to her mid-proximal LAD in July of this year. She continues to have chest pain with exertion, and at rest-this has increased in frequency. She states this chest pain is located midsternal and radiates to her back. She does have an occasional SOB with exertion. She will proceed with a cardiac catheterization to further assess this. Depending on results, further recommendations will be made. (2) Hyperlipidemia: Status: Chronic Qualifiers: Hyperlipidemia type: unspecified Qualified Code(s): E78.5 - Hyperlipidemia, unspecified Plan: Patient has a history of hyperlipidemia. Her PCP monitors this. She will continue atorvastatin 40mg daily, along with aggressive risk factor and lifestyle modifications. A copy of her most recent lipid panel would be greatly appreciated for continuity of care. (3) MOON (dyspnea on exertion): Status: Acute Plan: She does acknowledge occasional shortness of breath. Her echocardiogram from 07/08/2022 demonstrated ejection fraction of 55 to 60%. She will proceed with a cardiac catheterization to further assess this. Depending on results, further recommendations will be made.
[2022-11-04 08:05] VITALS: BMI 21.9
--- NOTE | 2022-11-07 09:36 | CL.D_ITS ---
Patient Name: SHANITA MONTIEL Study Date: 11/07/2022 Performing: Tanner Kirkland MD Ht: 63 inches 160.02 cm : 1950 Wt: 124.01 lbs 56.25 kg Age: 72 Gender: female BSA: 1.58 PROCEDURE(S) PERFORMED DC01-(42901)LHC/COR/LV CLINICAL PROFILE AND INDICATIONS Indications: Suspected CAD Heart Failure: None Stress/Imaging Stress/Image Study Performed: No CAD Presentations: Unstable angina. CONCLUSIONS Previously placed stent in the left anterior descending artery is patent with mild in-stent stenosis. Mild disease is noted of the sidebranch diagonal vessels. Preserved ejection fraction. Dominant circumflex system. RECOMMENDATIONS Medical therapy DESCRIPTION OF PROCEDURE The patient arrived to the procedure lab. The risks and benefits of the procedure as well as a full description of our services here and current unavailability of surgical backup were fully explained to the patient and/or their significant other prior to the catheterization. The Timeout was completed, verifying the correct patient and procedure. The patient's procedural site was prepped and draped in the usual fashion. Local anesthetic was given subcutaneously to right radial region with Lidocaine 2%. Using a modified Seldinger technique, arterial access was obtained via the right radial artery, a 6Fr sheath was inserted. Left Coronary Artery selective angiography was performed in multiple views using a 5 Fr. 4.0 Girdwood catheter. Right Coronary Artery selective angiography was then performed in multiple views using a 5 Fr. 4.0 Girdwood catheter. Left Ventriculography was performed in BILLINGS projection using a 5 Fr. Pigtail catheter.The arterial sheath was pulled and a TR Band was applied for hemostasis 8CC AIR CORONARY ANGIOGRAPHY DOMINANCE: Left Dominant LEFT HEART ASSESSMENT Left Ventricular Ejection Fraction: by LV Gram 60 % Normal LV wall motion Normal Left Ventricular systolic function LEFT MAIN: Mild calcification, Non-obstructive LEFT ANTERIOR DESCENDING ARTERY: Previously stented vessel is noted to be patent with mild in-stent stenosis of 20 to 30% and diagonal vessels with mild ostial stenosis. CIRCUMFLEX ARTERY: Mild luminal irregularities less than 30% RIGHT CORONARY ARTERY: Mild luminal irregularities COMPLICATIONS No Complications PROCEDURE MEDICATIONS Versed 1 mg IV Fentanyl 50 mcg IV Versed 1 mg IV Oxygen: 2 L/min via nasal cannula Heparin given IA 11/07/2022 09:05:58 Verapamil 2.5mg, Ntg 100mcgs, 3000 units of Heparin given IA 11/07/2022 09:05:58 SUMMARY OF HEMODYNAMIC DATA Time AIR REST ECG 07:11:17 AO 148/72 (108) SA 09:08:29 LV 124/0, 13 09:13:38 LV 127/0, 12 09:13:44 LV 124/0, 14 09:14:31 LV 129/1, 15 09:14:38 LVp 131/0, 16 09:14:44 AOp 131/57 (89) 09:14:49 AIR REST 09:31:54 Signed By Tanner Kirkland MD On 11/07/2022 09:35:08 Tanner Kirkland MD
== END 2022-11-07 11:00 | disposition home or self-care (01) ==
PROVIDERS: PCP Internal Medicine; Referring Provider Internal Medicine Cardiovascular Disease; Visit Provider Internal Medicine Cardiovascular Disease
DX: T82.855A Stenosis of coronary artery stent, initial encounter (principal); E78.5 Hyperlipidemia, unspecified; Z95.5 Presence of coronary angioplasty implant and graft; Z87.891 Personal history of nicotine dependence; Z82.49 Family history of ischemic heart disease and other diseases of the circulatory system; R06.02 Shortness of breath; Y82.9 Unspecified medical devices associated with adverse incidents; E03.9 Hypothyroidism, unspecified
CPT/HCPCS: 93458; 99152; 99153; J7040; Q9967; C1769; C1894

== ENCOUNTER 2022-11-30 09:30 | Outpatient (RCR) | payer MEDICARE, SELFPAY ==
[2022-10-12 07:28] VITALS: BMI 21.9
[2022-11-01 00:22] VITALS: BP 132/64
--- NOTE | 2022-11-09 11:14 | PCM.CR.ITP ---
Nutrition - Initial Assessment Weight Mgt (Other Care) Height: 5 ft 3 in Weight:: 122 lb BMI: 21.6 Psychosocial - Initial Assess Target Goals Target Goals Nutrition Survey Nutrition Survey Instructions Scoring Instructions Exercise - 60-day Assessment Visit Date of Eval: 11/09/22 Session #:: 21 Comments:: Pt recently had a heart cath due to CP. Pt will return 12/15. Physician Prescribed Exercise Modalities: Treadmill, Airdyne and NuStep Frequency: 3x/week for 12 weeks [36 sessions] Intensity: 60-80% of age predicted maximum heart rate reserve Duration: 30 - 45 minutes Current METSs:: 6.5 Target Heart Rate:: 109-124 Current RPE:: 12-13 Maximum Excercise HR:: 133 Resting Blood Pressure: 100/58 Maximum Exercise Blood Pressure: 184/90 EKG Type: NSR to ST w/rare pac,pvc. One 5 beat run of ectopic atrial tachycardia Outcomes & Goals Goals:: Verbalizes understanding of THR, RPE & goal METS by session 6, Documents in home exercise log/reports 30 min aerobic 5 day/wk by DC, Demonstrates accurate pulse taking by DC and Other additional outcome/goals: see below Intervention & Plan Exercise Program Goals: Instruct on personal THR & RPE, Instruct on MET level & personal MET goal, Show patient to take own pulse /validate performance until accurate, Instruct on home exercise and Other additional plan/int 30-day Reassessments 30 day Reassessments:: Progressing Reassessment Notes & Comments:: THR explained Physical Activity Home Exercise Physical Activity - Home Exercise: Safe Exercise, Warm-up, Self-monitoring, Cool-Down, Home Exercise > 30 min Daily and Sitting Time <3 hours/daily Outcomes & Goals Outcomes/Goals: Demonstrates correct Warm-up/exercise Cool-Down (S3) if = 2.5 METs, Verbalizes symptoms of exercise intolerance by Session 3 (S3), Demonstrate safe equipment use (S3) & follows exercise prescrition (6) and Other: See below Intervention & Plan Plan/Intervention: Instruct warm-up & cool-down if exercising at > 2 METs, Instruct on symptoms of exercise intolerance & actions to take, Instruct & monitor on saf, Assess intial functional capacity & safety risk and Other See below 30-day Reassessments 30 day Reassessments:: Progressing Reassessment Notes & Comments:: cool down encouraged Nutrition - 30-Day Assessment Weight Mgt (Other Care) Height: 5 ft 3 in Weight:: 122 lb BMI: 21.6 Nutrition - 60-Day Assessment Program Goals Nutrition Program Goals Patient has diagnosis of Hyperlipidemia (ICD E78)?: Yes Visit Date of Eval: 11/09/22 Session #:: 21 Cholesterol/Lipids (Other Core Measures) Determine presence & major risk factors that modify LDL goal: Cigarette smoking, Hypertension or hypertensive medication, Low HDL cholesterol <40 mg/dL*, Family history of premature CHD in Male < 55 years: female <65 yearsFa and Age men > 45 years; women >/= 55 years Outcomes/Goals: Pt IDs own risk factors & lifestyle modifications by Session 10, Verbalizes symptoms of angina & response by session 3., Pt independently manages and Other Additional Outcomes/Goals: Intervention/Plan: Advocate for lipid panel cholesterol medication if applicable, Instruct on personal lipid levels & lipid goals/NCEP guidelines, Instruct on cholesterol and Other additional plan/int Referral to dietitian:: No (pt declined) 30-day Reassessments:: Progressing Reassessment Notes & Comments:: pt to attend nutrition class Diabetes (Other Core Measures) Diabetes Type: Not Applicable Weight Mgt (Other Care) Height: 5 ft 3 in Weight:: 122 lb BMI: 21.6 Diagnosis Overweight/Obesity BMI> 30% ICD-10 E66: No Diagnosis High BMI/Morbid Obesity BMI> 35% ICD-10 Z68: No 30 day Reassessments:: Progressing Reassessment Notes & Comments:: pt will attend nutrition class Healthy Eating Habits Will attend diet classes:: Yes Outcomes/Goals:: Consume diet rich in vegs,fruits,whole grain/high fiber,fish,lean meat, Limit sat/trans fats,cholesterol & added salts & sugars and Other additional outcome/goals: Intervention/Plan:: Assess current eating habits and Other Additional plan/interventions 30-day Reassessments:: Progressing Reassessment Notes & Comments:: pt will attend nutrition class Education Gave educational materials for:: Signs & symptoms of hypoglycemia, Signs & symptoms of hyperglycemia, Relate diabetes to coronary artery disease and Healthy eating Core - 60-Day Assessment Visit Date of Eval: 11/09/22 Session #:: 21 Medication Compliance Preventative Medication(s):: Aspirin, Statin/lipid and Beta logan (also taking prasugrel) H/O mental health issues: depression, anxiety, or addiction?: No Doesn?t believe in the benefits of treatment?: No Believes medications are unnecessary or harmful?: No Has a concern about medication side effects?: No Expresses concern over the cost of medications?: No Outcomes/Goals: Verbalizes medications,desired effect & common side effects @ DC, Pt self-reports following medication regimen, Keeps card in wallet w/medications listed by DC and Other additional outcome/goals: Interventions/plans: Instruct on medication effects & side effects, Review medication list w/patient every two weeks, Instruct importance of taking meds as ordered & assist problem solving and Other additional 30-day Reassessments:: Progressing Reassessment Notes & Comments:: encouraged to take her meds Tobacco Use Tobacco Use: Non-smoker How long ago did you quit using tobacco products?: Greater than or equal to 6 months ago Hypertension Hypertension Diagnosis:: Hypertension ICD-10 I10 Resting Blood Pressure:: 100/58 [place] [employer] Hypertension Guidelines Peak Exercise Blood Pressure:: 184/90 Outcomes/Goals: Able to verbalize/achieve optimal blood pressure <130/80, Incorporates diet changes & exercise for blood pressure control by DC and Other additional outcomes/goals Interventions/plan: Instruct on optimal blood pressure, hypertension & medications, Instruct on effects of sodium, alcohol, stress, exercise &hypertension and Other additional plan/interventions 30 day Reassessments:: Progressing Reassessment Notes & Comments:: pt encouraged to take her meds Tobacco Cessation Referral Smoking Cessation Referral:: No Individual Education/Counseling:: No Education Schedule Given:: Yes Psychosocial - 30-Day Assess Target Goals Target Goals Psychosocial - 60-Day Assess VIsit Date of Eval: 11/09/22 Session #:: 21 History of previous Mental disease:: No Target Goals Target Goals Psychosocial - 90-Day Assess Target Goals Target Goals Psychosocial - Final Assessmen Target Goals Target Goals Nutrition - 90-Day Assessment Weight Mgt (Other Care) Height: 5 ft 3 in Weight:: 122 lb BMI: 21.6 Nutrition - Final Assessment Weight Mgt (Other Care) Height: 5 ft 3 in Weight:: 122 lb BMI: 21.6
[2022-11-09 11:28] VITALS: BP 100/58; BMI 21.6
== END 2022-12-01 23:59 ==
LOC: CR 09:30
PROVIDERS: PCP Internal Medicine; Referring Provider Internal Medicine Cardiovascular Disease; Visit Provider Internal Medicine Cardiovascular Disease
DX: Z95.5 Presence of coronary angioplasty implant and graft (principal); I25.10 Atherosclerotic heart disease of native coronary artery without angina pectoris
CPT/HCPCS: 93798

== ENCOUNTER → 2022-12-07 | Outpatient (CLI) | payer MEDICARE, SELFPAY ==
[2022-11-09 11:28] VITALS: BMI 21.6
--- NOTE | 2022-12-07 09:55 | RAD_ITS ---
INDICATION: Chest pain EXAMINATION/TECHNIQUE: X-RAY - XR Chest 2 Views COMPARISON: No prior examinations are available for comparison. FINDINGS: LINES/DEVICES: None. LUNGS: No consolidation, edema or effusion. No pneumothorax. MEDIASTINUM AND CARDIOVASCULAR STRUCTURES: Cardiac silhouette not enlarged. Mild tortuosity of the thoracic aorta. Central airways and mediastinal contour are unremarkable. BONES AND SOFT TISSUES: Unremarkable. RAD/Chest PA and Lateral IMPRESSION: No radiographic evidence of acute cardiopulmonary disease. Electronically Signed: Bryce Dang MD at 10:43 EDT ,
== END | disposition home or self-care (01) ==
LOC: RAD 09:54
PROVIDERS: PCP Internal Medicine; Referring Provider Nurse Practitioner Gerontology; Visit Provider Nurse Practitioner Gerontology
DX: R07.9 Chest pain, unspecified (principal)
CPT/HCPCS: 71046

== ENCOUNTER 2022-12-21 09:30 | Outpatient (RCR) | payer MEDICARE, SELFPAY ==
[2022-11-09 11:28] VITALS: BMI 21.6
[2022-12-02 00:12] VITALS: BP 100/58; BP 132/64
--- NOTE | 2022-12-09 08:45 | CR.ITP_ITS ---
Nutrition - Initial Assessment Weight Mgt (Other Care) Height: 5 ft 3 in Weight:: 121 lb 8 oz BMI: 21.5 Psychosocial - Initial Assess Target Goals Target Goals Patient Health Questionnaire PHQ-9 Screening 90-Day Re-eval Assessment: 1. Little interest or pleasure in doing things: Not at all 2. Feeling down, depressed, or hopeless: Not at all 3. Trouble falling or staying asleep, or sleeping too much: Several days 4. Feeling tired or having little energy: Several days 5. Poor appetite or overeating: Not at all 6. Feeling bad about yourself -- or that you are a failure or have let yourself or your family down: Not at all 7. Trouble concentrating on things, such as reading the newspaper or watching television: Not at all 8. Moving or speaking so slowly that other people could have noticed. Or the opposite - being so fidgety or restless that you have been moving around a lot more than usual: Not at all 9. Thoughts that you would be better off , or of hurting yourself in some way: Not at all How difficult have these problems made it for you to do your work, take care of things at home, or get along with other people?: Somewhat difficult Total Score: 2 Self-Efficacy 6-Item Scale 90-Day Re-eval Assessment: We would like to know how confident you are in doing certain activities. Please select your confidence level for: Fatigue Select Number: 7 Physical Discomfort or Pain Select Number: 7 Emotional Distress Select Number: 9 Other Symptoms or Health Problems Select Number: 9 Different Tasks and Activities Select Number: 9 Medication Select Number: 9 Total Score:: 8 Nutrition Survey Nutrition Survey Instructions Scoring Instructions Exercise - 90-day Assessment Visit Date of Eval: 12/09/22 Session #:: 31 Physician Prescribed Exercise Modalities: Treadmill, Airdyne and NuStep Frequency: 3x/week for 12 weeks [36 sessions] Intensity: 60-80% of age predicted maximum heart rate reserve Duration: 30 - 45 minutes Current METSs:: 7 Target Heart Rate:: 109-124 Current RPE:: 13-14 Maximum Excercise HR:: 106 Resting Blood Pressure: 130/60 Maximum Exercise Blood Pressure: 160/84 EKG Type: SB to ST with rare to occas PAC's, rare PVC's Outcomes & Goals Goals:: Verbalizes understanding of THR, RPE & goal METS by session 6, Documents in home exercise log/reports 30 min aerobic 5 day/wk by DC, Demonstrates accu rate pulse taking by DC and Other additional outcome/goals: see below Intervention & Plan Exercise Program Goals: Instruct on personal THR & RPE, Instruct on MET level & personal MET goal, Show patient to take own pulse /validate performance until accurate, Instruct on home exercise and Other additional plan/int 30-day Reassessments 30 day Reassessments:: Met Physical Activity Home Exercise Physical Activity - Home Exercise: Safe Exercise, Warm-up, Self-monitoring, Cool-Down, Home Exercise > 30 min Daily and Sitting Time <3 hours/daily Outcomes & Goals Outcomes/Goals: Demonstrates correct Warm-up/exercise Cool-Down (S3) if = 2.5 METs, Verbalizes symptoms of exercise intolerance by Session 3 (S3), Demonstrate safe equipment use (S3) & follows exercise prescrition (6) and Other: See below Intervention & Plan Plan/Intervention: Instruct warm-up & cool-down if exercising at > 2 METs, Instruct on symptoms of exercise intolerance & actions to take, Instruct & monitor on saf, Assess intial functional capacity & safety risk and Other See below 30-day Reassessments 30 day Reassessments:: Met Nutrition - 30-Day Assessment Weight Mgt (Other Care) Height: 5 ft 3 in Weight:: 121 lb 8 oz BMI: 21.5 Nutrition - 60-Day Assessment Weight Mgt (Other Care) Height: 5 ft 3 in Weight:: 121 lb 8 oz BMI: 21.5 Core - 90 Day Assessment Visit Date of Eval: 12/09/22 Session #:: 31 Medication Compliance Preventative Medication(s):: Aspirin, Statin/lipid and Beta logan H/O mental health issues: depression, anxiety, or addiction?: No Doesn?t believe in the benefits of treatment?: No Believes medications are unnecessary or harmful?: No Has a concern about medication side effects?: No Expresses concern over the cost of medications?: No Outcomes/Goals: Verbalizes medications,desired effect & common side effects @ DC, Pt self-reports following medication regimen, Keeps card in wallet w/medications listed by DC and Other additional outcome/goals: Interventions/plans: Instruct on medication effects & side effects, Review medication list w/patient every two weeks, Instruct importance of taking meds as ordered & assist problem solving and Other additional 30-day Reassessments:: Met Tobacco Use Tobacco Use: Non-smoker Hypertension Hypertension Diagnosis:: Hypertension ICD-10 I10 Resting Blood Pressure:: 130/60 [place] [employer] Hypertension Guidelines Peak Exercise Blood Pressure:: 160/84 Outcomes/Goals: Able to verbalize/achieve optimal blood pressure <130/80, Incorporates diet changes & exercise for blood pressure control by DC and Other additional outcomes/goals Interventions/plan: Instruct on optimal blood pressure, hypertension & medications, Instruct on effects of sodium, alcohol, stress, exercise &hypertension and Other additional plan/interventions 30 day Reassessments:: Met Tobacco Cessation Referral Smoking Cessation Referral:: No Individual Education/Counseling:: No Education Schedule Given:: Yes Psychosocial - 30-Day Assess Target Goals Target Goals Psychosocial - 60-Day Assess Target Goals Target Goals Psychosocial - 90-Day Assess VIsit Date of Eval: 12/09/22 Session #:: 31 History of previous Mental disease:: No Target Goals Target Goals Psychosocial - Final Assessmen Target Goals Target Goals Nutrition - 90-Day Assessment Program Goals Nutrition Program Goals Patient has diagnosis of Hyperlipidemia (ICD E78)?: Yes Visit Date of Eval: 12/09/22 Session #:: 31 Cholesterol/Lipids (Other Core Measures) Determine presence & major risk factors that modify LDL goal: Cigarette smoking, Hypertension or hypertensive medication, Low HDL cholesterol <40 mg/dL*, Family history of premature CHD in Male < 55 years: female <65 yearsFa and Age men > 45 years; women >/= 55 years Outcomes/Goals: Pt IDs own risk factors & lifestyle modifications by Session 10, Verbalizes symptoms of angina & response by session 3., Pt independently manages and Other Additional Outcomes/Goals: Intervention/Plan: Advocate for lipid panel cholesterol medication if applicable, Instruct on personal lipid levels & lipid goals/NCEP guidelines, Instruct on cholesterol and Other additional plan/int 30-day Reassessments:: Met Diabetes (Other Core Measures) Diabetes Type: Not Applicable Weight Mgt (Other Care) Height: 5 ft 3 in Weight:: 121 lb 8 oz BMI: 21.5 Diagnosis Overweight/Obesity BMI> 30% ICD-10 E66: No Diagnosis High BMI/Morbid Obesity BMI> 35% ICD-10 Z68: No Outcomes/Goals: Pt sets, maintains & shows weight loss goal & trend during rehab and Other additional outcomes/goals Intervention/Plan: Instruct on ideal BMI & set weight loss goal w/patient, Assist pt to ID & incorporate diet changes for weight loss by S9, Refer to Structured Weight Loss program as appropriate, Encourage goal of using 250- 300dcal per session for weight loss and Other additional plan/interventions 30 day Reassessments:: Met Healthy Eating Habits Will attend diet classes:: Yes Outcomes/Goals:: Consume diet rich in vegs,fruits,whole grain/high fiber,fish,lean meat, Limit sat/trans fats,cholesterol & added salts & sugars and Other additional outcome/goals: Intervention/Plan:: Assess current eating habits and Other Additional plan/interventions 30-day Reassessments:: Met Education Gave educational materials for:: Signs & symptoms of hypoglycemia, Signs & symptoms of hyperglycemia, Relate diabetes to coronary artery disease and Healthy eating Nutrition - Final Assessment Weight Mgt (Other Care) Height: 5 ft 3 in Weight:: 121 lb 8 oz BMI: 21.5
[2022-12-09 08:55] VITALS: BP 130/60; BMI 21.5
== END 2022-12-31 23:59 ==
LOC: CR 09:30
PROVIDERS: PCP Internal Medicine; Referring Provider Internal Medicine Cardiovascular Disease; Visit Provider Internal Medicine Cardiovascular Disease
DX: Z95.5 Presence of coronary angioplasty implant and graft (principal); I25.10 Atherosclerotic heart disease of native coronary artery without angina pectoris
CPT/HCPCS: 93798

== ENCOUNTER → 2023-01-16 | Outpatient (CLI) | payer MEDICARE, SELFPAY ==
[2022-12-09 08:55] VITALS: BMI 21.5
[2023-01-16 11:35] LABS: AST(SGOT) 20 U/L (15-37); Alanine Aminotransfer ALT/SGPT 27 U/L (13-56); Albumin, Serum 3.7 g/dL (3.2-5.0); Alkaline Phosphatase 72 U/L (45-117); Bilirubin, Direct 0.17 mg/dL (0.00-0.30); Cholesterol 140 mg/dL (200); Globulin 3.9 g/dL (2.2-4.2); High Density Lipoprotein 60 mg/dL; Protein, Total 7.6 g/dL (6.4-8.2); Triglycerides 63 mg/dL; Very Low Density Lipoprotein 13 mg/dL (5-40)
== END | disposition home or self-care (01) ==
LOC: LAB 09:40
PROVIDERS: Internal Medicine Cardiovascular Disease; Referring Provider Nurse Practitioner Gerontology; Visit Provider Nurse Practitioner Gerontology
DX: E78.5 Hyperlipidemia, unspecified (principal)
CPT/HCPCS: 36415; 80061; 80076

== ENCOUNTER → 2023-08-23 | Outpatient (CLI) | payer MEDICARE, SELFPAY ==
[2022-12-09 08:55] VITALS: BMI 21.5
[2023-08-23 13:15] LABS: Hemoglobin A1c 5.3 % (3.8-5.6)
[2023-08-23 14:29] LABS: Thyroid Stim Hormone (TSH) 5.21 uIU/mL (0.358-3.74)
== END | disposition home or self-care (01) ==
LOC: BIMLAB 11:40
PROVIDERS: PCP Internal Medicine; Visit Provider Internal Medicine
DX: I10 Essential (primary) hypertension (principal); R73.03 Prediabetes
CPT/HCPCS: 36415; 83036; 84443

== ENCOUNTER → 2023-10-17 | Outpatient (CLI) | payer MEDICARE, SELFPAY ==
[2022-12-09 08:55] VITALS: BMI 21.5
[2023-10-17 14:53] LABS: AST(SGOT) 28 U/L (15-37); Alanine Aminotransfer ALT/SGPT 31 U/L (13-56); Albumin, Serum 3.8 g/dL (3.2-5.0); Alkaline Phosphatase 78 U/L (45-117); Bilirubin, Direct 0.23 mg/dL (0.00-0.30); Cholesterol 122 mg/dL (200); Globulin 3.4 g/dL (2.2-4.2); High Density Lipoprotein 55 mg/dL; Protein, Total 7.2 g/dL (6.4-8.2); Triglycerides 84 mg/dL; Very Low Density Lipoprotein 17 mg/dL (5-40)
== END | disposition home or self-care (01) ==
LOC: LAB 13:24
PROVIDERS: PCP Internal Medicine; Referring Provider Internal Medicine Cardiovascular Disease; Visit Provider Internal Medicine Cardiovascular Disease
DX: E78.5 Hyperlipidemia, unspecified (principal)
CPT/HCPCS: 36415; 80061; 80076

== ENCOUNTER → 2023-11-17 | Outpatient (CLI) | payer MEDICARE, SELFPAY ==
[2022-12-09 08:55] VITALS: BMI 21.5
[2023-11-17 15:02] LABS: Mucous, Urine 0 SEEN /hpf (<or=2+); Red Blood Cells-Urine 0 SEEN /hpf (0-5)
[2023-11-17 15:17] LABS: Color, Urine Yellow (Yellow); Glucose, Dipstick Normal (Normal); Ketone-Dipstick Negative (Negative); Leukocyte Esterase-Dipstick 25 /ul (Negative); Nitrite-Dipstick Negative (Negative); Occult Blood-Urine Negative /ul (Negative); Protein-Dipstick Negative (Negative); Urine Bilirubin Dipstick Negative (Negative); Urine Clarity Clear (Clear); Urine Urobilinogen Normal (Normal); Urine pH 6.5 (5.0 - 8.0)
[2023-11-17 15:40] LABS: Bacteria RARE /hpf (None Seen); Squamous Epithelial Cells - UA 0-5 SEEN /hpf (5-10); White Blood Cells 10-25 SEEN /hpf (0-5)
== END | disposition home or self-care (01) ==
LOC: LABSPEC 12:10
PROVIDERS: PCP Internal Medicine; Referring Provider Nurse Practitioner; Visit Provider Nurse Practitioner
DX: R82.998 Other abnormal findings in urine (principal)
CPT/HCPCS: 81001

== ENCOUNTER → 2023-12-20 | Outpatient (CLI) | payer MEDICARE, SELFPAY ==
[2022-12-09 08:55] VITALS: BMI 21.5
--- NOTE | 2023-12-20 13:02 | BI_ITS ---
MAMMOGRAPHY - BILATERAL SCREENING REASON FOR EXAM: Female, 73 years old. Routine annual screening examination. PERTINENT HISTORY: Non-contributory. Bilateral breast implants. TECHNIQUE: Digital bilateral breast maxim (3D mammographic acquisition) in the CC and MLO projections. 2-D mediolateral oblique (MLO) and craniocaudad (CC) views of both breasts were obtained. CAD: Full Field Digital Mammography with Computer Added Detection was performed. COMPARISON: Comparison is made with prior outside examination March 07, 2023. FINDINGS: Breast Composition: The breasts are heterogeneously dense, which may obscure small masses. There are no dominant masses or suspicious calcifications. Stable appearance of the bilateral breast implants. Once again, small calcific densities are seen within the left breast implant. No other significant abnormalities are identified. There has been no significant change since the prior study. BI/SCRN MAMM (CAD)W/MAXIM BILAT IMPRESSION: Stable bilateral screening mammogram. Yearly follow-up mammogram recommended. (A) ASSESSMENT CATEGORY: BIRADS Category 2: Benign. A letter regarding these results will be sent to the patient by the facility within 30 days. Approximately 10% of breast cancers are not detected by mammography. A normal mammogram should not delay biopsy of a clinically suspicious abnormality. [id number] Electronically Signed: Isiah Peterson MD at 8:30 EDT ,
--- NOTE | 2023-12-20 13:04 | BD_ITS ---
STUDY: DUAL ENERGY X-RAY ABSORPTIOMETRY / DXA REASON FOR EXAM: Female, 73 years old. Osteopenia TECHNIQUE: Bone Mineral Density (BMD) measurements of lumbar spine and bilateral hips were obtained. COMPARISON: Comparison is made with prior study dated December 02, 2021. FINDINGS: Lumbar Spine (L1-L4): g/cm2 (0.852) / T-score (-1.8) / Z-score (0.6) Findings are suggestive of osteopenia with a moderate fracture risk. Left Femur Total: g/cm2 (0.728) / T-score (-1.8) / Z-score (0.0) Left Femoral Neck: g/cm2 (0.707) / T-score (-1.3) / Z-score (0.8) Right Femur Total: g/cm2 (0.685) / T-score (-2.1) / Z-score (-0.3) Right Femoral Neck: g/cm2 (0.715) / T-score (-1.2) / Z-score (0.9) The T-Scores on the most recent prior examination were: Lumbar Spine (L1-L4): There has been worsening of bone density since the previous examination. Left Femur Total: which represents a worsening of 0.8%. Right Femur Total: which represents a worsening of 2.3%. BD/Dexa Bone Density Study IMPRESSION: The patient is considered osteopenic as outlined below according to World [place] Organization (WHO) criteria with a high fracture risk. There has been worsening of bone density since the previous examination. Reference Information: The T-score is the number of standard deviations above or below the standard which is normal for young adults at their peak bone mineral density. The World Health Organization (WHO) interprets the T-scores as follows: Above -1 Normal bone density Between -1 and -2.5 Osteopenia Equal to / or below -2.5 Osteoporosis As a practical clinical guideline, osteopenia may be graded as follows: Mild -1 through -1.5 Moderate -1.6 through -2.0 Severe -2.1 through -2.4 The Z-score is the number of standard deviations above or below age-matched controls. A Z-score of less than -1.5 would be considered abnormal. References: 1. NIH Osteoporosis and Related Bone Diseases www osteo.org 2. International Society for Clinical Densitometry www iscd.org 3. National Osteoporosis Foundation www nof.org Electronically Signed: Isiah Peterson MD at 9:20 EDT ,
[2023-12-20 16:52] LABS: Vitamin D,25 Hydroxy 64.1 ng/mL
[2023-12-20 16:53] LABS: Anion Gap 5 (5-15); BUN 12 mg/dL (7-18); BUN/Creat Ratio 15.9 RATIO (10-20); Calcium,Total 9.8 mg/dL (8.5-10.1); Chloride 106 mmol/L (98-107); Creatinine, Serum 0.76 mg/dL (0.55-1.02); EST Glomerular Filtration Rate 79 mL/min (>60); Est Glom Filt Rate - Afr Amer 96 mL/min (>60); Glucose 91 mg/dL (74-106); Sodium Level 139 mmol/L (136-145)
== END | disposition home or self-care (01) ==
PROVIDERS: PCP Internal Medicine; Referring Provider Internal Medicine; Visit Provider Internal Medicine
DX: Z12.31 Encounter for screening mammogram for malignant neoplasm of breast (principal); Z78.0 Asymptomatic menopausal state; I10 Essential (primary) hypertension; M85.80 Other specified disorders of bone density and structure, unspecified site; E03.9 Hypothyroidism, unspecified
CPT/HCPCS: 36415; 77063; 77067; 77080; 80048; 82306; 84443

== ENCOUNTER → 2024-08-12 | Outpatient (CLI) | payer MEDICARE, SELFPAY ==
[2022-12-09 08:55] VITALS: BMI 21.5
[2024-08-12 11:54] LABS: Bacteria 0 SEEN /hpf (None Seen); Mucous, Urine 0 SEEN /hpf (<or=2+); Red Blood Cells-Urine 0 SEEN /hpf (0-5); Squamous Epithelial Cells - UA 0 SEEN /hpf (5-10); White Blood Cells 0 SEEN /hpf (0-5)
[2024-08-12 16:36] LABS: Hemoglobin A1c 5.6 % (<=5.6)
[2024-08-12 16:48] LABS: Vitamin D,25 Hydroxy 88.6 ng/mL (30-100)
[2024-08-12 16:54] LABS: Color, Urine Yellow (Yellow); Glucose, Dipstick Normal (Normal); Ketone-Dipstick Negative (Negative); Leukocyte Esterase-Dipstick Negative /ul (Negative); Nitrite-Dipstick Negative (Negative); Occult Blood-Urine Negative /ul (Negative); Protein-Dipstick 15 mg/dl (Negative); Specific Gravity, Urine 1.005 (1.002-1.030); Urine Bilirubin Dipstick Negative (Negative); Urine Clarity Clear (Clear); Urine Urobilinogen Normal (Normal)
== END | disposition home or self-care (01) ==
LOC: BIMLAB 11:52
PROVIDERS: PCP Internal Medicine; Referring Provider Internal Medicine; Visit Provider Internal Medicine
DX: E03.9 Hypothyroidism, unspecified (principal); M85.80 Other specified disorders of bone density and structure, unspecified site; R82.998 Other abnormal findings in urine; R73.03 Prediabetes; E78.00 Pure hypercholesterolemia, unspecified
CPT/HCPCS: 36415; 81001; 82306; 83036; 84443; 87086

== ENCOUNTER 2024-11-01 12:43 | Observation (INO) | payer MEDICARE, SELFPAY ==
[2022-12-09 08:55] VITALS: BMI 21.5
[2024-11-01] VITALS (18 sets, daily range): BP systolic 148–183; BP diastolic 56–112; PULSE 62–81; RESP 13–21; TEMP 36.6–37.1; O2SAT 91–100; BMI 21.9; BMI 22.2
--- NOTE | 2024-11-01 13:32 | ED.RN ---
increased pain and immobility in bilateral lower limbs since 10/27. states she had a URI and was given a Z-pack, is currently on day 3.
--- NOTE | 2024-11-01 13:32 | ED.RN ---
increased pain and immobility in bilateral lower limbs since 10/27. states she had a URI and was given a Z-pack, is currently on day 3.
--- NOTE | 2024-11-01 13:43 | EKG12_ITS ---
Test Reason : Blood Pressure : */* mmHG Vent. Rate : 61 BPM Atrial Rate : 61 BPM P-R Int : 154 ms QRS Dur : 78 ms QT Int : 428 ms P-R-T Axes : 81 77 32 degrees QTcB Int : 430 ms Normal sinus rhythm Normal ECG When compared with ECG of 21-Aug-2008 07:29, MANUAL COMPARISON REQUIRED DATA IS UNCONFIRMED Confirmed by MARIBEL SUÁREZ, ONELIA ([id number]), editor city SANDRO CHAVARRIA ([id number]) on 11/04/2024 6:58:28 AM Referred By: Confirmed By: ONELIA LÓPEZ MD
--- NOTE | 2024-11-01 13:43 | EKG12_ITS ---
Test Reason : Blood Pressure : */* mmHG Vent. Rate : 61 BPM Atrial Rate : 61 BPM P-R Int : 154 ms QRS Dur : 78 ms QT Int : 428 ms P-R-T Axes : 81 77 32 degrees QTcB Int : 430 ms Normal sinus rhythm Normal ECG When compared with ECG of 21-Aug-2008 07:29, MANUAL COMPARISON REQUIRED DATA IS UNCONFIRMED Confirmed by MARIBEL SUÁREZ, ONELIA ([id number]), editorial assistant SANDRO CHAVARRIA ([id number]) on 11/04/2024 6:58:28 AM Referred By: Confirmed By: ONELIA LÓPEZ MD
[2024-11-01] MEDS: 0.9% Normal Saline (1000mL) 1,000 ML 999 ML IV ×2 (13:52→15:39)
--- NOTE | 2024-11-01 14:04 | EX.ED.DYSGE1 ---
HPI History of Present Illness Chief Complaint: General Illness Narrative Narrative: Patient is a 74-year-old female past medical history of lupus, hypothyroidism, hyperlipidemia, CAD who presented to the emergency department the chief complaint of bilateral lower extremity weakness and unable to ambulate. Patient notes that on Monday she was diagnosed with pneumonia by a PA at her primary care physician's office was placed on Z-Donovan. She states that the last 4 days she has noted increased weakness in her lower extremities to the point where she feels like she is dragging her right leg and when she tries to stand up and put weight on her left leg she states that she feels like this gives out. Patient also is complaining of significant right hip pain but denies any falls injuries or trauma. Patient states that she has been urinating normally for self and having normal bowel movements. [facility] Medical History Cataract Cigarette nicotine dependence in remission Cardiogenic shock Coronary artery disease Elevated coronary artery calcium score Lupus Hyperlipidemia Hypothyroidism Home Medications ?Medication ?Instructions ?Recorded ?Last Taken ?Type calcium 500 mg (as 1 tab PO DAILY 10/03/18 Unknown History carbonate)-vitamin D3 5 mcg (200 unit) tablet (Calcium 500 + D) hydroxychloroquine 200 mg tablet 200 mg PO DAILY 10/03/18 Unknown History (Plaquenil) multivitamin 1 tab PO DAILY 10/03/18 Unknown History valacyclovir 500 mg tablet 500 mg PO DAILY PRN itching 10/03/18 Unknown History (Valtrex) cholecalciferol (vitamin D3) 50 50 mcg PO DAILY 10/17/23 Unknown History mcg (2,000 unit) capsule rosuvastatin 40 mg tablet 40 mg PO DAILY Control Cholesterol 07/31/24 Unknown Rx #90 tabs aspirin 81 mg tablet,delayed 81 mg PO QDAY 10/29/24 Unknown History release (Adult Aspirin Regimen) levothyroxine 75 mcg tablet 75 mcg PO DAILY #90 tabs 10/29/24 Unknown Rx azithromycin 250 mg tablet See Rx Instructions PO .COMPLEX #6 10/30/24 Unknown Rx tabs Allergy/AdvReac Type Severity Reaction Status Date / Time acetaminophen Allergy Mild Hives Verified 11/01/24 12:47 Penicillins Allergy Unknown Verified 11/01/24 12:47 Sulfa (Sulfonamide Allergy Unknown Verified 11/01/24 12:47 Antibiotics) atorvastatin AdvReac elevated Verified 11/01/24 12:47 liver enzymes Family History Brother , age 58 Heart disease Sister CAD (coronary artery disease) stents Brother CAD (coronary artery disease) stents Father Diabetes Mother Hypertension Surgical History S/P skin cancer resection H/O: hysterectomy (04/03/88) H/O eye surgery (02/06/23) Presence of coronary angioplasty implant and graft (~07/06/22) History of lumpectomy of right breast History of bilateral breast implants History of cholecystectomy Social History adopted: No household members: spouse housing: house number of children: 1 current occupational status: retired 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 [employer] current occupational exposures/hazards: No pets and animals: No history of recent travel: Yes sexually active: No Smoking Status: Former smoker quit date: 04/03/04 Tobacco: How many years used: 10 Electronic Cigarette Use: not used how long ago did patient quit smokin second hand exposure: No alcohol intake: current alcohol intake frequency: a few times a week Alcohol type: beer substance use type: does not use well-balanced diet: daily or most days caffeine: No eating out: 1-3 times/week during the past year weight has: remained stable frequency: 5-6 times per week duration: 45-60 minutes/day seatbelt use: always do you feel safe at home: Yes ROS ROS ED ROS Narrative Constitutional: Denies any fevers, chills, headaches, lightness, dizziness Eyes: Denies change in vision double vision blurry vision Cardiovascular: Denies chest pain Respiratory: Denies shortness of breath and states that she feels like she is breathing normally for self Abdomen: Denies abdominal pain nausea vomit diarrhea states that she is having normal bowel movements : Denies any urinary symptoms states that she is urinating normally for self Neurological: Complains of bilateral lower extremity weakness with more weakness noted on the right than the left denies any numbness or tingling Musculoskeletal: Denies back pain complains of right hip pain as noted above Skin: Denies any rashes or lesions EXAM Physical Exam Narrative Exam Narrative: General: Patient was lying in bed resting comfortably did not appear to be in acute distress Head: Atraumatic, normocephalic Eyes: PERRL bilaterally, EOMI bilateral, no conjunctival injection noted Neck: Soft, supple, trachea midline Cardiovascular: Regular rate and rhythm Respiratory: Clear to auscultation bilaterally Abdomen: Soft, nondistended, no tenderness palpation Musculoskeletal: No tenderness palpation midline of the thoracolumbar spine Extremities: +4/5 strength noted in the bilateral upper extremities, +3/5 strength noted in the right lower extremity when compared to the left however patient states that this is secondary to pain in her hip Neurological: Patient follow commands that she was at [facility] the year is 2024. Sensation grossly intact no saddle anesthesia noted, patellar reflexes were +2/4 bilaterally and were normal Skin: Warm, dry, intact no rashes lesions noted Const Vital Signs: 11/01/24 12:47 11/01/24 13:28 11/01/24 13:43 Temperature 98.4 F Temperature Source Oral Pulse Rate 75 Respiratory Rate 18 Respiratory Effort Normal Respiratory Pattern Normal Blood Pressure 148/83 H Blood Pressure Mean 104 Pulse Ox 100 100 Oxygen Delivery Method Room Air Room Air 11/01/24 14:54 11/01/24 15:00 11/01/24 15:15 Temperature Temperature Source Pulse Rate 66 66 81 Respiratory Rate 21 H 19 H 16 Respiratory Effort Respiratory Pattern Blood Pressure 166/112 H 172/70 H 183/89 H Blood Pressure Mean 130 100 116 Pulse Ox 100 100 100 Oxygen Delivery Method 11/01/24 15:30 11/01/24 15:45 11/01/24 16:15 Temperature Temperature Source Pulse Rate 67 70 68 Respiratory Rate 13 15 16 Respiratory Effort Respiratory Pattern Blood Pressure 162/69 H 169/77 H 177/80 H Blood Pressure Mean 96 103 108 Pulse Ox 100 100 100 Oxygen Delivery Method MDM MDM MDM Narrative Medical decision making narrative: Patient is a 74-year-old female who presented to the emergency department the chief complaint of weakness in her bilateral lower extremities as well as recent diagnosis of pneumonia. On the differential diagnosis includes but not limited to pneumonia, electrolyte abnormality, hypothyroidism, Guillain Amorita syndrome. Once workup is obtained reviewed she will be reevaluated. Patient given 30 cc/kg bolus of IV fluids this was ordered at 1345. Patient CBC was reviewed showed no evidence leukocytosis white blood count normal 8.7, hemoglobin 13.4, plate count normal at 267. Patient INR normal at 1.1, PT of 14. Patient sodium normal 134, potassium of 4.1, creatinine normal at 0.76. Patient lactic acid normal at 1.1, AST and ALT are 35 and 26 respectively. Patient's troponin was less than 6 EKG reviewed showed sinus rhythm with a rate of 61 bpm. Patient's thyroid normal TSH at 3.33, free T4 and T3 were normal at 1.10 and 2.2 respectively. Patient urinalysis reviewed showed no evidence of infection. Patient x-ray of her hip and pelvis reviewed by myself by radiology showed degenerative changes no acute abnormalities noted. Patient chest x-ray reviewed by myself and by radiology showed no acute cardiopulmonary processes. Patient CT head and brain without contrast showed no acute findings chronic changes noted. Patient was attempted to be ambulated here in the emergency department and she was extremely weak and still was unable to lift her leg off the bed on the right side rest of her extremities have gross sensation and strength intact. DP and PT pulses dopplerable in the bilateral lower extremities. Once again her reflexes in the bilateral lower extremities are normal. At this point time will discuss case with hospitalist given that she is extremely weak and unable to ambulate and bear weight on her right lower extremity. She once again was just recently hiking without any difficulty this is an acute change. Did discuss case with hospitalist Dr. Lara who accept patient for admission. Patient notified is agreeable spinal cord concerns answered. Lab Data Labs: Laboratory Results - last 24 hr 11/01/24 11/01/24 11/01/24 13:32 13:50 14:21 WBC 8.7 RBC 4.65 Hgb 13.4 Hct 41.8 MCV 89.9 MCH 28.8 MCHC 32.1 RDW Std Deviation 43.2 RDW Coeff of Chas 13.1 Plt Count 267 MPV 10.1 Immature Gran % (Auto) 0.500 Neut % (Auto) 67.0 Lymph % (Auto) 14.7 L [place] % (Auto) 16.6 H Eos % (Auto) 0.5 Baso % (Auto) 0.7 Absolute Neuts (auto) 5.9 Absolute Lymphs (auto) 1.28 Nucleated RBC % 0 Reactive Lymphocytes 1+ PT 14.0 INR 1.1 APTT 27.2 Sodium 134 Potassium 4.1 Chloride 97 L Carbon Dioxide 25.1 Anion Gap 12 BUN 11 Creatinine 0.76 Estim Creat Clear Calc 49.49 L Est GFR (MDRD) Non-Af 81 BUN/Creatinine Ratio 14.0 Glucose 98 Lactic Acid 1.1 Calcium 9.5 Total Bilirubin 0.57 AST 35 H ALT 26 Alkaline Phosphatase 83 Troponin T High Sens < 6 Total Protein 7.4 Albumin 3.9 Globulin 3.6 Albumin/Globulin Ratio 1.1 TSH 3.330 Free T4 1.10 Free T3 pg/dL 2.2 Urine Color Yellow Urine Clarity Clear Urine pH 7.0 Ur Specific [place] 1.010 Urine Protein 30 H Urine Glucose (UA) Normal Urine Ketones Negative Urine Occult Blood Negative Urine Nitrite Negative Urine Bilirubin Negative Urine Urobilinogen Normal Ur Leukocyte Esterase 25 H Urine RBC 0 SEEN Urine WBC 0-5 SEEN Ur Squamous Epith Cells 0 SEEN Urine Bacteria 0 SEEN Urine Mucus 0 SEEN Radiography Diagnostic Testing: Clinical Impression(s) from Imaging Studies Brain CT 11/01/24 14:35 IMPRESSION: CHRONIC CHANGES. NO ACUTE FINDINGS. Reading Location: [facility] Chest X-Ray 11/01/24 14:40 IMPRESSION: NO ACUTE FINDINGS. Reading Location: [facility] Hip/Pelvis X-Ray 11/01/24 14:40 IMPRESSION: Degenerative changes. No acute abnormality is seen. Reading Location: [facility] Discharge Plan Triage Chief Complaint: General Illness ED Provider: Sawyer Mensah Dx/Rx/DC Orders Clinical Impression: Leg pain, right, Hyperlipidemia, Generalized weakness Prescriptions: No Action hydroxychloroquine [Plaquenil] 200 mg tablet 200 mg PO DAILY valacyclovir [Valtrex] 500 mg tablet 500 mg PO DAILY PRN (Reason: itching) calcium carbonate-vitamin D3 [Calcium 500 + D] 500 mg(1,250mg) -200 unit tablet 1 tab PO DAILY multivitamin Tablet 1 tab PO DAILY cholecalciferol (vitamin D3) 50 mcg (2,000 unit) capsule 50 mcg PO DAILY aspirin [Adult Aspirin Regimen] 81 mg tablet,delayed release (DR/EC) 81 mg PO QDAY rosuvastatin 40 mg tablet 40 mg PO DAILY Qty: 90 3RF levothyroxine 75 mcg tablet 75 mcg PO DAILY Qty: 90 1RF azithromycin 250 mg tablet See Rx Instructions PO .COMPLEX Qty: 6 0RF Rx Instructions: For 250 mg dose pack: take 500 mg today (day 1), then 250 mg for 4 days (days 2-5) PO Primary Care Provider: Chelsie Mejia Referrals: Chelsie Mejia MD [Primary Care Provider] - Print Language: Luxembourgish Disposition Disposition: Acute Care Hospital [facility]
[2024-11-01 14:12] LABS: Hematocrit 41.8 % (37-47); Hemoglobin 13.4 g/dL (12.0-15.0); Immature Granulocytes Count 0.040 X10^3/uL (0.0-0.0); Mean Corp Hgb Conc 32.1 g/dL (32-36); Mean Corpuscular Volume 89.9 fL (81-99); Mean Platelet Vol. 10.1 fl (6.2-12.0); NRBC Flagged by Analyzer 0 % (0-5); POSITIVE MORPHOLOGY YES; Platelet Count 267 K/mm3 (150-450); RBC Distribution Width CV 13.1 % (11.6-14.6); RBC Distribution Width SD 43.2 fl (35.1-43.9); Red Blood Count 4.65 M/mm3 (4.2-5.4); White Blood Count 8.7 K/mm3 (4.4-11.0)
[2024-11-01 14:15] LABS: Differential Indicated SCAN CRITERIA MET
[2024-11-01 14:25] LABS: Mucous, Urine 0 SEEN /hpf (<or=2+); Red Blood Cells-Urine 0 SEEN /hpf (0-5); Squamous Epithelial Cells - UA 0 SEEN /hpf (5-10)
[2024-11-01 14:30] LABS: Prothrombin Time (Protime)PT. 14.0 SECONDS (11.7-14.9)
[2024-11-01 14:31] LABS: Partial Thromboplast Time 27.2 Seconds (24.1-36.2)
[2024-11-01 14:34] LABS: Color, Urine Yellow (Yellow); Glucose, Dipstick Normal (Normal); Ketone-Dipstick Negative (Negative); Leukocyte Esterase-Dipstick 25 /ul (Negative); Nitrite-Dipstick Negative (Negative); Occult Blood-Urine Negative /ul (Negative); Protein-Dipstick 30 mg/dl (Negative); Specific Gravity, Urine 1.010 (1.002-1.030); Urine Bilirubin Dipstick Negative (Negative)
--- NOTE | 2024-11-01 14:35 | CT_ITS ---
PROCEDURE: BRAIN/HEAD WITHOUT CONTRAST 11/01/2024 REASON FOR EXAM: LEG WEAKNESS Sinus infection. TECHNIQUE: BRAIN/HEAD WITHOUT CONTRAST Coronal and Sagittal reconstruction series were provided. One or more dose reduction techniques were used (e.g., Automated exposure control, adjustment of the mA and/or kV according to patient size, use of iterative reconstruction technique. RADIATION DOSE SUMMARY: CTDlvol: 44.99 mGy DLP: 846.73 mGycm COMPARISON: None FINDINGS: Brain: Low density in the periventricular white matter suggests mild chronic small vessel ischemic changes. CSF Spaces: Mild generalized cerebral atrophy. Atherosclerotic calcification of the vertebral arteries. Sinuses/Mastoids: Clear at visualized levels Bones: Unremarkable CT/Brain/Head without Contrast IMPRESSION: CHRONIC CHANGES. NO ACUTE FINDINGS. Reading Location: [id number]
--- NOTE | 2024-11-01 14:35 | CT_ITS ---
PROCEDURE: BRAIN/HEAD WITHOUT CONTRAST 11/01/2024 REASON FOR EXAM: LEG WEAKNESS Sinus infection. TECHNIQUE: BRAIN/HEAD WITHOUT CONTRAST Coronal and Sagittal reconstruction series were provided. One or more dose reduction techniques were used (e.g., Automated exposure control, adjustment of the mA and/or kV according to patient size, use of iterative reconstruction technique. RADIATION DOSE SUMMARY: CTDlvol: 44.99 mGy DLP: 846.73 mGycm COMPARISON: None FINDINGS: Brain: Low density in the periventricular white matter suggests mild chronic small vessel ischemic changes. CSF Spaces: Mild generalized cerebral atrophy. Atherosclerotic calcification of the vertebral arteries. Sinuses/Mastoids: Clear at visualized levels Bones: Unremarkable CT/Brain/Head without Contrast IMPRESSION: CHRONIC CHANGES. NO ACUTE FINDINGS. Reading Location: [id number]
--- NOTE | 2024-11-01 14:40 | RAD_ITS ---
PROCEDURE: CHEST PA AND LATERAL 11/01/2024 REASON FOR EXAM: COUGH TECHNIQUE: CHEST PA AND LATERAL COMPARISON: 12/07/2022 FINDINGS: LUNGS AND PLEURA: No focal airspace consolidation. Stable right upper lung calcified granuloma. No pleural effusion or pneumothorax. HEART AND MEDIASTINUM: The heart size and mediastinal contours are normal. AORTA: Mildly calcified aortic arch. BONES: No acute osseous abnormality. RAD/Chest PA and Lateral IMPRESSION: NO ACUTE FINDINGS. Reading Location: [id number]
--- NOTE | 2024-11-01 14:40 | RAD_ITS ---
PROCEDURE: HIP, UNI W/ PELVIS 2-3 VIEWS 11/01/2024 REASON FOR EXAM: PAIN, WEAKNESS TECHNIQUE: HIP, UNI W/ PELVIS 2-3 VIEWS COMPARISON: None FINDINGS: Bones: No fracture. Joints: Mild degree of degenerative changes of the hip joints and sacroiliac joints. Disc space narrowing at the lower lumbar spine Soft tissues: Fecal material is seen throughout the colon. Other: RAD/HIP, UNI W/ Pelvis 2-3 Views IMPRESSION: Degenerative changes. No acute abnormality is seen. Reading Location: [id number]
--- NOTE | 2024-11-01 14:40 | RAD_ITS ---
PROCEDURE: CHEST PA AND LATERAL 11/01/2024 REASON FOR EXAM: COUGH TECHNIQUE: CHEST PA AND LATERAL COMPARISON: 12/07/2022 FINDINGS: LUNGS AND PLEURA: No focal airspace consolidation. Stable right upper lung calcified granuloma. No pleural effusion or pneumothorax. HEART AND MEDIASTINUM: The heart size and mediastinal contours are normal. AORTA: Mildly calcified aortic arch. BONES: No acute osseous abnormality. RAD/Chest PA and Lateral IMPRESSION: NO ACUTE FINDINGS. Reading Location: [id number]
--- NOTE | 2024-11-01 14:40 | RAD_ITS ---
PROCEDURE: HIP, UNI W/ PELVIS 2-3 VIEWS 11/01/2024 REASON FOR EXAM: PAIN, WEAKNESS TECHNIQUE: HIP, UNI W/ PELVIS 2-3 VIEWS COMPARISON: None FINDINGS: Bones: No fracture. Joints: Mild degree of degenerative changes of the hip joints and sacroiliac joints. Disc space narrowing at the lower lumbar spine Soft tissues: Fecal material is seen throughout the colon. Other: RAD/HIP, UNI W/ Pelvis 2-3 Views IMPRESSION: Degenerative changes. No acute abnormality is seen. Reading Location: [id number]
[2024-11-01 14:47] LABS: Free T3 2.2 pg/mL (2.18-3.98); Troponin T High Sensitivity < 6 ng/L (<=14)
[2024-11-01 14:53] LABS: AST(SGOT) 35 U/L (<=31); Alanine Aminotransfer ALT/SGPT 26 U/L (<=34); Albumin, Serum 3.9 g/dL (3.4-4.8); Alkaline Phosphatase 83 U/L (35-104); Anion Gap 12 (5-15); BUN 11 mg/dL (4-19); BUN/Creat Ratio 14.0 RATIO (10-20); Calcium,Total 9.5 mg/dL (7.6-11.0); Carbon Dioxide 25.1 mmol/L (21.0-32.0); Chloride 97 mmol/L (98-108); Estimated Creatinine Clearance 49.49 ml/min (50-250); Globulin 3.6 g/dL (2.2-4.2); Glucose 98 mg/dL (70-99); Potassium 4.1 mmol/L (3.3-5.1)
[2024-11-01 15:36] LABS: Reactive Lymphocyte 1+
--- NOTE | 2024-11-01 16:37 | PCM.HP.STD ---
[facility] - General General Date of Admission: 11/01/24 Date of Service: 11/01/24 Chief Complaint: Bilateral lower extremity weakness and inability to ambulate HPI Narrative SHANITA MONTIEL, is a 74 F who presented to [facility] ED on 11/01/2024 with bilateral lower extremity weakness and inability to ambulate. Patient lives at home with her . She has very good functional status at baseline. She and her were recently on a cruise in [place] and just returned home about a week ago. Shortly after returning home she did develop upper respiratory symptoms and saw her PCP. She was started on a Z-Donovan for concern for pneumonia. About 2 days ago she began to notice bilateral lower leg weakness, and this morning her right leg especially was so weak that she was not able to get out of bed or ambulate, so she came in for further evaluation. In the ED she was hypertensive to the 170 systolic but otherwise in normal sinus rhythm and stable on room air. CBC and BMP were benign. Hip/pelvis x-ray showed degenerative changes but no acute abnormalities. CT brain and chest x-ray normal. Given her acute weakness and inability to ambulate, hospitalist was contacted for admission. I saw the patient at bedside in the ED, was present. Patient was pleasant, sitting back comfortably in bed and in no acute distress. 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 She was diagnosed with lupus about 30 years ago. She has only had cutaneous manifestations of her lupus, never joint or muscle involvement. She denies any back pain or discomfort. Denies any bowel or bladder dysfunction. Denies any fevers or chills. No other acute concerns currently. Will be admitted for further management. [facility] Medical History Cataract Cigarette nicotine dependence in remission Cardiogenic shock Coronary artery disease Elevated coronary artery calcium score Lupus Hyperlipidemia Hypothyroidism Home Medications ?Medication ?Instructions ?Recorded ?Last Taken ?Type calcium 500 mg (as 1 tab PO DAILY 10/03/18 10/31/24 History carbonate)-vitamin D3 5 mcg (200 unit) tablet (Calcium 500 + D) hydroxychloroquine 200 mg tablet 200 mg PO DAILY 10/03/18 10/29/24 History (Plaquenil) multivitamin 1 tab PO DAILY 10/03/18 10/31/24 History valacyclovir 500 mg tablet 500 mg PO DAILY PRN itching 10/03/18 Unknown History (Valtrex) cholecalciferol (vitamin D3) 50 50 mcg PO DAILY 10/17/23 10/31/24 History mcg (2,000 unit) capsule rosuvastatin 40 mg tablet 40 mg PO DAILY Control Cholesterol 07/31/24 10/31/24 Rx #90 tabs aspirin 81 mg tablet,delayed 81 mg PO QDAY 10/29/24 10/31/24 History release (Adult Aspirin Regimen) levothyroxine 75 mcg tablet 75 mcg PO DAILY #90 tabs 10/29/24 11/01/24 Rx Allergy/AdvReac Type Severity Reaction Status Date / Time acetaminophen Allergy Mild Hives Verified 11/01/24 12:47 Penicillins Allergy Unknown Verified 11/01/24 12:47 Sulfa (Sulfonamide Allergy Unknown Verified 11/01/24 12:47 Antibiotics) atorvastatin AdvReac elevated Verified 11/01/24 12:47 liver enzymes Family History Brother , age 58 Heart disease Sister CAD (coronary artery disease) stents Brother CAD (coronary artery disease) stents Father Diabetes Mother Hypertension Surgical History S/P skin cancer resection H/O: hysterectomy (04/03/88) H/O eye surgery (02/06/23) Presence of coronary angioplasty implant and graft (~07/06/22) History of lumpectomy of right breast History of bilateral breast implants History of cholecystectomy Social History adopted: No household members: spouse housing: house number of children: 1 current occupational status: retired 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 [employer] current occupational exposures/hazards: No pets and animals: No history of recent travel: Yes sexually active: No Smoking Status: Former smoker quit date: 04/03/04 Tobacco: How many years used: 10 Electronic Cigarette Use: not used how long ago did patient quit smokin second hand exposure: No alcohol intake: current alcohol intake frequency: a few times a week Alcohol type: beer substance use type: does not use well-balanced diet: daily or most days caffeine: No eating out: 1-3 times/week during the past year weight has: remained stable frequency: 5-6 times per week duration: 45-60 minutes/day seatbelt use: always do you feel safe at home: Yes ROS Constitutional Constitutional: Reports fatigue and weakness; Denies chills or fever(s) Eyes Eyes: Denies change in vision Cardiovascular Cardiovascular: Denies chest pain Respiratory/Chest Respiratory/Chest: Denies shortness of breath at rest Gastrointestinal Gastrointestinal: Denies abdominal pain Musculoskeletal Musculoskeletal: Reports myalgias; Denies arthralgias Neurologic Neurologic: Reports focal weakness; Denies dizziness, headache(s), numbness or tingling Vital Signs Vital Signs Vital Signs: 11/01/24 12:47 11/01/24 13:28 11/01/24 13:43 Temperature 98.4 F Temperature Source Oral Pulse Rate 75 Respiratory Rate 18 Respiratory Effort Normal Respiratory Pattern Normal Blood Pressure 148/83 H Blood Pressure Mean 104 Pulse Ox 100 100 Oxygen Delivery Method Room Air Room Air 11/01/24 14:54 11/01/24 15:00 11/01/24 15:15 Temperature Temperature Source Pulse Rate 66 66 81 Respiratory Rate 21 H 19 H 16 Respiratory Effort Respiratory Pattern Blood Pressure 166/112 H 172/70 H 183/89 H Blood Pressure Mean 130 100 116 Pulse Ox 100 100 100 Oxygen Delivery Method 11/01/24 15:30 11/01/24 15:45 11/01/24 16:15 Temperature Temperature Source Pulse Rate 67 70 68 Respiratory Rate 13 15 16 Respiratory Effort Respiratory Pattern Blood Pressure 162/69 H 169/77 H 177/80 H Blood Pressure Mean 96 103 108 Pulse Ox 100 100 100 Oxygen Delivery Method Weight Weight: 56.1 kg Body Mass Index (BMI) 21.9 Physical Exam Const alert, oriented x3, no apparent distress, average body habitus, healthy appearing and well nourished Constitutional Narrative: Pleasant elderly female, appears younger than stated age, sitting back comfortably in bed, conversing normally, in no acute distress. General Appearance: cooperative, comfortable, well kempt and well developed HEENT normocephalic, head/scalp atraumatic, hearing grossly normal bilaterally, nasal mucous membranes and turbinates normal and moist oral mucous membranes Eyes PERRL, EOMs intact bilaterally and conjunctivae normal Neck full ROM Chest inspection of chest normal Resp normal respiratory effort, normal air movement, no use of accessory muscles and clear to auscultation bilaterally Cardio regular rate, regular rhythm, no murmurs and peripheral pulses 2+ throughout GI normal to inspection, nondistended, normoactive bowel sounds, soft to palpation, non-tender and non-distended Back/Spine normal ROM Extremity Extremity Narrative: No external abnormalities noted. Significant right lower extremity weakness noted in the thigh especially with raising her leg. Mild left lower extremity weakness in the thigh with raising the leg. No significant weakness noted at the knee or feet. Skin no rashes or lesions noted Neuro moves all extremities Speech: speech normal Psych mental status grossly normal Results Lab / Micro Data 11/01/24 13:32 11/01/24 13:32 Labs: Laboratory Results - last 24 hr 11/01/24 13:32: WBC 8.7, RBC 4.65, Hgb 13.4, Hct 41.8, MCV 89.9, MCH 28.8, MCHC 32.1, RDW Std Deviation 43.2, RDW Coeff of Chas 13.1, Plt Count 267, MPV 10.1, Immature Gran % (Auto) 0.500, Neut % (Auto) 67.0, Lymph % (Auto) 14.7 L, [place] % (Auto) 16.6 H, Eos % (Auto) 0.5, Baso % (Auto) 0.7, Absolute Neuts (auto) 5.9, Absolute Lymphs (auto) 1.28, Nucleated RBC % 0, Reactive Lymphocytes 1+, PT 14.0, INR 1.1, APTT 27.2, Sodium 134, Potassium 4.1, Chloride 97 L, Carbon Dioxide 25.1, Anion Gap 12, BUN 11, Creatinine 0.76, Estim Creat Clear Calc 49.49 L, Est GFR (MDRD) Non-Af 81, BUN/Creatinine Ratio 14.0, Glucose 98, Calcium 9.5, Total Bilirubin 0.57, AST 35 H, ALT 26, Alkaline Phosphatase 83, Total Protein 7.4, Albumin 3.9, Globulin 3.6, Albumin/Globulin Ratio 1.1 11/01/24 13:50: Lactic Acid 1.1, Troponin T High Sens < 6, TSH 3.330, Free T4 1.10, Free T3 pg/dL 2.2 11/01/24 14:21: Urine Color Yellow, Urine Clarity Clear, Urine pH 7.0, Ur Specific [place] 1.010, Urine Protein 30 H, Urine Glucose (UA) Normal, Urine Ketones Negative, Urine Occult Blood Negative, Urine Nitrite Negative, Urine Bilirubin Negative, Urine Urobilinogen Normal, Ur Leukocyte Esterase 25 H, Urine RBC 0 SEEN, Urine WBC 0-5 SEEN, Ur Squamous Epith Cells 0 SEEN, Urine Bacteria 0 SEEN, Urine Mucus 0 SEEN Imaging Radiology Impression Brain CT 11/01/24 14:35 IMPRESSION: CHRONIC CHANGES. NO ACUTE FINDINGS. Reading Location: [id number] Chest X-Ray 11/01/24 14:40 IMPRESSION: NO ACUTE FINDINGS. Reading Location: [facility] Hip/Pelvis X-Ray 11/01/24 14:40 IMPRESSION: Degenerative changes. No acute abnormality is seen. Reading Location: [facility] Assessment & Plan Assessment/Plan (1) Generalized weakness: PLAN: Plan Patient is a 74-year-old female who presented to [facility] ED on 11/01/2024 with worsening bilateral lower extremity weakness and inability to ambulate. 1. Acute onset bilateral lower extremity weakness with inability to ambulate ? Admit under observation status to [facility]. PT/OT/case management consulted. Highest suspicion is for acute weakness with inflammation in the upper legs due to recent infection or autoimmune condition like polymyalgia rheumatica. ESR mildly elevated at 31, CRP elevated at 72. Will start p.o. prednisone 20 mg daily for now and assess response. Appreciate therapy recommendations. 2. Recent history of upper respiratory infection ? Patient with recent URI symptoms with cough and green sputum production. Completed 4 days of azithromycin course with some improvement. Chest x-ray on admission unremarkable and patient satting well on room air with no cough noted on exam. Will hold on further antibiotics at this time. 3. History of cutaneous lupus ? No symptoms noted for the past several years. Continue home hydroxychloroquine. 4. History of CAD with stenting, hypertension, hyperlipidemia ? Had stenting done in July 2022. Hypertensive to the 160s on admit but patient and do note history of whitecoat hypertension. Continue home aspirin and statin. IV hydralazine as needed ordered for SBP greater than 170. 5. Hypothyroidism ? TSH normal. Continue home Synthroid. DVT prophylaxis: Lovenox CODE STATUS: Full code, verified Expected disposition: TBD Total clinical time spent by myself addressing the patient's medical issues, reviewing all the data, and collaborating with patient's care team: 75 minutes. Charges/Coding Visit Charges Inpatient E&M: 33898 Init Hosp L3
--- NOTE | 2024-11-01 17:13 | CASEMGMT ---
Care Management Face to Face with patient for initial transition planning/care coordination assessment in the ED. This check writer salesperson introduced self and role at [facility]. Patient alert and oriented. Patient willing to participate in assessment and is able to answer all questions appropriately. Patient's , Karthikeyan, at bedside. Care providers, pharmacy, and demographics verified. Admitting Diagnosis: generalized weakness Other diagnosis history: lupus, hypothyroidism, hyperlipidemia, CAD PCP: Chelsie Mejia Specialists: Emily, rheumatology. Isael, cardiology. Dr. Coleman, memory care director in [place]. Preferred Pharmacy: [facility] Insurance: [employer] Medicare Prescription Benefit: yes Living Will/HPOA: yes and , Karthikeyan, intends to bring in. Primary is Karthikeyan, secondary is son Enrrique. LNOK: Karthikeyan and son Enrrique. Living Arrangements: lives with in a 2 story home. 1 step to enter from front; 10 steps from back. 13 steps inside to get to second floor where bedroom is; there is a bathroom on the first floor should patient need to sleep downstairs at all. Independent at baseline and very active, per patient. Transportation: patient drives DME: none HHC: none SNF/Rehab: none Community Resources: none Patient goals: Patient wishes to discharge home, denies need for home health care at this time. Patient denies any further needs or concerns at this time. Disposition Plan: admission to acute; RN CM/SW to follow for discharge planning needs that may arise. Misa Pantoja, CANDY PACKER, COLLAR TRIMMER
--- NOTE | 2024-11-01 17:13 | CASEMGMT ---
Care Management Face to Face with patient for initial transition planning/care coordination assessment in the ED. This engineering writer introduced self and role at [facility]. Patient alert and oriented. Patient willing to participate in assessment and is able to answer all questions appropriately. Patient's , Karthikeyan, at bedside. Care providers, pharmacy, and demographics verified. Admitting Diagnosis: generalized weakness Other diagnosis history: lupus, hypothyroidism, hyperlipidemia, CAD PCP: Chelsie Mejia Specialists: Emily, rheumatology. Isael, cardiology. Dr. Coleman, [place] in [place]. Preferred Pharmacy: [facility] Insurance: A[employer]na Medicare Prescription Benefit: yes Living Will/HPOA: yes and , Karthikeyan, intends to bring in. Primary is Karthikeyan, secondary is son Enrrique. LNOK: Karthikeyan and son Enrrique. Living Arrangements: lives with in a 2 story home. 1 step to enter from front; 10 steps from back. 13 steps inside to get to second floor where bedroom is; there is a bathroom on the first floor should patient need to sleep downstairs at all. Independent at baseline and very active, per patient. Transportation: patient drives DME: none HHC: none SNF/Rehab: none Community Resources: none Patient goals: Patient wishes to discharge home, denies need for home health care at this time. Patient denies any further needs or concerns at this time. Disposition Plan: admission to acute; RN CM/SW to follow for discharge planning needs that may arise. Misa Pantoja, OB/GYN, [facility]
[2024-11-01 17:25] LABS: Troponin T High Sens 2 HR 8 ng/L (<=14)
[2024-11-01 17:55] LABS: CRP 72.80 mg/L (0.0-3.0)
[2024-11-01 19:19] LABS: Troponin T High Sens 4 HR 11 ng/L (<=14)
[2024-11-01 20:01] LABS: CPK Total, Creatine Kinase 37 U/L (24-195)
[2024-11-02 02:00] VITALS: BP 125/64; PULSE 79; RESP 16; TEMP 36.8; O2SAT 98
[2024-11-02 07:19] LABS: Hematocrit 40.0 % (37-47); Hemoglobin 13.2 g/dL (12.0-15.0); Mean Corp Hgb Conc 33.0 g/dL (32-36); Mean Corpuscular Volume 88.9 fL (81-99); Mean Platelet Vol. 10.2 fl (6.2-12.0); Platelet Count 255 K/mm3 (150-450); RBC Distribution Width CV 12.7 % (11.6-14.6); RBC Distribution Width SD 41.6 fl (35.1-43.9); Red Blood Count 4.50 M/mm3 (4.2-5.4); White Blood Count 7.8 K/mm3 (4.4-11.0)
[2024-11-02 08:09] LABS: Anion Gap 11 (5-15); BUN 8 mg/dL (4-19); BUN/Creat Ratio 11.9 RATIO (10-20); Calcium,Total 9.3 mg/dL (7.6-11.0); Carbon Dioxide 23.1 mmol/L (21.0-32.0); Chloride 102 mmol/L (98-108); Estimated Creatinine Clearance 49.49 ml/min (50-250); Glucose 142 mg/dL (70-99); Potassium 4.5 mmol/L (3.3-5.1)
[2024-11-02 08:30] VITALS: BP 114/61; PULSE 66; RESP 18; TEMP 36.6; O2SAT 99
--- NOTE | 2024-11-02 08:35 | MRI_ITS ---
PROCEDURE: SPINE LUMBAR W/WO CONTRAST 11/02/2024 REASON FOR EXAM: WEAKNESS, unable to walk, [id number], concern for infection. TECHNIQUE: SPINE LUMBAR W/WO CONTRAST Multiplanar and multisequence images were obtained without and with intravenous gadolinium-based contrast administration. CONTRAST: Clariscan VOLUME: 10 mL COMPARISON: None. FINDINGS: Vertebrae: No acute fracture. Unremarkable bone marrow. Minimal multilevel chronic vertebral body height loss. No significant vertebral body height loss. Alignment: Normal. No degenerative or traumatic listhesis. Conus Medullaris: Normally positioned, terminating at the L1 vertebral body. L1-2: Mild circumferential disk bulge, resulting in minimal central canal narrowing. No significant neural foraminal stenosis. L2-3: Mild disc bulging, asymmetric to the left, resulting in minimal central canal narrowing. Mild left neural foraminal stenosis. No significant right neural foraminal stenosis. L3-4: Mild circumferential disk bulge, resulting in minimal central canal narrowing. No significant neural foraminal stenosis. L4-5: Mild circumferential disk bulge, resulting in minimal central canal narrowing. No significant neural foraminal stenosis. L5-S1: Mild circumferential disk bulge, resulting in minimal central canal narrowing. No significant neural foraminal stenosis. Sacrum: Visualized upper sacrum and SI joints are unremarkable. Postcontrast images: No suspicious enhancing lesion on post-contrast imaging. MRI/Spine Lumbar W/WO Contrast IMPRESSION: MILD DEGENERATIVE CHANGES WITHOUT EVIDENCE OF SIGNIFICANT CENTRAL CANAL STENOSI S OR NERVE ROOT IMPINGEMENT. Reading Location: [id number]
--- NOTE | 2024-11-02 08:35 | MRI_ITS ---
PROCEDURE: SPINE LUMBAR W/WO CONTRAST 11/02/2024 REASON FOR EXAM: WEAKNESS, unable to walk, [id number], concern for infection. TECHNIQUE: SPINE LUMBAR W/WO CONTRAST Multiplanar and multisequence images were obtained without and with intravenous gadolinium-based contrast administration. CONTRAST: Clariscan VOLUME: 10 mL COMPARISON: None. FINDINGS: Vertebrae: No acute fracture. Unremarkable bone marrow. Minimal multilevel chronic vertebral body height loss. No significant vertebral body height loss. Alignment: Normal. No degenerative or traumatic listhesis. Conus Medullaris: Normally positioned, terminating at the L1 vertebral body. L1-2: Mild circumferential disk bulge, resulting in minimal central canal narrowing. No significant neural foraminal stenosis. L2-3: Mild disc bulging, asymmetric to the left, resulting in minimal central canal narrowing. Mild left neural foraminal stenosis. No significant right neural foraminal stenosis. L3-4: Mild circumferential disk bulge, resulting in minimal central canal narrowing. No significant neural foraminal stenosis. L4-5: Mild circumferential disk bulge, resulting in minimal central canal narrowing. No significant neural foraminal stenosis. L5-S1: Mild circumferential disk bulge, resulting in minimal central canal narrowing. No significant neural foraminal stenosis. Sacrum: Visualized upper sacrum and SI joints are unremarkable. Postcontrast images: No suspicious enhancing lesion on post-contrast imaging. MRI/Spine Lumbar W/WO Contrast IMPRESSION: MILD DEGENERATIVE CHANGES WITHOUT EVIDENCE OF SIGNIFICANT CENTRAL CANAL STENOSI S OR NERVE ROOT IMPINGEMENT. Reading Location: [id number]
[2024-11-02] MEDS: Aspirin E.C. 81 MG Tablet PO (09:15)
[2024-11-02] MEDS: Calcium Carb/Vitamin D 1 TABLET Tablet PO (09:16)
[2024-11-02] MEDS: Cholecalciferol (VIT D3) 25 MCG TABLET (1,000 UNITS) 50 MCG PO (09:16)
--- NOTE | 2024-11-02 12:52 | NURSING ---
has gone and returned from MRI
--- NOTE | 2024-11-02 12:52 | NURSING ---
has gone and returned from MRI
[2024-11-02 13:50] VITALS: O2SAT 99
--- NOTE | 2024-11-02 13:58 | CASEMGMT ---
Social Work SW reviewed therapy notes, no therapy is recommended. SW spoke w/pt and in room, they do not anticipate any homegoing needs. SW/CM remains available should any needs arise. NELI Sweeney
--- NOTE | 2024-11-02 15:52 | PCM.PN.HOSP ---
Reason for Visit Chief Complaint: Bilateral lower extremity weakness and inability to ambulate Objective Data Objective Data Vital Signs: Vital Signs Temp Pulse Resp BP Pulse Ox O2 Del Method 97.8 F 66 18 114/61 99 Room Air 11/02/24 08:30 11/02/24 08:30 11/02/24 08:30 11/02/24 08:30 11/02/24 13:50 11/02/24 13:50 Oxygen Delivery Method Room Air Weight: 56.9 kg Body Mass Index (BMI) 22.2 Intake & Output: Intake and Output for Last 24 Hours 10/31/24 11/01/24 11/02/24 23:59 23:59 23:59 Intake Total 1999 500 / 500 Balance 1999 500 / 500 Lab / Micro Data 11/02/24 06:54 11/02/24 06:54 Labs: Laboratory Results - last 24 hr 11/01/24 13:32: ESR 31 H 11/01/24 16:37: Troponin T Hi Sens 2 Hr 8, C-React Prot Ext Range 72.80 H 11/01/24 18:37: Total Creatine Kinase 37, Troponin T Hi Sens 4Hr 11 11/02/24 06:54: WBC 7.8, RBC 4.50, Hgb 13.2, Hct 40.0, MCV 88.9, MCH 29.3, MCHC 33.0, RDW Std Deviation 41.6, RDW Coeff of Chas 12.7, Plt Count 255, MPV 10.2, Sodium 136, Potassium 4.5, Chloride 102, Carbon Dioxide 23.1, Anion Gap 11, BUN 8, Creatinine 0.67 L, Estim Creat Clear Calc 49.49 L, Est GFR (MDRD) Non-Af 90, BUN/Creatinine Ratio 11.9, Glucose 142 H, Calcium 9.3 Radiography Diagnostic Testing: Radiology Impression Lumbar Spine MRI 11/02/24 08:35 IMPRESSION: MILD DEGENERATIVE CHANGES WITHOUT EVIDENCE OF SIGNIFICANT CENTRAL CANAL STENOSIS OR NERVE ROOT IMPINGEMENT. Reading Location: [id number]
[2024-11-02 16:46] VITALS: BP 150/74; PULSE 62; RESP 18; TEMP 36.7; O2SAT 99
--- NOTE | 2024-11-02 16:52 | PCM.DC.SUM ---
Providers Date of Admission: 11/01/24 Primary Care Physician: Dr. Chelsie Mejia MD Reason For Visit: LOWER EXTREMITY WEAKNESS W/INABILITY Diagnosis Discharge Diagnosis (1) Generalized weakness: Status: Acute Code(s): R53.1 - Weakness Medications at Discharge Home Medications calcium 500 mg (as carbonate)-vitamin D3 5 mcg (200 unit) tablet (Calcium 500 + D) 1 tab PO DAILY 10/03/18 hydroxychloroquine 200 mg tablet (Plaquenil) 200 mg PO DAILY 10/03/18 multivitamin 1 tab PO DAILY 10/03/18 valacyclovir 500 mg tablet (Valtrex) 500 mg PO DAILY PRN itching 10/03/18 cholecalciferol (vitamin D3) 50 mcg (2,000 unit) capsule 50 mcg PO DAILY 10/17/23 rosuvastatin 40 mg tablet 40 mg PO DAILY Control Cholesterol #90 tabs 07/31/24 aspirin 81 mg tablet,delayed release (Adult Aspirin Regimen) 81 mg PO QDAY 10/29/24 levothyroxine 75 mcg tablet 75 mcg PO DAILY #90 tabs 10/29/24 methylprednisolone 4 mg tablets in a dose pack (Medrol (Donovan)) See Rx Instructions PO .COMPLEX #21 tabs 11/02/24 Hospital Course Operations None Procedures - (Hip and pelvic x-rays/MRI lumbar spine) Summary of Care Provided Minutes Spent on Discharge: 25 Hospital Course: Patient is a 74-year-old white female who presented to the emergency department [facility] on 11/01/2024 with a chief complaint of lower extremity weakness and pain and inability ambulate. Patient has a history of lupus and is on DMARDs at baseline and follows with Dr. Donnelly from [facility]. She and her were recently on a cruise in [place] and they returned about a week ago. Shortly after returning home she developed an upper respiratory infection for which she was treated with a Z-Donovan. 2 days prior to presentation she began to have bilateral lower extremity weakness especially in her right leg. She stated it was so weak she was unable to get a bed and she had pain in the groin area that radiated down to her leg. It has gone down as far as her calf area and sounds very radicular in nature but she has had no back pain. Given her weakness and inability get out of bed independently she came in for further evaluation. Vital signs on presentation showed a temperature of 98.4, heart rate 75, respiratory was 18, blood pressure is 148/83, and pulse ox was 100% on room air. Her CBC was completely unremarkable. She did have a mild monocytosis with lymphopenia on her differential. Coags were normal. Chemistry panel was unremarkable. AST was slightly high at 35 but ALT was normal. CK was normal. Cardiac enzymes were normal. ESR was slightly elevated at 31 however when corrected for age her ESR would technically not be elevated. Her CRP was elevated at 72.8. I am not sure what to make of this in light of her lupus history. X-rays of her hip and pelvis showed mild osteoarthritic changes but nothing acutely abnormal. Since she was not able to ambulate despite her overall underwhelming workup she was admitted. She was placed on steroids there was initial concern about PMR however I do not feel that this is likely that. Day 1 after her admission we did obtain an MRI of her lumbar spine to rule out any pathology there that could acutely be causing her leg pain and this demonstrated only mild chronic degenerative changes without significant central canal stenosis or nerve root impingement and likely not the etiology of this. She was placed on steroids as noted and I did a one of her hospitalization had gotten significantly better. She was able to get in and out of bed independently and had no significant mobility issues. She does have follow-up with her guest services lead on Monday. We will discharge her on a Medrol Dosepak and have encouraged close follow-up with her guest services lead. She already has an appointment scheduled for him on Monday that she canceled but she states that it should easily be read established. Prescription for Medrol Dosepak was sent to her local pharmacy and she was discharged home in stable condition. I have asked her to follow-up with her primary care physician as needed. Discharge diagnoses: Right leg pain-improved Lower extremity weakness-resolving Recent upper respiratory infection Elevated CRP History of cutaneous lupus History of CAD Essential hypertension Per lipidemia Hypothyroidism Physical Exam Const alert, oriented x3, no apparent distress, average body habitus, no limitations and well nourished Constitutional Narrative: Older, white female, sitting up in bed, appears younger than stated age, appears comfortable, nontoxic General Appearance: cooperative, comfortable, well kempt and well developed Exam Limitations: no limitations HEENT normocephalic, head/scalp atraumatic, hearing grossly normal bilaterally and moist oral mucous membranes HEENT Narrative: Mallampati 2, no thrush Eyes Eyes Narrative: No scleral icterus Neck no lymphadenopathy and supple Neck Narrative: Trachea midline Resp normal respiratory effort, no retractions, no use of accessory muscles and clear to auscultation bilaterally Auscultation: Negative for rales, rhonchi or wheezes Cardio regular rate, regular rhythm, S1 normal heart sound, S2 normal heart sound, no murmurs, no rub, no gallops and no clicks GI normal to inspection, nondistended, normoactive bowel sounds, soft to palpation and non-tender Extremity no clubbing, cyanosis or edema Extremity Narrative: Bilateral lower extremity strength at hip flexors was 4 on the right and 5 on the left, mild pain in groin with brake testing of the lower extremity at the hip no significant tenderness at the hip joints bilaterally however Skin no jaundice, no petechiae and no mottling Neuro oriented x3 and moves all extremities Speech: speech normal Psych affect normal Psych Narrative: Very pleasant, interacts appropriately Weight / BMI Weight Weight: 56.9 kg Body Mass Index (BMI) 22.2 ABG / Lab / Microbiology Data 11/02/24 06:54 11/02/24 06:54 Laboratory: Laboratory Results - last 24 hr 11/01/24 13:32: ESR 31 H 11/01/24 16:37: Troponin T Hi Sens 2 Hr 8, C-React Prot Ext Range 72.80 H 11/01/24 18:37: Total Creatine Kinase 37, Troponin T Hi Sens 4Hr 11 11/02/24 06:54: WBC 7.8, RBC 4.50, Hgb 13.2, Hct 40.0, MCV 88.9, MCH 29.3, MCHC 33.0, RDW Std Deviation 41.6, RDW Coeff of Chas 12.7, Plt Count 255, MPV 10.2, Sodium 136, Potassium 4.5, Chloride 102, Carbon Dioxide 23.1, Anion Gap 11, BUN 8, Creatinine 0.67 L, Estim Creat Clear Calc 49.49 L, Est GFR (MDRD) Non-Af 90, BUN/Creatinine Ratio 11.9, Glucose 142 H, Calcium 9.3 Radiography Diagnostic Testing: Radiology Impression Lumbar Spine MRI 11/02/24 08:35 IMPRESSION: MILD DEGENERATIVE CHANGES WITHOUT EVIDENCE OF SIGNIFICANT CENTRAL CANAL STENOSIS OR NERVE ROOT IMPINGEMENT. Reading Location: [id number] D/C Instructions Discharge Activity: Return to Normal Activity DC O2, CPAP, BIPAP Needs Home O2 Discharge instructions: No DC home with Oxygen: No Meaningful Use Info Meaningful Use Meaningful Use Diagnoses (Choose all that apply): None applicable Discharge Plan Admission Admit Date/Time: 11/01/24 16:38 Primary Reason for Your Visit: Inability to walk Attending Provider: Laura Camacho Primary Care Provider: Chelsie Mejia Consulting Providers: Augustine Lara Instructions Additional Instructions / Restrictions: 1. Please follow-up with your primary guest services lead on Monday as previously scheduled if able Discharge Orders/Prescriptions Prescriptions: New methylprednisolone [Medrol (Donovan)] 4 mg tablets,dose pack See Rx Instructions .ROUTE .COMPLEX Qty: 21 0RF Rx Instructions: for 6 days Continued hydroxychloroquine [Plaquenil] 200 mg tablet 200 mg PO DAILY valacyclovir [Valtrex] 500 mg tablet 500 mg PO DAILY PRN (Reason: itching) calcium carbonate-vitamin D3 [Calcium 500 + D] 500 mg(1,250mg) -200 unit tablet 1 tab PO DAILY multivitamin Tablet 1 tab PO DAILY cholecalciferol (vitamin D3) 50 mcg (2,000 unit) capsule 50 mcg PO DAILY aspirin [Adult Aspirin Regimen] 81 mg tablet,delayed release (DR/EC) 81 mg PO QDAY rosuvastatin 40 mg tablet 40 mg PO DAILY Qty: 90 3RF levothyroxine 75 mcg tablet 75 mcg PO DAILY Qty: 90 1RF Referrals / Follow Up: Chelsie Mejia MD [Primary Care Provider] - See Referral Note (As needed) Disposition Disposition (needs filled in before D/C Order can be placed): Home, Self Care Charges/Coding Visit Charges Inpatient E&M: 84459 Disch Hosp
--- NOTE | 2024-11-02 17:15 | CASEMGMT ---
ANJEL KHAN NOTE: Intro role of CM to patient and SEPULVEDA form explained re: Observation status for treatment of lower extremity weakness with inability to ambulate.? Explained hospitalization will be paid per?her insurance policy for Outpatient billing?and condition will continue to be evaluated for Inpt necessity. Also let pt know that [facility] sends paper in the billing packet with their phone number if questions arise. Pt verbalizes understanding and does not have further questions. ?Form signed, copy made and placed in chart, and original given to pt. Michelle VALLADARES RN CM
--- NOTE | 2024-11-02 19:06 | NURSING ---
lab called w/#1/4 + blood cultures-Dr gomez notified by test, she acknowledged and said she will follow
--- NOTE | 2024-11-02 19:06 | NURSING ---
lab called w/#1/4 + blood cultures-Dr gomez notified by test, she acknowledged and said she will follow
== END 2024-11-02 17:25 | disposition home or self-care (01) ==
LOC: ED 16:48 → MS3 17:35
PROVIDERS: Admitting Provider Hospitalist; Emergency Provider Emergency Medicine; PCP Internal Medicine; Visit Provider Internal Medicine
DX: R29.898 Other symptoms and signs involving the musculoskeletal system (principal); L93.2 Other local lupus erythematosus; J06.9 Acute upper respiratory infection, unspecified; Z87.891 Personal history of nicotine dependence; M79.604 Pain in right leg; E78.5 Hyperlipidemia, unspecified; I10 Essential (primary) hypertension; R53.1 Weakness; E03.9 Hypothyroidism, unspecified; I25.10 Atherosclerotic heart disease of native coronary artery without angina pectoris; D72.810 Lymphocytopenia; Z79.899 Other long term (current) drug therapy; Z79.890 Hormone replacement therapy; Z79.82 Long term (current) use of aspirin
CPT/HCPCS: 36415; 70450; 71046; 72158; 73502; 80048; 80053; 81001; 82550; 83605; 84439; 84443; 84481; 84484; 85025; 85027; 85610; 85652; 85730; 86140; 87040; 87077; 87086; 87088; 87149; 87186; 93005; 94668; 96360; 96361; 96372; 97161; 97165; 99221; 99285; A9575; A4216; G0378

== ENCOUNTER → 2024-12-30 | Outpatient (CLI) | payer MEDICARE, SELFPAY ==
[2022-12-09 08:55] VITALS: BMI 21.5
--- NOTE | 2024-12-30 16:00 | BI_ITS ---
EXAM: SCRN MAMM (CAD)W/MAXIM BILAT DATE: 12/30/2024 CLINICAL HISTORY: F, Age 74 y/o , SCREENING Implants TECHNIQUE: Procedure Code: BISMWCADBTOM Modality: MG Procedure: SCRN MAMM (CAD)W/MAXIM BILAT COMPARISON: Prior exam(s) dated 12/20/2023. FINDINGS: TISSUE DENSITY: There are scattered areas of fibroglandular density. Bilateral Breast Mammographic Findings: No significant masses, calcifications or other abnormalities are identified. Implants are intact, and show stable peripheral calcifications. Overall, no interval change BI/SCRN MAMM (CAD)W/MAXIM BILAT IMPRESSION: Stable screening mammogram, no suspicious findings OVERALL FINAL ASSESSMENT BI-RADS 2: BENIGN RECOMMENDATION: Routine annual follow-up in 1 Year Additional Recommendation none A letter with findings and recommendations will be mailed to the patient. Reading Location: [id number]
--- NOTE | 2024-12-30 16:00 | BI_ITS ---
EXAM: SCRN MAMM (CAD)W/MAXIM BILAT DATE: 12/30/2024 CLINICAL HISTORY: F, Age 74 y/o , SCREENING Implants TECHNIQUE: Procedure Code: BISMWCADBTOM Modality: MG Procedure: SCRN MAMM (CAD)W/MAXIM BILAT COMPARISON: Prior exam(s) dated 12/20/2023. FINDINGS: TISSUE DENSITY: There are scattered areas of fibroglandular density. Bilateral Breast Mammographic Findings: No significant masses, calcifications or other abnormalities are identified. Implants are intact, and show stable peripheral calcifications. Overall, no interval change BI/SCRN MAMM (CAD)W/MAXIM BILAT IMPRESSION: Stable screening mammogram, no suspicious findings OVERALL FINAL ASSESSMENT BI-RADS 2: BENIGN RECOMMENDATION: Routine annual follow-up in 1 Year Additional Recommendation none A letter with findings and recommendations will be mailed to the patient. Reading Location: [id number]
== END | disposition home or self-care (01) ==
LOC: OPBI 15:57
PROVIDERS: PCP Internal Medicine; Referring Provider Internal Medicine; Visit Provider Internal Medicine
DX: Z12.31 Encounter for screening mammogram for malignant neoplasm of breast (principal)
CPT/HCPCS: 77063; 77067